=== PATIENT | female | born 1950 | race Caucasian/White ===

== ENCOUNTER 2019-08-26 09:42 | Outpatient (CLI) | payer MEDICARE, SELFPAY ==
[2019-08-26 09:57] LABS: Basophils Percent Auto 0.8 % (0.2-1.2); Eosinophils Absolute Auto 0.1 K/mm3 (0-0.3); Eosinophils Percent Auto 1.9 % (0-4.4); Hematocrit 35.6 % (37.0-47.0); Hemoglobin 11.7 g/dL (12.0-15.0); Immature Granulocyte Absolute 0.02 K/mm3 (0.00-0.031); Immature Granulocyte Percent A 0.4 % (0-0.5); Lymphocytes Absolute Auto 0.73 K/mm3 (0.9-3.2); Lymphocytes Percent Auto 13.8 % (18.3-44.2); Mean Corpuscular HGB Conc 32.9 g/dl (32-36); Mean Corpuscular Hemoglobin 30.8 pg (26-34); Mean Corpuscular Volume 93.7 fl (80-100); Mean Platelet Volume 10.7 fl (7.4-10.4); Monocytes Absolute Auto 0.4 K/mm3 (0.1-0.6); Monocytes Percent Auto 6.8 % (2.6-8.5); Neutrophils Percent Auto 76.3 % (45.5-73.1); Platelet Count Result 186 k/mm3 (150-375); Red Cell Distribution Width 12.9 % (11.5-14.5); White Blood Count 5.3 K/mm3 (4.5-10.0)
[2019-08-26 10:11] LABS: CRP < 0.5 mg/dL (<1.0)
[2019-08-26 10:33] LABS: Erythrocyte Sedimentation Rate 118 mm/hr (0-20)
== END 2019-08-26 09:43 | disposition home or self-care (01) ==
PROVIDERS: PCP Internal Medicine; Visit Provider Internal Medicine
DX: R69 Illness, unspecified (principal); Z79.899 Other long term (current) drug therapy
CPT/HCPCS: 36415; 85025; 85652; 86140

== ENCOUNTER 2019-08-28 14:24 | Outpatient (CLI) | payer MEDICARE, SELFPAY ==
[2019-08-28 15:01] LABS: Erythrocyte Sedimentation Rate 63 mm/hr (0-20)
== END 2019-08-28 14:25 | disposition home or self-care (01) ==
PROVIDERS: PCP Internal Medicine; Visit Provider Internal Medicine
DX: M31.6 Other giant cell arteritis (principal)
CPT/HCPCS: 36415; 85652

== ENCOUNTER 2019-09-13 06:51 | Outpatient (CLI) | payer MEDICARE, SELFPAY ==
[2019-09-13 07:23] LABS: Hematocrit 35.4 % (37.0-47.0); Hemoglobin 11.8 g/dL (12.0-15.0); Immature Granulocyte Absolute 0.04 K/mm3 (0.00-0.031); Immature Granulocyte Percent A 0.5 % (0-0.5); Lymphocytes Absolute Auto 0.85 K/mm3 (0.9-3.2); Lymphocytes Percent Auto 10.3 % (18.3-44.2); Mean Corpuscular HGB Conc 33.3 g/dl (32-36); Mean Corpuscular Hemoglobin 31.1 pg (26-34); Mean Corpuscular Volume 93.2 fl (80-100); Mean Platelet Volume 10.7 fl (7.4-10.4); Monocytes Absolute Auto 0.5 K/mm3 (0.1-0.6); Monocytes Percent Auto 6.4 % (2.6-8.5); Neutrophils Absolute Auto 6.9 K/mm3 (1.3-6.7); Neutrophils Percent Auto 82.8 % (45.5-73.1); Platelet Count Result 212 k/mm3 (150-375); Red Cell Distribution Width 13.1 % (11.5-14.5); White Blood Count 8.3 K/mm3 (4.5-10.0)
[2019-09-13 07:36] LABS: Blood Urea Nitrogen 26 mg/dL (7-17); Calcium 8.8 mg/dL (8.4-10.2); Carbon Dioxide 26 mmol/L (22-30); Chloride 101 mmol/L (98-107); Estimated Glomerular Filt Rate > 60; Glucose 103 mg/dL (65-105); Potassium 4.8 mmol/L (3.4-5.0); Sodium 133 mmol/L (137-145)
[2019-09-13 08:30] LABS: Erythrocyte Sedimentation Rate 24 mm/hr (0-20)
== END 2019-09-13 06:52 | disposition home or self-care (01) ==
LOC: ANHLAB 06:52
PROVIDERS: PCP Internal Medicine; Visit Provider Internal Medicine
DX: M31.6 Other giant cell arteritis (principal)
CPT/HCPCS: 36415; 80048; 85025; 85652

== ENCOUNTER 2019-10-05 06:39 | Outpatient (CLI) | payer MEDICARE, SELFPAY ==
[2019-10-05 07:29] LABS: Basophils Percent Auto 0.3 % (0.2-1.2); Eosinophils Percent Auto 0.5 % (0-4.4); Hematocrit 36.2 % (37.0-47.0); Hemoglobin 11.9 g/dL (12.0-15.0); Immature Granulocyte Absolute 0.07 K/mm3 (0.00-0.031); Immature Granulocyte Percent A 0.9 % (0-0.5); Lymphocytes Absolute Auto 2.51 K/mm3 (0.9-3.2); Lymphocytes Percent Auto 33.6 % (18.3-44.2); Mean Corpuscular HGB Conc 32.9 g/dl (32-36); Mean Corpuscular Hemoglobin 31.5 pg (26-34); Mean Corpuscular Volume 95.8 fl (80-100); Mean Platelet Volume 10.3 fl (7.4-10.4); Monocytes Absolute Auto 0.6 K/mm3 (0.1-0.6); Monocytes Percent Auto 8.3 % (2.6-8.5); Neutrophils Absolute Auto 4.2 K/mm3 (1.3-6.7); Neutrophils Percent Auto 56.4 % (45.5-73.1); Platelet Count Result 168 k/mm3 (150-375); Red Blood Count 3.78 M/mm3 (4.2-5.4); Red Cell Distribution Width 14.1 % (11.5-14.5); White Blood Count 7.5 K/mm3 (4.5-10.0)
[2019-10-05 07:39] LABS: Blood Urea Nitrogen 20 mg/dL (7-17); Calcium 8.9 mg/dL (8.4-10.2); Carbon Dioxide 31 mmol/L (22-30); Chloride 98 mmol/L (98-107); Cholesterol 181 mg/dL (0-200); Estimated Glomerular Filt Rate > 60; Glucose 84 mg/dL (65-105); HDL Direct 90 mg/dL; Potassium 4.2 mmol/L (3.4-5.0); Sodium 133 mmol/L (137-145); Triglycerides 131 mg/dL (<150)
[2019-10-05 07:42] LABS: CRP < 0.5 mg/dL (<1.0)
[2019-10-05 07:50] LABS: LDL Cholesterol Direct 76 mg/dL
[2019-10-05 09:18] LABS: Erythrocyte Sedimentation Rate 22 mm/hr (0-20)
[2019-10-05 09:33] LABS: Free T4 Free Thyroxine 1.21 ng/mL (0.78-2.19)
[2019-10-05 13:12] LABS: Hemoglobin A1C 6.1 % (<5.7)
== END 2019-10-05 06:40 | disposition home or self-care (01) ==
PROVIDERS: PCP Internal Medicine; Visit Provider Internal Medicine
DX: M31.6 Other giant cell arteritis (principal); I10 Essential (primary) hypertension; E03.9 Hypothyroidism, unspecified; E78.2 Mixed hyperlipidemia; R73.09 Other abnormal glucose; Z79.899 Other long term (current) drug therapy
CPT/HCPCS: 36415; 80048; 80061; 83036; 84439; 84443; 85025; 85652; 86140

== ENCOUNTER 2019-10-24 13:39 | Outpatient (CLI) | payer MEDICARE, SELFPAY ==
[2019-10-24 14:01] LABS: Basophils Percent Auto 0.4 % (0.2-1.2); Eosinophils Percent Auto 0.1 % (0-4.4); Hematocrit 32.9 % (37.0-47.0); Hemoglobin 10.9 g/dL (12.0-15.0); Immature Granulocyte Absolute 0.08 K/mm3 (0.00-0.031); Lymphocytes Absolute Auto 0.75 K/mm3 (0.9-3.2); Lymphocytes Percent Auto 9.1 % (18.3-44.2); Mean Corpuscular HGB Conc 33.1 g/dl (32-36); Mean Corpuscular Hemoglobin 32.2 pg (26-34); Mean Corpuscular Volume 97.1 fl (80-100); Mean Platelet Volume 10.3 fl (7.4-10.4); Monocytes Absolute Auto 0.5 K/mm3 (0.1-0.6); Monocytes Percent Auto 5.4 % (2.6-8.5); Platelet Count Result 232 k/mm3 (150-375); Red Blood Count 3.39 M/mm3 (4.2-5.4); Red Cell Distribution Width 14.7 % (11.5-14.5); White Blood Count 8.3 K/mm3 (4.5-10.0)
== END 2019-10-24 13:40 | disposition home or self-care (01) ==
LOC: ANHLAB 13:42
PROVIDERS: PCP Internal Medicine; Visit Provider Internal Medicine
DX: M25.559 Pain in unspecified hip (principal); T14.8XXA Other injury of unspecified body region, initial encounter
CPT/HCPCS: 36415; 85025

== ENCOUNTER 2019-10-25 11:10 | Outpatient (CLI) | payer MEDICARE, SELFPAY ==
--- NOTE | ~2019-10-25 | XR_ITS ---
XR hip LT min 2V DATE: 10/25/2019 13:06 INDICATION: Left hip pain TECHNIQUE: AP and lateral views of left hip COMPARISON: None FINDINGS: Moderate osteopenia. No fracture or dislocation, avascular necrosis or bone destruction of the left hip is evident. Alignment appears intact at the pubic symphysis and sacroiliac joints. Left hip joint space appears well preserved. IMPRESSION: No fracture or dislocation of the left hip is detected Reviewed, dictated and finalized at location A.
--- NOTE | ~2019-10-25 | MR_ITS ---
EXAMINATION: MR hip LT wo/w con DATE: 10/25/2019 13:02 INDICATION: Left hip pain. TECHNIQUE: Magnetic resonance imaging (MRI) of the left hip was performed without and with 20 mL Mult iHance intravenous contrast. Sequences included axial and coronal PD-weighted FS FSE, coronal T2-weig hted FSE, and axial T1-weighted FSE of the pelvis. Sequences of the hip included 2D FIESTA, T2-weight ed FSE, T1-weighted fast GRE, and axial, coronal, and sagittal PD-weighted FS FSE. Postcontrast seque nces included axial and coronal T1-weighted FS FSE. COMPARISON: Left hip radiographs 10/25/2019 FINDINGS: Bones/cartilage: There is 4 degrees levocurvature of lumbar spine. There is moderate lumbar spondylosis. No fracture. Left hip demonstrates partial thickness cartilage loss. Labrum: There is a tear of left acetabular labrum anterolaterally. Fluid: There is no hip joint effusion. There is mild right and moderate left trochanteric bursitis. Soft tissues: The iliopsoas tendons and hamstring origins are normal. There is mild right gluteus medius and gluteu s minimus tendinopathy. There is mild left gluteus minimus and gluteus medius tendinopathy. Left glut eus medius muscle and left inferior gemellus muscle demonstrate edema and hematoma, consistent with g rade 2 strains. There is edema of left piriformis muscle, consistent with grade 1 strain. There are uterine fibroids measuring up to 1.9 cm. There is diverticulosis of the colon without evidence of div erticulitis. IMPRESSION: 1. Grade 2 strains of left gluteus medius muscle and left inferior gemellus muscle. Grade 1 strain of left piriformis muscle. Reviewed, dictated and finalized at location A. IMPRESSION: 1. Grade 2 strains of left gluteus medius muscle and left inferior gemellus mus alba. Grade 1 strain of left piriformis muscle.
== END 2019-10-25 11:11 | disposition home or self-care (01) ==
PROVIDERS: PCP Internal Medicine; Visit Provider Internal Medicine
DX: M25.552 Pain in left hip (principal); M85.80 Other specified disorders of bone density and structure, unspecified site; Z79.01 Long term (current) use of anticoagulants; S76.012A Strain of muscle, fascia and tendon of left hip, initial encounter; Y93.89 Activity, other specified
CPT/HCPCS: 73502; 73723; A9577

== ENCOUNTER 2019-12-24 01:16 | Outpatient (CLI) | payer MEDICARE, SELFPAY ==
[2019-12-24 19:35] LABS: SARS-CoV-2 RNA PCR Negative
== END 2019-12-24 01:17 | disposition home or self-care (01) ==
LOC: ANHCOVIDDT 01:16
PROVIDERS: PCP Internal Medicine; Visit Provider Internal Medicine Gastroenterology
DX: Z01.812 Encounter for preprocedural laboratory examination (principal); Z11.59 Encounter for screening for other viral diseases
CPT/HCPCS: 87635; C9803; U0003

== ENCOUNTER 2019-12-26 01:31 | Day surgery (SDC) | payer MEDICARE, SELFPAY ==
[2019-12-19 15:18] VITALS: BMI 44.4
[2019-12-26 06:53] VITALS: BP 167/83; PULSE 66; RESP 18; TEMP 36.1; O2SAT 99; BMI 43.5
[2019-12-26] MEDS: LACTATED RINGERS 1,000 ML 150 ML IV CONT (07:07)
--- NOTE | 2019-12-26 07:12 | PM.HPGS ---
History of Present Illness History of Present Illness Consent: Risks, benefits, and alternatives have been discussed and questions answered. Patient agrees to proceed with procedure. Chief complaint: neoplasm screening Narrative: Eileen Maza is a 69 year old W female referred for screening colonoscopy secondary history of colonic polyps. Patient's last colonoscopy was 5 years ago. Patient is asymptomatic except for occasional bleeding from her hemorrhoids. Patient has a history of atrial fibrillation is on Eliquis and stop this 3 days ago. [facility] Past Medical History Medical History A-fib Aphthous ulcer of mouth ASHD (arteriosclerotic heart disease) Benign essential hypertension Body mass index (BMI) 40.0-44.9, adult Brain lipoma Bruise Chronic anticoagulation Elevated glucose Encounter for routine adult health examination without abnormal findings Encounter for screening mammogram for malignant neoplasm of breast GERD (gastroesophageal reflux disease) Hyperlipidemia Hypothyroidism (acquired) Impaired functional mobility, balance, gait, and endurance Iron deficiency anemia MRSA carrier Non-healing skin lesion 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 ALEXIS on CPAP Parotiditis Temporal arteritis Venous insufficiency Vitamin D deficiency Surgical History Surgical History History of section x 2 History of cholecystectomy Family History Family History Mother Family history of blood dyscrasia Patient's mother is Family history of arthritis Family history of malignant neoplasm Father Family history of emphysema Patient's father is Family history of cardiovascular disease Sibling Family history of seizure disorder Social History Social History Smoking status: Never smoker Second hand tobacco smoke exposure: No Alcohol intake: current Meds Home Medications and Allergies Home Medications Medication Instructions Recorded Confirmed Type coenzyme Q10 100 mg capsule 100 mg PO DAILY 06/03/19 12/19/19 History ferrous sulfate 325 mg (65 mg 325 mg PO DAILY 06/03/19 12/26/19 History iron) tablet flecainide 50 mg tablet 100 mg PO Q12H 06/03/19 12/19/19 History lorazepam 1 mg tablet 1 mg PO PRN PRN 06/03/19 12/19/19 History magnesium oxide 400 mg PO BID 06/03/19 12/19/19 History mecobalamin (vitamin B12) 1,000 1,000 mcg SUBLINGUAL DAILY 06/03/19 12/19/19 History mcg disintegrating tablet,sublingual rosuvastatin 40 mg tablet 40 mg PO DAILY #90 tablet 07/02/19 12/19/19 Rx folic acid 800 mcg tablet 0.8 mg PO DAILY 07/09/19 12/19/19 History levothyroxine 175 mcg tablet 175 mcg .ROUTE .COMPLEX #45 tablet 07/23/19 12/19/19 Rx losartan 100 1 tablet PO DAILY #90 tablet 08/05/19 12/19/19 Rx mg-hydrochlorothiazide 12.5 mg tablet atenolol 50 mg tablet 50 mg PO .COMPLEX #90 tablet 09/23/19 12/19/19 Rx apixaban 5 mg tablet 5 mg PO BID #180 tablet 10/30/19 12/19/19 Rx hydrochlorothiazide 12.5 mg tablet 12.5 mg PO DAILY #90 tablet 11/01/19 12/19/19 Rx levothyroxine 200 mcg tablet 200 mcg .ROUTE .COMPLEX #45 tablet 11/28/19 12/19/19 Rx hydrocodone 5 mg-acetaminophen 325 1 tablet PO Q8H PRN #35 tablet 12/09/19 12/19/19 Rx mg tablet cholecalciferol (vitamin D3) 50 mcg PO BID 12/19/19 12/19/19 History [Vitamin D3] prednisone 5 mg PO DAILY 12/19/19 12/19/19 History Allergies Allergy/AdvReac Type Severity Reaction Status Date / Time meperidine AdvReac Unknown Nausea Verified 12/26/19 06:51 Vital Signs Vital Signs - 24 hr 12/26/19 06:53 Temperature 36.1 C L Pulse Rate 66 Respiratory Rate 18 Blood Pressure 167/83 H Pulse Oximetry 99 Exam Const: Orientation/consciousness: patient oriented x3 Resp: Auscultation: clear to auscultation bi
--- NOTE | 2019-12-26 07:26 | WPDANESEPPF ---
Anes - Initial Pre Proc Eval Procedure: Operation Date: 12/26/19 08:00 Proposed Procedures p Screening Colonoscopy - Carlos Lawrence MD Date/Time: 12/26/19 07:26 Surgeon: Carlos Lawrence MD Pre Op Diagnosis: neoplasm screening Patient Data Age: 69 Gender: F Height: 5 ft 6 in Weight: 122.5 kg Last Vital Signs Temp 97 F L 12/26/19 06:53 Pulse 66 12/26/19 06:53 Resp 18 12/26/19 06:53 BP 167/83 H 12/26/19 06:53 Pulse Ox 99 12/26/19 06:53 Allergies Allergy/AdvReac Type Severity Reaction Status Date / Time meperidine AdvReac Unknown Nausea Verified 12/26/19 06:51 Home Medications Medication Instructions Recorded Confirmed Type coenzyme Q10 100 mg capsule 100 mg PO DAILY 06/03/19 12/19/19 History ferrous sulfate 325 mg (65 mg 325 mg PO DAILY 06/03/19 12/26/19 History iron) tablet flecainide 50 mg tablet 100 mg PO Q12H 06/03/19 12/19/19 History lorazepam 1 mg tablet 1 mg PO PRN PRN 06/03/19 12/19/19 History magnesium oxide 400 mg PO BID 06/03/19 12/19/19 History mecobalamin (vitamin B12) 1,000 1,000 mcg SUBLINGUAL DAILY 06/03/19 12/19/19 History mcg disintegrating tablet,sublingual rosuvastatin 40 mg tablet 40 mg PO DAILY #90 tablet 07/02/19 12/19/19 Rx folic acid 800 mcg tablet 0.8 mg PO DAILY 07/09/19 12/19/19 History levothyroxine 175 mcg tablet 175 mcg .ROUTE .COMPLEX #45 tablet 07/23/19 12/19/19 Rx losartan 100 1 tablet PO DAILY #90 tablet 08/05/19 12/19/19 Rx mg-hydrochlorothiazide 12.5 mg tablet atenolol 50 mg tablet 50 mg PO .COMPLEX #90 tablet 09/23/19 12/19/19 Rx apixaban 5 mg tablet 5 mg PO BID #180 tablet 10/30/19 12/19/19 Rx hydrochlorothiazide 12.5 mg tablet 12.5 mg PO DAILY #90 tablet 11/01/19 12/19/19 Rx levothyroxine 200 mcg tablet 200 mcg .ROUTE .COMPLEX #45 tablet 11/28/19 12/19/19 Rx hydrocodone 5 mg-acetaminophen 325 1 tablet PO Q8H PRN #35 tablet 12/09/19 12/19/19 Rx mg tablet cholecalciferol (vitamin D3) 50 mcg PO BID 12/19/19 12/19/19 History [Vitamin D3] prednisone 5 mg PO DAILY 12/19/19 12/19/19 History Patient hx anesthesia problems: none Family hx anesthesia problems: none PMFSH Past Medical History Medical History A-fib Aphthous ulcer of mouth ASHD (arteriosclerotic heart disease) Benign essential hypertension Body mass index (BMI) 40.0-44.9, adult Brain lipoma Bruise Chronic anticoagulation Elevated glucose Encounter for routine adult health examination without abnormal findings Encounter for screening mammogram for malignant neoplasm of breast GERD (gastroesophageal reflux disease) Hyperlipidemia Hypothyroidism (acquired) Impaired functional mobility, balance, gait, and endurance Iron deficiency anemia MRSA carrier Non-healing skin lesion 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 ALEXIS on CPAP Parotiditis Temporal arteritis Venous insufficiency Vitamin D deficiency Surgical History Surgical History History of section x 2 History of cholecystectomy Family History Family History Mother Family history of blood dyscrasia Patient's mother is Family history of arthritis Family history of malignant neoplasm Father Family history of emphysema Patient's father is Family history of cardiovascular disease Sibling Family history of seizure disorder Social History Social History Smoking status: Never smoker Second hand tobacco smoke exposure: No Alcohol intake: current Anes - Eval Final PreProcedure Day of Procedure 12/26/19 07:26 Patient weight: morbidly obese Heart: regular rate and rhythm Lungs: clear to auscultation Airway: Mallampati scale class III Neurological: alert and oriented Last oral intake: >/= 8 hours ASA classification: IV Emergent: n
[2019-12-26 08:34] VITALS: BP 109/74; PULSE 62; RESP 21; O2SAT 97
[2019-12-26 08:44] VITALS: BP 143/66; PULSE 57; RESP 18; O2SAT 100
[2019-12-26 08:55] VITALS: BP 143/66; PULSE 55; RESP 21; O2SAT 100
== END 2019-12-26 08:43 | disposition home or self-care (01) ==
PROVIDERS: PCP Internal Medicine; Visit Provider Internal Medicine Gastroenterology
PROC: 0DJD8ZZ Inspection of Lower Intestinal Tract, Via Natural or Artificial Opening Endoscopic (ICD-10-PCS; CPT 45378; principal; 2019-12-26 08:00)
DX: Z12.11 Encounter for screening for malignant neoplasm of colon (principal); D12.0 Benign neoplasm of cecum; D12.2 Benign neoplasm of ascending colon; D12.3 Benign neoplasm of transverse colon; K57.30 Diverticulosis of large intestine without perforation or abscess without bleeding; K64.8 Other hemorrhoids; K64.4 Residual hemorrhoidal skin tags; Z79.01 Long term (current) use of anticoagulants; I48.91 Unspecified atrial fibrillation; I25.10 Atherosclerotic heart disease of native coronary artery without angina pectoris; K21.9 Gastro-esophageal reflux disease without esophagitis; E78.5 Hyperlipidemia, unspecified; E03.9 Hypothyroidism, unspecified; D50.9 Iron deficiency anemia, unspecified; G47.33 Obstructive sleep apnea (adult) (pediatric); E55.9 Vitamin D deficiency, unspecified; I87.2 Venous insufficiency (chronic) (peripheral); E66.01 Morbid (severe) obesity due to excess calories; Z68.41 Body mass index [BMI] 40.0-44.9, adult
CPT/HCPCS: 45385; 88305; J2704; J7120

== ENCOUNTER 2019-12-30 06:33 | Outpatient (CLI) | payer MEDICARE, SELFPAY ==
[2019-12-30 07:33] LABS: Anion Gap 10 mmol/L (8-16); Blood Urea Nitrogen 20 mg/dL (7-17); CRP < 0.5 mg/dL (<1.0); Carbon Dioxide 25 mmol/L (22-30); Chloride 96 mmol/L (98-107); Cholesterol 163 mg/dL (0-200); Estimated Glomerular Filt Rate > 60; Glucose 103 mg/dL (65-105); HDL Direct 62 mg/dL; Potassium 3.6 mmol/L (3.4-5.0); Sodium 131 mmol/L (137-145); Triglycerides 124 mg/dL (<150)
[2019-12-30 07:42] LABS: LDL Cholesterol Direct 72 mg/dL
[2019-12-30 07:44] LABS: Erythrocyte Sedimentation Rate 89 mm/hr (0-20)
[2019-12-30 08:19] LABS: Hemoglobin A1C 5.1 % (<5.7)
[2019-12-30 08:22] LABS: Free T4 Free Thyroxine 1.51 ng/mL (0.78-2.19)
== END 2019-12-30 06:34 | disposition home or self-care (01) ==
PROVIDERS: PCP Internal Medicine; Visit Provider Internal Medicine
DX: R73.09 Other abnormal glucose (principal); I10 Essential (primary) hypertension; E78.2 Mixed hyperlipidemia; E03.9 Hypothyroidism, unspecified; M31.6 Other giant cell arteritis
CPT/HCPCS: 36415; 80048; 80061; 83036; 84439; 84443; 85652; 86140

== ENCOUNTER 2020-01-06 06:41 | Outpatient (CLI) | payer MEDICARE, SELFPAY ==
[2020-01-06 07:31] LABS: Anion Gap 6 mmol/L (8-16); Blood Urea Nitrogen 26 mg/dL (7-17); Calcium 8.9 mg/dL (8.4-10.2); Carbon Dioxide 27 mmol/L (22-30); Chloride 99 mmol/L (98-107); Estimated Glomerular Filt Rate > 60; Glucose 95 mg/dL (65-105); Potassium 3.9 mmol/L (3.4-5.0); Sodium 132 mmol/L (137-145)
[2020-01-06 07:50] LABS: Erythrocyte Sedimentation Rate 60 mm/hr (0-20)
== END 2020-01-06 06:42 | disposition home or self-care (01) ==
PROVIDERS: PCP Internal Medicine; Visit Provider Internal Medicine
DX: M31.6 Other giant cell arteritis (principal)
CPT/HCPCS: 36415; 80048; 85652

== ENCOUNTER 2020-03-07 07:05 | Outpatient (CLI) | payer MEDICARE, SELFPAY ==
[2020-03-07 07:55] LABS: Anion Gap 6 mmol/L (8-16); Blood Urea Nitrogen 26 mg/dL (7-17); CRP < 0.5 mg/dL (<1.0); Calcium 9.4 mg/dL (8.4-10.2); Carbon Dioxide 29 mmol/L (22-30); Chloride 101 mmol/L (98-107); Estimated Glomerular Filt Rate > 60; Glucose 101 mg/dL (65-105); Potassium 4.1 mmol/L (3.4-5.0); Sodium 136 mmol/L (137-145)
[2020-03-07 08:39] LABS: Erythrocyte Sedimentation Rate 35 mm/hr (0-20)
== END 2020-03-07 07:06 | disposition home or self-care (01) ==
PROVIDERS: PCP Internal Medicine; Visit Provider Internal Medicine
DX: M31.6 Other giant cell arteritis (principal); I10 Essential (primary) hypertension
CPT/HCPCS: 36415; 80048; 85652; 86140

== ENCOUNTER 2020-03-20 07:34 | Outpatient (CLI) | payer MEDICARE, SELFPAY ==
--- NOTE | ~2020-03-20 | XR_ITS ---
XR wrist LT min 3V DATE: 03/20/2020 07:56 INDICATION: Lateral wrist pain, bone spur TECHNIQUE: 4 views COMPARISON: 06/09/2018 left wrist FINDINGS: There is severe osteoarthritic change and prominent spurring at the first carpal metacarpal joint. There is osteoarthritis of the triscaphe joint. There are degenerative cysts of the carpal bones and distal ulna. No fracture or dislocation, periosteal reaction or bone destruction. IMPRESSION: Osteoarthritis involving first carpometacarpal and triscaphe joints Reviewed, dictated and finalized at location A.
== END 2020-03-20 07:35 | disposition home or self-care (01) ==
LOC: ANHIMG 07:44
PROVIDERS: PCP Internal Medicine; Visit Provider Plastic Surgery
DX: M19.032 Primary osteoarthritis, left wrist (principal)
CPT/HCPCS: 73110

== ENCOUNTER 2020-05-25 06:44 | Outpatient (CLI) | payer MEDICARE, SELFPAY ==
[2020-05-25 08:40] LABS: Erythrocyte Sedimentation Rate 33 mm/hr (0-20)
== END 2020-05-25 06:45 | disposition home or self-care (01) ==
LOC: ANHLAB 06:48
PROVIDERS: PCP Internal Medicine; Visit Provider Internal Medicine
DX: M31.6 Other giant cell arteritis (principal)
CPT/HCPCS: 36415; 85652

== ENCOUNTER 2020-05-29 07:24 | Outpatient (RCR) | payer MEDICARE, SELFPAY ==
[2020-03-23 09:27] VITALS: BMI 45.1
== END 2020-06-21 23:59 | disposition home or self-care (01) ==
LOC: ANHWOC 07:24
PROVIDERS: PCP Internal Medicine; Visit Provider Internal Medicine
DX: T21.23XD Burn of second degree of upper back, subsequent encounter (principal)
CPT/HCPCS: 99211; 99212; G0463

== ENCOUNTER 2020-06-24 07:50 | Outpatient (CLI) | payer MEDICARE, SELFPAY ==
--- NOTE | ~2020-06-24 | XR_ITS ---
XR UGIAC w small bowel DATE: 06/24/2020 09:29 INDICATION: Early satiety. Excessive gas, bloating. TECHNIQUE: Air-contrast upper gastrointestinal series. Serial images of the small bowel and spot radi ograph of the terminal ileum. 1.7 minutes fluoroscopy time DAP: 99.71 88 images COMPARISON: 09/11/2017 air-contrast upper gastrointestinal series FINDINGS: There is normal deglutition. No stricture, mucosal fold thickening, erosion, ulceration or intraluminal mass lesion of the esophagus or stomach or duodenum is detected. Surgical clips, right upper quadrant, consistent with cholecystectomy. Normally shaped duodenal bulb. No duodenal ulcer or mucosal fold thickening. Approximately 4 cm diverticulum of part to the duodenum. 3.5 cm diverticulum of the third part of the duodenum. There is normal transit of contrast material through the small bowel. No mucosal fold thickening, str icture, abnormal dilatation, obstruction or intraluminal mass lesion of the small bowel is evident. IMPRESSION: Status post cholecystectomy Duodenal diverticula Reviewed, dictated and finalized at Location A. Reviewed, dictated and finalized at location A. 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
== END 2020-06-24 07:51 | disposition home or self-care (01) ==
PROVIDERS: PCP Internal Medicine; Visit Provider Internal Medicine
DX: R68.81 Early satiety (principal); R14.0 Abdominal distension (gaseous); Z90.49 Acquired absence of other specified parts of digestive tract; K57.10 Diverticulosis of small intestine without perforation or abscess without bleeding
CPT/HCPCS: 74246; 74248

== ENCOUNTER 2020-07-22 06:40 | Outpatient (CLI) | payer MEDICARE, SELFPAY ==
[2020-07-22 07:38] LABS: Basophils Percent Auto 0.6 % (0.2-1.2); Eosinophils Absolute Auto 0.1 K/mm3 (0-0.3); Eosinophils Percent Auto 1.6 % (0-4.4); Hematocrit 35.8 % (37.0-47.0); Hemoglobin 12.1 g/dL (12.0-15.0); Immature Granulocyte Absolute 0.03 K/mm3 (0.00-0.031); Immature Granulocyte Percent A 0.4 % (0-0.5); Lymphocytes Absolute Auto 1.62 K/mm3 (0.9-3.2); Lymphocytes Percent Auto 23.7 % (18.3-44.2); Mean Corpuscular HGB Conc 33.8 g/dl (32-36); Mean Corpuscular Hemoglobin 33.7 pg (26-34); Mean Corpuscular Volume 99.7 fl (80-100); Monocytes Absolute Auto 0.5 K/mm3 (0.1-0.6); Monocytes Percent Auto 7.5 % (2.6-8.5); Neutrophils Absolute Auto 4.5 K/mm3 (1.3-6.7); Neutrophils Percent Auto 66.2 % (45.5-73.1); Platelet Count Result 168 k/mm3 (150-375); Red Blood Count 3.59 M/mm3 (4.2-5.4); Red Cell Distribution Width 13.2 % (11.5-14.5); White Blood Count 6.8 K/mm3 (4.5-10.0)
[2020-07-22 07:52] LABS: Hemoglobin A1C 5.6 % (<5.7)
[2020-07-22 07:56] LABS: Alanine Aminotransferase 20 U/L (4-35); Albumin Level 3.8 g/dL (3.5-5.1); Alkaline Phosphatase 53 U/L (38-126); Anion Gap 5 mmol/L (8-16); Aspartate Amino Transferase 23 U/L (14-36); Bilirubin,Total 0.5 mg/dL (0.2-1.3); Blood Urea Nitrogen 30 mg/dL (7-17); CRP < 0.5 mg/dL (<1.0); Calcium 9.2 mg/dL (8.4-10.2); Carbon Dioxide 30 mmol/L (22-30); Chloride 104 mmol/L (98-107); Cholesterol 169 mg/dL (0-200); Estimated Glomerular Filt Rate 44; Glucose 105 mg/dL (65-105); HDL Direct 78 mg/dL; Potassium 4.4 mmol/L (3.4-5.0); Sodium 139 mmol/L (137-145); Triglycerides 107 mg/dL (<150)
[2020-07-22 08:06] LABS: LDL Cholesterol Direct 67 mg/dL
[2020-07-22 08:12] LABS: Erythrocyte Sedimentation Rate 27 mm/hr (0-20)
[2020-07-22 10:56] LABS: Free T4 Free Thyroxine 1.42 ng/mL (0.78-2.19)
== END 2020-07-22 06:41 | disposition home or self-care (01) ==
PROVIDERS: PCP Internal Medicine; Visit Provider Internal Medicine
DX: E03.9 Hypothyroidism, unspecified (principal); I10 Essential (primary) hypertension; I48.91 Unspecified atrial fibrillation; I25.10 Atherosclerotic heart disease of native coronary artery without angina pectoris; E78.2 Mixed hyperlipidemia; Z79.899 Other long term (current) drug therapy
CPT/HCPCS: 36415; 80053; 80061; 82306; 83036; 84439; 84443; 85025; 85652; 86140

== ENCOUNTER 2020-09-15 09:26 | Outpatient (CLI) | payer MEDICARE, SELFPAY ==
--- NOTE | ~2020-09-15 | US_ITS ---
EXAMINATION:US venous doppler LE LT INDICATION:Leg edema TECHNIQUE: Multiple grayscale, color flow and Doppler images of the left lower extremity deep venous systems were obtained and reviewed. COMPARISON:No prior studies for comparison. FINDINGS: The common femoral, superficial femoral and popliteal veins demonstrate normal respiratory variation, augmentation and compressibility. Color flow is also seen within the posterior tibial, pe roneal, greater saphenous and profunda veins. There is an ill-defined hypoechoic structure in the left popliteal fossa which may represent a compli cated Young's cyst or hematoma. IMPRESSION: 1: No lower extremity deep venous thrombosis. Reviewed, dictated and finalized at location B.
== END 2020-09-15 09:27 | disposition home or self-care (01) ==
LOC: ANHIMG 09:27
PROVIDERS: PCP Internal Medicine; Visit Provider Internal Medicine
DX: M79.662 Pain in left lower leg (principal); R60.9 Edema, unspecified
CPT/HCPCS: 93971

== ENCOUNTER 2020-10-21 08:38 | Outpatient (CLI) | payer MEDICARE, SELFPAY ==
--- NOTE | ~2020-10-21 | DEXA_ITS ---
Bone Density Report Name: Eileen Maza Age: 70 Sex: Female Ethnicity: White Date of : 1950 Indication: postmenopausal; height loss; rheumatoid arthritis; Referring Provider: Peggy Zepeda Study: Bone densitometry was performed. Exam Date: October 21, 2020 Accession number: [id number] Bone Density: Region BMD T-score Z-score Classification AP Spine (L2, L3) 0.870 -1.7 0.6 Osteopenia Femoral Neck (Left) 0.498 -3.2 -1.2 Osteoporosis Total Hip (Left) 0.846 -0.8 0.8 Normal Total Hip Bilateral Avg 0.812 -1.1 0.6 Osteopenia Femoral Neck (Right) 0.551 -2.7 -0.8 Osteoporosis Total Hip (Right) 0.776 -1.4 0.3 Osteopenia World Health Organization criteria for BMD impression classify patients as: Normal (T-score at or above -1.0), Osteopenia (T-score between -1.0 and -2.5), or Osteoporosis (T-score at or below -2.5). 10-year Fracture Risk: FRAX not reported because: Some T-score for Spine Total or Hip Total or Femoral Neck at or below -2.5 Clinical Information Provided by Patient: Has rheumatoid arthritis Has used the following medications: Vitamin D Patient maximum height was 68 Menopause Age: 55 No regular weight bearing exercise Onset of menses at age 10 Number of children 2 Impression: The patient has osteoporosis, based on the Left Femoral Neck T-score. Discussion: INCREASED RISK OF FRACTURE. BONE DENSITY IS UNDESIRABLY LOW AT ONE OR MORE SKELETAL SITES, CONSISTENT WITH POSTMENOPAUSAL OSTEOPOROSIS. This patient's lowest T-score meets the World Health Organization's (WHO) criteria for osteoporosis at one or more sites (T-score -2.5 or below). In untreated patients, the risk of osteoporotic fracture increases approximately two-fold for each 1.0 SD decrease in T-score. Low bone density is not the only risk factor for fracture; also consider factors such as patient's age, frailty or poor health, risk of falling, risk of injury, previous osteoporotic fracture, family history of osteoporosis, cigarette smoking, low body weight, etc. Not everyone with low bone mineral density has osteoporosis; osteomalacia and other metabolic bone disorders should also be considered. Patients who have osteoporosis should be evaluated for specific diseases and conditions (secondary causes) that may cause or contribute to bone loss. The [place] [employer] Endocrinologists (AACE) and National Osteoporosis Foundation (NOF) recommend pharmacologic intervention for all postmenopausal women whose T-score is in this range. The patient should follow a healthful lifestyle (good nutrition with adequate calcium and vitamin D, and appropriate weight-bearing exercise). Follow-Up: Consider a repeat BMD and Vertebral Fracture Assessment (VFA) exam in 2 years or sooner if medically necessary, to reassess this patient's status. Reported
== END 2020-10-21 08:39 | disposition home or self-care (01) ==
LOC: ANHIMG 08:39
PROVIDERS: PCP Internal Medicine; Visit Provider Student in an Organized Health Care Education/Training Program
DX: Z78.0 Asymptomatic menopausal state (principal); M85.89 Other specified disorders of bone density and structure, multiple sites; M81.0 Age-related osteoporosis without current pathological fracture
CPT/HCPCS: 77080

== ENCOUNTER 2020-10-28 07:29 | Outpatient (CLI) | payer MEDICARE, SELFPAY ==
[2020-10-28 08:21] LABS: Basophils Percent Auto 0.6 % (0.2-1.2); Eosinophils Absolute Auto 0.1 K/mm3 (0-0.3); Eosinophils Percent Auto 2.4 % (0-4.4); Hematocrit 34.7 % (37.0-47.0); Hemoglobin 11.7 g/dL (12.0-15.0); Immature Granulocyte Absolute 0.02 K/mm3 (0.00-0.031); Immature Granulocyte Percent A 0.4 % (0-0.5); Lymphocytes Absolute Auto 0.75 K/mm3 (0.9-3.2); Lymphocytes Percent Auto 13.8 % (18.3-44.2); Mean Corpuscular HGB Conc 33.7 g/dl (32-36); Mean Corpuscular Hemoglobin 32.4 pg (26-34); Mean Corpuscular Volume 96.1 fl (80-100); Monocytes Absolute Auto 0.5 K/mm3 (0.1-0.6); Monocytes Percent Auto 8.3 % (2.6-8.5); Neutrophils Absolute Auto 4.1 K/mm3 (1.3-6.7); Neutrophils Percent Auto 74.5 % (45.5-73.1); Platelet Count Result 153 k/mm3 (150-375); Red Blood Count 3.61 M/mm3 (4.2-5.4); Red Cell Distribution Width 12.4 % (11.5-14.5); White Blood Count 5.5 K/mm3 (4.5-10.0)
[2020-10-28 08:38] LABS: Anion Gap 9 mmol/L (8-16); Blood Urea Nitrogen 16 mg/dL (7-17); CRP < 0.5 mg/dL (<1.0); Calcium 9.6 mg/dL (8.4-10.2); Carbon Dioxide 27 mmol/L (22-30); Chloride 104 mmol/L (98-107); Estimated Glomerular Filt Rate > 60; Glucose 112 mg/dL (65-105); Potassium 3.8 mmol/L (3.4-5.0); Sodium 140 mmol/L (137-145)
[2020-10-28 13:02] LABS: Erythrocyte Sedimentation Rate 59 mm/hr (0-20)
== END 2020-10-28 07:30 | disposition home or self-care (01) ==
PROVIDERS: PCP Internal Medicine; Visit Provider Internal Medicine
DX: I10 Essential (primary) hypertension (principal); M35.3 Polymyalgia rheumatica
CPT/HCPCS: 36415; 80048; 85025; 85652; 86140

== ENCOUNTER 2020-12-08 06:42 | Outpatient (CLI) | payer MEDICARE, SELFPAY ==
[2020-12-08 07:15] LABS: Basophils Percent Auto 0.2 % (0.2-1.2); Eosinophils Absolute Auto 0.1 K/mm3 (0-0.3); Eosinophils Percent Auto 0.8 % (0-4.4); Hematocrit 35.9 % (37.0-47.0); Immature Granulocyte Absolute 0.03 K/mm3 (0.00-0.031); Immature Granulocyte Percent A 0.5 % (0-0.5); Lymphocytes Absolute Auto 1.05 K/mm3 (0.9-3.2); Lymphocytes Percent Auto 16.7 % (18.3-44.2); Mean Corpuscular HGB Conc 33.4 g/dl (32-36); Mean Corpuscular Hemoglobin 31.7 pg (26-34); Mean Platelet Volume 10.8 fl (7.4-10.4); Monocytes Absolute Auto 0.6 K/mm3 (0.1-0.6); Monocytes Percent Auto 9.5 % (2.6-8.5); Neutrophils Absolute Auto 4.6 K/mm3 (1.3-6.7); Neutrophils Percent Auto 72.3 % (45.5-73.1); Platelet Count Result 176 k/mm3 (150-375); Red Blood Count 3.78 M/mm3 (4.2-5.4); Red Cell Distribution Width 12.5 % (11.5-14.5); White Blood Count 6.3 K/mm3 (4.5-10.0)
[2020-12-08 07:24] LABS: Hemoglobin A1C 5.9 % (<5.7)
[2020-12-08 07:25] LABS: Alanine Aminotransferase 17 U/L (4-35); Alkaline Phosphatase 78 U/L (38-126); Anion Gap 8 mmol/L (8-16); Aspartate Amino Transferase 20 U/L (14-36); Bilirubin,Total 0.7 mg/dL (0.2-1.3); Blood Urea Nitrogen 20 mg/dL (7-17); CRP < 0.5 mg/dL (<1.0); Calcium 9.4 mg/dL (8.4-10.2); Carbon Dioxide 26 mmol/L (22-30); Chloride 101 mmol/L (98-107); Cholesterol 187 mg/dL (0-200); Estimated Glomerular Filt Rate 55; Glucose 96 mg/dL (65-110); HDL Direct 68 mg/dL; Potassium 4.1 mmol/L (3.4-5.0); Sodium 135 mmol/L (137-145); Triglycerides 154 mg/dL (<150)
[2020-12-08 07:35] LABS: LDL Cholesterol Direct 73 mg/dL
[2020-12-08 08:29] LABS: Erythrocyte Sedimentation Rate 40 mm/hr (0-20)
== END 2020-12-08 06:43 | disposition home or self-care (01) ==
PROVIDERS: PCP Internal Medicine; Visit Provider Internal Medicine
DX: M35.3 Polymyalgia rheumatica (principal); I10 Essential (primary) hypertension; R73.09 Other abnormal glucose; E78.2 Mixed hyperlipidemia
CPT/HCPCS: 36415; 80053; 80061; 83036; 85025; 85652; 86140

== ENCOUNTER 2021-01-19 06:40 | Outpatient (CLI) | payer MEDICARE, SELFPAY ==
[2021-01-19 07:57] LABS: Basophils Percent Auto 0.4 % (0.2-1.2); Eosinophils Absolute Auto 0.1 K/mm3 (0-0.3); Eosinophils Percent Auto 1.2 % (0-4.4); Hematocrit 36.1 % (37.0-47.0); Immature Granulocyte Absolute 0.02 K/mm3 (0.00-0.031); Immature Granulocyte Percent A 0.3 % (0-0.5); Lymphocytes Absolute Auto 1.52 K/mm3 (0.9-3.2); Lymphocytes Percent Auto 20.5 % (18.3-44.2); Mean Corpuscular HGB Conc 33.2 g/dl (32-36); Mean Corpuscular Hemoglobin 31.7 pg (26-34); Mean Corpuscular Volume 95.3 fl (80-100); Mean Platelet Volume 10.7 fl (7.4-10.4); Monocytes Absolute Auto 0.7 K/mm3 (0.1-0.6); Monocytes Percent Auto 9.9 % (2.6-8.5); Neutrophils Percent Auto 67.7 % (45.5-73.1); Platelet Count Result 181 k/mm3 (150-375); Red Blood Count 3.79 M/mm3 (4.2-5.4); Red Cell Distribution Width 12.8 % (11.5-14.5); White Blood Count 7.4 K/mm3 (4.5-10.0)
[2021-01-19 08:18] LABS: Anion Gap 6 mmol/L (8-16); Blood Urea Nitrogen 27 mg/dL (7-17); CRP < 0.5 mg/dL (<1.0); Calcium 8.9 mg/dL (8.4-10.2); Carbon Dioxide 27 mmol/L (22-30); Chloride 101 mmol/L (98-107); Estimated Glomerular Filt Rate > 60; Glucose 91 mg/dL (65-110); Potassium 4.5 mmol/L (3.4-5.0); Sodium 134 mmol/L (137-145)
[2021-01-19 08:34] LABS: Erythrocyte Sedimentation Rate 24 mm/hr (0-20)
== END 2021-01-19 06:41 | disposition home or self-care (01) ==
LOC: ANHLAB 06:43
PROVIDERS: PCP Internal Medicine; Visit Provider Internal Medicine
DX: M31.6 Other giant cell arteritis (principal); Z79.01 Long term (current) use of anticoagulants
CPT/HCPCS: 36415; 80048; 85025; 85652; 86140

== ENCOUNTER 2021-01-28 11:25 | Outpatient (CLI) | payer MEDICARE, SELFPAY ==
--- NOTE | ~2021-01-28 | XR_ITS ---
EXAMINATION: XR sacroiliac joints min 3V INDICATION: Left leg pain TECHNIQUE: Three views of the sacroiliac joints are obtained. COMPARISON: None available FINDINGS: Bone alignment is normal. There is no fracture. No abnormal sclerosis or erosion of the sac roiliac joints is identified. There are phleboliths in the pelvis. IMPRESSION: 1. No acute osseous abnormality. Reviewed, dictated and finalized at location B.
--- NOTE | ~2021-01-28 | XR_ITS ---
EXAMINATION: XR lumbar spine 2-3V DATE: 01/28/2021 12:05 INDICATION: Low back pain TECHNIQUE: Anteroposterior and lateral views of the lumbar spine, and cone-down lateral view of the l umbosacral junction were obtained. COMPARISON: 06/12/2019 FINDINGS: There are 15 degrees of thoracolumbar levoscoliosis. There are 9 mm of unchanged anterolist hesis of L4 on L5 and 3 mm of unchanged retrolisthesis of L3 on L4. The lumbar vertebral body heights are maintained. There is moderate to severe loss of intervertebral disc space height at L1-2 and L4- 5 and moderate loss of disc space height throughout the remainder of the lumbar spine. There is moder ate facet osteoarthritis of the lower lumbar spine. Degenerative osteophytes project from the anterio r endplates of multiple vertebral bodies. Surgical clips in the right upper quadrant are likely from prior cholecystectomy. IMPRESSION: 1. Moderate to severe lumbar spondylosis without acute findings or significant interval change. Reviewed, dictated and finalized at location B.
== END 2021-01-28 11:26 | disposition home or self-care (01) ==
LOC: ANHIMG 11:29
PROVIDERS: PCP Internal Medicine; Visit Provider Internal Medicine
DX: M47.816 Spondylosis without myelopathy or radiculopathy, lumbar region (principal); M79.605 Pain in left leg; M25.552 Pain in left hip
CPT/HCPCS: 72100; 72202

== ENCOUNTER 2021-02-22 06:53 | Outpatient (CLI) | payer MEDICARE, SELFPAY ==
--- NOTE | ~2021-02-22 | MR_ITS ---
EXAMINATION: MR lumbar spine wo [facility] EXAM DATE: 02/22/2021 07:36 INDICATION: Low back pain. TECHNIQUE: Multi-sequential, multiplanar MR images of the lumbar spine were obtained without contrast . Sagittal T1, T2, T2 fat saturation images. Axial T2 weighted images. There is no prior study for comparison. FINDINGS: There is mild to moderate thoracolumbar levoscoliosis. There is moderate loss of the disc h eight at T12-L1 and L1-2, mild to moderate at the other lumbar levels. The conus medullaris terminate s at the T12 level and has normal signal intensity and morphology. There is 7 mm anterolisthesis L4 on L5 without spondylolysis. There are no suspicious marrow signal abnormalities. Paraspinal soft tissue is unremarkable. Level by level evaluation: T12-L1: There is a mild diffuse disc bulge. Facet arthropathy: Mild. Neural foraminal stenosis: No stenosis. Central canal stenosis: No stenosis. L1-L2: There is a mild diffuse disc bulge. Facet arthropathy: Mild. Neural foraminal stenosis: Mild right. Central canal stenosis: No stenosis. L2-L3: There is a mild to moderate diffuse disc bulge. Facet arthropathy: Mild to moderate. Neural foraminal stenosis: No stenosis. Central canal stenosis: No stenosis. L3-L4: There is a moderate diffuse disc bulge. Facet arthropathy: Moderate to severe . Ligamentum flavum enlargement. Neural foraminal stenosis: Moderate left, mild to moderate right. Central canal stenosis: Moderate to severe. L4-L5: There is a moderate diffuse disc bulge. Facet arthropathy: Severe . Ligamentum flavum enlargement. Neural foraminal stenosis: Moderate to severe bilateral. Central canal stenosis: Moderate to severe. L5-S1: Disc does not extend beyond the endplate margin. Facet arthropathy: Moderate left, mild right. Neural foraminal stenosis: Moderate left. Central canal stenosis: No stenosis. IMPRESSION: 1. L4-5 grade 1 anterolisthesis. 2. Moderate to severe central canal stenosis L3-4 and L4-5. 3. Spondylosis as above. Reviewed, dictated and finalized at location A.
== END 2021-02-22 06:54 | disposition home or self-care (01) ==
PROVIDERS: PCP Internal Medicine; Visit Provider Nurse Practitioner Family
DX: M54.50 Low back pain, unspecified (principal); M43.16 Spondylolisthesis, lumbar region; M48.061 Spinal stenosis, lumbar region without neurogenic claudication; M47.816 Spondylosis without myelopathy or radiculopathy, lumbar region
CPT/HCPCS: 72148

== ENCOUNTER → 2021-03-24 07:37 | Outpatient (CLI) | payer MEDICARE, SELFPAY ==
--- NOTE | ~2021-03-24 | US_ITS ---
EXAMINATION: US soft tissue UE LT DATE: 03/24/2021 08:15 INDICATION: Painful lump at the lateral/dorsal aspect of the wrist. TECHNIQUE: Multiple grayscale and Doppler ultrasound images of the region of concern at the dorsum of the wrist and carpus were obtained. COMPARISON: Left wrist radiographs dated 03/20/2020 FINDINGS: There is small amount of tenosynovial fluid in the second and third dorsal compartments. Focal mild t hickening of the extensor carpi radialis longus longus and brevis tendons at the level of the distal radius at and immediately proximal to the crossover of the extensor pollicis longus tendon which woul d be consistent with distal intersection interval of the wrist. No evident tendon tear. No other abno rmal masses or fluid collection is identified. IMPRESSION: 1. Tendinopathy of the tendons in the second dorsal compartment and tenosynovitis in the second and t hird dorsal compartments consistent with distal intersection syndrome of the wrist. This can be due t o overuse, discrete trauma or secondary to inflammatory or autoimmune diseases include including rheu matoid arthritis, lupus or gout. Of note the erosion is seen at the distal ulna on the plain radiogra phs which elevates suspicion for either gout or rheumatoid. If clinically indicated ultrasound guided aspiration of the tenosynovial fluid could be obtained for crystal analysis. Reviewed, dictated and finalized at location A. IMPRESSION: 1. Tendinopathy of the tendons in the second dorsal compartment and tenosynovit is in the second and third dorsal compartments consistent with distal intersect ion syndrome of the wrist. This can be due to overuse, discrete trauma or secon cass to inflammatory or autoimmune diseases include including rheumatoid arthri tis, lupus or gout. Of note the erosion is seen at the distal ulna on the plain radiographs which elevates suspicion for either gout or rheumatoid. If clinica lly indicated ultrasound guided aspiration of the tenosynovial fluid could be o btained for crystal analysis.
== END ==
PROVIDERS: PCP Internal Medicine; Visit Provider Internal Medicine
DX: R22.2 Localized swelling, mass and lump, trunk (principal)
CPT/HCPCS: 76882

== ENCOUNTER → 2021-04-02 03:45 | Outpatient (CLI) | payer MEDICARE, SELFPAY ==
[2021-04-02 18:10] LABS: SARS-CoV-2 RNA PCR Positive
== END ==
PROVIDERS: PCP Internal Medicine; Visit Provider Internal Medicine
DX: U07.1 COVID-19 (principal)
CPT/HCPCS: C9803; U0003; U0005

== ENCOUNTER 2021-05-16 08:46 | Outpatient (CLI) | payer MEDICARE, SELFPAY ==
--- NOTE | ~2021-05-16 | XR_ITS ---
XR foot LT standing 2V DATE: 05/16/2021 09:19 INDICATION: Left foot pain TECHNIQUE: Weightbearing AP and lateral views COMPARISON: None FINDINGS: Prominent plantar and moderate posterior calcaneal spurring. There is mild to moderate osteoarthritis at the first metatarsophalangeal joint. There is mild soft tissue swelling of the forefoot. No fracture, dislocation, periosteal reaction or bone destruction. Anterior and posterior tibial, dorsalis pedis and metatarsal artery calcifications are noted; manuelide r diabetes. IMPRESSION: Plantar and posterior calcaneal enthesopathy Osteoarthritis at first metatarsophalangeal joint X-ray microcalcifications; consider diabetes Reviewed, dictated and finalized at location A. AS MARKER
--- NOTE | ~2021-05-16 | XR_ITS ---
XR ankle LT min 3V DATE: 05/16/2021 09:19 INDICATION: Left ankle and foot pain TECHNIQUE: 4 views COMPARISON: None FINDINGS: There is generalized soft tissue swelling of the left ankle. No fracture or dislocation of the ankle or disruption of the ankle mortise. No periosteal reaction or bone destruction. There is mild particular spurring of the tibiotalar joint. Prominent plantar and posterior calcaneal enthesopathy. Anterior and posterior tibial artery calcifications. IMPRESSION: Generalized soft tissue swelling Osteoarthritic the tibiotalar joint Prominent Plantar and posterior calcaneal enthesopathy Arterial calcification Reviewed, dictated and finalized at location A. KE COORDINATOR
== END 2021-05-16 08:47 | disposition home or self-care (01) ==
PROVIDERS: PCP Internal Medicine; Visit Provider Internal Medicine
DX: M79.672 Pain in left foot (principal); M77.32 Calcaneal spur, left foot; M77.31 Calcaneal spur, right foot; M19.072 Primary osteoarthritis, left ankle and foot; M19.071 Primary osteoarthritis, right ankle and foot; M79.89 Other specified soft tissue disorders
CPT/HCPCS: 73610; 73620

== ENCOUNTER 2021-06-04 08:11 | Outpatient (CLI) | payer MEDICARE, SELFPAY ==
[2021-06-04 09:00] LABS: Add Urine Microscopic? YES; Appearance Urine Clear (Clear); Bilirubin Urine Negative (Negative); Blood Urine Negative (Negative); Color Urine Yellow (Yellow); Glucose Urine UA Negative (Negative); Ketones Urine Negative (Negative); Leukocyte Esterase Ur 1+ LEU/UL (Negative); Mucus Urine Rare /lpf; Nitrate Urine Negative (Negative); Protein Urine Negative (Negative); Specific Grav Ur 1.018 (1.001-1.035); Squamous Epithelial Cell Urine Rare /hpf (Few); Urobilinogen Urine Negative mg/dL (<2.0)
[2021-06-04 09:13] LABS: Alanine Aminotransferase 20 U/L (4-35); Albumin Level 4.1 g/dL (3.5-5.1); Alkaline Phosphatase 66 U/L (38-126); Anion Gap 8 mmol/L (8-16); Aspartate Amino Transferase 23 U/L (14-36); Bilirubin,Total 0.8 mg/dL (0.2-1.3); Blood Urea Nitrogen 25 mg/dL (7-17); CRP < 0.5 mg/dL (<1.0); Carbon Dioxide 28 mmol/L (22-30); Chloride 102 mmol/L (98-107); Cholesterol 186 mg/dL (0-200); Estimated Glomerular Filt Rate 55; Glucose 124 mg/dL (65-110); HDL Direct 77 mg/dL; Potassium 4.2 mmol/L (3.4-5.0); Sodium 138 mmol/L (137-145); Triglycerides 151 mg/dL (<150)
[2021-06-04 09:22] LABS: LDL Cholesterol Direct 72 mg/dL
[2021-06-04 09:39] LABS: Thyroid Stimulating Hormone 0.513 uIU/mL (0.465-4.680)
[2021-06-04 09:52] LABS: Free T4 Free Thyroxine 1.75 ng/mL (0.78-2.19)
[2021-06-04 11:39] LABS: Erythrocyte Sedimentation Rate 64 mm/hr (0-20)
[2021-06-04 13:32] LABS: Hemoglobin A1C 5.8 % (<5.7)
== END 2021-06-04 08:12 | disposition home or self-care (01) ==
LOC: ANHLAB 08:17
PROVIDERS: PCP Internal Medicine; Visit Provider Internal Medicine
DX: M31.6 Other giant cell arteritis (principal); E78.2 Mixed hyperlipidemia; Z51.81 Encounter for therapeutic drug level monitoring; Z79.899 Other long term (current) drug therapy; E55.9 Vitamin D deficiency, unspecified; R73.09 Other abnormal glucose; I10 Essential (primary) hypertension; E03.9 Hypothyroidism, unspecified
CPT/HCPCS: 36415; 80048; 80061; 80076; 81001; 82306; 83036; 84439; 84443; 85652; 86140

== ENCOUNTER 2021-06-17 13:32 | Outpatient (CLI) | payer MEDICARE, SELFPAY ==
--- NOTE | ~2021-06-17 | CT_ITS ---
EXAMINATION: CT abdomen pelvis wo con DATE: 06/17/2021 13:52 INDICATION: Microscopic hematuria TECHNIQUE: Computed tomography (CT) of the abdomen and pelvis was performed without intravenous contr ast. Automated exposure control and iterative reconstruction technique were employed. Exam dose: 143 4.20 mGy-cm total exam DLP. COMPARISON: 09/11/2017 complete abdominal ultrasound examination FINDINGS: Mild discoid atelectasis or scarring at the posterior lingula. The lung bases are clear of infiltrate or consolidation. Borderline heart size. Coronary artery calcifications. No pericardial effusion. No pleural effusion. Status post cholecystectomy. No hepatic or splenic or pancreatic space-occupying mass lesion. There i s pancreatic atrophy/fatty infiltration. Normal morphology of the adrenal glands. No urinary tract calculus or hydroureteronephrosis. No apparent renal mass lesion is noted on this li mited noncontrast examination. Normal caliber of the abdominal aorta. No intraperitoneal or retroperitoneal or pelvic mass lesion or adenopathy or ascites. The urinary bladder is relatively evacuated, unremarkable. Uterus and ovaries are unremarkable. Diverticulosis of left colon; no CT evidence of diverticulitis. Normal appendix. No bowel obstruction , bowel wall thickening, pneumatosis or intraperitoneal free air. Small fat-containing of the local hernia. There is cotton wool appearance and cortical thickening of T10 suggesting Paget's disease. There is mild likely chronic compression fracture deformity of T12 and to a lesser extent L1. There is levoscoliosis of the thoracolumbar spine. There is prominent degenerative spurring in the th oracolumbar spine. There is degenerative disc disease throughout the lumbar and lumbosacral spine and prominent degenerative change at the apophyseal joints in the lumbar area with associated grade 1 an terolisthesis at L4-5. There is sacralization pseudoarthrosis on the left at L5-S1. Bilateral hip osteoarthritis. 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
== END 2021-06-17 13:33 | disposition home or self-care (01) ==
LOC: ANHIMG 13:34
PROVIDERS: PCP Internal Medicine; Visit Provider Internal Medicine
DX: R31.29 Other microscopic hematuria (principal); K57.90 Diverticulosis of intestine, part unspecified, without perforation or abscess without bleeding; Z90.49 Acquired absence of other specified parts of digestive tract; M48.54XA Collapsed vertebra, not elsewhere classified, thoracic region, initial encounter for fracture
CPT/HCPCS: 74176

== ENCOUNTER 2021-06-29 08:17 | Outpatient (CLI) | payer MEDICARE, SELFPAY ==
[2021-06-29 09:08] LABS: CRP < 0.5 mg/dL (<1.0)
[2021-06-29 09:14] LABS: Erythrocyte Sedimentation Rate 40 mm/hr (0-20)
== END 2021-06-29 08:18 | disposition home or self-care (01) ==
PROVIDERS: PCP Internal Medicine; Visit Provider Internal Medicine
DX: M31.6 Other giant cell arteritis (principal); Z79.899 Other long term (current) drug therapy
CPT/HCPCS: 36415; 85652; 86140

== ENCOUNTER 2021-09-09 07:11 | Outpatient (CLI) | payer MEDICARE, SELFPAY ==
[2021-09-09 08:25] LABS: CRP < 0.5 mg/dL (<1.0)
[2021-09-09 08:37] LABS: Erythrocyte Sedimentation Rate 33 mm/hr (0-20)
== END 2021-09-09 07:12 | disposition home or self-care (01) ==
PROVIDERS: PCP Internal Medicine; Visit Provider Internal Medicine
DX: Z51.81 Encounter for therapeutic drug level monitoring (principal); Z79.899 Other long term (current) drug therapy; M31.6 Other giant cell arteritis
CPT/HCPCS: 36415; 85652; 86140

== ENCOUNTER 2021-10-19 08:15 | Outpatient (CLI) | payer MEDICARE, SELFPAY ==
[2021-10-19 08:57] LABS: Alanine Aminotransferase 22 U/L (6-35); Albumin Level 3.8 g/dL (3.5-5.1); Alkaline Phosphatase 64 U/L (38-126); Anion Gap 4 mmol/L (8-16); Aspartate Amino Transferase 24 U/L (14-36); Bilirubin,Total 0.8 mg/dL (0.2-1.3); Blood Urea Nitrogen 24 mg/dL (7-17); CRP 2.8 mg/dL (<1.0); Calcium 9.1 mg/dL (8.4-10.2); Carbon Dioxide 28 mmol/L (22-30); Chloride 104 mmol/L (98-107); Cholesterol 187 mg/dL (0-200); Estimated Glomerular Filt Rate 54; Glucose 126 mg/dL (65-110); HDL Direct 82 mg/dL; Potassium 4.1 mmol/L (3.4-5.0); Sodium 136 mmol/L (137-145); Triglycerides 118 mg/dL (<150)
[2021-10-19 09:06] LABS: LDL Cholesterol Direct 72 mg/dL
[2021-10-19 09:19] LABS: Appearance Urine Clear (Clear); Bilirubin Urine Negative (Negative); Blood Urine Negative (Negative); Color Urine Yellow (Yellow); Glucose Urine UA Negative (Negative); Ketones Urine Negative (Negative); Leukocyte Esterase Ur Trace LEU/UL (Negative); Nitrate Urine Negative (Negative); Protein Urine Negative (Negative)
[2021-10-19 09:24] LABS: Thyroid Stimulating Hormone 0.985 uIU/mL (0.465-4.680)
[2021-10-19 09:30] LABS: Hemoglobin A1C 6.2 % (<5.7)
[2021-10-19 10:19] LABS: Erythrocyte Sedimentation Rate 92 mm/hr (0-20)
[2021-10-19 10:54] LABS: Free T4 Free Thyroxine 1.88 ng/mL (0.78-2.19)
[2021-10-19 12:56] LABS: Add Urine Microscopic? NO
[2021-10-21 16:39] LABS: C-Peptide 3.37 ng/mL (0.80-3.85); Insulin Level Total 10.5 uIU/mL (<=19.6)
== END 2021-10-19 08:16 | disposition home or self-care (01) ==
LOC: ANHLAB 08:20
PROVIDERS: PCP Internal Medicine; Visit Provider Internal Medicine
DX: R73.09 Other abnormal glucose (principal); E88.81 Metabolic syndrome and other insulin resistance; Z68.43 Body mass index [BMI] 50.0-59.9, adult; E03.9 Hypothyroidism, unspecified; I10 Essential (primary) hypertension; M31.6 Other giant cell arteritis; Z79.899 Other long term (current) drug therapy; E78.2 Mixed hyperlipidemia
CPT/HCPCS: 36415; 80053; 80061; 81003; 83036; 83525; 84439; 84443; 84681; 85652; 86140

== ENCOUNTER 2021-12-25 07:22 | Outpatient (CLI) | payer MEDICARE, SELFPAY ==
--- NOTE | ~2021-12-25 | XR_ITS ---
EXAM: XR knee RT 2V, XR knee LT 2V DATE: 12/25/2021 07:49 HISTORY: Bilateral knee pain . COMPARISON: None available. FINDINGS: Decreased mineralization. No fracture or dislocation. No lytic or blastic lesion. Severe j oint space narrowing medially in the right knee laterally in the left knee. Severe tricompartmental o steophytosis. No erosion or periosteal change. Small left knee joint effusion. Vascular calcification s. IMPRESSION: No acute osseous finding in the right or left knee. Severe bilateral osteoarthritis of th e knees. Reviewed, dictated and finalized at location [facility]. IMPRESSION: No acute osseous finding in the right or left knee. Severe bilatera l osteoarthritis of the knees.
== END 2021-12-25 07:23 | disposition home or self-care (01) ==
LOC: ANHIMG 07:24
PROVIDERS: PCP Internal Medicine; Visit Provider Nurse Practitioner Family
DX: M25.562 Pain in left knee (principal); M17.0 Bilateral primary osteoarthritis of knee
CPT/HCPCS: 73560

== ENCOUNTER 2022-02-16 07:58 | Outpatient (CLI) | payer MEDICARE, SELFPAY ==
[2022-02-16 09:05] LABS: Alanine Aminotransferase 25 U/L (6-35); Albumin Level 4.1 g/dL (3.5-5.1); Alkaline Phosphatase 55 U/L (38-126); Anion Gap 12 mmol/L (8-16); Aspartate Amino Transferase 26 U/L (14-36); Bilirubin,Total 0.9 mg/dL (0.2-1.3); Blood Urea Nitrogen 17 mg/dL (7-17); Calcium 9.5 mg/dL (8.4-10.2); Carbon Dioxide 26 mmol/L (22-30); Chloride 96 mmol/L (98-107); Cholesterol 152 mg/dL (0-200); Estimated Glomerular Filt Rate 44; Glucose 111 mg/dL (65-110); HDL Direct 52 mg/dL; Potassium 4.3 mmol/L (3.4-5.0); Sodium 134 mmol/L (137-145); Triglycerides 154 mg/dL (<150)
[2022-02-16 09:30] LABS: Free T4 Free Thyroxine 2.64 ng/mL (0.78-2.19)
[2022-02-16 09:40] LABS: CRP < 0.5 mg/dL (<1.0)
[2022-02-16 09:42] LABS: LDL Cholesterol Direct 60 mg/dL
[2022-02-16 10:02] LABS: Thyroid Stimulating Hormone < 0.015 uIU/mL (0.465-4.680)
[2022-02-16 10:30] LABS: Hemoglobin A1C 5.3 % (<5.7)
== END 2022-02-16 07:59 | disposition home or self-care (01) ==
PROVIDERS: PCP Internal Medicine; Visit Provider Internal Medicine
DX: E03.9 Hypothyroidism, unspecified (principal); E78.5 Hyperlipidemia, unspecified; I10 Essential (primary) hypertension; M31.6 Other giant cell arteritis; Z51.81 Encounter for therapeutic drug level monitoring; Z79.899 Other long term (current) drug therapy
CPT/HCPCS: 36415; 80053; 80061; 83036; 84439; 84443; 86140

== ENCOUNTER 2022-02-21 11:36 | Outpatient (CLI) | payer MEDICARE, SELFPAY ==
[2022-02-21 12:41] LABS: Basophils Percent Auto 0.6 % (0.2-1.2); Eosinophils Percent Auto 0.6 % (0-4.4); Hematocrit 32.7 % (37.0-47.0); Immature Granulocyte Absolute 0.01 K/mm3 (0.00-0.031); Immature Granulocyte Percent A 0.2 % (0-0.5); Lymphocytes Absolute Auto 0.37 K/mm3 (0.9-3.2); Lymphocytes Percent Auto 7.3 % (18.3-44.2); Mean Corpuscular HGB Conc 33.6 g/dl (32-36); Mean Corpuscular Hemoglobin 32.6 pg (26-34); Mean Platelet Volume 11.2 fl (7.4-10.4); Monocytes Absolute Auto 0.2 K/mm3 (0.1-0.6); Neutrophils Absolute Auto 4.4 K/mm3 (1.3-6.7); Neutrophils Percent Auto 87.3 % (45.5-73.1); Platelet Count Result 192 k/mm3 (150-375); Red Blood Count 3.37 M/mm3 (4.2-5.4); Red Cell Distribution Width 13.2 % (11.5-14.5)
[2022-02-21 12:54] LABS: Alanine Aminotransferase 26 U/L (6-35); Albumin Level 4.2 g/dL (3.5-5.1); Alkaline Phosphatase 59 U/L (38-126); Anion Gap 10 mmol/L (8-16); Aspartate Amino Transferase 29 U/L (14-36); Bilirubin,Total 0.7 mg/dL (0.2-1.3); Blood Urea Nitrogen 27 mg/dL (7-17); CRP < 0.5 mg/dL (<1.0); Carbon Dioxide 24 mmol/L (22-30); Chloride 100 mmol/L (98-107); Cholesterol 157 mg/dL (0-200); Estimated Glomerular Filt Rate 34; Glucose 132 mg/dL (65-110); HDL Direct 56 mg/dL; Potassium 4.8 mmol/L (3.4-5.0); Sodium 134 mmol/L (137-145); Triglycerides 153 mg/dL (<150)
[2022-02-21 13:03] LABS: LDL Cholesterol Direct 65 mg/dL
[2022-02-21 13:07] LABS: Hemoglobin A1C 5.2 % (<5.7)
[2022-02-21 13:10] LABS: Iron 94 ug/dL (37-170)
[2022-02-21 13:22] LABS: Percent Iron Saturation 29 % (20-50); Thyroid Stimulating Hormone < 0.015 uIU/mL (0.465-4.680)
[2022-02-21 13:28] LABS: Erythrocyte Sedimentation Rate > 140 mm/hr (0-20)
[2022-02-21 13:33] LABS: Free T4 Free Thyroxine 1.99 ng/mL (0.78-2.19)
== END 2022-02-21 11:37 | disposition home or self-care (01) ==
PROVIDERS: PCP Internal Medicine; Referring Provider Internal Medicine; Visit Provider Internal Medicine
DX: E78.2 Mixed hyperlipidemia (principal); R21 Rash and other nonspecific skin eruption; R73.09 Other abnormal glucose; I10 Essential (primary) hypertension; M31.6 Other giant cell arteritis; D64.9 Anemia, unspecified; Z51.81 Encounter for therapeutic drug level monitoring; Z79.899 Other long term (current) drug therapy; E03.9 Hypothyroidism, unspecified
CPT/HCPCS: 36415; 80053; 80061; 82728; 83036; 83540; 83550; 84439; 84443; 85025; 85652; 86140

== ENCOUNTER 2022-03-21 12:03 | Outpatient (CLI) | payer MEDICARE, SELFPAY ==
[2022-03-24 22:06] LABS: Lyme Disease Ab (IgM), Blot Negative (Negative); Lyme Disease Ab(IgG), Blot Negative (Negative)
== END 2022-03-21 12:04 | disposition home or self-care (01) ==
LOC: ANHGOSHLAB 12:06
PROVIDERS: PCP Internal Medicine; Visit Provider Internal Medicine
DX: T14.90XA Injury, unspecified, initial encounter (principal); W57.XXXA Bitten or stung by nonvenomous insect and other nonvenomous arthropods, initial encounter
CPT/HCPCS: 36415; 86617

== ENCOUNTER 2022-03-23 12:46 | Inpatient (IN) | payer MEDICARE, SELFPAY ==
[2022-03-23] VITALS (14 sets, daily range): BP systolic 87–121; BP diastolic 30–74; PULSE 38–59; RESP 13–22; TEMP 36.3–36.7; O2SAT 94–100; BMI 43.5
--- NOTE | ~2022-03-23 | XR_ITS ---
EXAMINATION: XR chest 1V portable DATE: 03/23/2022 13:26 INDICATION: Lightheadedness. Tachycardia. TECHNIQUE: A single frontal view of the chest was obtained. COMPARISON: Chest 2 views 06/23/2017 FINDINGS: There is mild atelectasis in right lower lung zone. No pleural effusion or pneumothorax. Th e heart size is normal. IMPRESSION: 1. Mild atelectasis in right lower lung zone. Reviewed, dictated and finalized at location A.
--- NOTE | 2022-03-23 12:47 | ECG_ITS ---
Measurements Intervals [place] Rate: 32 P: [place]: 0 QRS: -1 QRSD: 141 T: -14 QT: 569 QTc: 421 Interpretive Statements ATRIAL FIBRILLATION WITH MARKEDLY SLOW VENTRICULAR RESPONSE LEFT BUNDLE BRANCH BLOCK LOW VOLTAGE- PRECORDIAL LEADS BASELINE ARTIFACT- I, II, AVR, AVL, AVF ABNORMAL ECG NO PREVIOUS ECG AVAILABLE FOR COMPARISON Electronically Signed On 03-23-2022 12:57:21 CDT by Daniel Cotton D.O.
--- NOTE | 2022-03-23 13:11 | ED.ARRPALP ---
HPI - Arrhythmia/Palpitations General Chief Complaint: Arrhythmia/Palpitations Stated Complaint: PALPITATIONS Time Seen by Provider: 03/23/22 13:08 Source: patient and family Mode of arrival: ambulatory Limitations: no limitations History of Present Illness HPI narrative: Patient is a 71-year-old female with a history of atrial fibrillation, chronic anticoagulation, hypertension, hyperlipidemia, hypothyroidism presenting to the emergency department for evaluation of lightheadedness, intermittent palpitations. Patient's recently suffered a cardiac arrest, is currently hospitalized in our intensive care unit at this hospital. Patient began to have intermittent lightheadedness and palpitations beginning yesterday evening that have persisted overnight and this morning. 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 Patient denies shortness of breath, chest pain. She denies diaphoresis, nausea. No recent medication changes and patient states that she has been compliant with her current medications. Medication list reviewed, patient takes 50 mg half tablet atenolol in the morning, flecainide 50 mg tablet 2 tablets twice daily, losartan/hydrochlorothiazide 100/12.5 mg tablets once daily. Related Data Home Medications Medication Instructions Recorded Confirmed coenzyme Q10 100 mg capsule (Co 100 mg PO DAILY 06/03/19 02/21/22 Q-10) mecobalamin (vitamin B12) 1,000 1,000 mcg sublingual DAILY 06/03/19 02/21/22 mcg disintegrating tablet,sublingual folic acid 800 mcg tablet 0.8 mg PO DAILY 07/09/19 02/21/22 cholecalciferol (vitamin D3) 50 50 mcg PO BID 12/19/19 02/21/22 mcg (2,000 unit) tablet (Vitamin D3) gabapentin 300 mg capsule 300 mg PO TID 06/07/21 02/21/22 Allergies Allergy/AdvReac Type Severity Reaction Status Date / Time meperidine AdvReac Unknown Nausea Verified 03/07/22 11:03 Review of Systems Review of Systems: CONSTITUTIONAL: Denies fever, chills, or sweats. EYES: Denies visual changes, redness, or discharge. ENT: Denies rhinorrhea, congestion, sore throat, or otalgia. CARDIOVASCULAR: Denies chest pain, reports intermittent palpitations RESPIRATORY: Denies cough or dyspnea. GASTROINTESTINAL: Denies abdominal pain, nausea, vomiting, or diarrhea. GENITOURINARY: Denies dysuria or hematuria. SKIN: Denies rash or itching. MUSCULOSKELETAL: Denies back pain, joint pain, or myalgia. NEUROLOGIC: Denies headache, numbness, or weakness. Reports intermittent lightheadedness. [facility] Past Medical History Medical History (Updated 03/23/22 @ 16:58 by Jessica Solares NP) A-fib Acute pain of left knee Anxiety Aphthous ulcer of mouth Aphthous ulcer of tongue ASHD (arteriosclerotic heart disease) Back pain Benign essential hypertension Bloating BMI 50.0-59.9, adult Body mass index (BMI) 40.0-44.9, adult Body mass index (BMI) 45.0-49.9, adult Brain lipoma Bruise CAD (coronary artery disease) LAD stent 12/2016 Chronic anticoagulation Chronic low back pain Chronic pain of right knee Colon cancer screening COVID-19 Depressed mood 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 (degenerative joint disease), multiple sites Early satiety Elevated glucose Encounter for Medicare annual wellness exam Encounter for routine adult health examination with abnormal findings Encounter for routine adult health examination without abnormal findings Encounter for screening mammogram for malignant neoplasm of breast Fall Follow up Generalized abdominal pain GERD (gastroesophageal reflux disease) Hearing loss Hemorrhoids Hx of colonic polyps Hyperlipidemia Hypersomnolence Hypothyroidism (acquired) Impaired functional mobility, balance, gait, and endurance Iron deficiency anemia Left leg pain Left wrist pain Microscopic hematuria MRSA carrier Nausea and vomi
[2022-03-23 13:29] LABS: Basophils Absolute Auto 0.1 K/mm3 (0.0-0.1); Basophils Percent Auto 0.6 % (0.2-1.2); Eosinophils Absolute Auto 0.1 K/mm3 (0-0.3); Eosinophils Percent Auto 1.5 % (0-4.4); Hemoglobin 11.9 g/dL (12.0-15.0); Immature Granulocyte Absolute 0.04 K/mm3 (0.00-0.031); Immature Granulocyte Percent A 0.5 % (0-0.5); Lymphocytes Absolute Auto 1.27 K/mm3 (0.9-3.2); Lymphocytes Percent Auto 15.1 % (18.3-44.2); Mean Corpuscular Hemoglobin 32.8 pg (26-34); Mean Corpuscular Volume 96.4 fl (80-100); Mean Platelet Volume 11.5 fl (7.4-10.4); Monocytes Percent Auto 12.2 % (2.6-8.5); Neutrophils Absolute Auto 5.9 K/mm3 (1.3-6.7); Neutrophils Percent Auto 70.1 % (45.5-73.1); Platelet Count Result 200 k/mm3 (150-375); Red Blood Count 3.63 M/mm3 (4.2-5.4); Red Cell Distribution Width 13.1 % (11.5-14.5); White Blood Count 8.4 K/mm3 (4.5-10.0)
[2022-03-23 13:41] LABS: Alanine Aminotransferase 30 U/L (6-35); Albumin Level 4.1 g/dL (3.5-5.1); Alkaline Phosphatase 65 U/L (38-126); Anion Gap 13 mmol/L (8-16); Aspartate Amino Transferase 31 U/L (14-36); Bilirubin,Total 0.9 mg/dL (0.2-1.3); Blood Urea Nitrogen 30 mg/dL (7-17); Calcium 8.8 mg/dL (8.4-10.2); Carbon Dioxide 21 mmol/L (22-30); Chloride 96 mmol/L (98-107); Estimated CRCL calculation 34 ml/min; Estimated Glomerular Filt Rate 28; Glucose 114 mg/dL (65-110); Lipase 53 U/L (23-300); Potassium 3.8 mmol/L (3.4-5.0); Sodium 130 mmol/L (137-145)
[2022-03-23 13:42] LABS: Magnesium 2.7 mg/dL (1.6-2.3); Phosphorus 3.4 mg/dL (2.5-4.5)
[2022-03-23 13:53] LABS: Troponin I < 0.012 ng/mL (0.000-0.034)
[2022-03-23] MEDS: SODIUM CHLORIDE 0.9% IV 1,000 ML 999 ML IV CONT (14:16)
[2022-03-23 14:22] LABS: SARS-CoV-2 RNA PCR Negative
--- NOTE | 2022-03-23 14:22 | PM.CNCAR ---
Assessment and Plan Assessment and plan (1) Hypotension: Code(s): I95.9 - Hypotension, unspecified Status: Acute Assessment and Plan: Admitted to the ER with hypotension and lightheadedness. Probably related to bradycardia but also, since she has had such weight loss and anorexia, perhaps she is intravascularly mildly depleted. Blood pressure little better since her heart rate is better Starting IV fluids Does not appear septic or having ACS. No need for pressors at this time but if this worsens we can consider dopamine or other pressors. (2) Sinus bradycardia: Code(s): R00.1 - Bradycardia, unspecified Status: Acute Assessment and Plan: Bradycardia, mostly sinus bradycardia with perhaps some AFib on admission. No heart block. Somewhat improved since admission Likely transient and medication related, since she takes atenolol and flecainide. There is a possibility she inversion lead took extra atenolol yesterday. The patient appears stable with improved blood pressure and heart rate at the moment; do not see a need for urgent temporary pacing. Hold flecainide and atenolol; may need doses reduced on discharge since she has lost so much weight and may have developed some progressive bradycardia related to aging If she develops significant bradycardia through the night we can try atropine and dopamine, or reconsider a temporary pacing wire. Hold Eliquis for now, will cover with Lovenox, in case the patient needs a temporary or permanent pacemaker. (3) PAF (paroxysmal atrial fibrillation): Code(s): I48.0 - Paroxysmal atrial fibrillation Status: Acute Assessment and Plan: History of paroxysmal atrial fibrillation, followed by Dr. Jo Linton. Anticoagulated with Eliquis (4) CAD (coronary artery disease): Code(s): I25.10 - Atherosclerotic heart disease of [place] coronary artery without angina pectoris Status: Acute Assessment and Plan: History of CAD and Left anterior descending stent. CAD is stable. Takes Eliquis and rosuvastatin. History of Present Illness History of Present Illness Consult date/time: 03/23/22 14:22 Reason For Visit: PALPITATIONS Narrative: Eileen Maza is a 71 y.o. WF whom I ws asked to see at the request of Dr. Tong for my advice and opinion regarding her bradycardia and hypotension, in consultation. 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 Unfortunately, the patient's suffered a cardiac arrest last night and is in our ICU. Ms. Maza is followed by Dr. Jo Linton of [facility] for her CAD and PAF. She has mainatained NSR wince her 4th cardioversion a few years ago on flecainide 100 mg BID and atenolol 50 mg (or perhaps 1/2 of a 50 mg) tablet daily. HR usually runs in 50's-60's and SBP 110-120 mmHg. She has a history of an Left anterior descending stent placed in December 2016. Her echo showed ejection fraction of 60% in April 2021. Patient felt a little bit lightheaded yesterday, and today she was having episodes of lightheadedness even while sitting. She never felt presyncopal. She came to the emergency room is found have a heart rate of 30-40 BPM, and a systolic blood pressure of 80/50. She is in sinus bradycardia. No CP or SOB. There is a possibility that she may have taken extra atenolol X 1yesterday, inadvertently. The pt also notes that she was started on Rybelsus 2 months ago and lost her appetite,and lost 40#. She is not eating or drinking well. Review of Systems Constitutional: Constitutional: Denies fever(s) and Reports weight loss (40#/2 months) Eyes: Eyes: Reports no additional eye complaints ENT: Denies epistaxis Cardiovascular: Cardiovascular: Denies chest pain, Reports pedal edema, Reports lightheadedness and Denies dyspnea Respiratory: Respiratory: Denies chest congestion and Denies dyspnea Gastrointestinal: Gastrointestinal: Karthik
[2022-03-23 14:32] LABS: INR 1.7; Prothrombin Time 19.7 Seconds (11.1-14.7)
[2022-03-23 14:34] LABS: Partial Thromboplastin Time 32.6 SECONDS (22.3-36.8)
[2022-03-23 14:46] LABS: NT Pro B Type Natriuretic Pept 1200 pg/mL (5-100)
[2022-03-23 15:07] LABS: Thyroid Stimulating Hormone Reflex 0.208 uIU/mL (0.465-4.68)
--- NOTE | 2022-03-23 15:19 | PM.IMHP ---
H&P: HPI History of Present Illness Date/Time: 03/23/22 15:19 Chief Complaint: Palpitations arrhythmia Narrative: This is a 71-year-old female patient who does have chronic atrial fibrillation on anticoagulation, hypertension, hyperlipidemia and hypothyroidism. The patient has been complaining of lightheadedness and intermittent palpitations. The patient's is in ICU as he has suffered a cardiac arrest and the patient stated she has had more intermittent lightheadedness and palpitation beginning yesterday evening and continued overnight. The patient was found to have a slow heart rate consistent with atrial fibrillation with slow ventricular response. The patient denies any fever chills or diarrhea or nausea vomiting. She is compliant with her current medications. The patient was started on IV fluids and Zofran. Cardiology has been consulted. The patient does not appear to be septic or having acute coronary syndrome. Patient has been on flecainide and atenolol. Patient is being admitted to observation status on the date of service of 03/23/2022. Review of Systems Review of Systems: All systems reviewed & are unremarkable except as noted in HPI and below Constitutional: Constitutional: Reports as per HPI and Reports no additional constitutional complaints Eyes: Eyes: Reports as per HPI and Reports no additional eye complaints ENT: Reports system reviewed and no additional complaints, except as documented and Reports Normal hearing present Cardiovascular: Cardiovascular: Reports no additional cardiovascular complaints Respiratory: Respiratory: Reports no additional respiratory complaints and Reports no additional respiratory complaints Gastrointestinal: Gastrointestinal: Reports as per HPI and Reports no additional gastrointestinal complaints Musculoskeletal: Musculoskeletal: Reports no additional musculoskeletal complaints Integumentary/Breasts: Skin/Breast: Reports system reviewed and no additional complaints, except as docu and Reports as per HPI Neurologic: Reports system reviewed and no additional complaints, except as documented, Reports as per HPI and Reports Normal hearing present Psychiatric: Psychiatric: Reports no additional psychiatric complaints and Reports as per HPI Endocrine: Endocrine: Reports no additional endocrine complaints Hematologic/Lymphatic: Hematologic/Lymphatic: Reports no additional hematologic/lymphatic complaints Allergic/Immunologic: Allergic/Immunologic: Reports no additional allergic/immunologic complaints [facility] Past Medical History Medical History (Updated 03/23/22 @ 16:58 by Jessica Solares NP) A-fib Acute pain of left knee Anxiety Aphthous ulcer of mouth Aphthous ulcer of tongue ASHD (arteriosclerotic heart disease) Back pain Benign essential hypertension Bloating BMI 50.0-59.9, adult Body mass index (BMI) 40.0-44.9, adult Body mass index (BMI) 45.0-49.9, adult Brain lipoma Bruise CAD (coronary artery disease) LAD stent 12/2016 Chronic anticoagulation Chronic low back pain Chronic pain of right knee Colon cancer screening COVID-19 Depressed mood 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 (degenerative joint disease), multiple sites Early satiety Elevated glucose Encounter for Medicare annual wellness exam Encounter for routine adult health examination with abnormal findings Encounter for routine adult health examination without abnormal findings Encounter for screening mammogram for malignant neoplasm of breast Fall Follow up Generalized abdominal pain GERD (gastroesophageal reflux disease) Hearing loss Hemorrhoids Hx of colonic polyps Hyperlipidemia Hypersomnolence Hypothyroidism (acquired) Impaired functional mobility, balance, gait, and endurance Iron deficiency anemia Left leg pain Left wrist pain Microscopic hematuria MRSA carrier Nausea and vomiting Non-healing skin lesion On skilled nursing drug therapy ALEXIS (obstructive sleep apnea) ALEXIS on CPAP
[2022-03-23 15:45] LABS: Free T4 Free Thyroxine Reflex 2.29 ng/dL (0.78-2.19)
[2022-03-23 16:49] LABS: Troponin I < 0.012 ng/mL (0.000-0.034)
--- NOTE | 2022-03-23 17:12 | ADMGEN ---
This patient, Eileen Maza, was admitted to IMU Room 205-01 at 1654. Patient/family oriented to hospital policies and general routines including ID bracelet, bed and alarms, visiting hours, pain management, procedures, bathroom and other care routines, personal items, smoking policy, room service/diet, and visiting hours. Information on how to activate the Rapid Response Team has been discussed. Patient/Family are encouraged to report perceived risks to care and to ask questions if they do not understand what they are told or what they should do.
[2022-03-23] MEDS: ENOXAPARIN 120 MG/0.8 ML SYRINGE SUB-Q (18:51)
[2022-03-23] MEDS: LACTATED RINGERS 1,000 ML 125 ML IV CONT (18:52)
[2022-03-23] MEDS: DOPamine 400 MG/D5W 250 ML 400 MG/250 ML BAG 13.78 MG IV CONT (18:52)
[2022-03-23 20:37] LABS: Troponin I < 0.012 ng/mL (0.000-0.034)
[2022-03-24] VITALS (16 sets, daily range): BP systolic 94–122; BP diastolic 48–79; PULSE 51–64; RESP 16–20; TEMP 35.8–36.6; O2SAT 99–100
[2022-03-24] MEDS: LACTATED RINGERS 1,000 ML 125 ML IV CONT ×2 (03:26→12:52)
[2022-03-24] MEDS: ENOXAPARIN 120 MG/0.8 ML SYRINGE SUB-Q ×2 (05:09→17:39)
[2022-03-24 05:13] LABS: Basophils Percent Auto 0.4 % (0.2-1.2); Eosinophils Absolute Auto 0.1 K/mm3 (0-0.3); Eosinophils Percent Auto 1.8 % (0-4.4); Hematocrit 32.4 % (37.0-47.0); Immature Granulocyte Absolute 0.01 K/mm3 (0.00-0.031); Immature Granulocyte Percent A 0.1 % (0-0.5); Lymphocytes Absolute Auto 0.87 K/mm3 (0.9-3.2); Lymphocytes Percent Auto 12.1 % (18.3-44.2); Mean Corpuscular Hemoglobin 31.7 pg (26-34); Mean Corpuscular Volume 93.4 fl (80-100); Mean Platelet Volume 11.5 fl (7.4-10.4); Monocytes Absolute Auto 0.7 K/mm3 (0.1-0.6); Neutrophils Absolute Auto 5.5 K/mm3 (1.3-6.7); Neutrophils Percent Auto 76.6 % (45.5-73.1); Platelet Count Result 171 k/mm3 (150-375); Red Blood Count 3.47 M/mm3 (4.2-5.4); Red Cell Distribution Width 12.9 % (11.5-14.5); White Blood Count 7.2 K/mm3 (4.5-10.0)
[2022-03-24 05:31] LABS: Alanine Aminotransferase 29 U/L (6-35); Albumin Level 3.8 g/dL (3.5-5.1); Alkaline Phosphatase 64 U/L (38-126); Anion Gap 11 mmol/L (8-16); Aspartate Amino Transferase 26 U/L (14-36); Blood Urea Nitrogen 31 mg/dL (7-17); Calcium 8.4 mg/dL (8.4-10.2); Carbon Dioxide 23 mmol/L (22-30); Chloride 98 mmol/L (98-107); Estimated CRCL calculation 38 ml/min; Estimated Glomerular Filt Rate 32; Glucose 126 mg/dL (65-110); Magnesium 2.5 mg/dL (1.6-2.3); Potassium 4.1 mmol/L (3.4-5.0); Sodium 132 mmol/L (137-145)
[2022-03-24 05:33] LABS: Lactic Acid Reflex 1.6 mmol/L (0.7-2.0)
[2022-03-24] MEDS: LEVOTHYROXINE SODIUM 150 MCG TABLET PO (05:33)
[2022-03-24 06:26] LABS: Thyroid Stimulating Hormone Reflex 0.076 uIU/mL (0.465-4.68)
[2022-03-24] MEDS: ROSUVASTATIN 10 MG TABLET 40 MG BY MOUTH (08:02)
[2022-03-24] MEDS: MAGNESIUM OXIDE 400 MG TABLET PO ×2 (08:03→17:38)
[2022-03-24] MEDS: CYANOCOBALAMIN 1,000 MCG TABLET 1000 MCG PO (08:03)
[2022-03-24] MEDS: FERROUS SULFATE 324 MG TABLET PO ×2 (08:03→17:38)
[2022-03-24] MEDS: DOPamine 400 MG/D5W 250 ML 400 MG/250 ML BAG 18.38 MG IV CONT (08:19)
[2022-03-24 09:02] LABS: Free T4 Free Thyroxine Reflex 2.21 ng/dL (0.78-2.19)
[2022-03-24] MEDS: ONDANSETRON INJ 4 MG/2 ML VIAL IV PUSH (09:36)
--- NOTE | 2022-03-24 11:49 | PM.PNCARD ---
Progress Note: A&P Assessment and Plan (1) Hypotension: Code(s): I95.9 - Hypotension, unspecified Status: Acute Assessment and Plan: Admitted to the ER with hypotension and lightheadedness. Probably related to bradycardia but also, since she has had such weight loss and anorexia, perhaps she is intravascularly mildly depleted. Had some more hypotension last night, dopamine increased to 4mcg/kg/min. BP better this morning. If SBP remains stable at noon vitals, decrease dopamine to 3mcg/kg/min. Hopefully can wean off by tomorrow. On IV fluids (2) Sinus bradycardia: Code(s): R00.1 - Bradycardia, unspecified Status: Acute Assessment and Plan: Bradycardia, mostly sinus bradycardia with perhaps some AFib on admission. No heart block. Somewhat improved since admission Likely transient and medication related, since she takes atenolol and flecainide. HR and BP stable currently, no need to consider temporary pacing Continue to hold flecainide and atenolol; may need doses reduced on discharge since she has lost so much weight and may have developed some progressive bradycardia related to aging If she develops significant bradycardia through the night we can try atropine and dopamine, or reconsider a temporary pacing wire. Hold Eliquis for now, will cover with Lovenox, in case the patient needs a temporary or permanent pacemaker. (3) PAF (paroxysmal atrial fibrillation): Code(s): I48.0 - Paroxysmal atrial fibrillation Status: Acute Assessment and Plan: History of paroxysmal atrial fibrillation, followed by Dr. Jo Linton. Anticoagulated with Eliquis, as above now on lovenox (4) CAD (coronary artery disease): Code(s): I25.10 - Atherosclerotic heart disease of [place] coronary artery without angina pectoris Status: Acute Assessment and Plan: History of CAD and Left anterior descending stent. CAD is stable. Takes Eliquis and rosuvastatin. Subjective Date/time seen: 03/24/22 11:49 Cardiology follow up for bradycardia Interval history: Feels okay this morning aside from some nausea. She did vomit once last night. Nausea improved this morning. Denies any syncope, pre-syncope, chest pain, shortness of breath. Review of Systems Constitutional: Constitutional: Denies fever(s) and Reports weight loss (40#/2 months) Eyes: Eyes: Reports no additional eye complaints ENT: Denies epistaxis Cardiovascular: Cardiovascular: Denies chest pain, Reports pedal edema, Reports lightheadedness and Denies dyspnea Respiratory: Respiratory: Denies chest congestion and Denies dyspnea Gastrointestinal: Gastrointestinal: Denies abdominal pain and Denies hematochezia Genitourinary: Genitourinary: Denies hematuria Musculoskeletal: Musculoskeletal: Reports no additional musculoskeletal complaints and Reports arthralgias (Knees injected recently) Integumentary/Breasts: Skin/Breast: Reports system reviewed and no additional complaints, except as docu Neurologic: Reports system reviewed and no additional complaints, except as documented, Denies behavioral changes and Denies confusion Psychiatric: Psychiatric: Denies behavioral changes and Denies confusion Hematologic/Lymphatic: Hematologic/Lymphatic: Reports easy bruising Exam Const: General: cooperative, healthy appearing and comfortable; No confusion Orientation/consciousness: oriented to person, patient oriented x3 and No confusion Other: Overweight female sitting up in the chair. HENMT: Mouth: Yes moist mucous membranes Eyes: EOM: EOMs intact bilaterally Neck: Neck: supple and no JVD Thyroid: thyroid normal Resp: Effort & Inspection: normal respiratory effort Auscultation: clear to auscultation bilaterally Cardio: Rate: bradycardic Rhythm: abnormal rhythm irregularly irregular GI: Inspection: normal to inspection Skin: General skin exam: normal color and no rashes or lesions noted Other:
[2022-03-24] MEDS: ACETAMINOPHEN 325 MG TABLET 650 MG PO (12:52)
--- NOTE | 2022-03-24 13:27 | PM.IMPN ---
Progress Note: A&P Assessment and Plan (1) Hypotension: Code(s): I95.9 - Hypotension, unspecified Status: Acute Assessment and Plan: hypotensive on admission. Blood pressure medication on hold Given IV fluid Started on dopamine by Cardiology. No signs of sepsis or infection underlying. (2) Sinus bradycardia: Code(s): R00.1 - Bradycardia, unspecified Status: Acute Assessment and Plan: Severely bradycardic underlying rhythm atrial fibrillation. Could be associated with medication that she takes such as atenolol and flecainide Held flecainide and internal on admission. Eliquis on hold and covered with Lovenox in case patient needs temporary or permanent pacemaker. (3) PAF (paroxysmal atrial fibrillation): Code(s): I48.0 - Paroxysmal atrial fibrillation Status: Acute Assessment and Plan: -patient is on Eliquis. Is on hold at this time. -she was started on subcu Lovenox therapeutic status. -hold atenolol and flecainide (4) CAD (coronary artery disease): Code(s): I25.10 - Atherosclerotic heart disease of [place] coronary artery without angina pectoris Status: Acute Assessment and Plan: -continue rosuvastatin (5) Mixed hyperlipidemia: Code(s): E78.2 - Mixed hyperlipidemia Status: Acute Assessment and Plan: -rosuvastatin (6) Back pain: Qualifiers: Back pain location: low back pain Chronicity: acute Back pain laterality: unspecified Sciatica presence: unspecified whether sciatica present Qualified Code(s): M54.5 - Low back pain Code(s): M54.9 - Dorsalgia, unspecified Status: Acute Assessment and Plan: On Vicodin p.r.n. at home (7) Chronic anticoagulation: Code(s): Z79.01 - correction (current) use of anticoagulants Status: Acute Assessment and Plan: . Subcu Lovenox (8) Hypothyroidism (acquired): Code(s): E03.9 - Hypothyroidism, unspecified Status: Acute Assessment and Plan: -continue with levothyroxine - TSH mildly low but T4 normal (9) Benign essential hypertension: Code(s): I10 - Essential (primary) hypertension Status: Acute Assessment and Plan: -patient is hypotensive. Hold antihypertensive medications at this time. Plan RICHI: Mild creatinine 1. Eight baseline around 1. On IV fluid continues to improve today Mild hyponatremia Subjective Date/time seen: 03/24/22 13:27 Interval history: HPI: This is a 71-year-old female patient who does have chronic atrial fibrillation on anticoagulation, hypertension, hyperlipidemia and hypothyroidism.? The patient has been complaining of lightheadedness and intermittent palpitations.? The patient's is in ICU as he has suffered a cardiac arrest and the patient stated she has had more intermittent lightheadedness and palpitation beginning yesterday evening and continued overnight.? The patient was found to have a slow heart rate consistent with atrial fibrillation with slow ventricular response.? The patient denies any fever chills or diarrhea or nausea vomiting.? She is compliant with her current medications.? The patient was started on IV fluids and Zofran.? Cardiology has been consulted.? The patient does not appear to be septic or having acute coronary syndrome.? Patient has been on flecainide and atenolol.? Patient is being admitted to observation status on the date of service of 03/23/2022. 03/24/2022: Feels well. Denies any chest pain or shortness of breath. Telemetry reviewed. Review of Systems Review of Systems: All systems reviewed & are unremarkable except as noted in HPI and below Exam Narrative: GENERAL: Awake, alert, conversant HEAD: Normocephalic, atraumatic. EYES: PERRLA and EOMI. ENT: Nares clear, no rhinorrhea or epistaxis. Mucous membranes moist. NECK: Supple. Nontender CHEST: No respiratory distress, breathing even and non labored HEART: Atrial fib
[2022-03-24] MEDS: DOPamine 400 MG/D5W 250 ML 400 MG/250 ML BAG 13.78 MG IV CONT (22:11)
[2022-03-25] VITALS (14 sets, daily range): BP systolic 100–117; BP diastolic 37–85; PULSE 51–86; RESP 14–20; TEMP 36.2–36.5; O2SAT 97–100
[2022-03-25] MEDS: LACTATED RINGERS 1,000 ML 75 ML IV CONT (01:36)
[2022-03-25 05:27] LABS: Basophils Percent Auto 0.5 % (0.2-1.2); Eosinophils Absolute Auto 0.2 K/mm3 (0-0.3); Eosinophils Percent Auto 4.8 % (0-4.4); Hematocrit 29.8 % (37.0-47.0); Hemoglobin 10.3 g/dL (12.0-15.0); Immature Granulocyte Absolute 0.01 K/mm3 (0.00-0.031); Immature Granulocyte Percent A 0.3 % (0-0.5); Lymphocytes Absolute Auto 0.83 K/mm3 (0.9-3.2); Lymphocytes Percent Auto 21.1 % (18.3-44.2); Mean Corpuscular HGB Conc 34.6 g/dl (32-36); Mean Corpuscular Hemoglobin 32.5 pg (26-34); Monocytes Absolute Auto 0.5 K/mm3 (0.1-0.6); Monocytes Percent Auto 11.9 % (2.6-8.5); Neutrophils Absolute Auto 2.4 K/mm3 (1.3-6.7); Neutrophils Percent Auto 61.4 % (45.5-73.1); Platelet Count Result 149 k/mm3 (150-375); Red Blood Count 3.17 M/mm3 (4.2-5.4); Red Cell Distribution Width 12.7 % (11.5-14.5); White Blood Count 3.9 K/mm3 (4.5-10.0)
[2022-03-25 05:36] LABS: Alanine Aminotransferase 25 U/L (6-35); Albumin Level 3.5 g/dL (3.5-5.1); Alkaline Phosphatase 61 U/L (38-126); Anion Gap 9 mmol/L (8-16); Aspartate Amino Transferase 24 U/L (14-36); Bilirubin,Total 0.7 mg/dL (0.2-1.3); Blood Urea Nitrogen 19 mg/dL (7-17); Calcium 8.4 mg/dL (8.4-10.2); Carbon Dioxide 25 mmol/L (22-30); Chloride 102 mmol/L (98-107); Estimated CRCL calculation 50 ml/min; Estimated Glomerular Filt Rate 44; Glucose 105 mg/dL (65-110); Magnesium 2.4 mg/dL (1.6-2.3); Potassium 3.8 mmol/L (3.4-5.0); Sodium 136 mmol/L (137-145)
[2022-03-25] MEDS: LEVOTHYROXINE SODIUM 150 MCG TABLET PO (06:19)
[2022-03-25] MEDS: ENOXAPARIN 120 MG/0.8 ML SYRINGE SUB-Q ×2 (06:19→17:58)
--- NOTE | 2022-03-25 10:10 | PM.PNCARD ---
Progress Note: A&P Assessment and Plan (1) Hypotension: Code(s): I95.9 - Hypotension, unspecified Status: Acute Assessment and Plan: Admitted to the ER with hypotension and lightheadedness. Probably related to bradycardia but also, since she has had such weight loss and anorexia, perhaps she is intravascularly mildly depleted. Dopamine at 3mcg/kg/min now, HR and BP stable Decrease to 2mcg/kg/min at noon if BP acceptable Hopefully will be able to wean off by tomorrow. (2) Sinus bradycardia: Code(s): R00.1 - Bradycardia, unspecified Status: Acute Assessment and Plan: Bradycardia, mostly sinus bradycardia with perhaps some AFib on admission. No heart block. Improved Likely transient and medication related, since she takes atenolol and flecainide. HR and BP stable currently, no need to consider temporary pacing Continue to hold flecainide and atenolol; may need doses reduced on discharge On Eliquis at home, covering with lovenox now until dopamine is weaned off and we are confident she will not require temporary or permanent pacing (3) PAF (paroxysmal atrial fibrillation): Code(s): I48.0 - Paroxysmal atrial fibrillation Status: Acute Assessment and Plan: History of paroxysmal atrial fibrillation, followed by Dr. Jo Linton. Anticoagulated with Eliquis (4) CAD (coronary artery disease): Code(s): I25.10 - Atherosclerotic heart disease of [place] coronary artery without angina pectoris Status: Acute Assessment and Plan: History of CAD and Left anterior descending stent. CAD is stable. Takes Eliquis and rosuvastatin. Subjective Date/time seen: 03/25/22 10:10 Interval history: Feels okay this morning aside from some nausea. She did vomit once last night. Nausea improved this morning. Denies any syncope, pre-syncope, chest pain, shortness of breath. Date of service 03/25/22: No more nausea overnight or this morning. Feeling well overall. HR remains mostly in the 60's, BP stable. Review of Systems Constitutional: Constitutional: Denies fever(s) and Reports weight loss (40#/2 months) Eyes: Eyes: Reports no additional eye complaints ENT: Denies epistaxis Cardiovascular: Cardiovascular: Denies chest pain, Reports pedal edema, Reports lightheadedness and Denies dyspnea Respiratory: Respiratory: Denies chest congestion and Denies dyspnea Gastrointestinal: Gastrointestinal: Denies abdominal pain and Denies hematochezia Genitourinary: Genitourinary: Denies hematuria Musculoskeletal: Musculoskeletal: Reports no additional musculoskeletal complaints and Reports arthralgias (Knees injected recently) Integumentary/Breasts: Skin/Breast: Reports system reviewed and no additional complaints, except as docu Neurologic: Reports system reviewed and no additional complaints, except as documented, Denies behavioral changes and Denies confusion Psychiatric: Psychiatric: Denies behavioral changes and Denies confusion Hematologic/Lymphatic: Hematologic/Lymphatic: Reports easy bruising Exam Const: General: cooperative, healthy appearing and comfortable; No confusion Orientation/consciousness: oriented to person, patient oriented x3 and No confusion Other: Overweight female sitting up in the chair. HENMT: Mouth: Yes moist mucous membranes Eyes: EOM: EOMs intact bilaterally Neck: Neck: supple and no JVD Thyroid: thyroid normal Resp: Effort & Inspection: normal respiratory effort Auscultation: clear to auscultation bilaterally Cardio: Rate: regular rate Rhythm: abnormal rhythm irregularly irregular GI: Inspection: normal to inspection Skin: General skin exam: normal color and no rashes or lesions noted Neuro: General: oriented to person, patient oriented x3 and No confusion Extrem: Right lower extremity: edema Left lower extremity: edema Other: Mild LE edema bilaterally. pedal pulses diminished. Psych: Appearance:
[2022-03-25] MEDS: FERROUS SULFATE 324 MG TABLET PO ×2 (10:22→17:59)
[2022-03-25] MEDS: ROSUVASTATIN 10 MG TABLET 40 MG BY MOUTH (10:23)
[2022-03-25] MEDS: MAGNESIUM OXIDE 400 MG TABLET PO ×2 (10:23→17:58)
[2022-03-25] MEDS: CYANOCOBALAMIN 1,000 MCG TABLET 1000 MCG PO (10:23)
--- NOTE | 2022-03-25 11:23 | PM.IMPN ---
Progress Note: A&P Assessment and Plan (1) Hypotension: Code(s): I95.9 - Hypotension, unspecified Status: Acute Assessment and Plan: hypotensive on admission. Blood pressure medication on hold Given IV fluid Started on dopamine by Cardiology. No signs of sepsis or infection underlying. (2) Sinus bradycardia: Code(s): R00.1 - Bradycardia, unspecified Status: Acute Assessment and Plan: Severely bradycardic underlying rhythm atrial fibrillation. Could be associated with medication that she takes such as atenolol and flecainide Held flecainide and internal on admission. Eliquis on hold and covered with Lovenox in case patient needs temporary or permanent pacemaker. (3) PAF (paroxysmal atrial fibrillation): Code(s): I48.0 - Paroxysmal atrial fibrillation Status: Acute Assessment and Plan: -patient is on Eliquis. Is on hold at this time. -she was started on subcu Lovenox therapeutic status. -hold atenolol and flecainide (4) CAD (coronary artery disease): Code(s): I25.10 - Atherosclerotic heart disease of [place] coronary artery without angina pectoris Status: Acute Assessment and Plan: -continue rosuvastatin (5) Mixed hyperlipidemia: Code(s): E78.2 - Mixed hyperlipidemia Status: Acute Assessment and Plan: -rosuvastatin (6) Back pain: Qualifiers: Back pain location: low back pain Chronicity: acute Back pain laterality: unspecified Sciatica presence: unspecified whether sciatica present Qualified Code(s): M54.5 - Low back pain Code(s): M54.9 - Dorsalgia, unspecified Status: Acute Assessment and Plan: On Vicodin p.r.n. at home (7) Chronic anticoagulation: Code(s): Z79.01 - [facility] (current) use of anticoagulants Status: Acute Assessment and Plan: . Subcu Lovenox (8) Hypothyroidism (acquired): Code(s): E03.9 - Hypothyroidism, unspecified Status: Acute Assessment and Plan: -continue with levothyroxine - TSH mildly low but T4 normal (9) Benign essential hypertension: Code(s): I10 - Essential (primary) hypertension Status: Acute Assessment and Plan: -patient is hypotensive. Hold antihypertensive medications at this time. Plan RICHI: Mild creatinine 1.8 baseline around 1. On IV fluid started. Creatinine continues to improve. Rectal baseline. Will stop fluid today Mild hyponatremia Subjective Date/time seen: 03/25/22 11:23 Interval history: HPI: This is a 71-year-old female patient who does have chronic atrial fibrillation on anticoagulation, hypertension, hyperlipidemia and hypothyroidism.? The patient has been complaining of lightheadedness and intermittent palpitations.? The patient's is in ICU as he has suffered a cardiac arrest and the patient stated she has had more intermittent lightheadedness and palpitation beginning yesterday evening and continued overnight.? The patient was found to have a slow heart rate consistent with atrial fibrillation with slow ventricular response.? The patient denies any fever chills or diarrhea or nausea vomiting.? She is compliant with her current medications.? The patient was started on IV fluids and Zofran.? Cardiology has been consulted.? The patient does not appear to be septic or having acute coronary syndrome.? Patient has been on flecainide and atenolol.? Patient is being admitted to observation status on the date of service of 03/23/2022. 03/24/2022: Feels well. Denies any chest pain or shortness of breath. Telemetry reviewed. 03/25/2022. HAD 15 Beats OF NONSUSTAINED VENTRICULAR TACHYCARDIA LAST EVENING; NO FURTHER RECURRENCE. had some nausea yesterday but improved after we lowered the dopamine. Telemetry was reviewed hand remains in atrial fibrillation rate controlled Review of Systems Review of Systems: All systems reviewed & are unremarkable except as noted
[2022-03-25] MEDS: DOPamine 400 MG/D5W 250 ML 400 MG/250 ML BAG 13.78 MG IV CONT (15:15)
[2022-03-25] MEDS: ACETAMINOPHEN 325 MG TABLET 650 MG PO (22:13)
[2022-03-26] VITALS (13 sets, daily range): BP systolic 107–138; BP diastolic 44–63; PULSE 63–84; RESP 13–20; TEMP 36.2–36.6; O2SAT 97–100
[2022-03-26 05:04] LABS: Basophils Percent Auto 0.9 % (0.2-1.2); Eosinophils Absolute Auto 0.1 K/mm3 (0-0.3); Eosinophils Percent Auto 4.1 % (0-4.4); Hematocrit 27.9 % (37.0-47.0); Hemoglobin 9.4 g/dL (12.0-15.0); Immature Granulocyte Absolute 0.01 K/mm3 (0.00-0.031); Immature Granulocyte Percent A 0.3 % (0-0.5); Immature Platelet Fraction Pct 4.9 % (0.9-11.2); Lymphocytes Absolute Auto 0.75 K/mm3 (0.9-3.2); Lymphocytes Percent Auto 22.1 % (18.3-44.2); Mean Corpuscular HGB Conc 33.7 g/dl (32-36); Mean Corpuscular Hemoglobin 31.8 pg (26-34); Mean Corpuscular Volume 94.3 fl (80-100); Mean Platelet Volume 11.3 fl (7.4-10.4); Monocytes Absolute Auto 0.4 K/mm3 (0.1-0.6); Monocytes Percent Auto 12.4 % (2.6-8.5); Neutrophils Percent Auto 60.2 % (45.5-73.1); Platelet Count Result 124 k/mm3 (150-375); Red Blood Count 2.96 M/mm3 (4.2-5.4); Red Cell Distribution Width 12.8 % (11.5-14.5); White Blood Count 3.4 K/mm3 (4.5-10.0)
[2022-03-26 05:41] LABS: Alanine Aminotransferase 25 U/L (6-35); Albumin Level 3.2 g/dL (3.5-5.1); Alkaline Phosphatase 55 U/L (38-126); Anion Gap 9 mmol/L (8-16); Aspartate Amino Transferase 23 U/L (14-36); Bilirubin,Total 0.6 mg/dL (0.2-1.3); Blood Urea Nitrogen 13 mg/dL (7-17); Calcium 8.2 mg/dL (8.4-10.2); Carbon Dioxide 25 mmol/L (22-30); Chloride 102 mmol/L (98-107); Estimated CRCL calculation 60 ml/min; Estimated Glomerular Filt Rate 54; Glucose 93 mg/dL (65-110); Magnesium 2.4 mg/dL (1.6-2.3); Potassium 3.6 mmol/L (3.4-5.0); Sodium 136 mmol/L (137-145)
[2022-03-26] MEDS: LEVOTHYROXINE SODIUM 150 MCG TABLET PO (06:05)
[2022-03-26] MEDS: ENOXAPARIN 120 MG/0.8 ML SYRINGE SUB-Q ×2 (06:05→17:05)
[2022-03-26] MEDS: CYANOCOBALAMIN 1,000 MCG TABLET 1000 MCG PO (08:33)
[2022-03-26] MEDS: MAGNESIUM OXIDE 400 MG TABLET PO ×2 (08:33→17:04)
[2022-03-26] MEDS: ROSUVASTATIN 10 MG TABLET 40 MG BY MOUTH (08:33)
[2022-03-26] MEDS: FERROUS SULFATE 324 MG TABLET PO (08:33)
[2022-03-26] MEDS: ONDANSETRON INJ 4 MG/2 ML VIAL IV PUSH (10:26)
--- NOTE | 2022-03-26 11:18 | PC.NURSE ---
Spoke with Dr. Chin regarding patient. New order to pause Dopamine drip
--- NOTE | 2022-03-26 11:24 | PM.PNCARD ---
Progress Note: A&P Assessment and Plan (1) Hypotension: Code(s): I95.9 - Hypotension, unspecified Status: Acute Assessment and Plan: Admitted to the ER with hypotension and lightheadedness. Probably related to bradycardia but also, since she has had such weight loss and anorexia, perhaps she is intravascularly mildly depleted. Stable on 2mcg/kg/min tolerating down titration. Discontinue dopamine and observe on telemetry heart rate and BP. Discussed at length if symptomatic bradycardia and or associated hypotension recurs patient will very likely require permanent pacemaker implantation. Furthermore, if she develops tachyarrhythmia in the future again permanent pacemaker implantation should be considered for tachycardia bradycardia syndrome. Do not resume AV colin blocking agents and or antiarrhythmic therapy. Discussed this at length, patient is aware and agrees with plan of care. Ambulate with caution. If stable hemodynamically overnight off dopamine from a cardiac perspective patient may be discharged home tomorrow resuming Eliquis and to follow-up with her toppiece cutter Dr. Gayla Linton as an outpatient very soon or 1-2 weeks (2) Sinus bradycardia: Code(s): R00.1 - Bradycardia, unspecified Status: Acute Assessment and Plan: Bradycardia, mostly sinus bradycardia with perhaps some AFib on admission. No heart block. Improved on Dopamine but need to observe stability off Dopamine prior to discharge. Suggestive underlying sinus node dysfunction. On Eliquis at home, if stable overnight will resume with discontinuation of Lovenox. (3) PAF (paroxysmal atrial fibrillation): Code(s): I48.0 - Paroxysmal atrial fibrillation Status: Acute Assessment and Plan: History of paroxysmal atrial fibrillation, persistent and tolerating reasonably well at this time followed by Dr. Jo Linton. Anticoagulated with Eliquis as an outpatient (4) CAD (coronary artery disease): Code(s): I25.10 - Atherosclerotic heart disease of [place] coronary artery without angina pectoris Status: Acute Assessment and Plan: History of CAD and Left anterior descending stent. CAD is stable. Takes Eliquis off aspirin as result, continue rosuvastatin. Subjective Date/time seen: Date of service:03/26/22 11:24 Interval history: Feels okay this morning aside from some nausea. She did vomit once last night. Nausea improved this morning. Denies any syncope, pre-syncope, chest pain, shortness of breath. 03/25/22: No more nausea overnight or this morning. Feeling well overall. HR remains mostly in the 60's, BP stable. Date of service 03/26/2022: Overall feels fairly well. Has some GI upset looser stool this morning improving. Thinks may be related to iron supplementation. AFib heart rate stable 60s to 70s overnight on dopamine 2 microgram/kg/minute, BP stable. Denies shortness of breath, chest pain palpitations. No dizziness. Otherwise feels well. She understandably expresses ongoing concern regarding her 's health and clinical status in the ICU at this time. Review of Systems Review of Systems: Remainder of the review of systems otherwise negative. Constitutional: Constitutional: Denies fever(s) and Reports weight loss (40#/2 months) Eyes: Eyes: Reports no additional eye complaints ENT: Denies epistaxis Cardiovascular: Cardiovascular: Denies chest pain, Reports pedal edema, Reports lightheadedness and Denies dyspnea Respiratory: Respiratory: Denies chest congestion and Denies dyspnea Gastrointestinal: Gastrointestinal: Denies abdominal pain and Denies hematochezia Genitourinary: Genitourinary: Denies hematuria Musculoskeletal: Musculoskeletal: Reports no additional musculoskeletal complaints and Reports arthralgias (Knees injected recently) Integumentary/Breasts: Skin/Breast: Reports system reviewed and no additional complaints, except as docu Neurologi
--- NOTE | 2022-03-26 11:39 | PM.IMPN ---
Progress Note: A&P Assessment and Plan (1) Hypotension: Code(s): I95.9 - Hypotension, unspecified Status: Acute Assessment and Plan: hypotensive on admission. Blood pressure medication on hold Given IV fluid Started on dopamine by Cardiology. No signs of sepsis or infection underlying. Will hold dopamine today and continue to monitor off dopamine (2) Sinus bradycardia: Code(s): R00.1 - Bradycardia, unspecified Status: Acute Assessment and Plan: Severely bradycardic underlying rhythm atrial fibrillation. Could be associated with medication that she takes such as atenolol and flecainide Held flecainide and internal on admission. Eliquis on hold and covered with Lovenox in case patient needs temporary or permanent pacemaker. (3) PAF (paroxysmal atrial fibrillation): Code(s): I48.0 - Paroxysmal atrial fibrillation Status: Acute Assessment and Plan: -patient is on Eliquis. Is on hold at this time. -she was started on subcu Lovenox therapeutic status. -hold atenolol and flecainide (4) CAD (coronary artery disease): Code(s): I25.10 - Atherosclerotic heart disease of [place] coronary artery without angina pectoris Status: Acute Assessment and Plan: -continue rosuvastatin (5) Mixed hyperlipidemia: Code(s): E78.2 - Mixed hyperlipidemia Status: Acute Assessment and Plan: -rosuvastatin (6) Back pain: Qualifiers: Back pain location: low back pain Chronicity: acute Back pain laterality: unspecified Sciatica presence: unspecified whether sciatica present Qualified Code(s): M54.5 - Low back pain Code(s): M54.9 - Dorsalgia, unspecified Status: Acute Assessment and Plan: On Vicodin p.r.n. at home (7) Chronic anticoagulation: Code(s): Z79.01 - [facility] (current) use of anticoagulants Status: Acute Assessment and Plan: . Subcu Lovenox (8) Hypothyroidism (acquired): Code(s): E03.9 - Hypothyroidism, unspecified Status: Acute Assessment and Plan: -continue with levothyroxine - TSH mildly low but T4 normal (9) Benign essential hypertension: Code(s): I10 - Essential (primary) hypertension Status: Acute Assessment and Plan: -patient is hypotensive. Hold antihypertensive medications at this time. Plan RICHI: Mild creatinine 1.8 baseline around 1. On IV fluid started. Creatinine continues to improve. Rectal baseline. Will stop fluid today Mild hyponatremia Time Spent With Patient Time: Discussed with industrial safety and health manager Subjective Date/time seen: 03/26/22 11:39 Interval history: HPI: This is a 71-year-old female patient who does have chronic atrial fibrillation on anticoagulation, hypertension, hyperlipidemia and hypothyroidism.? The patient has been complaining of lightheadedness and intermittent palpitations.? The patient's is in ICU as he has suffered a cardiac arrest and the patient stated she has had more intermittent lightheadedness and palpitation beginning yesterday evening and continued overnight.? The patient was found to have a slow heart rate consistent with atrial fibrillation with slow ventricular response.? The patient denies any fever chills or diarrhea or nausea vomiting.? She is compliant with her current medications.? The patient was started on IV fluids and Zofran.? Cardiology has been consulted.? The patient does not appear to be septic or having acute coronary syndrome.? Patient has been on flecainide and atenolol.? Patient is being admitted to observation status on the date of service of 03/23/2022. 03/24/2022: Feels well. Denies any chest pain or shortness of breath. Telemetry reviewed. 03/25/2022. HAD 15 Beats OF NONSUSTAINED VENTRICULAR TACHYCARDIA LAST EVENING; NO FURTHER RECURRENCE. had some nausea yesterday but improved after we lowered the dopamine. Telemetry was reviewed hand remains in atrial fibri
[2022-03-27] VITALS (7 sets, daily range): BP systolic 124–131; BP diastolic 53–74; PULSE 76–93; RESP 20; TEMP 36.4–36.9; O2SAT 99–100
--- NOTE | 2022-03-27 01:03 | PC.NURSE ---
Daylight Savings Time For Daylight Savings Time Ending in the Fall - Clocks are moved back. For Daylight Savings Time Beginning in the Spring - Clocks are moved ahead. For [facility], the time of change occurs at 0200 hrs. Time is taken from the fountain server. This entry on the patient's chart recognizes the change in time reflected during documentation. Example: 2 entries for vital signs may be charted for 0200 hrs.
[2022-03-27 05:42] LABS: Basophils Percent Auto 0.6 % (0.2-1.2); Eosinophils Absolute Auto 0.1 K/mm3 (0-0.3); Eosinophils Percent Auto 2.9 % (0-4.4); Hematocrit 27.9 % (37.0-47.0); Hemoglobin 9.4 g/dL (12.0-15.0); Immature Granulocyte Absolute 0.01 K/mm3 (0.00-0.031); Immature Granulocyte Percent A 0.3 % (0-0.5); Lymphocytes Absolute Auto 0.63 K/mm3 (0.9-3.2); Lymphocytes Percent Auto 18.4 % (18.3-44.2); Mean Corpuscular HGB Conc 33.7 g/dl (32-36); Mean Corpuscular Hemoglobin 32.6 pg (26-34); Mean Corpuscular Volume 96.9 fl (80-100); Mean Platelet Volume 11.3 fl (7.4-10.4); Monocytes Absolute Auto 0.4 K/mm3 (0.1-0.6); Monocytes Percent Auto 12.6 % (2.6-8.5); Neutrophils Absolute Auto 2.2 K/mm3 (1.3-6.7); Neutrophils Percent Auto 65.2 % (45.5-73.1); Platelet Count Result 111 k/mm3 (150-375); Red Blood Count 2.88 M/mm3 (4.2-5.4); White Blood Count 3.4 K/mm3 (4.5-10.0)
[2022-03-27 05:54] LABS: Alanine Aminotransferase 25 U/L (6-35); Albumin Level 3.2 g/dL (3.5-5.1); Alkaline Phosphatase 57 U/L (38-126); Anion Gap 9 mmol/L (8-16); Aspartate Amino Transferase 25 U/L (14-36); Bilirubin,Total 0.7 mg/dL (0.2-1.3); Blood Urea Nitrogen 9 mg/dL (7-17); Carbon Dioxide 23 mmol/L (22-30); Chloride 102 mmol/L (98-107); Estimated CRCL calculation 60 ml/min; Estimated Glomerular Filt Rate 54; Glucose 85 mg/dL (65-110); Magnesium 2.1 mg/dL (1.6-2.3); Potassium 3.5 mmol/L (3.4-5.0); Sodium 134 mmol/L (137-145)
[2022-03-27] MEDS: LEVOTHYROXINE SODIUM 150 MCG TABLET PO (06:37)
[2022-03-27] MEDS: ENOXAPARIN 120 MG/0.8 ML SYRINGE SUB-Q (06:37)
[2022-03-27] MEDS: CYANOCOBALAMIN 1,000 MCG TABLET 1000 MCG PO (08:37)
[2022-03-27] MEDS: ACETAMINOPHEN 325 MG TABLET 650 MG PO (08:37)
[2022-03-27] MEDS: ROSUVASTATIN 10 MG TABLET 40 MG BY MOUTH (08:37)
[2022-03-27] MEDS: FERROUS SULFATE 324 MG TABLET PO (08:37)
[2022-03-27] MEDS: MAGNESIUM OXIDE 400 MG TABLET PO (08:37)
[2022-03-27] MEDS: LORazepam (*CRX) 1 MG TABLET PO (08:39)
[2022-03-27] MEDS: ONDANSETRON HCL ODT 4 MG TABLET PO (09:15)
--- NOTE | 2022-03-27 10:48 | PM.PNCARD ---
Progress Note: A&P Assessment and Plan (1) Hypotension: Code(s): I95.9 - Hypotension, unspecified Status: Acute Assessment and Plan: Admitted to the ER with hypotension and lightheadedness. Probably related to bradycardia but also, since she has had such weight loss and anorexia, perhaps she is intravascularly mildly depleted. doing very well after discontinuation of dopamine without issue overnight with stable heart rate and blood pressure. Discussed at length if symptomatic bradycardia and or associated hypotension recurs patient will very likely require permanent pacemaker implantation. Furthermore, if she develops tachyarrhythmia in the future again permanent pacemaker implantation should be considered for tachycardia bradycardia syndrome. Do not resume AV colin blocking agents and or antiarrhythmic therapy. Discussed this at length, patient is aware and agrees with plan of care. Ambulate with caution. Stable for disposition home per hospitalist service to follow up as soon as possible with Dr. Linton. discussed if symptomatic AFib despite heart rate control pacemaker implantation may very well be indicated for antiarrhythmic and or rhythm control strategy and protection with pacemaker to avoid symptomatic bradycardia future. She understands this and will discuss with her warp dyeing tender as an outpatient basis as soon as possible. Resume oral systemic anticoagulation with Eliquis 5 mg b.i.d. began this evening. (2) Sinus bradycardia: Code(s): R00.1 - Bradycardia, unspecified Status: Acute Assessment and Plan: Bradycardia, mostly sinus bradycardia with perhaps some AFib on admission. No heart block. Stable off dopamine. Suggestive underlying sinus node dysfunction. On Eliquis at home, if stable overnight will resume with discontinuation of Lovenox. (3) PAF (paroxysmal atrial fibrillation): Code(s): I48.0 - Paroxysmal atrial fibrillation Status: Acute Assessment and Plan: History of paroxysmal atrial fibrillation, persistent and tolerating reasonably well at this time followed by Dr. Jo Linton. Anticoagulated with Eliquis as an outpatient She appears to be symptomatic with her AFib may not tolerate despite heart rate control moving forward. It is not reasonable to consider cardioversion at this time as she will either not convert or maintain sinus rhythm without medical therapy. (4) CAD (coronary artery disease): Code(s): I25.10 - Atherosclerotic heart disease of [place] coronary artery without angina pectoris Status: Acute Assessment and Plan: History of CAD and Left anterior descending stent. CAD is stable. Takes Eliquis off aspirin as result, continue rosuvastatin. Subjective Date/time seen: 03/27/22 10:48 Interval history: Feels okay this morning aside from some nausea. She did vomit once last night. Nausea improved this morning. Denies any syncope, pre-syncope, chest pain, shortness of breath. 03/25/22: No more nausea overnight or this morning. Feeling well overall. HR remains mostly in the 60's, BP stable. Date of service 03/26/2022: Overall feels fairly well. Has some GI upset looser stool this morning improving. Thinks may be related to iron supplementation. AFib heart rate stable 60s to 70s overnight on dopamine 2 microgram/kg/minute, BP stable. Denies shortness of breath, chest pain palpitations. No dizziness. Otherwise feels well. She understandably expresses ongoing concern regarding her 's health and clinical status in the ICU at this time. Review of Systems Constitutional: Constitutional: Denies fever(s) and Reports weight loss (40#/2 months) Eyes: Eyes: Reports no additional eye complaints ENT: Denies epistaxis Cardiovascular: Cardiovascular: Denies chest pain, Reports pedal edema, Reports lightheadedness and Denies dyspnea Respiratory: Respiratory: Denies chest congestion and Denies dyspnea
--- NOTE | 2022-03-27 11:30 | PM.DS ---
DS: Admitting Diagnosis Discharge Date 03/27/2022 Admitting Diagnosis dizziness DS: Discharge Diagnosis Discharge Diagnosis (1) Hypotension: Code(s): I95.9 - Hypotension, unspecified Status: Acute Assessment and Plan: (2) Sinus bradycardia: Code(s): R00.1 - Bradycardia, unspecified Status: Acute (3) PAF (paroxysmal atrial fibrillation): Code(s): I48.0 - Paroxysmal atrial fibrillation Status: Acute (4) CAD (coronary artery disease): Code(s): I25.10 - Atherosclerotic heart disease of [place] coronary artery without angina pectoris Status: Acute (5) Mixed hyperlipidemia: Code(s): E78.2 - Mixed hyperlipidemia Status: Acute (6) Back pain: Qualifiers: Back pain location: low back pain Chronicity: acute Back pain laterality: unspecified Sciatica presence: unspecified whether sciatica present Qualified Code(s): M54.5 - Low back pain Code(s): M54.9 - Dorsalgia, unspecified Status: Acute Assessment and Plan: (7) Chronic anticoagulation: Code(s): Z79.01 - intermediate card tender (current) use of anticoagulants Status: Acute (8) Hypothyroidism (acquired): Code(s): E03.9 - Hypothyroidism, unspecified Status: Acute (9) Benign essential hypertension: Code(s): I10 - Essential (primary) hypertension Status: Acute DS: Summary Hospital Course Hospital Course: # dizziness: Patient noted to be bradycardic and hypotensive in the ER likely reason for this. # hypotension: hypotensive on admission. Blood pressure medication on hold . She was also noted to be bradycardic which might have contributed to the hypotension as well. Given IV fluid With still hypertension persisting along with bradycardia and hence was started on dopamine by Cardiology. No signs of sepsis or infection underlying. During the hospital stay with improvement in her blood pressure dopamine was slowly tapered off. Her flecainide and atenolol along with other blood pressure medication were all held due to hypotension and bradycardia. These were continued to be held at the time of discharge. Off dopamine rhythm remained stable with no further bradycardia and hypotension and hence plan to be discharged. If recurrence of tachycardia bradycardia persists she will be a candidate for pacemaker implantation. She will follow-up with cardiology for this as an outpatient basis. #RICHI: Mild creatinine 1.8 baseline around 1. On IV fluid started. Creatinine continues to improve. back to her baseline at the time of discharge. # mild hyponatremia: # bradycardia: ? Severely bradycardic underlying rhythm atrial fibrillation. Could be associated with medication that she takes such as atenolol and flecainide Held flecainide and internal on admission. Eliquis on hold and covered with Lovenox in case? patient needs temporary or permanent pacemaker. Eliquis will be resumed at the time of discharge # Paroxysmal atrial fibrillation: -patient is on Eliquis.? Is on hold at this time. -she was started on subcu Lovenox therapeutic status. -hold atenolol and flecainide # coronary artery disease: -continue rosuvastatin # hyperlipidemia: -rosuvastatin # back pain: ? On Vicodin p.r.n. at home # Chronic anticoagulation: .? Subcu Lovenox During the hospital stay switched to Eliquis at discharge # hypothyroidism : -continue with levothyroxine - TSH mildly? low but T4 normal # hypertension: -patient is hypotensive.? Hold antihypertensive medications at this time. Time Spent with Patient Time attestation: Total time spent providing and/or coordinating discharge services: 45 minutes Exam Narrative: GENERAL: Awake, alert, conversant HEAD: Normocephalic, atraumatic. EYES: PERRLA and EOMI. ENT: Nares clear, no rhinorrhea or epistaxis. Mucous membranes moist. NECK: Supple. Nontender CHEST: No respiratory distress, breathing even and non labor
== END 2022-03-27 12:28 | disposition home or self-care (01) | DRG 312 ==
LOC: ANHED 13:31 → ANHIMU 16:08
PROVIDERS: Emergency Medicine; Nurse Practitioner; Admitting Provider Family Medicine; Emergency Provider Emergency Medicine; PCP Internal Medicine; Visit Provider Internal Medicine
DX: I95.2 Hypotension due to drugs (principal); E87.1 Hypo-osmolality and hyponatremia; N17.9 Acute kidney failure, unspecified; Z68.41 Body mass index [BMI] 40.0-44.9, adult; I48.0 Paroxysmal atrial fibrillation; R00.1 Bradycardia, unspecified; I25.10 Atherosclerotic heart disease of native coronary artery without angina pectoris; E78.2 Mixed hyperlipidemia; M54.50 Low back pain, unspecified; T44.7X5A Adverse effect of beta-adrenoreceptor antagonists, initial encounter; Z79.01 Long term (current) use of anticoagulants; E03.9 Hypothyroidism, unspecified; I10 Essential (primary) hypertension; Z95.5 Presence of coronary angioplasty implant and graft; Z86.16 Personal history of COVID-19; G47.33 Obstructive sleep apnea (adult) (pediatric); Z90.49 Acquired absence of other specified parts of digestive tract; Z82.49 Family history of ischemic heart disease and other diseases of the circulatory system; Z80.9 Family history of malignant neoplasm, unspecified; Z87.891 Personal history of nicotine dependence; Z79.899 Other long term (current) drug therapy; Z20.822 Contact with and (suspected) exposure to COVID-19; E66.3 Overweight
CPT/HCPCS: 36415; 71045; 80053; 83605; 83690; 83735; 83880; 84100; 84439; 84443; 84484; 85025; 85055; 85610; 85730; 93005; 96365; 96366; 96372; 99285; A9270; G0378; J0461; J1265; J1650; J2405; J7030; J7120; U0003; U0005

== ENCOUNTER 2022-04-28 10:01 | Outpatient (CLI) | payer MEDICARE, SELFPAY ==
[2022-04-28 10:31] LABS: Anion Gap 6 mmol/L (8-16); Blood Urea Nitrogen 15 mg/dL (7-17); CRP < 0.5 mg/dL (<1.0); Calcium 9.3 mg/dL (8.4-10.2); Carbon Dioxide 28 mmol/L (22-30); Chloride 100 mmol/L (98-107); Estimated Glomerular Filt Rate 54; Glucose 99 mg/dL (65-110); Sodium 134 mmol/L (137-145)
[2022-04-28 10:42] LABS: Basophils Percent Auto 0.5 % (0.2-1.2); Eosinophils Percent Auto 0.5 % (0-4.4); Hematocrit 35.8 % (37.0-47.0); Hemoglobin 11.5 g/dL (12.0-15.0); Immature Granulocyte Absolute 0.04 K/mm3 (0.00-0.031); Immature Granulocyte Percent A 0.5 % (0-0.5); Lymphocytes Absolute Auto 1.17 K/mm3 (0.9-3.2); Mean Corpuscular HGB Conc 32.1 g/dl (32-36); Mean Corpuscular Hemoglobin 31.2 pg (26-34); Mean Platelet Volume 10.9 fl (7.4-10.4); Monocytes Absolute Auto 0.7 K/mm3 (0.1-0.6); Monocytes Percent Auto 9.5 % (2.6-8.5); Neutrophils Absolute Auto 5.3 K/mm3 (1.3-6.7); Platelet Count Result 228 k/mm3 (150-375); Red Blood Count 3.69 M/mm3 (4.2-5.4); Red Cell Distribution Width 13.4 % (11.5-14.5); White Blood Count 7.3 K/mm3 (4.5-10.0)
[2022-04-28 11:00] LABS: Thyroid Stimulating Hormone 0.116 uIU/mL (0.465-4.680)
[2022-04-28 11:18] LABS: Free T4 Free Thyroxine 2.14 ng/mL (0.78-2.19)
[2022-04-28 11:39] LABS: Erythrocyte Sedimentation Rate 22 mm/hr (0-20)
== END 2022-04-28 10:02 | disposition home or self-care (01) ==
LOC: ANHLAB 10:03
PROVIDERS: PCP Internal Medicine; Visit Provider Internal Medicine
DX: R79.89 Other specified abnormal findings of blood chemistry (principal); I10 Essential (primary) hypertension; I95.9 Hypotension, unspecified; M31.6 Other giant cell arteritis; E03.9 Hypothyroidism, unspecified
CPT/HCPCS: 36415; 80048; 84439; 84443; 85025; 85652; 86140

== ENCOUNTER 2022-06-04 07:54 | Outpatient (CLI) | payer MEDICARE, SELFPAY ==
[2022-06-04 09:33] LABS: Alanine Aminotransferase 44 U/L (6-35); Albumin Level 4.1 g/dL (3.5-5.1); Alkaline Phosphatase 76 U/L (38-126); Anion Gap 5 mmol/L (8-16); Aspartate Amino Transferase 45 U/L (14-36); Bilirubin,Total 1.1 mg/dL (0.2-1.3); Blood Urea Nitrogen 21 mg/dL (7-17); CRP < 0.5 mg/dL (<1.0); Calcium 8.9 mg/dL (8.4-10.2); Carbon Dioxide 33 mmol/L (22-30); Chloride 97 mmol/L (98-107); Estimated Glomerular Filt Rate 49; Glucose 123 mg/dL (65-110); Potassium 3.2 mmol/L (3.4-5.0); Sodium 135 mmol/L (137-145)
[2022-06-04 11:02] LABS: Erythrocyte Sedimentation Rate 24 mm/hr (0-20)
== END 2022-06-04 07:55 | disposition home or self-care (01) ==
LOC: ANHLAB 07:55
PROVIDERS: PCP Internal Medicine; Visit Provider Internal Medicine
DX: M31.6 Other giant cell arteritis (principal)
CPT/HCPCS: 36415; 80053; 85652; 86140

== ENCOUNTER 2022-07-05 08:43 | Outpatient (CLI) | payer MEDICARE, SELFPAY ==
--- NOTE | ~2022-07-05 | CT_ITS ---
EXAMINATION: CT abdomen pelvis w con DATE: 07/05/2022 09:25 INDICATION: Abdominal pain, bloating. Early satiety. TECHNIQUE: Computed tomography (CT) of the abdomen and pelvis was performed with 100 CC Omnipaque 350 intravenous contrast. Automated exposure control and iterative reconstruction technique were employe d. Exam dose: 1462.73 mGy-cm total exam DLP. COMPARISON: 06/17/2021 CT abdomen pelvis FINDINGS: Chronic mild discoid scarring at the base of the lingula. The lung bases are clear of infil trate or consolidation. Cardiomegaly. Coronary artery calcifications. No pericardial or pleural effusion. Status post cholecystectomy. Mild prominence of the intrahepatic bile ducts is likely due to cholecys tectomy. No extrahepatic bile duct obstruction is evident. No pancreatic duct dilatation. No hepatic space-occupying mass lesion. There is fatty infiltration of the pancreas. No pancreatic mass lesion o r calcification. Normal splenic size. No renal mass lesion or urinary tract calculus or hydroureteronephrosis. The uterus, adnexal areas and urinary bladder are unremarkable. Normal caliber of the abdominal aorta. No intraperitoneal or retroperitoneal or pelvic mass lesion or adenopathy or ascites is detected. Approximately 2.4 cm duodenal diverticulum. Normal appendix. Diverticulosis of the left and right colon; no CT evidence of diverticulitis. No bowel obstruction, b owel wall thickening, pneumatosis or intraperitoneal free air. Small fat containing umbilical hernia. There is thoracolumbar levoscoliosis. There is chronic osteopenia and cortical thickening of T10, stable since 06/17/2021, likely Paget's di sease. Prominent degenerative changes of thoracic and lumbar spine. Grade 1 anterolisthesis at L4-5 due to degenerative change at apophyseal joints. IMPRESSION: Cardiomegaly Status post cholecystectomy Duodenal diverticulum Normal appendix Reviewed, dictated and finalized at [facility]. Reviewed, dictated and finalized at location A. NTRYMAN
--- NOTE | ~2022-07-05 | XR_ITS ---
XR UGI w small bowel DATE: 07/05/2022 12:27 INDICATION: Early satiety. Abdominal bloating and pain. TECHNIQUE: Air-contrast upper gastrointestinal series DAP: 109.325 Gycm2 83 images COMPARISON: July 05, 2022 CT abdomen pelvis FINDINGS: Some tertiary contractions of the esophagus are noted. There is mild spontaneous gastroesop hageal reflux. No sliding hiatal hernia. No stricture, mucosal fold thickening, erosion or ulceration or intraluminal mass lesion of the esoph sean, stomach or duodenum is detected. Normally shaped duodenal bulb. There are diverticula of second and third portions of the duodenum. Status post cholecystectomy. The small bowel mucosal pattern appears normal. No stricture, mucosal fold thickening, ulceration, di verticulum or intraluminal mass lesion of the small bowel is noted. The terminal ileum appears normal . IMPRESSION: Presbyesophagus Mild gastroesophageal reflux Status post cholecystectomy Reviewed, dictated and finalized at [facility]. Reviewed, dictated and finalized at location A. 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
[2022-07-05 09:20] LABS: Estimated Glomerular Filt Rate 54
== END 2022-07-05 08:44 | disposition home or self-care (01) ==
PROVIDERS: PCP Internal Medicine; Visit Provider Internal Medicine
DX: R10.9 Unspecified abdominal pain (principal); R14.0 Abdominal distension (gaseous); R68.81 Early satiety; K22.89 Other specified disease of esophagus; K21.9 Gastro-esophageal reflux disease without esophagitis; Z90.49 Acquired absence of other specified parts of digestive tract; K57.10 Diverticulosis of small intestine without perforation or abscess without bleeding; I51.7 Cardiomegaly
CPT/HCPCS: 74177; 74240; 74248; Q9967

== ENCOUNTER 2022-08-06 08:14 | Outpatient (CLI) | payer MEDICARE, SELFPAY ==
--- NOTE | ~2022-08-06 | XR_ITS ---
XR lumbar spine 2-3V 08/06/2022 09:19 Indication: Back pain. Possible fracture. Procedure: 3 views lumbar spine Comparison: 01/28/2021 Findings: There is significant loss of disc height at all lumbar levels. There are mild superior endp late compression deformities at T11, T12 and L1 which appear chronic. There is advanced mid and lower lumbar facet hypertrophy with grade 1 spondylolisthesis at L4-5. There is vacuum phenomena at multip le levels. There is levoscoliosis unchanged. There are cholecystectomy clips. Impression: 1: Severe lumbar spondylosis with levoscoliosis. No significant change. Reviewed, dictated and finalized at location A. Impression: 1: Severe lumbar spondylosis with levoscoliosis. No significant change.
--- NOTE | ~2022-08-06 | XR_ITS ---
XR thoracic spine 2V 08/06/2022 09:19 Indication: Back pain. Procedure: 2 views thoracic spine Comparison: Chest x-ray dated 06/23/2017 Findings: Stable chronic superior endplate compression deformities of T11, T12 and L1. There is moder ate multilevel thoracic spondylosis primarily involving the mid and lower thoracic spine. Prominent v entral osteophytes at multiple levels. T1 is not adequately visualized on the lateral view. There is mild dextroscoliosis. Osteopenia. Surrounding osseous structures are unremarkable. No acute fracture is identified. Impression: 1: No acute abnormality of the thoracic spine identified. 2: Moderate-severe thoracic spondylosis. 3: Mild chronic superior endplate compression deformities of T11-L1. Reviewed, dictated and finalized at location A. Impression: 1: No acute abnormality of the thoracic spine identified. 2: Moderate-severe thoracic spondylosis. 3: Mild chronic superior endplate compression deformities of T11-L1.
[2022-08-06 09:44] LABS: Alanine Aminotransferase 24 U/L (6-35); Albumin Level 4.2 g/dL (3.5-5.1); Alkaline Phosphatase 56 U/L (38-126); Anion Gap 6 mmol/L (8-16); Aspartate Amino Transferase 27 U/L (14-36); Bilirubin,Total 0.9 mg/dL (0.2-1.3); Blood Urea Nitrogen 17 mg/dL (7-17); Calcium 8.9 mg/dL (8.4-10.2); Carbon Dioxide 26 mmol/L (22-30); Chloride 105 mmol/L (98-107); Estimated Glomerular Filt Rate > 60; Glucose 103 mg/dL (65-110); Phosphorus 2.7 mg/dL (2.5-4.5); Potassium 3.8 mmol/L (3.4-5.0); Sodium 137 mmol/L (137-145)
[2022-08-06 09:52] LABS: Parathyroid Intact 97.9 pg/mL (7.5-53.5)
[2022-08-06 10:14] LABS: Vitamin D 25 Hydroxy 32.6 ng/mL
[2022-08-09 15:06] LABS: Albumin 3.7 g/dL (3.8-4.8); Alpha 1 Globulin 0.3 g/dL (0.2-0.3); Alpha 2 Globulin 0.9 g/dL (0.5-0.9); Beta 1 Globulin 0.5 g/dL (0.4-0.6); Gamma Globulin 0.5 g/dL (0.8-1.7); Interpretation Consistent with; Protein, Total 6.3 g/dL (6.1-8.1)
== END 2022-08-06 08:15 | disposition home or self-care (01) ==
PROVIDERS: PCP Internal Medicine; Referring Provider Internal Medicine
DX: M81.0 Age-related osteoporosis without current pathological fracture (principal); M46.04 Spinal enthesopathy, thoracic region; M48.54XA Collapsed vertebra, not elsewhere classified, thoracic region, initial encounter for fracture; M43.06 Spondylolysis, lumbar region
CPT/HCPCS: 36415; 72070; 72100; 80053; 82306; 83970; 84100; 84155; 84165

== ENCOUNTER 2022-09-12 08:02 | Outpatient (CLI) | payer MEDICARE, SELFPAY ==
[2022-09-12 08:25] LABS: Basophils Percent Auto 0.5 % (0.2-1.2); Eosinophils Percent Auto 0.5 % (0-4.4); Hematocrit 36.3 % (37.0-47.0); Hemoglobin 12.2 g/dL (12.0-15.0); Immature Granulocyte Absolute 0.03 K/mm3 (0.00-0.031); Immature Granulocyte Percent A 0.5 % (0-0.5); Lymphocytes Absolute Auto 0.65 K/mm3 (0.9-3.2); Mean Corpuscular HGB Conc 33.6 g/dl (32-36); Mean Corpuscular Hemoglobin 32.4 pg (26-34); Mean Corpuscular Volume 96.5 fl (80-100); Mean Platelet Volume 10.5 fl (7.4-10.4); Monocytes Absolute Auto 0.5 K/mm3 (0.1-0.6); Monocytes Percent Auto 7.4 % (2.6-8.5); Neutrophils Absolute Auto 5.3 K/mm3 (1.3-6.7); Neutrophils Percent Auto 81.1 % (45.5-73.1); Platelet Count Result 190 k/mm3 (150-375); Red Blood Count 3.76 M/mm3 (4.2-5.4); Red Cell Distribution Width 13.5 % (11.5-14.5); White Blood Count 6.5 K/mm3 (4.5-10.0)
[2022-09-12 08:43] LABS: Alanine Aminotransferase 31 U/L (6-35); Albumin Level 4.1 g/dL (3.5-5.1); Alkaline Phosphatase 54 U/L (38-126); Anion Gap 6 mmol/L (8-16); Aspartate Amino Transferase 30 U/L (14-36); Bilirubin,Total 1.2 mg/dL (0.2-1.3); Blood Urea Nitrogen 20 mg/dL (7-17); CRP < 0.5 mg/dL (<1.0); Calcium 9.5 mg/dL (8.4-10.2); Carbon Dioxide 29 mmol/L (22-30); Chloride 100 mmol/L (98-107); Cholesterol 168 mg/dL (0-200); Estimated Glomerular Filt Rate > 60; Glucose 106 mg/dL (65-110); HDL Direct 62 mg/dL; Potassium 3.2 mmol/L (3.4-5.0); Sodium 135 mmol/L (137-145); Triglycerides 172 mg/dL (<150)
[2022-09-12 08:52] LABS: LDL Cholesterol Direct 71 mg/dL
[2022-09-12 09:03] LABS: Hemoglobin A1C 5.5 % (<5.7)
[2022-09-12 09:11] LABS: Thyroid Stimulating Hormone < 0.015 uIU/mL (0.465-4.680)
[2022-09-12 09:37] LABS: Free T4 Free Thyroxine 2.26 ng/mL (0.78-2.19)
[2022-09-15 15:30] LABS: Lyme Disease Ab (IgM), Blot Negative (Negative); Lyme Disease Ab(IgG), Blot Negative (Negative)
== END 2022-09-12 08:03 | disposition home or self-care (01) ==
LOC: ANHLAB 08:04
PROVIDERS: PCP Internal Medicine; Visit Provider Internal Medicine
DX: E78.5 Hyperlipidemia, unspecified (principal); E03.9 Hypothyroidism, unspecified; I10 Essential (primary) hypertension; W57.XXXA Bitten or stung by nonvenomous insect and other nonvenomous arthropods, initial encounter; R73.09 Other abnormal glucose; M31.6 Other giant cell arteritis
CPT/HCPCS: 36415; 80053; 80061; 83036; 84439; 84443; 85025; 86140; 86617

== ENCOUNTER 2022-09-20 07:49 | Outpatient (CLI) | payer MEDICARE, SELFPAY ==
[2022-09-20 08:28] LABS: Erythrocyte Sedimentation Rate 40 mm/hr (0-20)
== END 2022-09-20 07:50 | disposition home or self-care (01) ==
PROVIDERS: PCP Internal Medicine; Visit Provider Internal Medicine
DX: M31.6 Other giant cell arteritis (principal)
CPT/HCPCS: 36415; 85652

== ENCOUNTER → 2022-10-26 08:19 | Outpatient (CLI) | payer MEDICARE, SELFPAY ==
--- NOTE | ~2022-10-26 | MR_ITS ---
MRI of the right elbow CLINICAL HISTORY: Pain TECHNIQUE: Proton-density and proton-density fat-sat images were acquired in the axial, coronal, and sagittal planes. FINDINGS: Ulnar collateral ligament is intact. Radial collateral ligament and the lateral ulnar colla teral ligament appear intact. There is moderate grade partial tearing at the common extensor tendon origin, and at the common flexo r tendon origin. Bone marrow signals are essentially unremarkable. There is mild degenerative change at the radiocapit ellar articulation. There is minimal elbow joint effusion. Biceps and brachialis tendons are intact. There is somewhat ovoid low signal focus at the distal tric eps tendon, with surrounding thickening and hyperintensity of the distal triceps tendon. There is ext ensive subcutaneous soft tissue edema over the posterior aspect of the elbow. IMPRESSION: Findings most consistent with severe calcific tendinitis of the distal triceps tendon, as detailed ab tony. There may be low-grade partial tearing of the distal tendon as well. Subcutaneous soft tissue edema over the posterior aspect of the elbow, nonspecific. Probable chronic moderate grade partial tearing of the common extensor and common flexor tendon origi ns. Mild degenerative change at the radiocapitellar articulation. Reviewed, dictated and finalized at location . IMPRESSION: Findings most consistent with severe calcific tendinitis of the distal triceps tendon, as detailed above. There may be low-grade partial tearing of the distal tendon as well. Subcutaneous soft tissue edema over the posterior aspect of the elbow, nonspeci fic. Probable chronic moderate grade partial tearing of the common extensor and comm on flexor tendon origins. Mild degenerative change at the radiocapitellar articulation.
== END ==
PROVIDERS: PCP Internal Medicine; Visit Provider Physician Assistant Surgical
DX: M25.521 Pain in right elbow (principal); R60.9 Edema, unspecified
CPT/HCPCS: 73221

== ENCOUNTER 2023-01-05 09:27 | Outpatient (CLI) | payer MEDICARE, SELFPAY ==
[2023-01-05 11:43] LABS: Alanine Aminotransferase 24 U/L (6-35); Alkaline Phosphatase 53 U/L (38-126); Anion Gap 4 mmol/L (8-16); Aspartate Amino Transferase 30 U/L (14-36); Bilirubin,Total 0.9 mg/dL (0.2-1.3); Blood Urea Nitrogen 16 mg/dL (7-17); CRP < 0.5 mg/dL (<1.0); Calcium 9.3 mg/dL (8.4-10.2); Carbon Dioxide 29 mmol/L (22-30); Chloride 94 mmol/L (98-107); Estimated Glomerular Filt Rate > 60; Glucose 99 mg/dL (65-110); Potassium 3.9 mmol/L (3.4-5.0); Sodium 127 mmol/L (137-145)
[2023-01-05 11:55] LABS: Erythrocyte Sedimentation Rate 23 mm/hr (0-20)
[2023-01-05 12:06] LABS: Free T4 Free Thyroxine 1.55 ng/mL (0.78-2.19)
[2023-01-05 12:26] LABS: Hemoglobin A1C 5.5 % (<5.7)
== END 2023-01-05 09:28 | disposition home or self-care (01) ==
PROVIDERS: PCP Internal Medicine; Visit Provider Internal Medicine
DX: M31.6 Other giant cell arteritis (principal); Z79.899 Other long term (current) drug therapy; I95.9 Hypotension, unspecified; I10 Essential (primary) hypertension; E03.9 Hypothyroidism, unspecified; R73.09 Other abnormal glucose; R51.9 Headache, unspecified; E78.5 Hyperlipidemia, unspecified
CPT/HCPCS: 36415; 80053; 83036; 84439; 84443; 85652; 86140

== ENCOUNTER 2023-02-11 07:16 | Outpatient (CLI) | payer MEDICARE, SELFPAY ==
[2023-02-11 07:47] LABS: Basophils Percent Auto 0.3 % (0.2-1.2); Eosinophils Percent Auto 0.4 % (0-4.4); Hematocrit 36.9 % (37.0-47.0); Hemoglobin 12.3 g/dL (12.0-15.0); Immature Granulocyte Absolute 0.02 K/mm3 (0.00-0.031); Immature Granulocyte Percent A 0.3 % (0-0.5); Lymphocytes Absolute Auto 0.81 K/mm3 (0.9-3.2); Lymphocytes Percent Auto 10.3 % (18.3-44.2); Mean Corpuscular HGB Conc 33.3 g/dl (32-36); Mean Corpuscular Hemoglobin 31.9 pg (26-34); Mean Corpuscular Volume 95.6 fl (80-100); Mean Platelet Volume 10.3 fl (7.4-10.4); Monocytes Absolute Auto 0.6 K/mm3 (0.1-0.6); Monocytes Percent Auto 7.8 % (2.6-8.5); Neutrophils Absolute Auto 6.4 K/mm3 (1.3-6.7); Neutrophils Percent Auto 80.9 % (45.5-73.1); Platelet Count Result 206 k/mm3 (150-375); Red Blood Count 3.86 M/mm3 (4.2-5.4); Red Cell Distribution Width 13.6 % (11.5-14.5); White Blood Count 7.9 K/mm3 (4.5-10.0)
[2023-02-11 08:01] LABS: CRP < 0.5 mg/dL (<1.0); Cholesterol 186 mg/dL (0-200); HDL Direct 71 mg/dL; Triglycerides 134 mg/dL (<150)
[2023-02-11 08:09] LABS: LDL Cholesterol Direct 84 mg/dL
[2023-02-11 08:24] LABS: Free T4 Free Thyroxine 1.46 ng/mL (0.78-2.19)
[2023-02-11 08:29] LABS: Thyroid Stimulating Hormone 0.023 uIU/mL (0.465-4.680)
[2023-02-11 09:52] LABS: Erythrocyte Sedimentation Rate 29 mm/hr (0-20)
== END 2023-02-11 07:17 | disposition home or self-care (01) ==
LOC: ANHLAB 07:18
PROVIDERS: PCP Internal Medicine; Visit Provider Internal Medicine
DX: M31.6 Other giant cell arteritis (principal); E78.5 Hyperlipidemia, unspecified; E03.9 Hypothyroidism, unspecified; I10 Essential (primary) hypertension
CPT/HCPCS: 36415; 80061; 84439; 84443; 85025; 85652; 86140

== ENCOUNTER 2023-03-17 07:31 | Outpatient (CLI) | payer MEDICARE, SELFPAY ==
[2023-03-17 09:01] LABS: CRP < 0.5 mg/dL (<1.0); Calcium 9.7 mg/dL (8.4-10.2)
[2023-03-17 09:03] LABS: Erythrocyte Sedimentation Rate 33 mm/hr (0-20)
== END 2023-03-17 07:32 | disposition home or self-care (01) ==
PROVIDERS: PCP Internal Medicine; Visit Provider Internal Medicine
DX: M81.0 Age-related osteoporosis without current pathological fracture (principal); M31.6 Other giant cell arteritis
CPT/HCPCS: 36415; 82310; 85652; 86140

== ENCOUNTER 2023-06-27 08:31 | Outpatient (CLI) | payer MEDICARE, SELFPAY ==
[2023-06-27 09:33] LABS: Basophils Percent Auto 0.7 % (0.2-1.2); Eosinophils Absolute Auto 0.1 K/mm3 (0-0.3); Eosinophils Percent Auto 1.2 % (0-4.4); Hematocrit 38.5 % (37.0-47.0); Hemoglobin 12.3 g/dL (12.0-15.0); Immature Granulocyte Absolute 0.02 K/mm3 (0.00-0.031); Immature Granulocyte Percent A 0.3 % (0-0.5); Lymphocytes Percent Auto 10.5 % (18.3-44.2); Mean Corpuscular HGB Conc 31.9 g/dl (32-36); Mean Corpuscular Hemoglobin 31.4 pg (26-34); Mean Corpuscular Volume 98.2 fl (80-100); Mean Platelet Volume 11.3 fl (7.4-10.4); Monocytes Absolute Auto 0.5 K/mm3 (0.1-0.6); Monocytes Percent Auto 7.8 % (2.6-8.5); Neutrophils Absolute Auto 4.6 K/mm3 (1.3-6.7); Neutrophils Percent Auto 79.5 % (45.5-73.1); Platelet Count Result 165 k/mm3 (150-375); Red Blood Count 3.92 M/mm3 (4.2-5.4); Red Cell Distribution Width 13.4 % (11.5-14.5); White Blood Count 5.7 K/mm3 (4.5-10.0)
[2023-06-27 09:42] LABS: Hemoglobin A1C 5.4 % (<5.7)
[2023-06-27 09:49] LABS: Alanine Aminotransferase 21 U/L (6-35); Albumin Level 3.7 g/dL (3.5-5.1); Alkaline Phosphatase 59 U/L (38-126); Anion Gap 5 mmol/L (8-16); Aspartate Amino Transferase 30 U/L (14-36); Blood Urea Nitrogen 13 mg/dL (7-17); CRP 0.8 mg/dL (<1.0); Calcium 9.3 mg/dL (8.4-10.2); Carbon Dioxide 27 mmol/L (22-30); Chloride 107 mmol/L (98-107); Cholesterol 159 mg/dL (0-200); Estimated Glomerular Filt Rate > 60; Glucose 106 mg/dL (65-110); HDL Direct 73 mg/dL; Potassium 4.8 mmol/L (3.4-5.0); Sodium 139 mmol/L (137-145); Triglycerides 103 mg/dL (<150)
[2023-06-27 09:58] LABS: LDL Cholesterol Direct 69 mg/dL
[2023-06-27 10:40] LABS: Iron 78 ug/dL (37-170)
[2023-06-27 10:50] LABS: Percent Iron Saturation 25 % (20-50)
[2023-06-27 10:57] LABS: Erythrocyte Sedimentation Rate 37 mm/hr (0-20)
== END 2023-06-27 08:32 | disposition home or self-care (01) ==
LOC: ANHLAB 08:35
PROVIDERS: PCP Internal Medicine; Visit Provider Internal Medicine
DX: E78.5 Hyperlipidemia, unspecified (principal); M31.6 Other giant cell arteritis; I10 Essential (primary) hypertension; R73.09 Other abnormal glucose; D50.9 Iron deficiency anemia, unspecified
CPT/HCPCS: 36415; 80053; 80061; 82728; 83036; 83540; 83550; 85025; 85652; 86140

== ENCOUNTER 2023-11-06 06:38 | Outpatient (CLI) | payer MEDICARE, SELFPAY ==
[2023-11-06 07:49] LABS: Alanine Aminotransferase 23 U/L (6-35); Albumin Level 3.9 g/dL (3.5-5.1); Alkaline Phosphatase 47 U/L (38-126); Anion Gap 5 mmol/L (4-12); Aspartate Amino Transferase 25 U/L (14-36); Bilirubin,Total 1.1 mg/dL (0.2-1.3); Blood Urea Nitrogen 14 mg/dL (7-17); CRP < 0.5 mg/dL (<1.0); Calcium 8.9 mg/dL (8.4-10.2); Carbon Dioxide 28 mmol/L (22-30); Chloride 103 mmol/L (98-107); Cholesterol 160 mg/dL (0-200); Estimated Glomerular Filt Rate > 60; Glucose 111 mg/dL (65-110); HDL Direct 73 mg/dL; Potassium 3.8 mmol/L (3.4-5.0); Sodium 136 mmol/L (137-145); Triglycerides 107 mg/dL (<150)
[2023-11-06 07:55] LABS: Erythrocyte Sedimentation Rate 20 mm/hr (0-20)
[2023-11-06 07:58] LABS: LDL Cholesterol Direct 74 mg/dL
[2023-11-06 08:04] LABS: Hemoglobin A1C 5.2 % (<5.7)
[2023-11-06 08:16] LABS: Thyroid Stimulating Hormone < 0.015 uIU/mL (0.465-4.680)
[2023-11-06 09:24] LABS: Free T4 Free Thyroxine 1.73 ng/mL (0.78-2.19)
== END 2023-11-06 06:39 | disposition home or self-care (01) ==
LOC: ANHLAB 06:41
PROVIDERS: PCP Internal Medicine; Visit Provider Internal Medicine
DX: M31.6 Other giant cell arteritis (principal); E03.9 Hypothyroidism, unspecified; I10 Essential (primary) hypertension; R73.09 Other abnormal glucose; E78.2 Mixed hyperlipidemia
CPT/HCPCS: 36415; 80053; 80061; 83036; 84439; 84443; 85652; 86140

== ENCOUNTER 2023-12-28 06:57 | Outpatient (CLI) | payer MEDICARE, SELFPAY ==
--- NOTE | ~2023-12-28 | XR_ITS ---
EXAMINATION: XR abdomen obstructive series DATE: 12/28/2023 08:11 INDICATION: Constipation, unspecified. TECHNIQUE: Upright and supine views of the abdomen on 3 radiographs were obtained. COMPARISON: Small bowel series 07/05/2022, CT abdomen and pelvis 07/05/2022 FINDINGS: There are no dilated loops of bowel. There is a small volume of stool in the colon. The kelsy phragm is not included on the upright view, which decreases sensitivity for free intraperitoneal gas. Surgical clips in the right upper quadrant are likely from cholecystectomy. IMPRESSION: 1. Nonobstructive bowel gas pattern. Reviewed, dictated and finalized at location A.
== END 2023-12-28 06:58 | disposition home or self-care (01) ==
PROVIDERS: PCP Internal Medicine; Visit Provider Internal Medicine
DX: K59.00 Constipation, unspecified (principal); R14.0 Abdominal distension (gaseous)
CPT/HCPCS: 74019

== ENCOUNTER 2024-03-05 08:53 | Outpatient (CLI) | payer MEDICARE, SELFPAY ==
--- NOTE | ~2024-03-05 | MM_ITS ---
EXAMINATION: MM screening linda BI w princess HISTORY: Screening TECHNIQUE: Craniocaudal and mediolateral oblique 3-D tomosynthesis images were obtained and synthetic 2-D images were generated. CAD analysis was submitted and interpreted. COMPARISON: No prior mammogram is available for comparison at this institution. BREAST PARENCHYMAL COMPOSITION: Not dense: There are scattered areas of fibroglandular density. FINDINGS: There are asymmetries in the subareolar location of the left breast. There are no suspiciou s masses, calcifications or architectural distortion in the right breast to suggest malignancy. IMPRESSION: 1. Left breast asymmetries. 2. Additional mammographic views and possible breast ultrasound are recommended. BI-RADS Category 0: Incomplete: Needs additional imaging evaluation. Reviewed, dictated and finalized at location B. IMPRESSION: 1. Left breast asymmetries. 2. Additional mammographic views and possible breast ultrasound are recommended . BI-RADS Category 0: Incomplete: Needs additional imaging evaluation.
== END 2024-03-05 08:54 | disposition home or self-care (01) ==
LOC: ANHIMG 08:53
PROVIDERS: PCP Internal Medicine; Visit Provider Nurse Practitioner Family
DX: Z12.31 Encounter for screening mammogram for malignant neoplasm of breast (principal)
CPT/HCPCS: 77063; 77067

== ENCOUNTER 2024-03-23 07:10 | Outpatient (CLI) | payer MEDICARE, SELFPAY ==
[2024-03-23 07:33] LABS: Basophils Percent Auto 0.8 % (0.2-1.2); Eosinophils Percent Auto 0.8 % (0-4.4); Hematocrit 39.2 % (37.0-47.0); Hemoglobin 13.3 g/dL (12.0-15.0); Immature Granulocyte Absolute 0.02 K/mm3 (0.00-0.031); Immature Granulocyte Percent A 0.4 % (0-0.5); Lymphocytes Absolute Auto 1.05 K/mm3 (0.9-3.2); Lymphocytes Percent Auto 19.8 % (18.3-44.2); Mean Corpuscular HGB Conc 33.9 g/dl (32-36); Mean Corpuscular Hemoglobin 32.1 pg (26-34); Mean Corpuscular Volume 94.7 fl (80-100); Mean Platelet Volume 10.2 fl (7.4-10.4); Monocytes Absolute Auto 0.6 K/mm3 (0.1-0.6); Neutrophils Absolute Auto 3.6 K/mm3 (1.3-6.7); Neutrophils Percent Auto 67.2 % (45.5-73.1); Platelet Count Result 204 k/mm3 (150-375); Red Blood Count 4.14 M/mm3 (4.2-5.4); Red Cell Distribution Width 13.3 % (11.5-14.5); White Blood Count 5.3 K/mm3 (4.5-10.0)
[2024-03-23 07:51] LABS: Cholesterol 196 mg/dL (0-200); HDL Direct 91 mg/dL; Triglycerides 123 mg/dL (<150)
[2024-03-23 08:02] LABS: LDL Cholesterol Direct 77 mg/dL
[2024-03-23 08:19] LABS: Free T4 Free Thyroxine 1.43 ng/mL (0.78-2.19)
[2024-03-23 08:20] LABS: Thyroid Stimulating Hormone 0.492 uIU/mL (0.465-4.680)
[2024-03-23 08:26] LABS: Erythrocyte Sedimentation Rate 18 mm/hr (0-20)
== END 2024-03-23 07:11 | disposition home or self-care (01) ==
PROVIDERS: PCP Internal Medicine; Visit Provider Internal Medicine
DX: E03.9 Hypothyroidism, unspecified (principal); E78.2 Mixed hyperlipidemia; R73.09 Other abnormal glucose; M31.6 Other giant cell arteritis; I10 Essential (primary) hypertension
CPT/HCPCS: 36415; 80061; 83036; 84439; 84443; 85025; 85652

== ENCOUNTER 2024-03-28 13:01 | Outpatient (CLI) | payer MEDICARE, SELFPAY ==
--- NOTE | ~2024-03-28 | MMUS_ITS ---
EXAMINATION: MM diagnostic linda LT w princess, US breast LT limited HISTORY: Follow-up left breast asymmetry TECHNIQUE: Additional 3-D tomosynthesis images of the left breast were performed and synthetic 2-D im ages were generated. CAD analysis was submitted and interpreted. High resolution Limited left breast ultrasound was performed. COMPARISON: Comparison to multiple prior studies sequentially, with oldest reviewed study dated 02/20. BREAST PARENCHYMAL COMPOSITION: Not dense: There are scattered areas of fibroglandular density. FINDINGS: MAMMOGRAPHIC FINDINGS: There is a persistent subareolar asymmetry which is less apparent with spot compression views. No acu te suspicious discrete mass or architectural distortion. No abnormal calcifications. ULTRASOUND: Limited left breast ultrasound: Mildly prominent periareolar ducts. No suspicious masses are identifi ed. IMPRESSION: 1. No evidence for malignancy in the left breast. 2. Routine yearly screening mammogram and regular clinical breast examination are recommended. BI-RADS Category 1: Negative Reviewed, dictated and finalized at location B. 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 No evidence for malignancy in the left breast. 2. Routine yearly screening mammogram and regular clinical breast examination a re recommended. BI-RADS Category 1: Negative
== END 2024-03-28 13:02 | disposition home or self-care (01) ==
LOC: ANHIMG 13:01
PROVIDERS: PCP Internal Medicine; Visit Provider Nurse Practitioner Family
DX: R92.8 Other abnormal and inconclusive findings on diagnostic imaging of breast (principal)
CPT/HCPCS: 76642; 77061; 77065; G0279

== ENCOUNTER 2024-06-14 08:22 | Outpatient (CLI) | payer MEDICARE, SELFPAY | END 2024-06-14 08:23 | disposition home or self-care (01) | PROVIDERS: PCP Internal Medicine; Visit Provider Internal Medicine | DX: H90.3 Sensorineural hearing loss, bilateral (principal); H73.93 Unspecified disorder of tympanic membrane, bilateral | CPT/HCPCS: 92557; 92567 ==

== ENCOUNTER 2024-07-04 07:47 | Outpatient (CLI) | payer MEDICARE, SELFPAY ==
--- OUTSIDE RECORDS SUMMARY | 2024-07-04 07:51 | XMS_ITS | Encounter Summary ---
Author Organization [facility] [employer] [facility] Address [address] [place] [address] Phone Care Team Providers Care Agricultural Extension Officer Name Role Phone Lopez George MD Primary Care Provider [phone] Sandip Carvalho MD Unavailable [phone] Emmanuel Maher MD Unavailable [phone] Encounter Details Date Type Department Care Team (Late st Contact Info) Description 10/21/2020 Orders Only [facility] Scanning, Provider Social History Tobacco Use Types Packs/Day Years Used Date Smoking Tobacco: Former Cigarettes 0.1 1 1 967 - 1967 Smokeless Tobacco: Never Alcohol Use Standard Drinks/Week Comments Not Currently 0 (1 standard drink = 0.6 oz pur e alcohol) Comments Unknown Sex and Gender Information Value Date Recorded Sex Assigned at Not on file Legal Sex Female 12:48 AM BUSINESS SUPERVISOR Gender Identity Not on file Sexual Orientation Not on file 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 documented as of this encounter Plan of Treatment Not on file documented as of this encounter Procedures Procedure Name Priority Date/Time Associated Diagnosis Comments SCAN - RADIOLOGY/IMAGING 10/21/2020 documented in this encounter Results * SCAN - RADIOLOGY/IMAGING (10/21/2020) Anatomical Region Laterality Modality Other us Provider Scanning Final Result documented in this encounter Visit Diagnoses Not on filedocumented in this encounter Care Teams Agricultural Extension Officer Relationship Specialty Start Date End Date Lopez George MD [address] [place] [address] PCP - General Internal Medicine 11/13/17 Sandip Carvalho MD [address] [place] [address] Medical Oncologist/Capability Lead Medical Oncology 08/10/20 12/13/21 Emmanuel Maher MD [address] [place] [address] Consulting Physician Medical Oncology 12/14/21 documented as of this encounter
--- OUTSIDE RECORDS SUMMARY | 2024-07-04 07:51 | XMS_ITS | Clinical Summary ---
Author Organization [facility] Address [address] [address] Care Team Providers Care Treasury Manager Name Role Phone Unavailable Primary Care Provider Unavailabl e Source Comments [facility],non-owned Affiliates and Associated Physician Practices is amultiple site organization consisting of ambulatory clinics and hospital sitesin [place], [place], [place] and [place]. This disclosure is being madepursuant to the Care Everywhere program and may not contain all information available regarding this patient. Last updated 18.[facility] [employer] Social History Tobacco Use Types Packs/Day Years Used Date Smoking Tobacco: Never Assessed Sex and Gender Information Value Date Recorded Sex Assigned at Not on file Gender Identity Not on file Sexual Orientation Not on file Plan of Treatment Health Maintenance Due Date Last Done Comments BONE DENSITY TESTING 1948 COLOGUARD (AGES 45-75) - COL ON CA SCREENING 1948 COLON MONITORING 1948 COLONOSCOPY - COLON CA SCREENING 1948 CT COLONOGRAPHY - COLON CA SCREENING 1950 Colorectal Cancer Screening 1948 FIT - COLON CA SCREENING 1948 FLEX SIG - COLON CA SCREENING 1948 LIPID TESTING 1948 MAMMOGRAM 1948 HEPATITIS C SCREENING 08/02/1966 DTAP/TDAP/TD VACCINES (1 - Tdap) 08/07/1967 PNEUMOCOCCAL VACCINE 50+ (1 of 1 - PCV) 1998 ZOSTER VACCINE (1 of 2) 1998 Respiratory Syncytial Virus (RSV) Vaccine Pt: or over 60 yrs (1 - 1-dose 75+ series) 08/07/2023 COVID-19 VACCINE (1 - 2023-2 5 season) 2024 INFLUENZA VACCINE (#1) 2024 DEPRESSION SCREENING 05/22/2024 HEPATITIS B VACCINE Aged Out No longe r eligible based on patient's age to complete this topic HIB VACCINE Aged Out No longer eligi ble based on patient's age to complete this topic HPV VACCINE Aged Out No longer eligi ble based on patient's age to complete this topic MENINGOCOCCAL (Group B) VACCINE Aged Out No longer eligible based on patient's age to complete this topic MENINGOCOCCAL VACCINE Aged Out No dov cuco eligible based on patient's age to complete this topic
--- OUTSIDE RECORDS SUMMARY | 2024-07-04 07:51 | XMS_ITS | Patient Health Summary ---
Author Organization [facility] Address [address] [place] [address] Care Team Providers Care Novelty Chain Maker Name Role Phone Unavailable Primary Care Provider Unavailabl e Note from [facility],non-owned Affiliates and Associated Physician Practices is amultiple site organization consisting of ambulatory clinics and hospital sitesin [place], [place], [place] and [place]. This disclosure is being madepursuant to the Care Everywhere program and may not contain all information available regarding this patient. Last updated 18.[facility] Social History Tobacco Use Types Packs/Day Years Used Date Smoking Tobacco: Never Assessed Sex and Gender Information Value Date Recorded Sex Assigned at Not on file Gender Identity Not on file Sexual Orientation Not on file Procedures * DERMATOPATHOLOGY(Performed 02/26/2020) Results * DERMATOPATHOLOGY (02/26/2020 12:00 AM CDT) Case Report Dermatopathology Report Case: [id number] Authorizing Provider: Richie Chaidez MD Collected: 02/26/2020 12:00 AM Ordering Location: [facility] DermPath Lab Received: 02/27/2020 11:21 AM Pathologist: Calvin Nance MD Specimen: Skin, left of midline parietal scalp 0 3:37 PM CDT DERMATOPATHOLOGY LABORATORY Final Diagnosis Specimen A. 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 0 3:37 PM CDT DERMATOPATHOLOGY LABORATORY Gross Description Specimen A: Received is one formalin filled container labeled with the patient's name and designated left of midline parietal scalp. The specimen consists of a shave biopsy (2 pieces) measuring [id number] and 1e0h5uf. Jar 0. 0 3:37 PM T DERMATOPATHOLOGY LABORATORY Microscopic Description Specimen A. SKIN, left of midline parietal scalp: The epidermis is acanthotic and shows full thickness disorderly maturation of keratinocytes, mitoses at different levels, and dyskeratotic cells. There is overlying parakeratosis and hyperkeratosis. 0 3:37 PM CDT DERMATOPATHOLOGY LABORATORY Disclaimer An external and internal positive and negative controls are appropriate for the histochemical, immunohistochemical and immunofluorescence stain(s) in this case (if any), except where stated explicitly. The performance characteristics of the stain(s) cited in this report were developed and its performance characteristic determined by the Dermatopathology Laboratory at [facility], directed by Dr. Bebeto Nance. These tests need not be, and therefore are not, approved by the [place] Food and Drug Administration. The tests are used for clinical purposes. Billing Codes Specimen Charges Stain Charges 95307 1 0 3:37 PM CDT DERMATOPATHOLOGY LABORATORY Embedded Images 0 3:37 PM CDT DERMATOPATHOLOGY LABORATORY Pathology/Cytolog y TISSUE SPECIMEN FROM SKIN / Unknown 02/26/2020 02/27/2020 11:21 AM CDT Richie Chaidez MD LAB - PATHOLOGY/CYTO LOGY ORDERABLES DERMATOPATHOLOGY LABORATORY [facility] - Department of Dermatology [address], [address] [phone]
--- OUTSIDE RECORDS SUMMARY | 2024-07-04 07:51 | XMS_ITS | Referral Summary ---
Author Organization [facility] Address [address] [place] [address] Care Team Providers Care Rn X Ray Name Role Phone Unavailable Primary Care Provider Unavailabl e Source Comments [facility],non-owned Affiliates and Associated Physician Practices is amultiple site organization consisting of ambulatory clinics and hospital sitesin [place], [place], [place] and [place]. This disclosure is being madepursuant to the Care Everywhere program and may not contain all information available regarding this patient. Last updated 18.[facility] Social History Tobacco Use Types Packs/Day Years Used Date Smoking Tobacco: Never Assessed Sex and Gender Information Value Date Recorded Sex Assigned at Not on file Gender Identity Not on file Sexual Orientation Not on file Plan of Treatment Not on file
--- OUTSIDE RECORDS SUMMARY | 2024-07-04 07:51 | XMS_ITS | Encounter Summary ---
Author Organization [facility] Address [address] [place] [address] Care Team Providers Care Doctor Of Radiology Name Role Phone Unavailable Primary Care Provider Unavailabl e Encounter Details Date Type Department Care Team (Late st Contact Info) Description 02/27/2020 Lab Requisition [facility] [address] [place] [id number] Richie Chaidez MD [address] [address] Social History Tobacco Use Types Packs/Day Years Used Date Smoking Tobacco: Never Assessed Sex and Gender Information Value Date Recorded Sex Assigned at Not on file Gender Identity Not on file Sexual Orientation Not on file documented as of this encounter Plan of Treatment Not on file documented as of this encounter Procedures Procedure Name Priority Date/Time Associated Diagnosis Comments DERMATOPATHOLOGY Routine 02/26/2020 12:0 0 AM CDT documented in this encounter Results * DERMATOPATHOLOGY (02/26/2020 12:00 AM CDT) Case Report Dermatopathology Report Case: [id number] Authorizing Provider: Richie Chaidez MD Collected: 02/26/2020 12:00 AM Ordering Location: [facility] Received: 02/27/2020 11:21 AM Pathologist: [...] of a shave biopsy (2 pieces) measuring [id number] and [id number]. Jar 0. 0 3:37 PM CDT DERMATOPATHOLOGY LABORATORY Microscopic Description Specimen A. SKIN, [...] characteristic determined by the Dermatopathology Laboratory at [facility], directed by Dr. Bebeto Nance. These tests need not be, and therefore are not, approved by the [place] Food and Drug Administration. The tests are used for clinical purposes. Billing Codes Specimen Charges Stain Charges 18727 1 0 3:37 PM CDT DERMATOPATHOLOGY LABORATORY Embedded Images 0 3:37 PM CDT DERMATOPATHOLOGY LABORATORY Pathology/Cytolog y TISSUE SPECIMEN FROM SKIN / Unknown 02/26/2020 02/27/2020 11:21 AM CDT Richie Chaidez MD LAB - PATHOLOGY/CYTO LOGY ORDERABLES DERMATOPATHOLOGY LABORATORY [facility] - Department of Dermatology [address], [address] [phone] documented in this encounter Visit Diagnoses Not on filedocumented in this encounter
--- OUTSIDE RECORDS SUMMARY | 2024-07-04 07:52 | XMS_ITS | Referral Summary ---
Author Organization [facility] Address [address] [place] [address] Care Team Providers Care Box Estimator Name Role Phone Lopez George MD Primary Care Provider [phone] Emmanuel Maher MD Unavailable [phone] Allergies Active Allergy Reactions Criticality Noted Date Comments Meperidine Nausea only Low Medications LORazepam (ATIVAN) 1 mg tablet take 1 tablet by oral route 2 times every day as needed 0 0 7 Active Eliquis 5 mg tablet TK 1 T PO BID 0 Active folic acid (FOLVITE) 1 mg tablet TK 1 T PO QD 0 Active magnesium oxide (MAG-OX) 400 mg (241.3 mg elemental magnesium) tablet TK 1 T PO BID 0 Active rosuvastatin (CRESTOR) 40 mg tablet Take 1 tablet (40 mg total) by mouth daily Active coenzyme Q10 100 mg capsule Take 1 capsule (100 mg total) by mouth daily Active semaglutide (RYBELSUS) 14 mg tablet Take 1 tablet (14 mg total) by mouth [employer] 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 before 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 2 Active predniSONE (DELTASONE) 5 mg tablet Take 2 tablets (10 mg) by mouth daily Alternating between 5 and 7.5 to taper off 2 Active levothyroxine (SYNTHROID) 150 mcg tablet Take 1 tablet (150 mcg total) by mouth daily 3 Active potassium chloride ER 10 mEq CR tablet Take 1 tablet/capsule (10 mEq total) by mouth daily 3 Active ketamine HCl (ketamine, bulk,) 100 % powder 2 2 Active gabapentin (NEURONTIN) 300 mg capsule Take 1 capsule (300 mg total) by mouth 3 (three) times a day 3 Active famotidine (PEPCID) 20 mg tablet Take 1 tablet (20 mg total) by mouth 2 (two) times a day Active HYDROcodone-acet aminophen (NORCO) 5-325 mg per tabletIndication s:Pain Take 1 tablet by mouth every 6 (six) hours as needed Active cholecalciferol (VITAMIN D-3) 2000 unit capsule 1 capsule (2,000 Units total) Active metoclopramide (REGLAN) 10 mg tablet TAKE 1 TABLET BY MOUTH THREE TIMES DAILY NEEDED FOR NAUSEA OR VOMITING 3 Active metoprolol tartrate (LOPRESSOR) 50 mg immediate release tabletIndication s:Persistent atrial fibrillation (HCC) Take 1 tablet (50 mg total) by mouth 2 (two) times a day 60 tablet 11 4 07/11/19 25 Active hydroCHLOROthiaz gala 12.5 mg tablet TAKE 1 TABLET(12.5 MG) BY MOUTH DAILY 90 tablet 5 Active Active Problems Problem Noted Date Diagnosed Date Chronic anticoagulation 08/31/2022 Coronary artery disease invo lving [place] coronary artery of [place] heart without angina pectoris 08/31/2022 Bradycardia 08/31/2022 Assessment & Plan (01/30/2024 10:16 AM CDT): Chronic, stable. SND only relevant during sinus rhythm. Pt would require pacing for AAD therapy. Discussed today. Pt prefers rate control AF strategy. No current indication for pacing Assessment & Plan (01/18/2023 11:06 AM CDT): Sinus node dysfunction limiting pharmacologic rhythm control with pacing. Given persistent AF with rate control strategy, no current indication for pacing. Class 3 obesity 08/31/2022 Chronic obstructive pulmonary disease, unspecifi ed 10/19/2021 Chronic renal failure syndrome 02/22/2021 Dyspnea on exertion 02/22/2021 Gastroesophageal reflux disease 06/30/2020 Headache(784.0) 11/26/2019 Osteoarthritis 11/13/2018 Osteopenia 11/13/2018 Sleep apnea 09/18/2018 Normocytic hypochromic anemia 11/09/2017 Anemia, iron deficiency 05/25/2015 Hypothyroidism 04/14/2014 Postoperative hypothyroidism 10/05/2013 Overview (08/25/2016): POSTSURGICAL HYPOTHYROID Pure hypercholesterolemia 10/05/2013 Overview (08/25/2016): PURE HYPERCHOLESTEROLEM Blood glucose abnormal 10/05/2013 Overview (08/25/2016): ABNORMAL GLUCOSE NEC Persistent atrial fibrillation 05/22/1959 Assessment & Plan (01/30/2024 10:15 AM CDT): Chronic, stable Mildly symptomatic. Rates slow on ECG today. Pt not currently interested in rhythm control options. --48 hour Holter to evaluate Hrs in AF --Continue metoprolol 50 mg BID --Continue apixaban 5 mg BID Assessment & Plan (01/18/2023 11:05 AM CDT): Minimally symptomatic. Rates well controlled. Pt prefers to continue with rate control/anticoagulation strategy for now. She will let us know if symptoms worsen. --Continue metoprolol 37.5 mg BID --Continue apixaban 5 mg BID Hyperlipidemia 05/22/1959 Essential (primary) hypertension 05/22/1959 Immunizations Name Administration Dates Next Due Influenza, Trivalent, Preser vative Free, Intramuscular 02/19/2018 Influenza, Unspecified 03/15/2017,03/15/2016, Moderna SARS-CoV-2 Monovalen t Vaccination (12+ YRS) 07/28/2020,06/25/2020 Social History Tobacco Use Types Packs/Day Years Used Date Smoking Tobacco: Former Cigarettes 0.1 1 1 967 - 1968 Smokeless Tobacco: Never Tobacco Cessation:Counseling Given: Not Answered Alcohol Use Standard Drinks/Week Comments Not Currently 0 (1 standard drink = 0.6 oz pur e alcohol) Comments Unknown Sex and Gender Information Value Date Recorded Sex Assigned at Not on file Legal Sex Female 12:48 AM IMPLANT COORDINATOR Gender Identity Not on file Sexual Orientation Not on file 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 Last Filed Vital Signs Vital Sign Reading Time Taken Comments Blood Pressure 122/78 01/30/2024 9:52 AM CDT Pulse 57 01/30/2024 9:52 AM CDT Temperature 36.6 C (97.9 F) 11/20/2020 8:41 AM CDT Respiratory Rate 24 05/11/2022 10:56 AM IMPLANT COORDINATOR Oxygen Saturation 98% 07/12/2023 9:11 AM IMPLANT COORDINATOR Inhaled Oxygen Concentration - - Weight 101.2 kg (223 lb) 01/30/2024 9:52 AM CDT Height 157.5 cm (5' 2.01 ) 01/30/2024 9:52 AM CD T Body Mass Index 40.78 01/30/2024 9:52 AM CDT Plan of Treatment Not on file Procedures Procedure Name Priority Date/Time Associated Diagnosis Comments DEXA TBS AXIAL SKELETON BONE DENSITY 1 OR MORE SITES Schedule Routine, Read Routine (OP Routine) 07/27/2022 8:45 AM IMPLANT COORDINATOR Osteoporosis without current pathological fracture, unspecified osteoporosis type from Last 3 Months or Most Recently Relevant to Health Maintenance Results * Dexa TBS Axial Skeleton Bone Density 1 or more sites (07/27/2022 8:45 AM IMPLANT COORDINATOR) Anatomical Region Laterality Modality Wrist, Body N/A Radiographic Kristel ging Narrative 07/29/2022 8:43 AM IMPLANT COORDINATOR Patient Name: Eileen Maza Date of : 1950 Date of scan: 07/27/2022 Bone mineral density was performed on a HoloIggli Discovery Densitometer. Based on machine cross-calibration and precision studies the least significant changes of this densitometer is 0.024 g/cm2 at the spine, 0.020 g/cm2 at the total proximal femur, and 0.014g/cm2 at the forearm. HISTORY: This is a 71 y.o. postmenopausal female with a history of osteoporosis, thyroid disease, and vitamin D deficiency. She reports that she quit smoking about 55 years ago. Her smoking use included cigarettes. She has a 0.10 pack-year smoking history. She has never used smokeless tobacco. Currently on treatment with calcium, vitamin D, denosumab (Prolia), glucocorticoids, anticoagulants, thyroid hormone, and diuretics and current complaint of back pain and leg pain. INDICATIONS: Menopause status, treatment monitoring, vitamin D deficiency, currently on 20 mg of glucocorticoids with dosage variations for the past 2 year(s), and history of osteoporosis. FINDINGS: BONE MINERAL DENSITY OF THE LUMBAR SPINE Bone Mineral Density (BMD) of the lumbar spine was measured from L1-L4 and the average density was calculated to be 0.992 gm/cm2. This corresponds to a T-score (standard deviations from the mean of young adults) of -0.5. There is no previous study available for comparison. BONE MINERAL DENSITY OF THE PROXIMAL FEMUR Bone Mineral Density (BMD) of the left hip total was found to be 0.819 gm/cm2. This corresponds to a T-score standard deviations from the mean of young adults of -1.0. Femoral neck is 0.654 gm/cm2 with a T-score (standard deviations from the mean of young adults) of -1.8. There is no previous study available for comparison. SUMMARY: Bone mineral density shows evidence of low bone mass at the proximal femur and moderately increased fracture risk (Osteopenia). The lumbar spine Trabecular Bone Score TBS was not obtained due to BMI being out of range. ADDITIONAL COMMENTS: Postmenopausal Women and Men Over 50: Diagnostic criteria: Osteoporosis: BMD at or below -2.5 T-score; Osteopenia (low bone mass): BMD between -1.0 and -2.5 T-score. If the patient has a history of a fragility fracture, a fracture that occurred with trauma equivalent to a fall from a standing position or less, then the diagnosis is osteoporosis regardless of bone density. The history and data sections of the bone mineral density scan were prepared by Shana Díaz(R) MARY who is accredited by the International Society of Clinical Densitometry. The overall patient assessment and scan interpretation were performed by Rhiannon Gamble M.D. who is certified by the International Society of Clinical Densitometry. [id number] Rhiannon Gamble MD IM DXA PROCEDURES Final Resu lt from Last 3 Months or Most Recently Relevant to Health Maintenance Insurance [facility] MEDICARE [facility] MEDICARE [facility] MEDICARE Care Teams Box Estimator Relationship Specialty Start Date End Date Lopez George MD [address] [place] [id number] PCP - General Internal Medicine 11/13/17 Emmanuel Maher MD [address] [place] [address] Consulting Physician Medical Oncology 12/14/21
--- OUTSIDE RECORDS SUMMARY | 2024-07-04 07:52 | XMS_ITS | Clinical Summary ---
Author Organization [facility] Address [address] [place] [address] Care Team Providers Care [employer] Name Role Phone Lopez George MD Primary Care Provider [phone] Emmanuel Maher MD Unavailable [phone] Allergies Active Allergy Reactions Criticality Noted Date [...] 1 tablet (14 mg total) by mouth psychiatric nurse practitioner before breakfast 2 Active predniSONE (DELTASONE) 5 [...] anticoagulation 08/31/2022 Coronary artery disease invo lving [place] coronary artery of [place] heart without angina pectoris 08/31/2022 Bradycardia 08/31/2022 [...] SARS-CoV-2 Monovalen t Vaccination (12+ YRS) 07/28/2020,06/25/2020 Surgical History Surgery Date Site/Laterality Comments CHOLECYSTECTOMY 05/22/1981 - 05/21/1982 Cholecystectomy CARPAL TUNNEL RELEASE Carpal tunnel release SECTION THYROID SURGERY COLONOSCOPY Medical History Medical History Date Comments Hx Other Medical 1984 s/p total thyro idectomy Atrial fibrillation (CMS/HCC) (HCC) Atrial fibrillation Disorder of thyroid Thyroid dise ase Hyperlipidemia Hyperlipidemia Hypertension Hypertension Tension headache Headache, tensi on Anemia Arthritis Bleeding disorder (CMS/HCC) (HCC) Temporal arteritis (CMS/HCC) (HCC) 01/08/2019 left Family History Medical History Relation Name Comments Seizures Brother Seizure disorde r; Heart disease Father Family history of cardiac disorder - (Added by TW Conv) Broken bones Mother Hip fracture Mother Melanoma Mother Melanoma - (Add ed by TW Conv) Mitral valve prolapse Mother Multip le myeloma; Diabetes type II Other 1 Family hist ory of Diabetes -Type II; Hypertension Other 2 Family history of Hypertension; Kyphosis Neg Hx Osteoporosis Neg Hx Scoliosis Neg Hx Relation Name Status Comments Brother Father Mother Other 1 Other 2 Social History Tobacco Use Types Packs/Day Years Used Date Smoking Tobacco: Former Cigarettes 0.1 1 1 1967 Smokeless Tobacco: Never Tobacco Cessation:Counseling Given: Not Answered Alcohol Use Standard Drinks/Week Comments Not Currently 0 (1 standard drink = 0.6 oz pur e alcohol) Comments Unknown Sex and Gender Information Value Date Recorded Sex Assigned at Not on file Legal Sex Female 12:48 AM ENTERPRISE RESOURCE ANALYST Gender Identity Not on file Sexual Orientation Not on file 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 Obstetrics History Last Filed Vital Signs Vital Sign Reading Time Taken Comments Blood Pressure 122/78 01/30/2024 9:52 AM CDT Pulse 57 01/30/2024 9:52 AM CDT Temperature 36.6 C (97.9 F) 11/20/2020 8:41 AM CDT Respiratory Rate 24 05/11/2022 10:56 AM ENTERPRISE RESOURCE ANALYST Oxygen Saturation 98% 07/12/2023 9:11 AM ENTERPRISE RESOURCE ANALYST Inhaled Oxygen Concentration - - Weight 101.2 kg (223 lb) 01/30/2024 9:52 AM CDT Height 157.5 cm (5' 2.01 ) 01/30/2024 9:52 AM CD T Body Mass Index 40.78 01/30/2024 9:52 AM CDT Plan of Treatment Health Maintenance Due Date Last Done Comments Colon Cancer Screening-Colonoscopy 1950 Depression Screening 1950 Fall Risk Assessment 1950 Hepatitis C Screening 1950 Pneumococcal vaccine 65+ (1 of 2 - PCV) 1954 DTaP/Tdap/Td Vaccine (1 - Tdap) 08/07/1959 Hepatitis B Screening 1966 Zoster Vaccine (1 of 2) 1998 Well Visit 65+ 2013 Covid-19 Vaccine (3 - 2023-2 5 season) 2024 07/28/2020, 06/25/2020 Influenza Vaccine (#1) 2024 8, 03/15/2017, 03/15/2016, Additional history exists Osteoporosis Screening-Bone Density Scan 07/27/2024 07/27/2022 Procedures Procedure Name Priority Date/Time Associated Diagnosis Comments DEXA TBS AXIAL SKELETON BONE DENSITY 1 OR MORE SITES Schedule Routine, Read Routine (OP Routine) 07/27/2022 8:45 AM ENTERPRISE RESOURCE ANALYST Osteoporosis without current pathological fracture, unspecified osteoporosis type from Last 3 Months or Most Recently Relevant to Health Maintenance Results * Dexa TBS Axial Skeleton Bone Density 1 or more sites (07/27/2022 8:45 AM ENTERPRISE RESOURCE ANALYST) Anatomical Region Laterality Modality Wrist, Body N/A Radiographic Kristel ging Narrative 07/29/2022 8:43 AM ENTERPRISE RESOURCE ANALYST Patient Name: Eileen Maza Date of : 1950 Date of scan: 07/27/2022 Bone mineral density was performed on a HoloMimvi Discovery Densitometer. Based on machine cross-calibration and [...] mineral density scan were prepared by Shana Johnson) MARY who is accredited by the International Society of Clinical Densitometry. The overall patient assessment and scan interpretation were performed by Rhiannon Gamble M.D. who is certified by the International Society of Clinical Densitometry. [id number] Rhiannon Gamble MD IM DXA PROCEDURES Final Resu lt from Last 3 Months or Most Recently Relevant to Health Maintenance Insurance T MEDICARE T MEDICARE [facility] MEDIC[facility] Care Teams [employer] Relationship Specialty Start Date End Date Lopez George MD [address] [place] [address] PCP - General Internal Medicine 11/13/17 Emmanuel Maher MD [address] [place] [address] Consulting Physician Medical Oncology 12/14/21
--- OUTSIDE RECORDS SUMMARY | 2024-07-04 07:52 | XMS_ITS | Continuity of Care Document ---
Author Organization [facility] - Main Address [address] [address] Insurance Providers Payer Plan Claims Address Claims Phone Policy Number Group Number Relation Employer Guarantor Name Guarantor Guarantor Address Guarantor Phone [employer] [address], [place] [address] [id number] Self Eileen Maza [address] [place] [id number] Organ izati on/IC -1716 [address], [place] [address] [id number] Self Eielen Maza 1950 [address] [place] [address] [employer] [address], [place] [address] tel:[phone] Self Eileen Maza 1950 [address] [place] [address] Problems Unknown Problems Results No Results Allergies, adverse reactions, alerts No known allergies and adverse reactions Medications No administered medications reported Vital Signs No vital signs reported Social History No smoking Hx information available
--- OUTSIDE RECORDS SUMMARY | 2024-07-04 07:52 | XMS_ITS | Data Portability ---
Author Organization [place] [facility], Main Office Address [address] [place] [address] Care Team Providers Care Land Surveyor Name Role Phone EBONY BOSTON Primary Care Provider EBONY BOSTON Referring Provider [phone] Assessment Encounter Date Assessment Date Assessment LastModified by Organization Details LastModified Time 07/13/2023 07/13/2023 This note is dictated and transcribed by [employer]. Affiliate Marketing Coordinator variances may occur. Despite proofreading, typographical errors may occur. Occasional wrong-word or s ound-a-like substitutions may have occurred due to the inherent limitations of voice recording. Read the chart carefully and recognize, using context, where substitutions have occurred. [email or web address] Not available 07/13/2023 17:35:18 10/02/2023 10/02/2023 This note is dictated and transcribed by [employer]. Affiliate Marketing Coordinator variances may occur. Despite proofreading, typographical errors may occur. Occasional wrong-word or 'duqun-x-hjny' substitutions may have occurred due to the inherent limitations of voice recording. Read the chart carefully and recognize, using context, where substitutions have occurred. Not available 10/02/2023 11:15:36 12/11/2023 12/11/2023 This note is dictated and transcribed by [employer]. Affiliate Marketing Coordinator variances may occur. Despite proofreading, typographical errors may occur. Occasional wrong-word or 'ekuhb-r-ascr' substitutions may have occurred due to the inherent limitations of voice recording. Read the chart carefully and recognize, using context, where substitutions have occurred. Not available 12/11/2023 16:35:31 03/11/2024 03/11/2024 This note is dictated and transcribed by [employer]. Affiliate Marketing Coordinator variances may occur. Despite proofreading, typographical errors may occur. Occasional wrong-word or 'yapuu-a-ewoj' substitutions may have occurred due to the inherent limitations of voice recording. Read the chart carefully and recognize, using context, where substitutions have occurred. Not available 03/11/2024 10:40:21 06/10/2024 06/10/2024 This note is dictated and transcribed by [employer]. Affiliate Marketing Coordinator variances may occur. Despite proofreading, typographical errors may occur. Occasional wrong-word or 'yrwjg-s-fdtq' substitutions may have occurred due to the inherent limitations of voice recording. Read the chart carefully and recognize, using context, where substitutions have occurred. Not available 06/10/2024 10:26:10 Plan of Treatment Reminders Order Date Submit Date Provider Last Modified By Organization Details Last Modified Time Details Appointments Establish ed Patient 15 2024 09:00A Calvin Faye DPM Not available Not available Not available Lab None recorded. Referral None recorded. Procedures None recorded. Surgeries None recorded. Imaging None recorded. Medication Orders None recorded. Patient TargetsNo targets recorded. Patient InstructionsNo instructions recorded. Reason for Referral None Reported. Results Created Date Observation Date Name Description Value Unit Range Abnormal Flag Note LastModifiedBy Organization Detail LastModifiedTime 07/03/19 24 06/30/2023 US, duple x, arter ial, lower extre mity No observ ation record ed. [email or web address] [place] [address] ([employer]) [address] [place], [address], 07/05/2023 15:47:27 Result Notes None recorded. Problems Name Problem SNOMED Code Status Onset Date Resolution Date Notes Provider Name and Address Organization Details Recorded Time Strain of left Achilles tendon 1932946612212 9107 Active 2020 Not Available [facility] 3 02:51:10 Disorder of shoulder 217373765 Active Not Available [facility] 3 02:51:10 Wrist joint pain 146939891 Active Not Available [facility] 3 02:51:10 Intractabl e plantar keratoma 717715771 Active Not Available [facility] 3 02:51:10 Transient cerebral ischemia 891838823 Active Not Available [facility] 3 02:51:10 Raynaud's phenomenon 526569345 Active Not Available [facility] 3 02:51:10 Anemia 936847509 Active Not Available [facility] 3 02:51:10 Wilson's neuroma of right foot 6815180833151 08 Active 2019 Not Available [facility] 3 02:51:11 Osteopenia 782588908 Active Not Available [facility] 3 02:51:11 Pain in right foot 2590232759585 07 Active Not Available [facility] 3 02:51:11 Tendinitis of left posterior tibial tendon 2241454518091 00 Active 2021 Not Available [facility] 3 02:51:11 Disorder of back 39145997 Active Not Available [facility] 3 02:51:11 Osteoarthr itis 630001140 Active Not Available [facility] 3 02:51:11 Disorder characteri zed by back pain 435134787 Active Not Available [facility] 3 02:51:11 Porokerato sis 923840295 Active 2020 Not Available [facility] 3 02:51:11 Dizziness 604318216 Active Not Available [facility] 3 02:51:12 Hypothyroi dism 76320846 Active Not Available [facility] 3 02:51:12 Conduction disorder of the heart 03639458 Active Not Available [facility] 3 02:51:12 Sprain of foot 09691101 Active Not Available [facility] 3 02:51:12 Upper respirator y infection 79436288 Active Not Available [facility] 3 02:51:12 Hyperlipid emia 45435978 Active Not Available [facility] 3 02:51:12 Degenerati on of lumbosacra l interverte bral disc 59268505 Active Not Available [facility] 3 02:51:12 Closed fracture of phalanx of foot 07152819 Active Not Available [facility] 3 02:51:13 Dystrophia unguium 60175131 Active 2020 Not Available [facility] 3 02:51:13 Lipoma 06871907 Active Not Available [facility] 3 02:51:13 Pain of right elbow joint 2407015005086 9109 Active 2022 KASANDRA Miranda, [place] [employer] [facility] 3 14:35:01 Pain of toe of left foot 8500997197800 08 Active 2022 Jus Faye DPM [address], [place], [address] , [employer] 3 10:10:07 Peripheral vascular disease 197598743 Active 2023 Jus Faye DPM [address], [address], [place], [address] , [employer] 4 16:08:20 Pain of toes of bilateral feet 1738601526779 9102 Active 2023 Jus Faye DPM [address], [address], [place], [address] , [facility] 4 11:15:44 Unable to cut own toenails 008244013 Active 2023 Jus aFye DPM [address], [address], [place], [address] , [facility] 4 11:15:54 Pain in both feet 0240902137493 9102 Active 2023 Jus Faye DPM [address], [address], [place], [address] , [facility] 4 16:35:48 Problem Notes None recorded. Procedures Surgical History Date Name Laterality Status Provider Name and Address Organization Details Recorded Time 5 Nail Debridement completed Jus Faye DPM [address], [address], [place], [address], [facility] 06/10/2024 10:26:03 4 Nail Debridement completed Jus Faye DPM [address], [place], [address], [facility] 03/11/2024 10:40:17 4 Nail Debridement completed Jus Faye DPM [address], [place], [address], [employer] 12/11/2023 16:34:23 4 Callus Debridement 2-4 completed Jus Faye DPM [address], [place], [address], [employer] [facility] 12/11/2023 16:34:28 4 Nail Debridement completed Jus Faye DPM [address], [place], [address], [employer] [facility] 10/02/2023 11:15:18 4 Nail Debridement completed Jus Faye DPM [address], [place], [address], [employer] [facility] 06/19/2023 16:09:24 3 Nail Debridement completed Jus Faye DPM [address], [place], [address], [facility] 03/02/2023 10:00:08 Imaging Results Imaging Date Name Status LastModified by Organiz ation Details LastModified Time 06/30/2023 US, duplex, arterial, lower extremity completed [email or web address] ([employer]) [address], [place], [address], 07/05/2023 15:47:27 Procedure Notes None recorded. Medical Equipment None Reported. Allergies Allergen ID Allergen Name Allergen Category Reaction Reaction Severity Criticality Documentation Date Start Date Code Code System Note Provider Name and Address Organization Details Recorded Time 5177 Demerol medicatio n Not available Not available Not available 07/20/2022 35685 1 RxNorm Not Available [facility] 3 03:07:12 Medications Name Sig Start Date Stop Date Status Note LastModified by Organization Details LastModified Time cyclobenzap rine 10 mg tablet TAKE 1 TABLET BY MOUTH TWICE DAILY active Not Available Not Available No t Available amoxicillin 500 mg capsule TK 1 C PO Q 8 H 10/21 completed Not Available Not Available Not Available atorvastati n 40 mg tablet TK 1 T PO D 04/24 completed Not Available Not Available Not Available silver sulfadiazin e 1 % topical cream APPLY 1.5 MM THICKNESS AA BID 10/21 completed Not Available Not Available Not Available hydrocodone 7.5 mg-ibuprofe n 200 mg tablet TK 1 T PO Q 4 TO 6 H PRN P 02/27 completed Not Available Not Available Not Available levothyroxi ne 175 mcg tablet TAKE 1 TABLET PO EVERY OTHER DAY 3 DAYS A WEEK ALTERNATI NG WITH 200 MCG TABLET 10/21 completed Not Available Not Available Not Available atorvastati n 80 mg tablet 10/21 completed Not Available Not Available Not Available prednisone 10 mg tablet TAKE 1 TABLET BY MOUTH TWICE DAILY active Not Available Not Available No t Available doxycycline hyclate 100 mg capsule TAKE 1 CAPSULE BY MOUTH TWICE DAILY active Not Available Not Available No t Available Carafate 100 mg/mL oral suspension active Not Available Not Available N ot Available clindamycin HCl 300 mg capsule TAKE 1 CAPSULE BY MOUTH EVERY 8 HOURS FOR 10 DAYS 10/21 completed Not Available Not Available Not Available ammonium lactate 12 % lotion ODILIA EXT TO FEET UP TO BID PRN 10/21 completed Not Available Not Available Not Available azithromyci n 250 mg tablet Take by oral route.2ta bs first day then 1 daily 10/01 completed Not Available Not Available Not Available nystatin 100,000 unit/gram topical ointment 10/21 completed Not Available Not Available Not Available tizanidine 4 mg tablet Take 1 tablet every day by oral route at bedtime for 30 days. 10/21 completed Not Available Not Available Not Available metoprolol succinate ER 50 mg tablet,exte nded release 24 hr 02/27 completed Not Available Not Available Not Available hydrocodone 5 mg-acetamin ophen 325 mg tablet TAKE 1 TABLET BY MOUTH EVERY 8 HOURS NEEDED FOR PAIN active Not Available Not Available No t Available prednisone 20 mg tablet TK 1 T PO D 10/21 completed Not Available Not Available Not Available isosorbide mononitrate ER 30 mg tablet,exte nded release 24 hr 02/27 completed Not Available Not Available Not Available alendronate 70 mg tablet TK 1 T PO ONCE A WEEK IN THE MORNING AT LEAST 30 MINUTES BEFORE FIRST FOOD BEVERAGE OR MEDICATIO N OF DAY active Not Available Not Available No t Available fluorouraci l 5 % topical cream APPLY TOPICALLY TO THE SCALP TWICE DAILY FOR 3 TO 4 WEEKS TOLERATED THEN STOP active Not Available Not Available No t Available valsartan 160 mg-hydrochl orothiazide 12.5 mg tablet TK 1 T PO BID active Not Available Not Available No t Available prednisone 5 mg tablet TAKE 1 AND 1/2 TABLETS BY MOUTH EVERY DAY active Not Available Not Available No t Available alclometaso ne 0.05 % topical cream active Not Available Not Available Not Available atenolol 25 mg tablet Take 1 tablet every day by oral route for 90 days. 2013 active Not Available Not Available Not Avai lable penicillin V potassium 500 mg tablet TAKE 1 TABLET BY MOUTH FOUR TIMES DAILY FOR 7 DAYS 10/21 completed Not Available Not Available Not Available potassium chloride ER 10 mEq tablet,exte nded release TAKE 1 TABLET BY MOUTH TWICE DAILY active Not Available Not Available No t Available metronidazo le 500 mg tablet 02/27 completed Not Available Not Available Not Available clopidogrel 75 mg tablet TK 1 T PO D 02/27 completed Not Available Not Available Not Available amlodipine 5 mg tablet TK 1 T PO D 02/27 completed Not Available Not Available Not Available tramadol 50 mg tablet Take 1 tablet 3 times a day by oral route as directed. active Not Available Not Available No t Available TobraDex 0.3 %-0.1 % eye ointment apply three times a day to affected area active Not Available Not Available No t Available simvastatin 40 mg tablet TK 1 T PO QD 02/27 completed Not Available Not Available Not Available amoxicillin 875 mg tablet TAKE 1 TABLET BY MOUTH EVERY 12 HOURS FOR 7 DAYS 10/21 completed Not Available Not Available Not Available magnesium oxide 400 mg (241.3 mg magnesium) tablet TAKE 1 TABLET BY MOUTH TWICE DAILY active Not Available Not Available No t Available triamcinolo ne acetonide 0.1 % dental paste 04/24 completed Not Available Not Available Not Available flurandreno lide 0.05 % lotion 10/21 completed Not Available Not Available Not Available cephalexin 500 mg capsule TK 1 C PO BID FOR 7 DAYS 10/21 completed Not Available Not Available Not Available simvastatin 20 mg tablet TAKE 1 TABLET BY MOUTH EVERY DAY 02/27 completed Not Available Not Available Not Available ferrous sulfate 325 mg (65 mg iron) tablet TK 1 T PO DAILY 10/21 completed Not Available Not Available Not Available levothyroxi ne 125 mcg tablet TAKE 1 TABLET BY MOUTH DAILY 12/10 completed Not Available Not Available Not Available Proctofoam HC 1 %-1 % 10/21 completed Not Available Not Available Not Available promethazin e 25 mg tablet TK 1 T PO TID PRF NAUSEA OR VOM 10/21 completed Not Available Not Available Not Available levothyroxi ne 150 mcg tablet TAKE 1 TABLET BY MOUTH EVERY DAY 10/28 completed Not Available Not Available Not Available flecainide 50 mg tablet TAKE 2 TABLETS BY MOUTH TWICE DAILY 10/21 completed Not Available Not Available Not Available metoprolol tartrate 50 mg tablet TAKE 1 TABLET BY MOUTH TWICE DAILY active Not Available Not Available No t Available nitroglycer in 0.4 mg sublingual tablet DISSOLVE ONE TABLET UNDER TONGUE NEEDED FOR CHEST PAIN active Not Available Not Available No t Available gabapentin 300 mg capsule TAKE 1 CAPSULE BY MOUTH THREE TIMES DAILY active Not Available Not Available No t Available diflorasone 0.05 % topical cream APPLY 2-3 GRAMS (1GRAM=1P UMP) TOPICALLY TO THE AFFECTED AREA(S) IN A THIN PARKING ANALYST TO TWO TIMES DAILY. active Not Available Not Available No t Available folic acid 1 mg tablet TAKE 1 TABLET BY MOUTH EVERY DAY 10/21 completed Not Available Not Available Not Available levothyroxi ne 200 mcg tablet TAKE 1 TABLET BY MOUTH EVERY OTHER DAY 4 DAYS PER WEEK ALTERNATI NG WITH 175MCG 3 DAYS PER WEEK 10/21 completed Not Available Not Available Not Available mupirocin 2 % topical ointment APPLY TO AFFECTED AREAS OF THE SCALP 1-2 TIMES DAILY UNTIL CLEAR active Not Available Not Available No t Available gabapentin 100 mg capsule 10/21 completed Not Available Not Available Not Available ergocalcife rol (vitamin D2) 1,250 mcg (50,000 unit) capsule TK ONE C PO Q WEEK 02/27 completed Not Available Not Available Not Available lorazepam 1 mg tablet TAKE 1/2 TABLET BY MOUTH THREE TIMES DAILY NEEDED FOR ANXIETY active Not Available Not Available No t Available polyethylen e glycol 3350 17 gram/dose oral powder 02/27 completed Not Available Not Available Not Available zolpidem 10 mg tablet TK 1 T PO ONCE PRF AUTO PORTER EVAL 02/27 completed Not Available Not Available Not Available methylpredn isolone 4 mg tablets in a dose pack TK UTD 04/24 completed Not Available Not Available Not Available ondansetron 4 mg disintegrat ing tablet DISSOLVE 1 TABLET ON THE TONGUE EVERY 6 HOURS NEEDED FOR NAUSEA OR VOMITING 10/21 completed Not Available Not Available Not Available cefdinir 300 mg capsule 10/21 completed Not Available Not Available Not Available doxycycline hyclate 100 mg tablet TAKE 1 TABLET BY MOUTH EVERY DAY active Not Available Not Available No t Available atenolol 50 mg tablet TAKE 1/2 TABLET BY MOUTH EVERY MORNING AND 1 TABLET EVERY EVENING active Not Available Not Available No t Available mometasone 0.1 % topical cream 10/21 completed Not Available Not Available Not Available metoclopram gala 10 mg tablet TAKE 1 TABLET BY MOUTH THREE TIMES DAILY NEEDED FOR NAUSEA OR VOMITING active Not Available Not Available No t Available levothyroxi ne 112 mcg tablet TAKE 1 TABLET BY MOUTH DAILY. DISCONTIN UE THE LEVOTHYRO XINE 125MCG active Not Available Not Available No t Available amoxicillin 875 mg-potassiu m clavulanate 125 mg tablet TAKE 1 TABLET BY MOUTH TWICE DAILY UNTIL GONE active Not Available Not Available No t Available tobramycin 0.3 %-dexametha sone 0.1 % eye drops,suspe nsion INSTILL 1 DROP INTO AFFECTED EYE(S) BY OPHTHALMI C ROUTE EVERY THREE TIMES A DAY active Not Available Not Available No t Available valsartan 160 mg tablet TK 1 T PO BID 03/07 completed Not Available Not Available Not Available neomycin 3.5 mg/g-polymy nancy B 10,000 unit/g-dexa meth 0.1 % eye oint APPLY A SMALL AMOUNT TO LEFT UPPER EYE LID FOUR TIMES DAILY 10/21 completed Not Available Not Available Not Available cyclobenzap rine 5 mg tablet Take 2 tablets as needed by oral route in the evening for 30 days. active Not Available Not Available No t Available moxifloxaci n 0.5 % eye drops INT 1 GTT IN EACH EYE TID FOR 7 DAYS 10/21 completed Not Available Not Available Not Available olmesartan 40 mg-hydrochl orothiazide 12.5 mg tablet 04/24 completed Not Available Not Available Not Available rosuvastati n 40 mg tablet TAKE 1 TABLET BY MOUTH DAILY active Not Available Not Available No t Available metoprolol tartrate 25 mg tablet 12/10 completed Not Available Not Available Not Available Vytorin 10 mg-40 mg tablet TK 1 T PO QD active Not Available Not Available No t Available losartan 100 mg-hydrochl orothiazide 12.5 mg tablet TAKE 1 TABLET BY MOUTH DAILY 10/21 completed Not Available Not Available Not Available hydrochloro thiazide 12.5 mg tablet TAKE 1 TABLET BY MOUTH EVERY DAY active Not Available Not Available No t Available Suprep Bowel Prep Kit 17.5 gram-3.13 gram-1.6 gram oral solution MIX AND DRINK UTD 10/21 completed Not Available Not Available Not Available Xarelto 20 mg tablet TK 1 T PO D 10/21 completed Not Available Not Available Not Available Vitamin D2 daily 2013 active Not Available Not Available Not Avai lable Eliquis 5 mg tablet TAKE 1 TABLET BY MOUTH TWICE DAILY active Not Available Not Available No t Available Rybelsus 14 mg tablet TAKE 1 TABLET BY MOUTH DAILY. DISCONTIN UE THE RYBELSUS 7 MG. THANK YOU active Not Available Not Available No t Available Rybelsus 7 mg tablet TAKE 1 TABLET BY MOUTH EVERY DAY FOR METABOLIC SYNDROME 10/01 completed Not Available Not Available Not Available Paxlovid 150 mg-100 mg tablets in a dose pack (Renal Dose) TAKE BY MOUTH PER PACKAGE DIRECTION S 12/10 completed Not Available Not Available Not Available Vitals Date Recorded Body height Body mass index (BMI) Body weight Heart rate Respiratory rate Oxygen saturation Oxygen saturation in Arterial blood by Pulse oximetry Systolic blood pressure Diastolic blood pressure Provider Name and Address Organization Details Last Updated DateTime 4 154.94 cm 42.5 kg/m2 829685. 28 g 82 /min 14 /min 98 % 98 % 152 mm[Hg] 79 mm[Hg] Aissatou Alexis Maestro [facility] 4 16:33:32 Date Recorded Body height Body mass index (BMI) Body weight Heart rate Respiratory rate Oxygen saturation Oxygen saturation in Arterial blood by Pulse oximetry Systolic blood pressure Diastolic blood pressure Provider Name and Address Organization Details Last Updated DateTime 4 154.94 cm 42.5 kg/m2 077702. 28 g 70 /min 14 /min 98 % 98 % 142 mm[Hg] 82.99 mm[Hg] Aissatou Alexis [facility] 4 10:38:49 Date Recorded Body height Body mass index (BMI) Body weight Oxygen saturation Oxygen saturation in Arterial blood by Pulse oximetry Body temperature Respiratory rate Heart rate Systolic blood pressure Diastolic blood pressure Provider Name and Address Organization Details Last Updated DateTime 4 154.94 cm 42.5 kg/m2 386225. 28 g 97 % 97 % 97.2 [degF] 16 /min 72 /min 110 mm[Hg] 70 mm[Hg] Danyelle Ronny [facility] 4 15:48:36 Date Recorded Body height Body mass index (BMI) Body weight Heart rate Respiratory rate Oxygen saturation Oxygen saturation in Arterial blood by Pulse oximetry Systolic blood pressure Diastolic blood pressure Provider Name and Address Organization Details Last Updated DateTime 4 154.94 cm 42.5 kg/m2 469718. 28 g 67 /min 14 /min 98 % 98 % 140 mm[Hg] 86 mm[Hg] Aissatou Espinoza [facility] [employer] [facility] 4 09:35:41 Date Recorded Body height Body mass index (BMI) Body weight Heart rate Respiratory rate Oxygen saturation Oxygen saturation in Arterial blood by Pulse oximetry Systolic blood pressure Diastolic blood pressure Provider Name and Address Organization Details Last Updated DateTime 5 154.94 cm 42.5 kg/m2 509103. 28 g 61 /min 14 /min 98 % 98 % 136 mm[Hg] 86 mm[Hg] Aissatou Alexis [facility] 5 09:31:13 Social History Question Answer Notes LastModified by Organizat ion Details LastModified Time Tobacco Smoking Status Never Smoker Tiarra Centeno, KASANDRA null, [place] - [facility] 10/21/2022 14:34:16 What Is Your Level Of Alcohol Consumption? None [email or web address] Information not available 10/21/2022 Sex: Unknown Functional Status None recorded. Mental Status None recorded. Family History Relationship Description Onset Age of this Age Resolved Age Notes LastModified by Organization Details LastModified Time Mother Heart disease [email or web address] Not available 2022 14:33:53 Mother Hypertensive disorder [email or web address] Not available 2022 14:34:09 Medical History Condition Response HEART DISEASE/HEART PROBLEMS Y ARTHRITIS Y HYPERTENSION Y Gynecological HistoryNo gynecological history recorded. Obstetrics History GPAL:G 0 P 0 0 0 0 Past Encounters Encounter ID Performer Location Encounter Start Date Encounter Closed Date Diagnosis/Indication Diagnosis SNOMED-CT Code Diagnosis ICD10 Code Diagnosis Note [id number] [facility] [address] [place] [address] 11/26/2020 00:00:00 12/03/2020 08:37:57 [id number] [facility] [address] [place] [address] 05/31/2021 00:00:00 05/31/2021 14:17:21 [id number] [facility] [address] [place] [address] 08/23/2021 00:00:00 08/24/2021 12:12:15 [id number] COLETTE Burton [facility] [address] [place] [address] 10/21/2022 14:05:12 10/21/2022 15:41:45 Pain of right elbow joint 2768833397 5259372 M25.521 [id number] Bladimir Valderrama MD [facility] [address] [place] [address] 10/28/2022 11:44:15 11/21/2022 09:27:11 Pain of right elbow joint 8220021477 5707565 M25.359 [id number] Jus Faye DPM [facility] [place] [address] [place] [address] 03/02/2023 09:39:02 03/02/2023 10:12:16 Dystrophia unguium 23917856 L60.3 left footnails debrided without incidentfo llow-up as needed Pain of to e of left foot 8301702348 12251 M79.675 foot great toe [id number] Jus Faye DPM [facility] [place] [address] [place] [address] 06/19/2023 15:32:40 06/19/2023 16:29:31 Peripheral vascular disease 708849542 I73.9 Noninvasiv e vascular testing Dystrophia unguium 18531 009 L60.3 nails debrided without incidentfo llow-up as needed [id number] Jus Faye DPM [facility] [place] [address] [place] [address] 07/13/2023 16:28:45 07/17/2023 17:25:45 Peripheral vascular disease 911811491 I73.9 Noninvasiv e vascular testing reviewed - mild dz bilatrecom mend daily exercisemo nitor for wounds and claudicati on, if present return to repeat testing [id number] Jus Faye DPM [facility] [place] [address] [place] [address] 10/02/2023 10:29:32 10/02/2023 11:23:46 Dystrophia unguium [id number] L60.3 nails debrided without incidentfo llow-up as needed Pain of to es of bilateral feet [id number] M79.674 M79.675 secondary to above Unable to cut own toenails [id number] Z74.1 [id number] Jus Faye DPM [facility] [place] [address] [place] [address] 12/11/2023 15:36:58 12/12/2023 16:33:23 Porokeratosis [id number] Q82.8 M79.672 Debrided without incidentco ntinue over-the-c ounter AmlactinUs e pumice stone dailyfollo w-up in 2-3 months Pain in both feet 852437 0647 [id number] M79.671 M79.672 Dystrophia unguium 05896 009 L60.3 nails debrided without incidentfo llow-up as needed [id number] Jus Faye DPM [facility] [place] [address] [place] [address] 03/11/2024 09:30:38 03/12/2024 14:14:13 Dystrophia unguium 81382826 L60.3 nails debrided without incidentfo llow-up as needed Pain of to es of bilateral feet [id number] 7213069 M79.674 M79.675 secondary to above [id number] Jus Faye DPM [facility] [place] [address] [place] [address] 06/10/2024 09:26:39 06/14/2024 13:19:24 Dystrophia unguium 92914817 L60.3 nails debrided without incidentfo llow-up as needed Pain of to es of bilateral feet 1902610927 9426279 M79.674 M79.675 secondary to above Health Concerns Section Related Observation LastModified by Organization Detai ls LastModified Time None Recorded Concern Status LastModified by Organization Details LastModified Time None Recorded Advance Directives Directive None Recorded Payers Encounter Date Sequence Insurance Name Policy Number Policy Cruz Covered Member ID Cruz Member ID Guarantor Name 07/13/2023 1 [employer] (MEDICARE REPLACEMENT PPO) [id number] Eileen Maza [id number] Eileen Maza 10/02/2023 1 [employer] (MEDICARE REPLACEMENT PPO) [id number] Eileen Maza [id number] Eileen Maza 12/11/2023 1 [employer] (MEDICARE REPLACEMENT PPO) [id number] Eileen Maza [id number] Eileen Maza 03/11/2024 1 [employer] (MEDICARE REPLACEMENT PPO) [id number] Eileen Maza [id number] Eileen Maza 06/10/2024 1 [employer] (MEDICARE REPLACEMENT PPO) [id number] Eileen Maza [id number] [place] Maza Notes Date Note Type Note Provider Name and Address Organization Details Recorded Time 07/13/2023 text/html . Patient is a 72-year-old female who returns to the office to review vascular testing. Patient denies any new complaints. Jus Faye DPM [address] [employer], [place], [address], [employer] 07/17/2023 12:08:36 10/02/2023 text/html . Patient is a 73-year-old female who returns the office for painful toenails that are thick and long. Patient denies any open wounds or infection. Patient denies any other complaints. Jus Faye DPM [address] [employer], [place], [address], [employer] 10/02/2023 11:16:10 12/11/2023 text/html . Patient is a 73-year-old female who returns the office for follow-up on painful calluses. Patient states that she is several calluses which cause her pain with walking. Patient denies any injury or open wounds. Patient denies any pain when at rest. Jus Faye DPM [address] [employer], [place], [address], [employer] 12/11/2023 16:36:22 03/11/2024 text/html . Patient is a 73-year-old female who returns the office for routine foot care. Patient states her toenails are long and painful she is unable bend over to cut them due to arthritis. Patient denies any other complaints. Jus Faye DPM [address], [place], [address], [employer] 03/11/2024 10:40:39 06/10/2024 text/html . Patient is a 73-year-old female she returns for follow-up on routine foot care she states her toenails are long and painful she is unable to cut them. Patient denies any other complaints.I did noticed today that the patient had a soft tissue mass on the top of her head I did notify the patient about this and she said that she was currently being treated. Jus Faye DPM [address], [place], [address], [place] [facility] 06/10/2024 10:26:28 OBGyn Episode No OBEpisode recorded.
[2024-07-04 08:55] LABS: Influenza A QL RT-PCR Negative (Negative); Influenza B QL RT-PCR Negative (Negative); RSV RNA, RT-PCR Negative (Negative); SARS-CoV-2 RNA PCR Negative (Negative)
== END 2024-07-04 07:48 | disposition home or self-care (01) ==
LOC: ANHLAB 07:48
PROVIDERS: PCP Internal Medicine; Visit Provider Internal Medicine
DX: R05.9 Cough, unspecified (principal); R50.9 Fever, unspecified; M79.10 Myalgia, unspecified site
CPT/HCPCS: 87637

== ENCOUNTER 2024-08-24 09:40 | Outpatient (CLI) | payer MEDICARE, SELFPAY ==
--- NOTE | ~2024-08-24 | XR_ITS ---
Clinical Indication: Localized swelling, mass PA and lateral views of the chest: Comparison: 03/23/2022 Findings: The lungs are clear, without evidence of focal consolidation or pleural effusion. Cardiome diastinal silhouette is within normal limits. There is kyphosis of the thoracic spine. Impression: Clear lungs. Reviewed, dictated and finalized at [facility]. Impression: Clear lungs.
--- NOTE | ~2024-08-24 | US_ITS ---
EXAM: Focused ultrasound examination of the soft tissues of the right supraclavicular region HISTORY: R22.2 - Localized swelling, mass and lump, trunk TECHNIQUE: Sonographic evaluation of the soft tissues of the right supraclavicular region were perfor med assessing grayscale appearance and color Doppler flow. COMPARISON: None. FINDINGS: Sonographic evaluation of the soft tissues of the right supraclavicular region demonstrate an indeter minate focus of mixed echogenicity measuring 4.9 x 1.8 x 6.4 cm. This is the area that is delineated as a separate discrete focus on live interrogation by our ultraso und technologist. However, the echogenicity of the tissue does not correspond to a lymph node (common ly found in that area) muscle (commonly found in that area) or fatty tissue suggesting a lipoma. Cont rast-enhanced cross-sectional imaging (CT or MRI) is recommended for further evaluation. Sonographic evaluation of the right supraclavicular region demonstrates benign fibrofatty and fibromu scular elements without a cystic or solid lesion of concern. IMPRESSION: No sonographic abnormality is appreciated within the area of clinical concern for which contrast enha nced cross-sectional imaging (CT or MRI) is recommended for further evaluation. Reviewed, dictated and finalized at location A. IMPRESSION: No sonographic abnormality is appreciated within the area of clinical concern f or which contrast enhanced cross-sectional imaging (CT or MRI) is recommended f or further evaluation.
== END 2024-08-24 09:41 | disposition home or self-care (01) ==
PROVIDERS: PCP Internal Medicine; Visit Provider Internal Medicine
DX: R22.2 Localized swelling, mass and lump, trunk (principal)
CPT/HCPCS: 71046; 76536

== ENCOUNTER 2024-08-30 07:28 | Outpatient (CLI) | payer MEDICARE, SELFPAY ==
--- NOTE | ~2024-08-30 | CT_ITS ---
Clinical Indication: Swelling, mass CT Scan of the Neck and Chest with Contrast: Technique: Contiguous sections were acquired throughout the neck and chest after intravenous administ ration of 75 cc of Omnipaque 350. Dose reduction technique was used on this scan by utilizing automat ed exposure control and iterative reconstruction technique. The dose-length product (DLP) was 1138.97 mGy-cm. Findings: No soft tissue mass or lymphadenopathy seen in the neck. Parapharyngeal fat preserved bilat erally. Parotid and submandibular glands are unremarkable. Visualized aerodigestive tract unremarkabl e. Paranasal sinuses are clear. Orbits are unremarkable. There is no evidence of any significant mediastinal, hilar or axillary lymphadenopathy. There is no f illing defect in the pulmonary arterial tree to suggest pulmonary embolus. There is no evidence of ao rtic dissection or aneurysm. Extensive coronary artery calcification is present. There is no evidence of pleural or pericardial effusion. The lungs are clear, aside from probable mild hypoventilatory change or possibly minimal groundglass pulmonary edema. Images through the upper abdomen reveal no abnormalities. 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 There is e xtensive degenerative spondylosis of the lower thoracic and visualized upper lumbar spine. Impression: No abnormal mass lesion or lymphadenopathy identified. Possible minimal ground glass pulmonary edema versus mild hypoventilatory change in the lungs. Paget's disease of T11. Reviewed, dictated and finalized at [facility]. Impression: No abnormal mass lesion or lymphadenopathy identified. Possible minimal ground glass pulmonary edema versus mild hypoventilatory rascon e in the lungs. Paget's disease of T11.
--- OUTSIDE RECORDS SUMMARY | 2024-08-30 07:36 | XMS_ITS | Clinical Summary ---
Author Organization [facility] Address [address] [place] [address] Care Team Providers Care Railcar Switchman Name Role Phone Unavailable Primary Care Provider Unavailabl e Source Comments [facility],non-owned Affiliates and Associated Physician Practices is amultiple site organization consisting of ambulatory clinics and hospital sitesin [place], [place] and [place]. This disclosure is being madepursuant to the Care Everywhere program and may not contain all information available regarding this patient. Last updated 18.[facility] [employer] Social History Tobacco Use Types Packs/Day Years [...] VACCINE (1 - 2023-2 5 season) 2024 DEPRESSION SCREENING 05/22/2024 INFLUENZA VACCINE (Season Ended) 2025 HEPATITIS B VACCINE Aged Out No longe r eligible based on patient's age to complete this topic HIB VACCINE Aged Out No longer eligi ble based on patient's age to complete this topic HPV VACCINE Aged Out No longer eligi ble based on patient's age to complete this topic MENINGOCOCCAL (Group B) VACC INE SHARED DECISION-MAKING Aged Out No longer eligibl e based on patient's age to complete this topic MENINGOCOCCAL GROUPS A/C/Y/W VACCINE Aged Out No longer eligible b ased on patient's age to complete this topic
--- OUTSIDE RECORDS SUMMARY | 2024-08-30 07:36 | XMS_ITS | Data Portability ---
Author Organization [place] [facility], Main Office Address [address] [place] [address] Care Team Providers Care Footwear Production Machine Operator Name Role Phone EBONY BOSTON Primary Care Provider EBONY BOSTON Referring Provider [phone] Assessment Encounter Date Assessment Date Assessment LastModified by Organization Details LastModified Time 07/13/2023 07/13/2023 This note is dictated and transcribed by [employer]. Laundry Routeman variances may occur. Despite proofreading, typographical errors may occur. Occasional wrong-word or s ound-a-like substitutions may have occurred due to the inherent limitations of voice recording. Read the chart carefully and recognize, using context, where substitutions have occurred. [email or web address] Not available 07/13/2023 17:35:18 10/02/2023 10/02/2023 This note is dictated and transcribed by [employer]. Laundry Routeman variances may occur. Despite proofreading, typographical errors may occur. Occasional wrong-word or 'wwlqu-t-tagx' substitutions may have occurred due to the inherent limitations of voice recording. Read the chart carefully and recognize, using context, where substitutions have occurred. Not available 10/02/2023 11:15:36 12/11/2023 12/11/2023 This note is dictated and transcribed by [employer]. Laundry Routeman variances may occur. Despite proofreading, typographical errors may occur. Occasional wrong-word or 'ygjrg-t-xrsw' substitutions may have occurred due to the inherent limitations of voice recording. Read the chart carefully and recognize, using context, where substitutions have occurred. Not available 12/11/2023 16:35:31 03/11/2024 03/11/2024 This note is dictated and transcribed by [employer]. Laundry Routeman variances may occur. Despite proofreading, typographical errors may occur. Occasional wrong-word or 'xgkzq-j-icwl' substitutions may have occurred due to the inherent limitations of voice recording. Read the chart carefully and recognize, using context, where substitutions have occurred. Not available 03/11/2024 10:40:21 06/10/2024 06/10/2024 This note is dictated and transcribed by [employer]. Laundry Routeman variances may occur. Despite proofreading, typographical errors may occur. Occasional wrong-word or 'giqel-w-zsxv' substitutions may have occurred due to the [...] extre mity No observ ation record ed. [email or web address] [place] [address] ([employer]) [address] [place], [address], 07/05/2023 15:47:27 Result Notes None recorded. Problems Name Problem SNOMED Code Status Onset Date Resolution Date Notes Provider Name and Address Organization Details Recorded Time Strain of left Achilles tendon 4947862907706 9107 Active 2020 Not Available [facility] 3 02:51:10 Disorder of shoulder 166503640 Active Not Available [facility] 3 02:51:10 Wrist joint pain 666961359 Active Not Available [facility] 3 02:51:10 Intractabl e plantar keratoma 589522906 Active Not Available [facility] 3 02:51:10 Transient cerebral ischemia 307975475 Active Not Available [facility] 3 02:51:10 Raynaud's phenomenon 651206219 Active Not Available [facility] 3 02:51:10 Anemia 477502704 Active Not Available [facility] 3 02:51:10 Wilson's neuroma of right foot 8006036009987 08 Active 2019 Not Available [facility] 3 02:51:11 Osteopenia 696407824 Active Not Available [facility] 3 02:51:11 Pain in right foot 0978127553749 07 Active Not Available [facility] 3 02:51:11 Tendinitis of left posterior tibial tendon 8919450365169 00 Active 2021 Not Available [facility] 3 02:51:11 Disorder of back 72278991 Active Not Available [facility] 3 02:51:11 Osteoarthr itis 945577606 Active Not Available [facility] 3 02:51:11 Disorder characteri zed by back pain 766257588 Active Not Available [facility] 3 02:51:11 Porokerato sis 476576826 Active 2020 Not Available [facility] 3 02:51:11 Dizziness 423827626 Active Not Available [facility] 3 02:51:12 Hypothyroi dism 11094362 Active Not Available [facility] 3 02:51:12 Conduction disorder of the heart 44829478 Active Not Available [facility] 3 02:51:12 Sprain of foot 52302834 Active Not Available [facility] 3 02:51:12 Upper respirator y infection 82678173 Active Not Available [facility] 3 02:51:12 Hyperlipid emia 51104640 Active Not Available [facility] 3 02:51:12 Degenerati on of lumbosacra l interverte bral disc 95898432 Active Not Available [facility] 3 02:51:12 Closed fracture of phalanx of foot 43328479 Active Not Available [facility] 3 02:51:13 Dystrophia unguium 18604617 Active 2020 Not Available [facility] 3 02:51:13 Lipoma 16142623 Active Not Available [facility] 3 02:51:13 Pain of right elbow joint 7213716016053 9109 Active 2022 KASANDRA Miranda, [place] [employer] [facility] 3 14:35:01 Pain of toe of left foot 4789837800053 08 Active 2022 Jus Faye DPM [address], [place], [address] , [employer] [facility] 3 10:10:07 Peripheral vascular disease 871555373 Active 2023 Jus Faye DPM [address], [place], [address] , [employer] 4 16:08:20 Pain of toes of bilateral feet 0896143999284 9102 Active 2023 Jus Faye DPM [address], [address], [place], [address] , [employer] [facility] 4 11:15:44 Unable to cut own toenails 105729336 Active 2023 Jus Faye DPM [address], [place], [address] , [employer] 4 11:15:54 Pain in both feet 8135126616465 9102 Active 2023 Jus Faye DPM [address], [place], [address] , [employer] [facility] 4 16:35:48 Problem Notes None recorded. Procedures Surgical History Date Name Laterality Status Provider Name and Address Organization Details Recorded Time 5 Nail Debridement completed Jus Faye DPM [address], [place], [address], [employer] [facility] 06/10/2024 10:26:03 4 Nail Debridement completed Jus Faye DPM [address], [place], [address], [employer] [facility] 03/11/2024 10:40:17 4 Nail Debridement completed Jus Faye DPM [address], [place], [address], [employer] 12/11/2023 16:34:23 4 Callus Debridement 2-4 completed Jus Faye DPM [address], [place], [address], [employer] [facility] 12/11/2023 16:34:28 4 Nail Debridement completed Jus Faye DPM [address], [place], [address], [employer] [facility] 10/02/2023 11:15:18 4 Nail Debridement completed Jus Faye DPM [address], [place], [address], [employer] [facility] 06/19/2023 16:09:24 3 Nail Debridement completed Jus Faye DPM [address], [place], [address], [employer] [facility] 03/02/2023 10:00:08 Imaging Results Imaging Date Name Status LastModified by Organiz ation Details LastModified Time 06/30/2023 US, duplex, arterial, lower extremity completed [address] ([employer]) [address], [place], [address], 07/05/2023 15:47:27 Procedure Notes None recorded. Medical Equipment None Reported. Allergies Allergen ID Allergen Name Allergen Category Reaction Reaction Severity Criticality Documentation Date Start Date Code Code System Note Provider Name and Address Organization Details Recorded Time 5188 Demerol medicatio n Not available Not available Not available 07/20/2022 95921 1 RxNorm Not Available [facility] 3 03:07:12 Medications Name Sig Start Date [...] TO THE AFFECTED AREA(S) IN A THIN LAYOUT TECHNICIAN TO TWO TIMES DAILY. 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 28 g 82 /min 14 /min 98 % 98 % 152 mm[Hg] 79 mm[Hg] Aissatou Alexis [employer] [facility] 4 16:33:32 Date Recorded Body height Body mass index (BMI) Body weight Heart rate Respiratory rate Oxygen saturation Oxygen saturation in Arterial blood by Pulse oximetry Systolic blood pressure Diastolic blood pressure Provider Name and Address Organization Details Last Updated DateTime 4 154.94 cm 42.5 kg/m2 366378. 28 g 70 /min 14 /min 98 % 98 % 142 mm[Hg] 82.99 mm[Hg] Aissatou Alexis [facility] [facility] 4 10:38:49 Date Recorded Body height Body mass index (BMI) Body weight Oxygen saturation Oxygen saturation in Arterial blood by Pulse oximetry Body temperature Respiratory rate Heart rate Systolic blood pressure Diastolic blood pressure Provider Name and Address Organization Details Last Updated DateTime 4 154.94 cm 42.5 kg/m2 419826. 28 g 97 % 97 % 97.2 [degF] 16 /min 72 /min 110 mm[Hg] 70 mm[Hg] Danyelle Ronny [facility] 4 15:48:36 Date Recorded Body height Body mass index (BMI) Body weight Heart rate Respiratory rate Oxygen saturation Oxygen saturation in Arterial blood by Pulse oximetry Systolic blood pressure Diastolic blood pressure Provider Name and Address Organization Details Last Updated DateTime 4 154.94 cm 42.5 kg/m2 282979. 28 g 67 /min 14 /min 98 % 98 % 140 mm[Hg] 86 mm[Hg] Aissatou Espinoza [employer] [facility] 4 09:35:41 Date Recorded Body height Body mass index (BMI) Body weight Heart rate Respiratory rate Oxygen saturation Oxygen saturation in Arterial blood by Pulse oximetry Systolic blood pressure Diastolic blood pressure Provider Name and Address Organization Details Last Updated DateTime 5 154.94 cm 42.5 kg/m2 954585. 28 g 61 /min 14 /min 98 % 98 % 136 mm[Hg] 86 mm[Hg] Aissatou Alexis [facility] 5 09:31:13 Social History Question Answer Notes LastModified by Organizat ion Details LastModified Time Tobacco Smoking Status Never Smoker Tiarra Centeno, KASANDRA null, [place] [facility] 10/21/2022 14:34:16 What Is Your Level Of Alcohol Consumption? None [email or web address] Information not available 10/21/2022 Sex: Unknown Functional Status None recorded. Mental Status None recorded. Family History Relationship Description Onset Age of this Age Resolved Age Notes LastModified by Organization Details LastModified Time Mother Heart disease Not available 2022 14:33:53 Mother Hypertensive disorder [email or web address] Not available 2022 14:34:09 Medical History Condition Response HEART DISEASE/HEART PROBLEMS Y ARTHRITIS Y HYPERTENSION Y Gynecological HistoryNo gynecological history recorded. Obstetrics History GPAL:G 0 P 0 0 0 0 Past Encounters Encounter ID Performer Location Encounter Start Date Encounter Closed Date Diagnosis/Indication Diagnosis SNOMED-CT Code Diagnosis ICD10 Code Diagnosis Note [id number] [facility] [address] [place] [address] 11/26/2020 00:00:00 12/03/2020 08:37:57 [id number] [facility] [address] [place] [address] 05/31/2021 00:00:00 05/31/2021 14:17:21 [id number] [facility] [address] [place] [address] 08/23/2021 00:00:00 08/24/2021 12:12:15 [id number] COLETTE Burton [facility] [address] [place] [address] 10/21/2022 14:05:12 10/21/2022 15:41:45 Pain of right elbow joint 4185841097 9272291 M25.521 [id number] Bladimir Valderrama MD [facility] [address] [place] [address] 10/28/2022 11:44:15 11/21/2022 09:27:11 Pain of right elbow joint 3178358329 2763565 M25.478 [id number] Jus Faye DPM [facility] [address] [place] [address] 03/02/2023 09:39:02 03/02/2023 10:12:16 Dystrophia unguium 69351749 L60.3 left footnails debrided without incidentfo llow-up as needed Pain of to e of left foot 1308353672 01616 M79.675 foot great toe [id number] Jus Faye DPM [facility] [address] [place] [address] 06/19/2023 15:32:40 06/19/2023 16:29:31 Peripheral vascular disease 489679047 I73.9 Noninvasiv e vascular testing Dystrophia unguium 96125 009 L60.3 nails debrided without incidentfo llow-up as needed [id number] Jus Faye DPM [facility] [address] [place] [address] 07/13/2023 16:28:45 07/17/2023 17:25:45 Peripheral vascular disease 516211713 I73.9 Noninvasiv e vascular testing reviewed - mild dz bilatrecom mend daily exercisemo nitor for wounds and claudicati on, if present return to repeat testing [id number] Jus Faye DPM [facility] [address] [place] [address] 10/02/2023 10:29:32 10/02/2023 11:23:46 Dystrophia unguium 24546055 L60.3 nails debrided without incidentfo llow-up as needed Pain of to es of bilateral feet 2478660926 7210114 M79.674 M79.675 secondary to above Unable to cut own toenails 458551479 Z74.1 [id number] Jus Faye DPM [facility] [address] [place] [address] 12/11/2023 15:36:58 12/12/2023 16:33:23 Porokeratosis 269663962 Q82.8 M79.672 Debrided without incidentco ntinue over-the-c ounter AmlactinUs e pumice stone dailyfollo w-up in 2-3 months Pain in both feet 508707 3029 6141706 M79.671 M79.672 Dystrophia unguium 56814 009 L60.3 nails debrided without incidentfo llow-up as needed [id number] Jus Faye DPM [facility] [place] [address] [facility] [address] [place] [address] 03/11/2024 09:30:38 03/12/2024 14:14:13 Dystrophia unguium 95619012 L60.3 nails debrided without incidentfo llow-up as needed Pain of to es of bilateral feet 5773726477 2296741 M79.674 M79.675 secondary to above [id number] Jus Faye DPM [facility] [place] [address] [facility] [address] [place] [address] 06/10/2024 09:26:39 06/14/2024 13:19:24 Dystrophia unguium 59626343 L60.3 nails debrided without incidentfo llow-up as needed Pain of to es of bilateral feet 3286483721 1009027 M79.674 M79.675 secondary to above Health Concerns Section Related Observation LastModified by Organization Detai ls LastModified Time None Recorded Concern Status LastModified by Organization Details LastModified Time None Recorded Advance Directives Directive None Recorded Payers Encounter Date Sequence Insurance Name Policy Number Policy Cruz Covered Member ID Cruz Member ID Guarantor Name 07/13/2023 1 [employer] (MEDICARE REPLACEMENT PPO) [id number] Eileen Maza [id number] Eileen Maza 10/02/2023 1 [employer] (MEDICARE REPLACEMENT PPO) [id number] Eileen Maza [id number] Eileen Maza 12/11/2023 1 [employer] (MEDICARE REPLACEMENT PPO) [id number] Eileen Maza [id number] Eileen Maza 03/11/2024 1 [employer] (MEDICARE REPLACEMENT PPO) [id number] Eileen Maza [id number] Eileen Maza 06/10/2024 1 [employer] (MEDICARE REPLACEMENT PPO) [id number] Eileen Maza [id number] Eileen [place] Maza Notes Date Note Type Note Provider Name and Address Organization Details Recorded Time 07/13/2023 text/html . Patient is a 72-year-old female who returns to the office to review vascular testing. Patient denies any new complaints. Jus Faye DPM [address], [place], [address], [employer] 07/17/2023 12:08:36 10/02/2023 text/html . Patient is a 73-year-old female who returns the office for painful toenails that are thick and long. Patient denies any open wounds or infection. Patient denies any other complaints. Jus Faye DPM [address], [place], [address], [employer] 10/02/2023 11:16:10 12/11/2023 text/html . Patient is a 73-year-old female who returns the office for follow-up on painful calluses. Patient states that she is several calluses which cause her pain with walking. Patient denies any injury or open wounds. Patient denies any pain when at rest. Jus Faye DPM [address], [address], [place], [address], [employer] 12/11/2023 16:36:22 03/11/2024 text/html . Patient is a 73-year-old female who returns the office for routine foot care. Patient states her toenails are long and painful she is unable bend over to cut them due to arthritis. Patient denies any other complaints. Jus Faye DPM [address], [address], [place], [address], [employer] 03/11/2024 10:40:39 06/10/2024 text/html . Patient is [...] currently being treated. Jus Faye DPM [address] [facility], [facility] [address], [place], [address], [place] [facility] 06/10/2024 10:26:28 OBGyn Episode No OBEpisode recorded.
--- OUTSIDE RECORDS SUMMARY | 2024-08-30 07:36 | XMS_ITS | Encounter Summary ---
Author Organization [facility] [employer] [facility] Address [address] [place] [address] Phone Care Team Providers Care Lining Maker Name Role Phone Lopez George MD Primary Care Provider [phone] Sandip Carvalho MD Unavailable [phone] Emmanuel Maher MD Unavailable [phone] Encounter Details Date Type Department Care Team [...] on file Legal Sex Female 12:48 AM CARPENTER Gender Identity Not on file Sexual Orientation [...] on filedocumented in this encounter Care Teams Lining Maker Relationship Specialty Start Date End Date Lopez George MD [address] [place] [address] PCP - General Internal Medicine 11/13/17 Sandip Carvalho MD [address] [place] [address] Medical Oncologist/Apprentice Funeral Director Medical Oncology 08/10/20 12/13/21 Emmanuel Maher MD [address] [place] [address] Consulting Physician Medical Oncology 12/14/21 documented as of this encounter
--- OUTSIDE RECORDS SUMMARY | 2024-08-30 07:36 | XMS_ITS | CONTINUITY OF CARE DOCUMENT ---
Author Name david, david Address Unknown Organization [facility] Address [address] [place] [address] Phone [phone] Care Team Providers Care Executive Administrative Assistant Name Role Phone Royer TILLMAN, Gayla Unavailable DARVIN TILLMAN, EBONY Unavailable DARVIN TILLMAN, EBONY Unavailable PROBLEMS Condition Status Date Provider Notes AFIB-03/03 REPEAT CV SUCCESS- completed - Jarad Linton MD HTN--echo ef 60%, 04/2021 active Zurdo henry Hyperlipidemia active Charisma Young RN COPD-03/03 YEIMI NL completed - Gayla Gayle HYPOTHYROIDISM completed - Gayla Linton MD CHEST PAIN- cath 12/05 s/p LA D stent HELEN active Gayla Linton MD ATRIAL FIB PAroxysmal on flecainide, atenolol, eliquis active Gayla Linton MD Hypothyroidism active Gayla Linton MD Shortness of breath no sleep apnea completed - Gayla Linton MD CAD completed - Gayla Linton MD Snoring completed - Gayla Linton MD Sleep apnea mild, doesn't us e cpap active Jus Nacht Obesity active Gayla Linton MD Headache, temporal arteritis active Gayla Linton MD GERD active Jus Hubert CKD, stage 3 active Jus Hubert Dyspnea on exertion active Jus Hubert ENCOUNTERS Date Type Provider Location Encounter Diag nosis - In-person encounter Office Visit Gayla Linton MD [facility] - In-person encounter Office Visit Gayla Linton MD [facility] - In-person encounter Office Visit Gayla Linton MD [facility] - In-person encounter Office Visit Gayla Linton MD [facility] HTN--echo ef 60%, 04/2021 - In-person encounter Office Visit Gayla Linton MD [facility] Sleep apnea mild, doesn't use cpapCKD, stage 3Dyspnea on exertion - In-person encounter Office Visit Gayla Linton MD [facility] GERD - In-person encounter Office Visit Gayla Linton MD [facility] ATRIAL FIB PAroxysmal on flecainide, atenolol, eliquisHeadache, temporal arteritis - In-person encounter Office Visit Gayla Linton MD [facility] - In-person encounter Office Visit Gayla Linton MD [facility] Obesity - In-person encounter Office Visit Gayla Linton MD [facility] - In-person encounter Office Visit Gayla Linton MD [facility] COPD-03/03 YEIMI NLShortness of breath no sleep apneaSnoringSleep apnea mild, doesn't use cpap - In-person encounter Office Visit Brian Shafer MD [facility] - In-person encounter Office Visit Gayla Linton MD [facility] - In-person encounter Office Visit Brian Shafer MD [facility] - In-person encounter Office Visit Gayla Linton MD [facility] - In-person encounter Office Visit Gayla Linton MD [facility] - In-person encounter Office Visit Gayla Linton MD [facility] - In-person encounter Office Visit Gayla Linton MD [facility] - In-person encounter Office Visit Gayla Linton MD [facility] - In-person encounter Office Visit Gayla Linton MD [facility] CAD - In-person encounter Office Visit Gayla Linton MD [facility] - In-person encounter Office Visit Gayla Linton MD [facility] CHEST PAIN- cath 7/17 s/p LAD stent HELEN - In-person encounter Office Visit Gayla Linton MD [facility] - In-person encounter Office Visit Gayla Linton MD [facility] - In-person encounter Office Visit Gayla Linton MD [facility] CHEST PAIN- cath 7/17 s/p LAD stent HELEN - In-person encounter Office Visit Gayla Linton MD [facility] - In-person encounter Office Visit Gayla Linton MD [facility] - In-person encounter Office Visit Gayla Linton MD [facility] - In-person encounter Office Visit Gayla Linton MD [facility] - In-person encounter Office Visit Gayla Linton MD [facility] - In-person encounter Office Visit Gayla Linton MD [facility] - In-person encounter Office Visit Brian Shafer MD [facility] - In-person encounter Office Visit Gayla Linton MD [facility] - In-person encounter Office Visit Gayla Linton MD [facility] ATRIAL FIB PAroxysmal on flecainide, atenolol, eliquis - In-person encounter Office Visit Gayla Linton MD [facility] AFIB-03/03 REPEAT CV SUCCESS-HyperlipidemiaHYPOT HYROIDISMATRIAL FIB PAroxysmal on flecainide, atenolol, eliquisHypothyroidism - In-person encounter Office Visit Gayla Linton MD [facility] - In-person encounter Office Visit Brian Shafer MD [facility] - In-person encounter Office Visit Brian Shafer MD [facility] - In-person encounter Office Visit Gayla Linton MD [facility] - In-person encounter Office Visit Gayla Linton MD [facility] - In-person encounter Office Visit Gayla Linton MD [facility] - In-person encounter Office Visit Gayla Linton MD [facility] - In-person encounter Office Visit Lalit Forrest MD [facility] - In-person encounter Office Visit Gayla Linton MD [facility] - In-person encounter Office Visit Gayla Linton MD [facility] CHEST PAIN- cath 12/05 s/p LAD stent DESATRIAL FIB PAroxysmal on flecainide, atenolol, eliquis - In-person encounter Office Visit Brian Shafer MD [facility] - In-person encounter Office Visit Gayla Linton MD [facility] - In-person encounter Office Visit Gayla Linton MD [facility] - In-person encounter Office Visit Gayla Linton MD [facility] - In-person encounter Office Visit Gayla Linton MD [facility] - In-person encounter Office Visit Gayla Linton MD [facility] - In-person encounter Office Visit Matty Sears MD [facility] - In-person encounter Office Visit Gayla Linton MD [facility] AFIB-03/03 REPEAT CV SUCCESS- - In-person encounter Office Visit Gayla Linton MD [facility] Hyperlipidemia - In-person encounter Office Visit Gayla Linton MD [facility] VITAL SIGNS Date Observation Value Provider Body Mass Index (Ratio) 43.74 kg/m2 Jarad Linton MD blood pressure, diastolic 61 mm[Hg] Cande caryn Barlow blood pressure, systolic 100 mm[Hg] Dilan mayela Barlow pulse rate 66 /min Viridiana gayle oxygen saturation, oximetry 100 % Viridianasarita Barlow blood pressure, cuff size large Cande caryn Barlwo respiratory rate E&M 16 /min Kesha Barlow weight E&M 271 [lb_av] Viridiana gayle height E&M 66 [in_i] Viridiana gayle blood pressure, cuff size regular Ca therine Tate height E&M 66 [in_i] Raysa Tate Body Mass Index (Ratio) 45.83 kg/m2 Jarad Linton MD blood pressure, diastolic 64 mm[Hg] Li nkLogic blood pressure, systolic 133 mm[Hg] Dejah kLogic blood pressure, diastolic 64 mm[Hg] Li nkLogic blood pressure, systolic 133 mm[Hg] Dejah kLogic blood pressure, diastolic 64 mm[Hg] Rh oncatherine Michaels blood pressure, systolic 133 mm[Hg] Rho regis Xenia oxygen saturation, oximetry 99 % Chelsea Xenia pulse rate 66 /min Chelsea Xenia respiratory rate E&M 16 /min Chelsea Xenia blood pressure, cuff size regular Rh oncatherine Xenia blood pressure, resting Yes Rhon catherine Xenia weight E&M 284 [lb_av] Chelsea Xenia height E&M 66 [in_i] Chelsea Michaels Body Mass Index (Ratio) 46.16 kg/m2 Jarad Linton MD blood pressure, cuff size large Ke rri Lesley blood pressure, diastolic 74 mm[Hg] Ke rri Lesley blood pressure, systolic 124 mm[Hg] Trinidad Sutton oxygen saturation, oximetry 97 % Jenny Sutton respiratory rate E&M 18 /min Jenny mohr pulse rate 74 /min Jenny fuentes weight E&M 286 [lb_av] Jenny Quintanilla [facility] height E&M 66 [in_i] Jenny Quintanilla [facility] Body Mass Index (Ratio) 46.32 kg/m2 Jarad Linton MD blood pressure, diastolic 66 mm[Hg] To nsha Dalton blood pressure, systolic 135 mm[Hg] Tristen Hoffman temperature E&M 98.0 [degF] Tonsha Hoffman pulse rate 66 /min Tonsha Hoffman respiratory rate E&M 16 /min Tonsha Hoffman oxygen saturation, oximetry 98 % [facility] [lb_av] [facility] Hoffman height E&M 66 [in_i] [facility] Hoffman Body Mass Index (Ratio) 43.09 kg/m2 Jarad Linton MD blood pressure, cuff size regular Cy alvarez Anderson blood pressure, diastolic 64 mm[Hg] Cy alvarez Anderson blood pressure, systolic 140 mm[Hg] Brenda cuauhtemoc Anderson oxygen saturation, oximetry 98 % Laura Anderson respiratory rate E&M 16 /min Lauracuauhtemoc Anderson pulse rate 50 /min Laura Peckbel l weight E&M 267 [lb_av] Laura Campbel l height E&M 66 [in_i] Laura Campbel l Body Mass Index (Ratio) 44.06 kg/m2 Jarad Linton MD blood pressure, diastolic 56 mm[Hg] Ch astity Maximo blood pressure, systolic 112 mm[Hg] Ladi stity Maximo oxygen saturation, oximetry 99 % [facility] 16 /min Chastit y Maximo pulse rate 63 /min Chastity Maximo weight E&M 273 [lb_av] Chastity Maximo height E&M 66 [in_i] Chastity Maximo Body Mass Index (Ratio) 43.57 kg/m2 Jarad Linton MD blood pressure, diastolic 70 mm[Hg] Cain Craft blood pressure, systolic 138 mm[Hg] Kil crystal Craft oxygen saturation, oximetry 98 % Fran Craft respiratory rate E&M 16 /min Fran Craft pulse rate 58 /min Fran Craft weight E&M 270 [lb_av] Fran Craft height E&M 66 [in_i] Fran Craft Body Mass Index (Ratio) 43.57 kg/m2 Jarad Linton MD blood pressure, diastolic 70 mm[Hg] [facility] Craft blood pressure, systolic 130 mm[Hg] Hilda rojas Craft oxygen saturation, oximetry 97 % Fran Craft respiratory rate E&M 16 /min Fran Craft pulse rate 58 /min Camden Craft weight E&M 270 [lb_av] Fran Craft height E&M 66 [in_i] Camden Craft Body Mass Index (Ratio) 42.28 kg/m2 Julio Cesar Beltrán blood pressure, cuff size large Ke rri Gruenenfelder blood pressure, diastolic 68 mm[Hg] Ke rri Gruenenfelder blood pressure, systolic 110 mm[Hg] Ker ri Gruenenfelder oxygen saturation, oximetry 99 % Jenny Grmalinenfjuan aer respiratory rate E&M 20 /min Jenny G ayseenenfelder pulse rate 69 /min Jenny Grcruz lder weight E&M 262 [lb_av] Jenny Grcruz lder height E&M 66 [in_i] Jenny Grcruz lder Body Mass Index (Ratio) 41.96 kg/m2 Jarad Linton MD blood pressure, cuff size large Ke rri Gruenenfelder blood pressure, diastolic 66 mm[Hg] Ke rri Gruenenfelder blood pressure, systolic 110 mm[Hg] Ker ri Gruenenfelder oxygen saturation, oximetry 98 % Jenny Gruenenfelder respiratory rate E&M 18 /min Jenny G ruenenfelder pulse rate 70 /min Jenny Gruenenfe lder weight E&M 260 [lb_av] Jenny Gruenenfe lder height E&M 66 [in_i] Jenny Gruenenfe er Body Mass Index (Ratio) 42.77 kg/m2 Julio Cesar Beltrán blood pressure, cuff size large Ke rri Gruenenfelder blood pressure, diastolic 72 mm[Hg] Ke rri Gruenenfelder blood pressure, systolic 102 mm[Hg] Trinidad ri Gruenenfelder oxygen saturation, oximetry 98 % Jenny Awildaneaylinelder respiratory rate E&M 20 /min Jenny G ayseenenfelder pulse rate 78 /min Jenny Awildanenfe er weight E&M 265 [lb_av] Jenny Ariase er height E&M 66 [in_i] Jenny Ariase er Body Mass Index (Ratio) 43.09 kg/m2 Jarad Linton MD blood pressure, cuff size large Ke rri Gruenenfelder blood pressure, diastolic 62 mm[Hg] Ke rri Gruenenfelder blood pressure, systolic 102 mm[Hg] Ker ri Moisésuenenfani oxygen saturation, oximetry 98 % Jenny Awildanenfelder respiratory rate E&M 20 /min Jenny G ayseenenfelder pulse rate 74 /min Jenny Gruenenfe er weight E&M 267 [lb_av] Jenny Grmalinenfe er height E&M 66 [in_i] Jenny Grmalinenfe er Body Mass Index (Ratio) 42.93 kg/m2 Jarad Linton MD blood pressure, cuff size regular Juan Anderson blood pressure, diastolic 64 mm[Hg] Juan Anderson blood pressure, systolic 120 mm[Hg] Brenda Anderson oxygen saturation, oximetry 98 % Laura Anderson respiratory rate E&M 18 /min Laura Anderson pulse rate 70 /min Laura martin weight E&M 266 [lb_av] Laura Milian l height E&M 66 [in_i] Laura Milian l Body Mass Index (Ratio) 43.41 kg/m2 Jarad Linton MD blood pressure, cuff size large Antoni Elba Munson blood pressure, diastolic 70 mm[Hg] Antoni Elba Munson blood pressure, systolic 130 mm[Hg] Britni Munson oxygen saturation, oximetry 99 % Alice Munson respiratory rate E&M 18 /min Belkys Munson pulse rate 55 /min Alice Mervin mike weight E&M 269 [lb_av] Alice Jeffries jorjeon height E&M 66 [in_i] Alice Jeffries mike Body Mass Index (Ratio) 44.74 kg/m2 Jarad Linton MD blood pressure, diastolic 71 mm[Hg] Antoni Munson blood pressure, systolic 122 mm[Hg] Britni Munson oxygen saturation, oximetry 98 % Alice Munson respiratory rate E&M 18 /min Belkys Munson pulse rate 63 /min Alice Jeffries jorjelacey weight E&M 277.2 [lb_av] Alice medeiroson height E&M 66 [in_i] Alice Jeffries jorjeon Body Mass Index (Ratio) 45.51 kg/m2 Jarad Linton MD blood pressure, diastolic 70 mm[Hg] Cain Craft blood pressure, systolic 120 mm[Hg] Kil crystal Craft oxygen saturation, oximetry 98 % Fran Craft respiratory rate E&M 16 /min Fran Craft pulse rate 56 /min Camden Craft weight E&M 282 [lb_av] Fran Craft height E&M 66 [in_i] Camden Craft Body Mass Index (Ratio) 45.83 kg/m2 Jarad Linton MD blood pressure, resting Yes Jarad Linton MD blood pressure, cuff size regular Ke rri Lesley blood pressure, diastolic 68 mm[Hg] Ke rri Gruekarina blood pressure, systolic 148 mm[Hg] Trinidad Sutton oxygen saturation, oximetry 98 % Jenny Sutton respiratory rate E&M 20 /min Jenny mohr pulse rate 70 /min Jenny Socorro er weight E&M 284 [lb_av] Jenny Socorro er height E&M 66 [in_i] Jenny Socorro er Body Mass Index (Ratio) 46.00 kg/m2 Jarad Linton MD blood pressure, cuff size regular Ke rri Grcindi blood pressure, diastolic 70 mm[Hg] Ke rri Gruenenfelder blood pressure, systolic 122 mm[Hg] Trinidad ri Lesley oxygen saturation, oximetry 98 % Jenny Lesley respiratory rate E&M 18 /min Jenny G ayseenenfnai pulse rate 69 /min Jenny Gruenenfe lder weight E&M 285 [lb_av] Jenny Ariase lder height E&M 66 [in_i] Jenny Grmalinenfe lder blood pressure, diastolic 92 mm[Hg] Da juanis Meenu blood pressure, systolic 160 mm[Hg] Dac ia Meenu height E&M 66 [in_i] Ayse Meenu height in centimeters E&M 167.64 cm Da juanis Meenu Body Mass Index (Ratio) 45.67 kg/m2 Jarad Linton MD blood pressure, cuff size large Ke rri Gruenemaria luisa blood pressure, diastolic 70 mm[Hg] Ke rri Gruenenfelder blood pressure, systolic 110 mm[Hg] Trinidad Sutton oxygen saturation, oximetry 98 % Jenny Lesley respiratory rate E&M 18 /min Jenny G tanianfani pulse rate 61 /min Jenny Socorro er weight E&M 283 [lb_av] Jenny Grcamryne lder height E&M 66 [in_i] Jenny Ariase er Body Mass Index (Ratio) 46.32 kg/m2 Jarad Linton MD blood pressure, cuff size large Ke rri Awildanemaria luisa blood pressure, diastolic 80 mm[Hg] Ke rri Gruenemaria luisa blood pressure, systolic 130 mm[Hg] Trinidad Sutton oxygen saturation, oximetry 97 % Jenny Lesley respiratory rate E&M 16 /min Jenny G ayseenenfeldyuliya pulse rate 64 /min Jenny Blakenfe lder weight E&M 287 [lb_av] Jenny Gruenenfe lder height E&M 66 [in_i] Jenny Awildaneayline er Body Mass Index (Ratio) 46.96 kg/m2 Jarad Linton MD blood pressure, cuff size large Ke rri Gruenenfelder blood pressure, diastolic 84 mm[Hg] Eddie rrgold Sutton blood pressure, systolic 126 mm[Hg] Trinidad Sutton oxygen saturation, oximetry 97 % Jenny Sutton respiratory rate E&M 16 /min Jenny woodani pulse rate 68 /min Jenny Quintanilla er weight E&M 291 [lb_av] Jenny Quintanilla er height E&M 66 [in_i] Jenny Quintanilla [facility] Body Mass Index (Ratio) 46.32 kg/m2 Jarad iLnton MD blood pressure, cuff size large Faviola hill Reggie blood pressure, diastolic 62 mm[Hg] Faviola Paredes blood pressure, systolic 110 mm[Hg] Tila Paredes oxygen saturation, oximetry 98 % Ene Paredes respiratory rate E&M 16 /min Ene Paredes pulse rate 68 /min Ene Paredes weight E&M 287 [lb_av] Ene Pareeds height E&M 66 [in_i] Ene Paredes Body Mass Index (Ratio) 46.16 kg/m2 Jarad Linton MD blood pressure, cuff size large Faviola hill Reggie blood pressure, diastolic 80 mm[Hg] Adrianna Reggie blood pressure, systolic 132 mm[Hg] Tila Paredes oxygen saturation, oximetry 98 % Ene Paredes respiratory rate E&M 16 /min Ene Paredes pulse rate 57 /min Ene Paredes weight E&M 286 [lb_av] Ene Paredes height E&M 66 [in_i] Ene Paredes Body Mass Index (Ratio) 46.16 kg/m2 Jarad Linton MD blood pressure, cuff size regular Ke rri Grueneaylinjuan aer blood pressure, diastolic 88 mm[Hg] Ke rri Gruenenfelder blood pressure, systolic 149 mm[Hg] Ker ri Gruenenfelder oxygen saturation, oximetry 98 % Jenny Grueneaylinjuan aer respiratory rate E&M 18 /min Jenny G ayseenenfelder pulse rate 82 /min Jenny Grcruz lder weight E&M 286 [lb_av] Jenny Grueneayline lder height E&M 66 [in_i] Jenny Grmalineyaline lder Body Mass Index (Ratio) 46.80 kg/m2 Jarad Linton MD blood pressure, cuff size large Ke rri Moisésueneaylinjua naer blood pressure, diastolic 61 mm[Hg] Ke rri Grueneaylinjuan aer blood pressure, systolic 108 mm[Hg] Trinidad ri Moisésueneaylinjuan aer oxygen saturation, oximetry 97 % Jenny Moisésmagdaaylinjuan aer respiratory rate E&M 16 /min Jenny G ayseayojuan ayuliay pulse rate 58 /min Jenny Moisésmalielie lder weight E&M 290 [lb_av] Jenny Ariase lder height E&M 66 [in_i] Jenny Socorro er Body Mass Index (Ratio) 46.03 kg/m2 Jarad Linton MD blood pressure, diastolic 77 mm[Hg] Antoni Munson blood pressure, systolic 144 mm[Hg] Britni Munson oxygen saturation, oximetry 97 % Alice Munosn respiratory rate E&M 18 /min Belkys Munson pulse rate 57 /min Alice mckeon weight E&M 285.2 [lb_av] Alice delcid height E&M 66 [in_i] Alice mckeon blood pressure, diastolic 74 mm[Hg] Antoni Munson blood pressure, systolic 130 mm[Hg] Britni Munson pulse rate 56 /min Alice mckeon oxygen saturation, oximetry 99 % Alice Munson respiratory rate E&M 16 /min Belkys Munson Body Mass Index (Ratio) 45.90 kg/m2 Eileen Munson weight E&M 284.4 [lb_av] Alice delcid blood pressure, diastolic 67 mm[Hg] Antoni Munson blood pressure, systolic 122 mm[Hg] Britni Munson pulse rate 54 /min Alice mckeon oxygen saturation, oximetry 98 % Alice Munson respiratory rate E&M 16 /min Belkys Munson Body Mass Index (Ratio) 46.09 kg/m2 Eileen Munson weight E&M 285.6 [lb_av] Alice delcid blood pressure, diastolic 75 mm[Hg] Antoni Munson blood pressure, systolic 142 mm[Hg] Britni Munson pulse rate 58 /min Alice mckeon oxygen saturation, oximetry 96 % Alice Munson respiratory rate E&M 16 /min Belkys Munson Body Mass Index (Ratio) 45.87 kg/m2 Eileen Munson weight E&M 284.2 [lb_av] Alice delcid blood pressure, diastolic 76 mm[Hg] Me john Forbes blood pressure, systolic 135 mm[Hg] Tamy tristen Forbes Body Mass Index (Ratio) 45.51 kg/m2 Pilar ssa Forbes pulse rate 68 /min Sarai Forbes oxygen saturation, oximetry 97 % Sarai Forbes respiratory rate E&M 14 /min Sarai Forbes weight E&M 282 [lb_av] Sarai Forbes Body Mass Index (Ratio) 46.32 kg/m2 Pilar sandra Forbes blood pressure, diastolic 62 mm[Hg] Me lopez Forbes blood pressure, systolic 126 mm[Hg] Tamy ramon Forbes pulse rate 60 /min Sarai Forbes oxygen saturation, oximetry 98 % Sarai Forbes respiratory rate E&M 14 /min Sarai Forbes weight E&M 287 [lb_av] Sarai Forbes Body Mass Index (Ratio) 46.32 kg/m2 [facility] boaz Forbes blood pressure, diastolic 70 mm[Hg] Nm john Forbes blood pressure, systolic 127 mm[Hg] Tamy ramon Forbes pulse rate 60 /min Sarai Forbes oxygen saturation, oximetry 97 % Sarai Forbes respiratory rate E&M 15 /min Sarai Forbes weight E&M 287 [lb_av] Sarai Forbes Body Mass Index (Ratio) 48.11 kg/m2 [facility] blood pressure, diastolic 73 mm[Hg] Nm john Forbes blood pressure, systolic 138 mm[Hg] Tamy ramon Forbes pulse rate 72 /min Sarai Forbes oxygen saturation, oximetry 98 % Sarai Forbes respiratory rate E&M 14 /min Sarai Forbes weight E&M 297 [lb_av] Sarai Forbes blood pressure, diastolic 63 mm[Hg] Pedro Gil RN blood pressure, systolic 12 mm[Hg] Dmitri Gil RN pulse rate 54 /min Dmitri Gil RN oxygen saturation, oximetry 98 % Dmitri Gil RN respiratory rate E&M 18 /min Dmitri Rosy blunt RN Body Mass Index (Ratio) 48.43 kg/m2 Dmitri Louise RN weight E&M 299 [lb_av] Dmitri Cardenass RN Body Mass Index (Ratio) 48.27 kg/m2 Lou Amaral blood pressure, diastolic 80 mm[Hg] Ch erese Amaral blood pressure, systolic 114 mm[Hg] Sonal reslarry Amaral pulse rate 103 /min Elsa Amaral oxygen saturation, oximetry 96 % Elsa Amaral respiratory rate E&M 17 /min Elsa Amaral weight E&M 298 [lb_av] Elsa Amaral Body Mass Index (Ratio) 48.11 kg/m2 Silver i Lesley blood pressure, diastolic 59 mm[Hg] Ke rri Lesley blood pressure, systolic 115 mm[Hg] Trinidad Sutton pulse rate 61 /min Jenny fuenteser oxygen saturation, oximetry 98 % Jenny Sutton respiratory rate E&M 17 /min Jenny mohr weight E&M 297 [lb_av] Jenny Quintanilla lder blood pressure, diastolic 76 mm[Hg] Sadia miguel [place] blood pressure, systolic 138 mm[Hg] Troy garcia [place] pulse rate 58 /min Jamie [place] oxygen saturation, oximetry 99 % Jamie [place] respiratory rate E&M 16 /min Jamie [place] weight E&M 295 [lb_av] Jamie [place] height E&M 66 [in_i] Jamie [place] blood pressure, diastolic, left arm 81 mm [Hg] Dmitri Gil RN blood pressure, systolic, left arm 150 mm [Hg] Dmitri Gil RN blood pressure, diastolic, right arm 79 m m[Hg] Dmitri Gil RN blood pressure, systolic, right arm 144 m m[Hg] Dmitri Gil RN blood pressure, diastolic 81 mm[Hg] Pedro Gil RN blood pressure, systolic 150 mm[Hg] Dmitri Cardenass RN pulse rate 44 /min Dmitri Gil RN oxygen saturation, oximetry 99 % Dmitri Gil RN respiratory rate E&M 16 /min Dmitri blunt RN weight E&M 292 [lb_av] Dmitri Gil RN blood pressure, diastolic 67 mm[Hg] Kendrick blood pressure, systolic 125 mm[Hg] Ferny Ferro pulse rate 78 /min Thor Ferro oxygen saturation, oximetry 97 % Thor Ferro respiratory rate E&M 16 /min Thor Ferro weight E&M 290 [lb_av] Thor Ferro blood pressure, diastolic 112 mm[Hg] Eddie Sutton blood pressure, systolic 149 mm[Hg] Trinidad Sutton pulse rate 90 /min Jenny funeteser oxygen saturation, oximetry 98 % Jenny Sutton respiratory rate E&M 16 /min Jenny mohr weight E&M 292.4 [lb_av] Jenny law blood pressure, diastolic, left arm 72 mm [Hg] Dmitri Gil RN blood pressure, systolic, left arm 136 mm [Hg] Dmitri Gil RN blood pressure, diastolic, right arm 80 m m[Hg] Dmitri Gil RN blood pressure, systolic, right arm 134 m m[Hg] Dmitri Gil RN blood pressure, diastolic 72 mm[Hg] Pedro Gil RN blood pressure, systolic 136 mm[Hg] Dmirti Gil RN pulse rate 56 /min Dmitri Gil RN oxygen saturation, oximetry 99 % Dmitri Gil RN respiratory rate E&M 16 /min Dmitri collazolindsay RN weight E&M 293 [lb_av] Dmitri Gil RN blood pressure, diastolic 78 mm[Hg] Pdero najera Gil RN blood pressure, systolic 123 mm[Hg] Dmitri Gil RN pulse rate 64 /min Dmitri Gil RN oxygen saturation, oximetry 99 % Dmitri Gil RN respiratory rate E&M 18 /min Dmitri Rosy blunt RN weight E&M 302 [lb_av] Dmitri Gil RN blood pressure, diastolic, left arm 60 mm [Hg] Jamie [place] blood pressure, systolic, left arm 140 mm [Hg] [facility] 58 m m[Hg] [facility], [facility], right arm 110 m m[Hg] [facility], [facility] 58 mm[Hg] Sadia rivera [place] blood pressure, systolic 110 mm[Hg] [facility], oximetry 99 % [facility] E&M 19 /min Jamie [place] weight E&M 302 [lb_av] Jamie Vidalacop blood pressure, diastolic 66 mm[Hg] Kendrick blood pressure, systolic 118 mm[Hg] Ferny Ferro pulse rate 76 /min Thor Ferro oxygen saturation, oximetry 97 % Thor Ferro respiratory rate E&M 16 /min Thor Ferro weight E&M 303 [lb_av] Thor Ferro blood pressure, diastolic 68 mm[Hg] Kendrick blood pressure, systolic 154 mm[Hg] Ferny upton Ferro pulse rate 63 /min Thor Pillo oxygen saturation, oximetry 98 % Thor Pillo respiratory rate E&M 18 /min Thor Ferro weight E&M 303 [lb_av] Thor Ferro blood pressure, diastolic 80 mm[Hg] Pedro Gil RN blood pressure, systolic 127 mm[Hg] Dmitri Gil RN pulse rate 68 /min Dmitri Gil RN oxygen saturation, oximetry 98 % Dmitri Gil RN respiratory rate E&M 18 /min Dmitri blunt RN weight E&M 295 [lb_av] Dmitri Gil RN blood pressure, diastolic 79 mm[Hg] Pedro Gil RN blood pressure, systolic 130 mm[Hg] Dmitri Gil RN pulse rate 72 /min Dmitri Gil RN oxygen saturation, oximetry 98 % Dmitri Gil RN respiratory rate E&M 16 /min Dmitri blunt RN weight E&M 295 [lb_av] Dmitri Gil RN blood pressure, diastolic 73 mm[Hg] Pedro Gil RN blood pressure, systolic 116 mm[Hg] Dmitri Gil RN pulse rate 69 /min Dmitri Gil RN oxygen saturation, oximetry 98 % Dmitri Gil RN respiratory rate E&M 16 /min Dmitri blunt RN weight E&M 295 [lb_av] Dmitri Gil RN pulse rate 70 /min Jamie Manacoflorencio oxygen saturation, oximetry 97 % Jamie [place] blood pressure, diastolic 65 mm[Hg] Sadia rivera [place] blood pressure, systolic 118 mm[Hg] Troy garcia [place] respiratory rate E&M 16 /min Jamie [place] weight E&M 284 [lb_av] Jamie [place] blood pressure, diastolic 77 mm[Hg] Sadia seph [place] blood pressure, systolic 141 mm[Hg] Troy eph [place] pulse rate 74 /min Jamie [place] oxygen saturation, oximetry 97 % Jamie [place] respiratory rate E&M 16 /min Jamie [place] weight E&M 289 [lb_av] Jamie Ballacop blood pressure, diastolic 67 mm[Hg] Pedro Gil RN blood pressure, systolic 151 mm[Hg] Dmitri Gil RN pulse rate 57 /min Dmitri Gil RN oxygen saturation, oximetry 97 % Dmitri Gil RN respiratory rate E&M 18 /min Dmitri blunt RN weight E&M 288 [lb_av] Dmitri Gil RN blood pressure, diastolic 75 mm[Hg] Ricardo Macdonald blood pressure, systolic 136 mm[Hg] Aponte pulse rate 57 /min Carli Macdonald oxygen saturation, oximetry 99 % Carli Macdonald respiratory rate E&M 20 /min Carli marrero weight E&M 294 [lb_av] Carli Macdonald ALLERGIES Allergy Name Onset Date Reaction Criticality Status DEMEROL nausea nausea Low Criticality active RESULTS Date Observation Value Provider Reference Range Interpretation Location thyroid stimulating hormone, serum 20.37 ?IU/ ML [facility] 0.27-4.20 High very low density lipoproteins 28.4 mg/dL [facility] 5.0-40.0 LDL/HDL (low-density lipoprotein/high-den sity lipoprotein) ratio 2 mg/dL [facility] 0-5 lipoprotein, beta, serum, point, quantitative, calculated 113 mg/dL [facility] 0-100 High HDL cholesterol, serum 53 mg/dL [facility] 45-65 cholesterol, serum 194 mg/dL [facility] 0-200 triglyceride, serum, fasting 142 mg/dL [facility] 0-150 Estimated Glomerular Filtration Rate (calc) 57 (?) [facility] >59 Low chloride, serum 96 mmol/L [facility] 98-107 Low potassium, serum 4.7 mmol/L [facility] 3.5-5.1 sodium, serum 136 mmol/L [facility] [id number] 8911/09/ 19 creatinine, serum 1.0 mg/dL [facility] 0.5-0.9 High carbon dioxide, venous blood 25 mmol/L [facility] 23-31 albumin, serum 4.5 g/dL [facility] 3.5-5.2 calcium, serum 9.6 mg/dL [facility] 8.6-10.2 aspartate aminotransferase (SGOT), serum 15 1/L [facility] 0-32 alkaline phosphatase, serum 95 1/L [facility] 40-130 alanine aminotransferase (SGPT), serum 13 1/L [facility] 0-33 protein, total, serum 7.3 g/dL [facility] 6.6-8.7 bilirubin, serum, total 0.5 mg/dL [facility] 0.0-1.2 urea nitrogen, blood 19 mg/dL [facility] 8-23 blood glucose, random 100 mg/dL [facility] 74-99 High hemoglobin A1C, blood, as % of total hemoglobin 5.7 % [facility] 4.0-5.6 High platelet count 223 THOUSAND/ UL [facility] [id number] 9974/09/ 19 Absolute Basophils 0.1 CELLS/UL [facility] 0.0-0.2 Absolute Monocytes 0.5 CELLS/UL [facility] 0.2-1.0 Absolute Lymphocytes 0.80 CELLS/UL [facility] 0.85-3.90 Low Absolute Neutrophils 3.7 CELLS/UL [facility] 1.5-7.8 mean corpuscular volume, RBC 99 fL [facility] 75-100 mean corpuscular hemoglobin concentration, RBC 32 G/DL [facility] 31-38 mean corpuscular hemoglobin, RBC 31 pg [facility] 25-35 hematocrit, blood 35 % [facility] 35-55 hemoglobin, blood 11.1 g/dL [facility] 11.5-16.5 Low erythrocyte count, whole blood 3.5 MILLION/U L [facility] 3.5-5.5 magnesium, serum 2.2 mg/dL [facility] 1.6 - 2.4 anion gap, serum 16.6 [facility] - albumin/globulin ratio, serum 1.9 g/dL [facility] 1.1 - 2.5 globulin, serum 2.5 [facility] 2.3 - 3.8 urea nitrogen/creatinine ratio, serum 17.8 [facility] - Estimated Glomerular Filtration Rate (calc) 66.2 (?) [facility] 59.0 - chloride, serum 94.4 mmol/L [facility] 98.0 - 107.0 Low potassium, serum 4.5 mmol/L [facility] 3.5 - 5.1 sodium, serum 137.0 mmol/L [facility] 136.0 - 145.0 creatinine, serum 0.9 mg/dL [facility] 0.5 - 1.0 carbon dioxide, venous blood 26.0 mmol/L [facility] 23.0 - 31.0 albumin, serum 4.7 g/dL [facility] 3.5 - 5.2 calcium, serum 9.8 mg/dL [facility] 8.6 - 10.2 aspartate aminotransferase (SGOT), serum 16.0 1/L [facility] 0.0 - 32.0 alkaline phosphatase, serum 88.0 1/L [facility] 40.0 - 130.0 alanine aminotransferase (SGPT), serum 12.0 1/L [facility] 0.0 - 33.0 protein, total, serum 7.2 g/dL [facility] 6.6 - 8.7 bilirubin, serum, total 0.5 mg/dL [facility] 0.0 - 1.2 urea nitrogen, blood 16.0 mg/dL [facility] 8.0 - 23.0 blood glucose, random 113.0 mg/dL [facility] 74.0 - 99.0 High red blood cell distribution width, size density 46.7 fL [facility] - immature granulocytes, percentage of total cells, blood 0.2 % [facility] - nucleated red blood cells as percent of blood leukocytes 0.0 % [facility] - red blood cell (erythrocyte) count, per high power field 0.0 10*3/UL [facility] - eosinophils as percent of blood leukocytes 1.3 % [facility] - neutrophils as percent of blood leukocytes 76.2 % [facility] - Absolute Neutrophils 4.3 CELLS/UL [facility] 1.5 - 7.8 basophils as percent of blood leukocytes 0.7 % [facility] - Absolute Basophils 0.0 [facility]S/[facility] monocytes as percent of blood leukocytes 6.5 % [facility] - Absolute Monocytes 0.4 CELLS/[facility] 0.[facility] - 1.0 lymphocytes as percent of blood leukocytes 15.1 % [facility] - Absolute Lymphocytes 0.8 CELLS/UL [facility] 0.9 - 3.9 Low mean platelet volume 12.4 (?) [facility] - platelet count 229.0 THOUSAND/ UL [facility] 100.0 - 400.0 mean corpuscular hemoglobin concentration, RBC 33.2 G/DL [facility] 31.0 - 38.0 mean corpuscular hemoglobin, RBC 32.4 pg [facility] 25.0 - 35.0 mean corpuscular volume, RBC 97.5 fL [facility] 75.0 - 100.0 hematocrit, blood 38.5 % [facility] 35.0 - 55.0 hemoglobin, blood 12.8 g/dL [facility] 11.5 - 16.5 erythrocyte count, whole blood 4.0 MILLION/U L [facility] 3.5 - 5.5 estimated glomerular filtration rate 43 mL/min [facility] triglyceride, serum, fasting 137 mg/dL [facility] HDL cholesterol, serum 58 mg/dL [facility] LDL cholesterol, serum 89 mg/dL [facility] cholesterol, serum 174 mg/dL [facility] Vitamin D, 25 Hydroxy D3 6 ng/mL [facility] Vitamin D, 25 Hydroxy D2 22 ng/mL [facility] vitamin D 1,25-dihydroxy, serum 28 [facility] thyroid stimulating hormone, serum 0.69 u[IU]/mL [facility] thyroxine, serum, total 17.4 ug/dL [facility] platelet count 221 10*3/uL [facility] red blood cell distribution width 12.9 % [facility] mean corpuscular hemoglobin concentration, RBC 33.4 g/dL [facility] mean corpuscular hemoglobin, RBC 31.5 pg [facility] mean corpuscular volume, RBC 94.2 fL [facility] hematocrit, blood 37.4 % [facility] hemoglobin, blood 12.5 g/dL [facility] erythrocyte (RBC) count 3.97 10*6/mm3 [facility] monocytes as percent of blood leukocytes 9.9 % [facility] lymphocytes as percent of blood leukocytes 15.8 % [facility] leukocyte count, blood 7.3 10*3/mm3 [facility] albumin/globulin ratio, serum 1.2 [facility] protein, total, serum 7.7 g/dL [facility] albumin, serum 4.2 g/dL [facility] bilirubin, serum, total 0.90 mg/dL [facility] alkaline phosphatase, serum 107 1/L [facility] alanine aminotransferase (SGPT), serum 33 1/L [facility] aspartate aminotransferase (SGOT), serum 18 1/L [facility] calcium, serum 9.3 mg/dL [facility] blood glucose, fasting 127 mg/dL [facility] creatinine, serum 1.34 mg/dL [facility] urea nitrogen, blood 19.8 mg/dL [facility] carbon dioxide, serum, total 27 mmol/L [facility] chloride, serum 101 mmol/L [facility] potassium, serum 3.3 mmol/L [facility] sodium, serum 136 mmol/L [facility] coagulation managed by Dmitri Gil RN international normalized ratio (INR) 1.1 Dmitri Gil RN prothrombin time (patient) 11.3 s Dmitri Gil RN international normalized ratio (INR) 4.4 Kamari Pagan prothrombin time (patient) 44.0 s Kamari Pagan coagulation managed by Dmitri Gil RN international normalized ratio (INR) 1.5 Dmitri Gil RN prothrombin time (patient) 15.1 s Dmitri Gil RN coagulation managed by Dmitri Gil RN international normalized ratio (INR) 2.7 Dmitri Gil RN prothrombin time (patient) 26.7 s Dmitri Gil RN coagulation managed by Dmitri Gil RN international normalized ratio (INR) 2.0 Dmitri Gil RN prothrombin time (patient) 19.5 s Dmitri Gil RN coagulation managed by Dmitri Cardenass RN Dmitri Cardenass RN international normalized ratio (INR) 3.3 Dmitri Gil RN prothrombin time (patient) 33.3 s Dmitri Gil RN coagulation managed by Dmitri Cardenass RN Dmitri Cardenass RN international normalized ratio (INR) 2.7 Dmitri Gil RN prothrombin time (patient) 27.1 s Dmitri Gil RN coagulation managed by Dmitri Cardenass RN Dmitri Cardenass RN international normalized ratio (INR) 1.7 Dmitri Gil RN prothrombin time (patient) 17.2 s Dmitri Gil RN coagulation managed by Dmitri Gil RN Dmitri Cardenass RN international normalized ratio (INR) 2.1 Dmitri Gil RN prothrombin time (patient) 20.6 s Dmitri Gil RN coagulation managed by Dmitri Gil RN Dmitri Gil RN international normalized ratio (INR) 3.0 Dmitri Gil RN prothrombin time (patient) 30.4 s Dmitri Gil RN coagulation managed by Dmitri Gil RN Dmitri Cardenass RN international normalized ratio (INR) 3.4 Dmitri Gil RN prothrombin time (patient) 34.1 s Dmitri Cardenass RN coagulation managed by Dmitri Cardenass MATTHEW Cardenass RN international normalized ratio (INR) 3.0 Dmitri Gil RN prothrombin time (patient) 300 s Dmitri Gil RN coagulation managed by Dmitri Gil RN Dmitri Gil RN international normalized ratio (INR) 1.4 Dmitri Gil RN prothrombin time (patient) 14.4 s Dmitri Gil RN coagulation managed by Dmitri Cardenass MATTHEW Cardenass RN international normalized ratio (INR) 2.1 Dmitri Cardenass RN prothrombin time (patient) 21.1 s Dmitri Cardenass RN coagulation managed by Dmitri Gil RN international normalized ratio (INR) 1.8 Dmitri Cardenass RN prothrombin time (patient) 17.8 s Dmitri Cardenass RN coagulation managed by Dmitri Cardenass RN Dmitri Cardenass RN international normalized ratio (INR) 3.0 Dmitri Cardenass RN prothrombin time (patient) 30.3 s Dmitri Cardenass RN coagulation managed by Dmitri Cardenass MATTHEW Cardenass RN international normalized ratio (INR) 3.7 Dmitri Gil RN prothrombin time (patient) 37.4 s Dmitri Gil RN coagulation managed by Dmitri Cardenass MATTHEW Cardenass RN international normalized ratio (INR) 1.7 Dmitri Gil RN prothrombin time (patient) 16.7 s Dmitri Cardenass RN coagulation managed by Dmitri Cardenass MATTHEW Cardenass RN international normalized ratio (INR) 3.2 Dmitri Cardenass RN prothrombin time (patient) 31.6 s Dmitri Gil RN coagulation managed by Dmitri Gil MATTHEW Rizvi Gil RN international normalized ratio (INR) 4.0 Dmitri Gil RN prothrombin time (patient) 40.1 s Dmitri Cardenass RN coagulation managed by Dmitri Gil MATTHEW Cardenass RN international normalized ratio (INR) 1.5 Dmitri Cardenass MATTHEW prothrombin time (patient) 15.0 s Dmitri Gil RN international normalized ratio (INR) 2.6 Charisma Rivero prothrombin time (patient) 26.3 s Charisma Rivero coagulation managed by Dmitri Cardenass MATTHEW Cardenass RN international normalized ratio (INR) 1.4 Dmitri Cardenass RN prothrombin time (patient) 13.8 s Dmitri Cardenass RN coagulation managed by Dmitri Cardenass MATTHEW Cardenass RN international normalized ratio (INR) 1.6 Dmitri Cardenass MATTHEW prothrombin time (patient) 16.2 s Dmitri Cardenass RN coagulation managed by Dmitri Gil RN international normalized ratio (INR) 3.9 Dmitri Gil RN prothrombin time (patient) 39.0 s Dmitri Gil RN coagulation managed by Dmitri Gil RN international normalized ratio (INR) 2.9 Charisma Rivero prothrombin time (patient) 28.9 s Charisma Rivero international normalized ratio (INR) 2.8 Sadia Vasquez prothrombin time (patient) 28.1 s Sadia Vasquez international normalized ratio (INR) 1.7 Charisma Rivero prothrombin time (patient) 17.4 s Charisma Rivero international normalized ratio (INR) 3.6 Sadia Vasquez prothrombin time (patient) 36.2 s Sadia Vasquez international normalized ratio (INR) 2.9 Sadia Vasquez prothrombin time (patient) 29.4 s Sadia Vasquez coagulation managed by Dmitri Gil RN international normalized ratio (INR) 1.6 Dmitri Gil RN prothrombin time (patient) 15.8 s Dmitri Gil RN coagulation managed by Dmitri Gil RN international normalized ratio (INR) 3.0 Sandhya Thomas prothrombin time (patient) 29.9 s Sandhya Thomas coagulation managed by Dmitri Gil RN international normalized ratio (INR) 2.0 Dmitri Gil RN prothrombin time (patient) 20.1 s Dmitri Gil RN coagulation managed by Dmitri Gil RN international normalized ratio (INR) 3.0 Aggie De Los Snatos prothrombin time (patient) 29.6 s Aggie De Los Santos coagulation managed by Dmitri Gil RN international normalized ratio (INR) 3.6 Dmitri Gil RN prothrombin time (patient) 35.8 s Dmitri Gil RN coagulation managed by Dmitri Gil RN international normalized ratio (INR) 4.4 Dmitri Gil RN prothrombin time (patient) 44.4 s Dmitri Gil RN coagulation managed by Dmitri Cardenass RN international normalized ratio (INR) 2.3 Dmitri Cardenass RN prothrombin time (patient) 23.3 s Dmitri Cardenass RN coagulation managed by Dmitri Gil RN international normalized ratio (INR) 1.6 Dmitri Cardenass RN prothrombin time (patient) 15.7 s Dmitri Cardenass RN coagulation managed by Dmitri Gil RN international normalized ratio (INR) 1.3 Dmitri Cardenass MATTHEW prothrombin time (patient) 12.7 s Dmitri Gil RN coagulation managed by Dmitri Gil RN international normalized ratio (INR) 3.5 Dmitri Gil RN prothrombin time (patient) 34.7 s Dmitri Gil RN coagulation managed by Dmitri Gil RN international normalized ratio (INR) 1.3 Dmitri Gil RN prothrombin time (patient) 12.9 s Dmitri Gil RN coagulation managed by Eileen Conway RN international normalized ratio (INR) 1.8 Sadia Vasquez prothrombin time (patient) 17.5 s Sadia Vasquez coagulation managed by Dmitri Gil RN international normalized ratio (INR) 1.7 Dmitri Gil RN prothrombin time (patient) 16.5 s Dmitri Gil RN coagulation managed by Dmitri Gil RN international normalized ratio (INR) 1.6 Dmitri Gil RN prothrombin time (patient) 15.9 s Dmitri Gil RN coagulation managed by Dmitri Gil RN international normalized ratio (INR) 1.7 Dmitri Gil RN prothrombin time (patient) 16.5 s Dmitri Gil RN coagulation managed by Dmitri Gil RN international normalized ratio (INR) 2.2 Jamie Soria prothrombin time (patient) 22.1 s Jamie Soria coagulation managed by Dmitri Gil RN international normalized ratio (INR) 1.9 Dmitri Gil RN prothrombin time (patient) 18.8 s Dmitri Gil RN coagulation managed by Dmitri Gil RN international normalized ratio (INR) 3.1 Dmitri Gil RN prothrombin time (patient) 30.7 s Dmitri Gil RN international normalized ratio (INR) 3.1 Sadia Vasquez prothrombin time (patient) 31.2 s Sadia Vasquez blood glucose, random 107 mg/dL Mey Manjarrez RN creatinine, serum 1.21 mg/dL Mey Manjarrez RN urea nitrogen, blood 12 mg/dL Mey Manjarrez RN carbon dioxide, serum, total 30 mmol/L Mey Manjarrez RN chloride, serum 103 mmol/L Mey Manjarrez RN potassium, serum 3.7 mmol/L Mey Manjarrez RN sodium, serum 139 mmol/L Mey Manjarrez RN hematocrit, blood 39.4 % Mey Manjarrez RN hemoglobin, blood 13.1 g/dL Mey Manjarrez RN coagulation managed by Dmitri Gil RN international normalized ratio (INR) 1.5 Dmirti Gil RN international normalized ratio (INR) 1.2 Dmitri Gil RN prothrombin time (patient) 12.2 s Dmitri Gil RN HISTORY OF MEDICATION USE Medication Status Instructions Dates Provider Indications Com ments atenolol 50 mg tablet active TAKE 1/2 TABLET BY MOUTH EVERY MORNING AND 1 TABLET EVERY EVENING 06/29 Inez Patrick hydrochlorothiazide 12.5 mg tablet active TAKE 1 TABLET BY MOUTH EVERY DAY 07/04 Noah Garcia Rybelsus 7 mg tablet active Alen Barlow atenolol 50 mg tablet completed Take 1 tab let by mouth every night 09/20 - 06/29 Inez Patrick gabapentin 300 mg capsule active TAKE 1 CAPSULE BY MOUTH THREE TIMES DAILY Zurdo Vance prednisone 5 mg tablet active TAKE 4 TABLETS BY MOUTH DAILY Cee Agustin hydrochlorothiazide 12.5 mg tablet completed TAKE 1 TABLET BY MOUTH DAILY 06/23 - 07/04 Sammi Pollock magnesium oxide 400 mg (241.3 mg magnesium) tablet active TAKE 1 TABLET BY MOUTH TWICE DAILY 06/23 Gayla Linton MD losartan-hydrochlorot hiazide 100-12.5 mg tablet active Jus Calixto rosuvastatin 40 mg tablet active TAKE 1 TABLET BY MOUTH DAILY Jus Calixto hydrochlorothiazide 12.5 mg tablet completed Take 1 tablet by mouth once a day 01/19 - 06/23 Brooke GAMBINO TABS 325 (65 Fe) MG TBEC active 1 tablet once a day 11/25 Jus Calixto atorvastatin 40 mg tablet completed 1 tablet once a day - Chastity Maximo folic acid 0.8 mg capsule active 1 tablet once a day Chastity Maximo B-12 CAPSULE active 1 tablet once a day Chastity Maximo hydrochlorothiazide 12.5 mg capsule completed 1 tablet every other day 06/19 - Gayla Linton MD levothyroxine 200 mcg tablet completed three times a week 06/19 - Gayla Linton MD olmesartan-hydrochlor othiazide 40-12.5 mg tablet completed Take 1 tablet once a day 02/05 - Laura Anderson Pepcid 20 mg tablet active as needed 11/07 Alice Munson Synthroid 150 mcg tablet active 4 days a week 06/19 Cee Agustin SIMVASTATIN 80 MG ORAL TABLET completed take 1 tab once daily 06/25 - 05/28 Laura Anderson AUGMENTIN 875-125 MG ORAL TABLET completed Take one tablet twice daily 05/27 - 06/25 Fran Craft CORICIDIN D COLD/FLU/SINUS TABLET completed take one pill a day 05/27 - 06/25 Camdengabby Craft Nitrostat 0.4 mg tablet, sublingual active Place 1 tablet under tongue as needed 02/06 Randall Silverio ISOSORBIDE MONONITRATE ER 30 MG ORAL TABLET EXTENDED RELEASE 24 HOUR completed one tab daily 01/27 - 02/06 Gayla Linton MD ATORVASTATIN CALCIUM 40 MG ORAL TABLET completed po daily 01/24 - 06/25 Camden Luana PLAVIX 75 MG ORAL TABLET completed ONE TAB. DAILY 01/24 - 02/05 Gayla Linton MD ASPIRIN ADULT LOW DOSE 81 MG ORAL TABLET DELAYED RELEASE completed One Tab By Mouth Daily 01/24 - 02/05 Gayla Linton MD atenolol 50 mg tablet completed TAKE 1/2 TABLET BY MOUTH EVERY MORNING AND 1 TABLET BY MOUTH EVERY EVENING 09/23 - 09/20 Candelario Heather NORVASC 5 MG ORAL TABLET completed po daily as needed 05/30 - 01/24 Gayla Linton MD HYDROCHLOROTHIAZIDE 12.5 MG ORAL TABLET completed Take 1 Tablet BID. 10/11 - 02/05 Gayla Linton MD FE TABS 325 (65 Fe) MG TBEC completed 1 twice a day 06/24 - Gayla Linton MD magnesium oxide 400 mg (241.3 mg magnesium) tablet completed Take 1 tablet by mouth twice a day 02/12 - 06/23 Gayla Linton MD SIMVASTATIN 40 MG ORAL TABLET completed ONE TAB. DAILY 06/14 - 01/24 Gayla Linton MD CALCIUM 600 TABLET completed twice daily - 01/18 Jenny Sutton flecainide 50 mg tablet active Take 2 tablet by mouth twice a day 11/11 Randall Silverio Eliquis 5 mg tablet active 1 tablet twice a day 06/22 Sylvia henry Xarelto FISH OIL CONCENTRATE 1000 MG ORAL CAPSULE completed One tab. daily - 01/24 Gayla Linton MD MULTIVITAMINS CAPS active 1 tablet once a day Dmitri Gil RN ergocalciferol (vitamin D2) 1,250 mcg (50,000 unit) capsule active once a week Alice Munson VYTORIN 10-40 MG ORAL TABLET completed ONE TAB. AT BEDTIME - 06/14 Sarai Forbes PRADAXA 150 MG ORAL CAPSULE completed One capsule twice a day 11/29 - 10/09 Gayal Linton MD COUMADIN 2 MG ORAL TABLET completed one tab daily with 5mg = 7mg.will alternate 5mg and 7mg daily 11/24 - 11/29 Dmitri Gil RN COUMADIN 1 MG ORAL TABLET completed add to 6mg = 7mg daily - 11/18 Dmitri Gil RN WARFARIN SODIUM 5 MG ORAL TABLET completed one tab daily with a 3mg tab. 10/05 - 10/05 Dmitri Gil RN COUMADIN 1 MG ORAL TABLET completed take with 6mg = 7mg on Sun - 10/05 Dmitri Gil RN COUMADIN 2 MG ORAL TABLET completed take 1 tab evrey other day with 5mg =7mg to alternate with 6mg - 08/18 Dmitri Gil RN COUMADIN TABS completed 7mg one tab Sat and Mon - 05/27 Dmitri Gil RN COUMADIN 5 MG ORAL TABLET completed one tab daily.will alternate 7mg and 5mg daily 11/24 - 11/29 Dmitri Gil RN COUMADIN 3 MG ORAL TABLET completed on Sun - 06/27 Dmitri Gil RN AMIODARONE HCL 200 MG ORAL TABLET completed one tab daily 11/04 - 02/14 Gayla Linton MD COUMADIN 1 MG ORAL TABLET completed take with 5mg daily = 6mg Mon through Sat - 06/27 Dmitri Gil RN COUMADIN 2 MG ORAL TABLET completed take 1 tab with 5mg = 7mg - Dmitri Gil RN COUMADIN 5 MG ORAL TABLET completed take one tab daily Mon through Sat - 06/27 Dmitri Gil RN COUMADIN TABS completed 8 mg. every other day 12/17 - 12/31 Dmitri Gil RN COUMADIN TABS completed 7mg on Sat and Sun - 08/18 Dmitri Gil RN COUMADIN TABLET completed 7 mg. every other day 12/17 - 12/31 Dmitri Gil RN COUMADIN TABLET completed 5mg take two =10mg every other day then take with 3mg=8mg every other day - 06/26 Dmitri Gil RN COUMADIN TABLET completed 3mg take with 5mg=8mg every other day - 06/26 Dmitri Gil RN COUMADIN TABLET completed 1mg to add with 5mg = 6m take everyother day - 01/05 Dmitri Gil RN COUMADIN TABLET completed 2mg daily add to 5mg = 7mg to take everyother day - 01/05 Dmitri Gil RN LEVOXYL 75 MCG ORAL TABLET completed once daily - 01/18 Jamie Soria ATENOLOL 50 MG ORAL TABLET completed po daily 06/30 - 12/27 Charisma Young RN intermediate frame tender back order ASPIRIN 81 MG ORAL TABLET completed ONE TAB. DAILY - 06/13 Dmitri Gil RN AMIODARONE HCL 200 MG ORAL TABLET completed 1 tablet by mouth daily - 06/05 Dmitri Gil RN LORAZEPAM TABLET active 1 mg as needed Gayla Linton MD CRESTOR 10 MG TABS (ROSUVASTATIN CALCIUM) completed 1 tablet by mouth daily - 11/29 Dmitri Gil RN SYNTHROID 175 MCG ORAL TABLET completed One tablet on alternating days with 200mcg 10/27 - 01/18 Jenny Sutton VALSARTAN 160 MG ORAL TABLET completed Take 1 Tablet BID. 10/11 - 02/05 Laura Anderson SOCIAL HISTORY Date Observation Value Provider social history reviewed E&M revi ewed - no changes required Gayla Linton MD social history E&M Marital Statu s: L jayshree with family/friends E thnicity: Smoking History: P atient has never smoked. Cee Agustin exercise type walking Viridiana Cotton nd physical exercise, f requency, days per week no Viridiana Barlow caffeine use, averag e drinks per day yes Viridiana Cain passive cigarette sm surekha exposure yes Viridiana Barlow smoking status Never smoker Viridiana Cardoza kwan social history reviewed E&M revi ewed - no changes required Gayla Linton MD social history reviewed E&M revi ewed - no changes required Zurdo Vance exercise type walking Raysa Tate physical exercise, f requency, days per week no Raysa Clermont caffeine use, averag e drinks per day yes Rasya Clermont passive cigarette sm surekha exposure yes Raysa Tate smoking status Never smoker Raysa Josefa s social history reviewed E&M revi ewed - no changes required Zurdo Vance social history E&M Marital Statu s: L jayshree with family/friends E thnicity: Smoking History: P carlyle has never smoked. Jus Calixto social history reviewed E&M revi ewed - no changes required Jus Calixto smoking status Never smoker Chelsea Xenia social history E&M Marital Statu s: L jayshree with family/friends E thnicity: Smoking History: P atjeanna has never smoked. Jus Calixto social history reviewed E&M revi ewed - no changes required Jus Calixto exercise type walking Jenny law physical exercise, f requency, days per week no Jenny Sutton caffeine use, averag e drinks per day yes Jenny Sutton passive cigarette sm surekha exposure yes Jenny Sutton smoking status Never smoker Jenny farris social history E&M Marital Statu s: L jayshree with family/friends E thnicity: Smoking History: P atient has never smoked. Jus Calixto social history reviewed E&M revi ewed - no changes required Jus Calixto exercise type walking [facility] physical exercise, f requency, days per week no [facility] caffeine use, averag e drinks per day yes [facility] passive cigarette sm surekha exposure yes [facility] smoking status Never smoker [facility] social history E&M Marital Statu s: L jayshree with family/friends E thnicity: Smoking History: P carlyle has never smoked. Gayla Linton MD social history reviewed E&M revi ewed - no changes required Gayla Linton MD exercise type walking Laura hahn physical exercise, f requency, days per week no Laura Anderson caffeine use, averag e drinks per day yes Laura Anderson passive cigarette sm surekha exposure yes Laura Anderson smoking status Never smoker Laura Peckevelin shaw social history E&M Marital Statu s: L jayshree with family/friends E thnicity: Smoking History: P carlyle has never smoked. Gayla Linton MD social history reviewed E&M revi ewed - no changes required Gayla Linton MD exercise type walking Chastity Maximo physical exercise, f requency, days per week no Chastity Maximo caffeine use, averag e drinks per day yes Chastity Maximo passive cigarette sm surekha exposure yes Chastity Maximo smoking status Never smoker Chastity Hogu e social history reviewed E&M revi ewed - no changes required Gayla Linton MD social history E&M Marital Statu s: L jayshree with family/friends E thnicity: Smoking History: P carlyle has never smoked. Gayla Linton MD exercise type walking Fran Craft physical exercise, f requency, days per week no Fran Craft caffeine use, averag e drinks per day yes Fran Craft passive cigarette sm surekha exposure yes Fran Craft smoking status Never smoker [facility] social history reviewed E&M revi ewed - no changes required Gayla Linton MD number of grandchildren Gayla Linton MD K alanis [place] exercise type walking [facility] physical exercise, f requency, days per week no [place] Craft alcohol counseling no [facility] In the past 3 months , have you been waking up wanting to use drugs? (CAGE substance use question #4) N [facility] In the past 3 months , have you felt guilty or bad about using drugs? (CAGE substance use question #3) N [facility] In the past 3 months , has anyone annoyed you by telling you to cut down or stop using drugs? (CAGE substance use question #2) N [facility] In the past 3 months , have you felt you should cut down or stop using drugs?(CAGE substance use question #1) N [facility] alcohol use, average drinks per day none [facility] alcohol use, type beer [place] In gram alcohol use yes [facility] caffeine use, averag e drinks per day yes [facility] drug use none [facility] passive cigarette sm surekha exposure yes [facility] smoking status Never smoker [facility] social history reviewed E&M revi ewed - no changes required Mazin Beltrán social history E&M Marital Statu s: L jayshree with family/friends E thnicity: Smoking History: P atient has never smoked. Mazin Beltrán exercise type walking Jenny law physical exercise, f requency, days per week no Jenny Sutton alcohol counseling no Jenny Curielbashir puri In the past 3 months , have you been waking up wanting to use drugs? (CAGE substance use question #4) N Jenny Lesley In the past 3 months , have you felt guilty or bad about using drugs? (CAGE substance use question #3) N Jenny Lesley In the past 3 months , has anyone annoyed you by telling you to cut down or stop using drugs? (CAGE substance use question #2) N Jenny Lesley In the past 3 months , have you felt you should cut down or stop using drugs?(CAGE substance use question #1) N Jenny Lesley alcohol use, average drinks per day none Jenny Lesley alcohol use, type beer Jenny Grmali collins alcohol use yes Jenny fuentes caffeine use, averag e drinks per day yes Jenny Lesley drug use none Jenny Socorro rogers passive cigarette sm surekha exposure yes Jenny Lesley smoking status Never smoker Jenny Kaisermichael farris social history E&M Marital Statu s: L jayshree with family/friends E thnicity: Smoking History: P carlyle has never smoked. Gayla Linton MD social history reviewed E&M revi ewed - no changes required Gayla Linton MD exercise type walking Jenny law physical exercise, f requency, days per week no Jenny Sutton alcohol counseling no Jenny Martin puri In the past 3 months , have you been waking up wanting to use drugs? (CAGE substance use question #4) N Jenny Sutton In the past 3 months , have you felt guilty or bad about using drugs? (CAGE substance use question #3) N Jenny Curielcindi In the past 3 months , has anyone annoyed you by telling you to cut down or stop using drugs? (CAGE substance use question #2) N Jenny Kaiserkarina In the past 3 months , have you felt you should cut down or stop using drugs?(CAGE substance use question #1) N Jenny Lesley alcohol use, average drinks per day none Jenny Lesley alcohol use, type beer Jenny Kaiser karina alcohol use yes Jenny Curielmalikateyfloresita rogers caffeine use, averag e drinks per day yes Jenny Lozanomaria luisa drug use none Jenny Curielmalikateyfloresita rogers passive cigarette sm surekha exposure yes Jenny Lesley smoking status Never smoker Jenny farris number of grandchildren Brian Beltrán social history reviewed E&M revi ewed - no changes required Mazin Beltrán social history E&M Marital Statu s: L jayshree with family/friends E thnicity: Smoking History: P atjeanna has never smoked. Mazin Beltrán exercise type walking Jenny law physical exercise, f requency, days per week no Jenny Sutton alcohol counseling no Jenny Curielbashir puri In the past 3 months , have you been waking up wanting to use drugs? (CAGE substance use question #4) N Jenny Sutton In the past 3 months , have you felt guilty or bad about using drugs? (CAGE substance use question #3) N Jenny Sutton In the past 3 months , has anyone annoyed you by telling you to cut down or stop using drugs? (CAGE substance use question #2) N Jenny Lesley In the past 3 months , have you felt you should cut down or stop using drugs?(CAGE substance use question #1) N Jenny Curielcindi alcohol use, average drinks per day none Jenny Bianchiani alcohol use, type beer Jenny Kaiser karina alcohol use yes Jenny Curielmalikateyfloresita rogers caffeine use, averag e drinks per day yes Jenny Bianchiani drug use none Jenny Quintanilla sue passive cigarette sm surekha exposure yes Jenny Curielcindi smoking status Never smoker Jenny Lozanoreinaldo farris social history E&M Marital Statu s: L jayshree with family/friends E thnicity: Smoking History: P atient has never smoked. Gayla Linton MD social history reviewed E&M revi ewed - no changes required Gayla Linton MD exercise type walking Jenny law physical exercise, f requency, days per week no Jenny Sutton alcohol counseling no Jenny Curielbashir puri In the past 3 months , have you been waking up wanting to use drugs? (CAGE substance use question #4) N Jennyalex Sutton In the past 3 months , have you felt guilty or bad about using drugs? (CAGE substance use question #3) N Jenny Lesley In the past 3 months , has anyone annoyed you by telling you to cut down or stop using drugs? (CAGE substance use question #2) N Jenny Lesley In the past 3 months , have you felt you should cut down or stop using drugs?(CAGE substance use question #1) N Jenny Lesley alcohol use, average drinks per day none Jenny Lesley alcohol use, type beer Jenny collins alcohol use yes Jenny Quintanilla ginaer caffeine use, averag e drinks per day yes Jenny Sutton drug use none Jenny Quintanilla ginaer passive cigarette sm surekha exposure yes Jenny Sutton smoking status Never smoker Jenny Joshi k[place] smoking status Never smoker Gayla Linton MD social history reviewed E&M revi ewed - no changes required Gayla Linton MD exercise type walking Laura hahn physical exercise, f requency, days per week no Laura Anderson alcohol counseling no Laura gonzalez In the past 3 months , have you been waking up wanting to use drugs? (CAGE substance use question #4) N Laura Anderson In the past 3 months , have you felt guilty or bad about using drugs? (CAGE substance use question #3) N Laura Anderson In the past 3 months , has anyone annoyed you by telling you to cut down or stop using drugs? (CAGE substance use question #2) N Laura Anderson In the past 3 months , have you felt you should cut down or stop using drugs?(CAGE substance use question #1) N Laura Anderson alcohol use, average drinks per day none Laura Anderson alcohol use, type beer Laura bolivar alcohol use yes Laura martin caffeine use, averag e drinks per day yes Laura Anderson drug use none Laura martin passive cigarette sm surekha exposure yes Laura Anderson social history E&M Marital Statu s: L jayshree with family/friends E thnicity: Smoking History: P carlyle has never smoked. Gayla Linton MD social history reviewed E&M revi ewed - no changes required Gayla Linton MD exercise type walking Alice Villa bhavin physical exercise, f requency, days per week no Alice Munson alcohol counseling no Alice Munson In the past 3 months , have you been waking up wanting to use drugs? (CAGE substance use question #4) N Alice Munson In the past 3 months , have you felt guilty or bad about using drugs? (CAGE substance use question #3) N Alice Munson In the past 3 months , has anyone annoyed you by telling you to cut down or stop using drugs? (CAGE substance use question #2) N Alice Munson In the past 3 months , have you felt you should cut down or stop using drugs?(CAGE substance use question #1) N Alice Munson alcohol use, average drinks per day none Alice Munson alcohol use, type beer Alice Munson alcohol use yes Alice mckeon caffeine use, averag e drinks per day yes Alice Munson drug use none Alice mckeon passive cigarette sm surekha exposure yes Alice Musnon smoking status Never smoker Alice Bowen social history reviewed E&M revi ewed - no changes required Gayla Linton MD social history E&M Marital Statu s: L jayshree with family/friends E thnicity: Smoking History: P carlyle has never smoked. Gayla Linton MD exercise type walking Alice Allen bhavin physical exercise, f requency, days per week no Alice Arpit alcohol counseling no Alice Munson In the past 3 months , have you been waking up wanting to use drugs? (CAGE substance use question #4) N Alice Munson In the past 3 months , have you felt guilty or bad about using drugs? (CAGE substance use question #3) N Alice Munson In the past 3 months , has anyone annoyed you by telling you to cut down or stop using drugs? (CAGE substance use question #2) N Alice Munson In the past 3 months , have you felt you should cut down or stop using drugs?(CAGE substance use question #1) N Alice Munson alcohol use, average drinks per day none Alice Munson alcohol use, type beer Alice Munson alcohol use yes Alice mckeon caffeine use, averag e drinks per day yes Alice Munson drug use none Alice mckeon passive cigarette sm surekha exposure yes Alice Munson smoking status Never smoker Alice Bowen social history reviewed E&M revi ewed - no changes required Gayla Linton MD number of grandchildren Gayla Linton MD K alanis [place] exercise type walking [facility] physical exercise, f requency, days per week no Fran Craft alcohol counseling no [place] Gold franks In the past 3 months , have you been waking up wanting to use drugs? (CAGE substance use question #4) N [facility] In the past 3 months , have you felt guilty or bad about using drugs? (CAGE substance use question #3) N [facility] In the past 3 months , has anyone annoyed you by telling you to cut down or stop using drugs? (CAGE substance use question #2) N [facility] In the past 3 months , have you felt you should cut down or stop using drugs?(CAGE substance use question #1) N [place] Craft alcohol use, average drinks per day none [place] Craft alcohol use, type beer Fran In gram alcohol use yes Fran Craft caffeine use, averag e drinks per day [facility] Fran Craft passive cigarette sm surekha exposure yes Fran Craft smoking status Never smoker Fran wright social history reviewed E&M revi ewed - no changes required Gayla Linton MD exercise type walking Jenny law physical exercise, f requency, days per week no Jenny Lesley alcohol counseling no Jenny Salazar khushi In the past 3 months , have you been waking up wanting to use drugs? (CAGE substance use question #4) N Jenny Lesley In the past 3 months , have you felt guilty or bad about using drugs? (CAGE substance use question #3) N Jenny Curielcindi In the past 3 months , has anyone annoyed you by telling you to cut down or stop using drugs? (CAGE substance use question #2) N Jenny Lesley In the past 3 months , have you felt you should cut down or stop using drugs?(CAGE substance use question #1) N Jenny Lesley alcohol use, average drinks per day none Jenny Lesley alcohol use, type beer Jenny Curielmali collins alcohol use yes Jenny Socorro fuentes caffeine use, averag e drinks per day yes Jenny Lesley drug use none Jenny Lozanoaylinlarry [facility] [place] passive cigarette sm surekha exposure yes Jenny Lesley smoking status Never smoker Jenny Curielstanley farris social history reviewed E&M revi ewed - no changes required Gayla Linton MD exercise type walking Jenny law physical exercise, f requency, days per week no Jenny Sutton alcohol counseling no Jenny Salazar khushi In the past 3 months , have you been waking up wanting to use drugs? (CAGE substance use question #4) N Jenny Curielcindi In the past 3 months , have you felt guilty or bad about using drugs? (CAGE substance use question #3) N Jenny Curielcindi In the past 3 months , has anyone annoyed you by telling you to cut down or stop using drugs? (CAGE substance use question #2) N Jenny Curielcindi In the past 3 months , have you felt you should cut down or stop using drugs?(CAGE substance use question #1) N Jenny Lesley alcohol use, average drinks per day none Jenny Lesley alcohol use, type beer Jenny Curielmali collins alcohol use yes Jenny Socorro rogers caffeine use, averag e drinks per day yes Jenny Lesley drug use none Jenny Curielmalikateyfloersita rogers passive cigarette sm surekha exposure yes Jenny Lesley smoking status Never smoker Jenny farris social history reviewed E&M revi ewed - no changes required Gayla Linton MD exercise type walking Jenny law physical exercise, f requency, days per week no Jenny Sutton alcohol counseling no Jenny Martin puri In the past 3 months , have you been waking up wanting to use drugs? (CAGE substance use question #4) N Jenny Sutton In the past 3 months , have you felt guilty or bad about using drugs? (CAGE substance use question #3) N Jenny Sutton In the past 3 months , has anyone annoyed you by telling you to cut down or stop using drugs? (CAGE substance use question #2) N Jenny Sutton In the past 3 months , have you felt you should cut down or stop using drugs?(CAGE substance use question #1) N Jenny Bianchijuan ayuliya alcohol use, average drinks per day none Jenny Bianchiani alcohol use, type beer Jenny Kaiser kateyaylinani alcohol use yes Jenny Quintanilla sue caffeine use, averag e drinks per day yes Jenny Bianchijuan ayuliya drug use none Jenny Quintanilla sue passive cigarette sm surekha exposure yes Jenny Bianchiani smoking status Never smoker Jenny Joshi kaleigh social history reviewed E&M revi ewed - no changes required Gayla Lniton MD exercise type walking Jenny Arias law physical exercise, f requency, days per week no Jenny Bianchiani alcohol counseling no Jenny Curielbashir puri In the past 3 months , have you been waking up wanting to use drugs? (CAGE substance use question #4) N Jenny Bianchiani In the past 3 months , have you felt guilty or bad about using drugs? (CAGE substance use question #3) N Jenny Bianchiani In the past 3 months , has anyone annoyed you by telling you to cut down or stop using drugs? (CAGE substance use question #2) N Jenny Bianchiani In the past 3 months , have you felt you should cut down or stop using drugs?(CAGE substance use question #1) N Jenny Bianchiani alcohol use, average drinks per day none Jenny Bianchiani alcohol use, type beer Jenny Kaiser kateyaylinani alcohol use yes Jenny Quintanilla sue caffeine use, averag e drinks per day yes Jenny Bianchiani drug use none Jenny Quintanilla sue passive cigarette sm surekha exposure yes Jenny Sutton smoking status Never smoker Jenny crafter social history reviewed E&M revi ewed - no changes required Gayla Linton MD exercise type walking Jenny law physical exercise, f requency, days per week no Jenny Sutton alcohol counseling no Jenny Salazar khushi In the past 3 months , have you been waking up wanting to use drugs? (CAGE substance use question #4) N Jenny Sutton In the past 3 months , have you felt guilty or bad about using drugs? (CAGE substance use question #3) N Jenny Sutton In the past 3 months , has anyone annoyed you by telling you to cut down or stop using drugs? (CAGE substance use question #2) N Jenny Sutton In the past 3 months , have you felt you should cut down or stop using drugs?(CAGE substance use question #1) N Jenny Sutton alcohol use, average drinks per day none Jenny Sutton alcohol use, type beer Jenny sternyuliya alcohol use yes Jenny Quintanilla sue caffeine use, averag e drinks per day yes Jenny Sutton drug use none Jenny Quintanilla sue passive cigarette sm surekha exposure yes Jenny Sutton smoking status Never smoker Jenny Joshi [place] social history reviewed E&M revi ewed - no changes required Gayla Linton MD exercise type walking Ene Paredes physical exercise, f requency, days per week no Ene Paredes alcohol counseling no Ene ding In the past 3 months , have you been waking up wanting to use drugs? (CAGE substance use question #4) N Ene Paredes In the past 3 months , have you felt guilty or bad about using drugs? (CAGE substance use question #3) N Ene Paredes In the past 3 months , has anyone annoyed you by telling you to cut down or stop using drugs? (CAGE substance use question #2) N Ene Paredes In the past 3 months , have you felt you should cut down or stop using drugs?(CAGE substance use question #1) N Enechi Paredes alcohol use, average drinks per day none Ene Paredes alcohol use, type beer [facility] alcohol use yes Ene Paredes caffeine use, averag e drinks per day yes Ene Paredes drug use none [facility] passive cigarette sm surekha exposure [facility] social history reviewed E&M revi ewed - no changes required Gayla Linton MD exercise type walking [facility] physical exercise, f requency, days per week no Ene Paredes alcohol counseling no Ene Sm [facility] In the past 3 months , have you been waking up wanting to use drugs? (CAGE substance use question #4) N Enechi Paredes In the past 3 months , have you felt guilty or bad about using drugs? (CAGE substance use question #3) N Ene Paredes In the past 3 months , has anyone annoyed you by telling you to cut down or stop using drugs? (CAGE substance use question #2) Reinaldo Paredes In the past 3 months , have you felt you should cut down or stop using drugs?(CAGE substance use question #1) N Ene Paredes alcohol use, average drinks per day none Ene Paredes alcohol use, type beer [facility] alcohol use yes Ene Paredes caffeine use, averag e drinks per day yes Ene Paredes drug use none Ene Paredes passive cigarette sm surekha exposure yes Ene Paredes smoking status Never smoker Ene Paredes social history reviewed E&M revi ewed - no changes required Gayla Linton MD exercise type walking Jenny law physical exercise, f requency, days per week no Jenny Sutton alcohol counseling no Jenny Martin puri In the past 3 months , have you been waking up wanting to use drugs? (CAGE substance use question #4) N Jenny Sutton In the past 3 months , have you felt guilty or bad about using drugs? (CAGE substance use question #3) N Jenny Sutton In the past 3 months , has anyone annoyed you by telling you to cut down or stop using drugs? (CAGE substance use question #2) N Jennyalex Sutton In the past 3 months , have you felt you should cut down or stop using drugs?(CAGE substance use question #1) N Jenny Sutton alcohol use, average drinks per day none Jenny Sutton alcohol use, type beer Jenny collins alcohol use yes Jenny fuentes caffeine use, averag e drinks per day yes Jenny Sutton drug use none Jenny rogers passive cigarette sm surekha exposure yes Jenny Sutton smoking status Never smoker Jennyalex Kaisermichael farris social history reviewed E&M revi ewed - no changes required Gayla Linton MD exercise type walking eJnny law physical exercise, f requency, days per week no Jenny Bianchiani alcohol counseling no Jenny Salazar khushi In the past 3 months , have you been waking up wanting to use drugs? (CAGE substance use question #4) N Jenny Bianchiani In the past 3 months , have you felt guilty or bad about using drugs? (CAGE substance use question #3) N Jenny Bianchiani In the past 3 months , has anyone annoyed you by telling you to cut down or stop using drugs? (CAGE substance use question #2) N Jenny Bianchiani In the past 3 months , have you felt you should cut down or stop using drugs?(CAGE substance use question #1) N Jenny Bianchiani alcohol use, average drinks per day none Jenny Bianchiani alcohol use, type beer Jenny Kaiser karina alcohol use yes Jenny Lozanoaylnilarry gina caffeine use, averag e drinks per day yes Jenny Bianchiani drug use none Jenny Quintanilla sue passive cigarette sm surekha exposure yes Jenny Bianchiani smoking status Never smoker Jenny Joshi kaleigh social history reviewed E&M revi ewed - no changes required Gayla Linton MD exercise type walking Alice delcid physical exercise, f requency, days per week no Alice Munson alcohol counseling no Alice Munson In the past 3 months , have you been waking up wanting to use drugs? (CAGE substance use question #4) N Alice Munson In the past 3 months , have you felt guilty or bad about using drugs? (CAGE substance use question #3) N Alice Munson In the past 3 months , has anyone annoyed you by telling you to cut down or stop using drugs? (CAGE substance use question #2) N Alice Munson In the past 3 months , have you felt you should cut down or stop using drugs?(CAGE substance use question #1) N Alice Munson alcohol use, average drinks per day none Alice Munson alcohol use, type beer Alice Munson alcohol use yes Alice mckeon caffeine use, averag e drinks per day yes Alice Munson drug use none Alice mckeon passive cigarette sm surekha exposure yes Alice Munson smoking status Never smoker Alice Bowen social history reviewed E&M revi ewed - no changes required Gayla Linton MD social history reviewed E&M revi ewed - no changes required Gayla Linton MD exercise type walking Alice medeiroslacey physical exercise, f requency, days per week no Alice Munson alcohol counseling no Alice Munson In the past 3 months , have you been waking up wanting to use drugs? (CAGE substance use question #4) N Alice Munson In the past 3 months , have you felt guilty or bad about using drugs? (CAGE substance use question #3) N Alice Munson In the past 3 months , has anyone annoyed you by telling you to cut down or stop using drugs? (CAGE substance use question #2) N Alice Munson In the past 3 months , have you felt you should cut down or stop using drugs?(CAGE substance use question #1) N Alice Munson alcohol use, average drinks per day none Alice Munson alcohol use, type beer Alice Munson alcohol use yes Alice mckeon caffeine use, averag e drinks per day yes Alice Munson drug use none Alice mckeon passive cigarette sm surekha exposure yes Alice Munson smoking status Never smoker Alice Arzola gagan social history E&M Marital Statu s: Zahira martell with family/friends E thnicity: Smoking History: Florencio tadeo has never smoked. Brian Shafer MD social history reviewed E&M revi ewed - no changes required Brian Shafer MD exercise type walking Alice medeiroslacey physical exercise, f requency, days per week no Alice Munson alcohol counseling no Alice Munson In the past 3 months , have you been waking up wanting to use drugs? (CAGE substance use question #4) N Alice Munson In the past 3 months , have you felt guilty or bad about using drugs? (CAGE substance use question #3) N Alice Munson In the past 3 months , has anyone annoyed you by telling you to cut down or stop using drugs? (CAGE substance use question #2) N Alice Munson In the past 3 months , have you felt you should cut down or stop using drugs?(CAGE substance use question #1) N Alice Munson alcohol use, average drinks per day none Alice Munson alcohol use, type beer Alice Munson alcohol use yes Alice Jeffries mike caffeine use, averag e drinks per day yes Alice Arpit drug use none Alice Jeffries jorjelacey passive cigarette sm surekha exposure yes Alice Munson smoking status Never smoker Alice Arzola gagan social history reviewed E&M revi ewed - no changes required Gayla Linton MD exercise type walking Sarai Forbes physical exercise, f requency, days per week no Sarai Forbes alcohol counseling no Sarai Quiroz In the past 3 months , have you been waking up wanting to use drugs? (CAGE substance use question #4) N Sarai Forbes In the past 3 months , have you felt guilty or bad about using drugs? (CAGE substance use question #3) N Sarai Forbes In the past 3 months , has anyone annoyed you by telling you to cut down or stop using drugs? (CAGE substance use question #2) N Sarai oFrbes In the past 3 months , have you felt you should cut down or stop using drugs?(CAGE substance use question #1) N Sarai Forbes alcohol use, average drinks per day none Sarai Forbes alcohol use, type beer Sarai Chamorro Norah caffeine use, averag e drinks per day yes Sarai Forbes drug use none Sarai Forbes passive cigarette sm surekha exposure yes Sarai Forbes smoking status Never smoker Sarai Goldman reinaldo social history reviewed E&M revi ewed - no changes required Gayla Linton MD exercise type walking Sarai Forbes physical exercise, f requency, days per week no Sarai Forbes alcohol counseling no Sarai Wright Gabriella In the past 3 months , have you been waking up wanting to use drugs? (CAGE substance use question #4) N Sarai Forbes In the past 3 months , have you felt guilty or bad about using drugs? (CAGE substance use question #3) N Sarai Forbes In the past 3 months , has anyone annoyed you by telling you to cut down or stop using drugs? (CAGE substance use question #2) N Sarai Forbes In the past 3 months , have you felt you should cut down or stop using drugs?(CAGE substance use question #1) N Sarai Forbes alcohol use, average drinks per day none Sarai Forbes alcohol use, type beer Sarai Norah caffeine use, averag e drinks per day yes Sarai Forbes drug use none Sarai Forbes passive cigarette sm surekha exposure yes Sarai Forbes smoking status Never smoker Sarai Goldman reinaldo social history reviewed E&M revi ewed - no changes required Gayla Linton MD exercise type walking Sarai Forbes physical exercise, f requency, days per week no Sarai Forbes alcohol counseling no [facility] past 3 months , have you been waking up wanting to use drugs? (CAGE substance use question #4) N Sarai Forbes In the past 3 months , have you felt guilty or bad about using drugs? (CAGE substance use question #3) N Sarai Forbes In the past 3 months , has anyone annoyed you by telling you to cut down or stop using drugs? (CAGE substance use question #2) N Sarai [facility] In the past 3 months , have you felt you should cut down or stop using drugs?(CAGE substance use question #1) N Sarai Forbes alcohol use, average drinks per day none Sarai [facility] alcohol use, type beer Sarai Norah caffeine use, averag e drinks per day yes Sarai [facility] drug use none Sarai [facility] passive cigarette sm surekha exposure yes Sarai [facility] smoking status Never smoker Sarai Goldman reinaldo social history reviewed E&M reviewed Gayla Linton MD social history reviewed E&M reviewed Dmitri Gil RN social history reviewed E&M reviewed Brian Shafer MD social history reviewed E&M reviewed Gayla Linton MD alcohol counseling no Jenny puri In the past 3 months , have you been waking up wanting to use drugs? (CAGE substance use question #4) N Jenny Sutton In the past 3 months , has anyone annoyed you by telling you to cut down or stop using drugs? (CAGE substance use question #2) Reinaldo Alvarado Lesley In the past 3 months , have you felt guilty or bad about using drugs? (CAGE substance use question #3) Reinaldo Alvarado Lesley In the past 3 months , have you felt you should cut down or stop using drugs?(CAGE substance use question #1) Reinaldo Jenny Sutton social history reviewed E&M reviewed Gayla Linton MD alcohol use, type beer Jamie Man acop exercise type walking Jamie Manacop drug use none Gayla Linton MD passive cigarette sm surekha exposure yes Jamie Manacop smoking status never smoker Jamie Manaco p social history reviewed E&M reviewed Dmitri Gil RN social history reviewed E&M reviewed Gayla Linton MD social history reviewed E&M reviewed Dmitri Gil RN social history reviewed E&M reviewed Dmitri Gil RN social history reviewed E&M reviewed Dmitri Gil RN smoking/tobacco cess ation, patient education and counseling yes Brian Shafer MD social history reviewed E&M reviewed Brian Shafer MD handedness R Handed Brian holley MD social history reviewed E&M reviewed Gayla Linton MD social history reviewed E&M reviewed Dmitri Gil RN social history reviewed E&M reviewed Dmitri Gil RN social history reviewed E&M reviewed Dmitri Gil RN social history reviewed E&M reviewed Dmitri Gil RN social history reviewed E&M reviewed Matty Sears MD social history reviewed E&M reviewed Mey Manjarrez RN drug use none Gayla Linton MD social history reviewed E&M reviewed Dmitri Gil RN social history E&M Marital Statu s: L jayshree with family/friends E thnicity: Dmitri Gli RN social history reviewed E&M reviewed Dmitri Gil RN physical exercise, f requency, days per week no LinkLog caffeine use, averag e drinks per day yes LinkLog alcohol use, average drinks per day none LinkLog smoking status Non-smoker LinkLog FUNCTIONAL STATUS Date Observation Value Provider HRA, CV Assess/Plan, Angina (inactive) Management Plan continue current therapy Gayla Linton MD MENTAL STATUS Date Observation Value Provider assessment of judgme nt and insight E&M Alert and oriented to time, place and person. Mood and affect are normal. Gayla Linton MD assessment of judgme nt and insight E&M Alert and oriented to time, place and person. Mood and affect are normal. Dmitri Gil RN assessment of judgme nt and insight E&M Alert and oriented to time, place and person. Mood and affect are normal. Brian Shafer MD assessment of judgme nt and insight E&M Alert and oriented to time, place and person. Mood and affect are normal. Gayla Linton MD assessment of judgme nt and insight E&M Alert and oriented to time, place and person. Mood and affect are normal. Gayla Linton MD assessment of judgme nt and insight E&M Alert and oriented to time, place and person. Mood and affect are normal. Dmitri Gil RN assessment of judgme nt and insight E&M Alert and oriented to time, place and person. Mood and affect are normal. Gayla Linton MD assessment of judgme nt and insight E&M Alert and oriented to time, place and person. Mood and affect are normal. Dmitri Gil RN assessment of judgme nt and insight E&M Alert and oriented to time, place and person. Mood and affect are normal. Dmitri Gil RN assessment of judgme nt and insight E&M Alert and oriented to time, place and person. Mood and affect are normal. Dmitri Gil RN assessment of judgme nt and insight E&M Alert and oriented to time, place and person. Mood and affect are normal. Brian Shafer MD assessment of judgme nt and insight E&M Alert and oriented to time, place and person. Mood and affect are normal. Gayla Linton MD assessment of judgme nt and insight E&M Alert and oriented to time, place and person. Mood and affect are normal. Dmitri Gil RN assessment of judgme nt and insight E&M Alert and oriented to time, place and person. Mood and affect are normal. Dmitri Gil RN assessment of judgme nt and insight E&M Alert and oriented to time, place and person. Mood and affect are normal. Dmitri Gil RN assessment of judgme nt and insight E&M Alert and oriented to time, place and person. Mood and affect are normal. Dmitri Gil RN assessment of judgme nt and insight E&M Alert and oriented to time, place and person. Mood and affect are normal. Matty Sears MD assessment of judgme nt and insight E&M Alert and oriented to time, place and person. Mood and affect are normal. Mey Manjarrez RN assessment of judgme nt and insight E&M Alert and oriented to time, place and person. Mood and affect are normal. Dmitri Gil RN assessment of judgme nt and insight E&M Alert and oriented to time, place and person. Mood and affect are normal. Dmitri Gil RN FAMILY HISTORY Family Member Condition Mother Family History Unkno wn Father Family History of Co ronary Artery Disease: INSURANCE PROVIDERS Payer name Policy type / Coverage type [place] red green party ID [employer] MEDICARE VALUE ADVANTRA PPO Commercial Toutpost [id number] ADVANCE DIRECTIVES Name Date DISCUSSED - NO DECISION MADE TREATMENT PLAN Date Name Performer [id number] Toniya Singh MD [id number],Gayla Montoya MD [id number],Zurdo Montoya i [id number],Zurdo Montoya i [id number],S, Zurdo Ahmedza i [id number],S, Zrudo Ahmedza i [id number],S, Zurdo Ahmedza i [id number],S, Jus Nacht [id number],W, Jus Nacht [id number],S, Jus Nacht [id number],S, Jus Nacht [id number],S, Jus Nacht [id number],S, Jus Nacht [id number],S, Jus Nacht [id number],B, Jus Nacht Cardiology Gayla Linton MD Cardiology Gayla Linton MD Cardiology Zurdo Ahmedzai Cardiology Zurdo Ahmedzai Cardiology Zurdo Ahmedzai Cardiology Zurdo Ahmedzai Cardiology Zurdo Ahmedzai Cardiology [facility] [place] Cardiology [facility] [place] Card[facility] [place] [facility] [place] [place] [facility] [place] [place] [facility] [place] [place] Card[facility] [place] [place] [facility] [place] [place] [facility] Follow up [facility] [place] Follow up [facility] [place] [facility] Follow up [facility] [place] [facility] Follow up [facility] [place] [facility] Follow up [facility] [place] [facility] Follow up [facility] [place] [facility] Follow up [facility] [place] [place] [place] [facility] [place] [facility] [place] [place] [facility] [place] [place] [facility] [place] [facility] follow up Gayla osei MD Cardiology follow up Tonisrini osei MD Cardiology follow up Tonisrini osei MD Cardiology follow up Gayla osei MD Cardiology Gayla Linton MD Cardiology Gayla Linton MD Cardiology Gayla Linton MD Cardiology Gayla Linton MD Cardiology Gayla Linton MD Cardiology Gayla Linton MD Cardiology Gayla Linton MD Cardiology Gayla Linton MD Cardiology Gayla Linton MD Cardiology Gayla Linton MD Cardiology Gayla Linton MD Cardiology Gayla Linton MD Cardiology Gayal Linton MD Cardiology Gayla Linton MD Electrophysiology Fo llow up : H ome sleep study 08/23/16 showed mild ALEXIS with AHI 7.4. W ill recheck home sleep study. Orders: [id number] Minor ([id number]) S chedule Followup (*) S leep Study Home (CPT-78032) Mazin Beltrán Electrophysiology Fo llow up : P FTs 04/30/18 was normal, DLCO 90%. Her updated medication list for this problem includes: Hydrochlorothiazide 12.5 Mg Oral Capsule (Hydrochlorothiazide) ..... One tab daily Atenolol 50 Mg Oral Tablet (Atenolol) ..... 1/2 tab tab. twice daily Olmesartan Medoxomil-hctz 20-12.5 Mg Oral Tablet (Olmesartan medoxomil-hctz) ..... Take 1 tablet daily Mazin Beltrán Electrophysiology Fo llow up : B P today: 110/68 P rior BP: 110/66 (06/19/2018) Labs Reviewed: C reat: 1.0 (02/07/2017) C hol: 194 (02/07/2017) HDL: 53 (02/07/2017) T (02/07/2017) Her updated medication list for this problem includes: Hydrochlorothiazide 12.5 Mg Oral Capsule (Hydrochlorothiazide) ..... One tab daily Atenolol 50 Mg Oral Tablet (Atenolol) ..... 1/2 tab tab. twice daily Olmesartan Medoxomil-hctz 20-12.5 Mg Oral Tablet (Olmesartan medoxomil-hctz) ..... Take 1 tablet daily Mazin Beltrán Electrophysiology Fo llow up : C [facility] ER visit on 04/22/18 for AFib. P carlyle was scheduled for cardioversion on 05/03/18, but she had self-converted back to sinus rhythm. S he subsequently wore a 1-week Telesentry 05/2018 which showed sinus rhythm with intermittent AFib. R emains in sinus rhythm on EKG today 06/22/18. O n Flecainide and Xarelto. I f frequency of Sx increases, will consider EP ablation for AFib. Will recheck 1-week Telesentry in 1 year. Orders: E KG ([id number]) M obile Cardiac Tele ([id number]) [id number] Minor ([id number]) S chedule Followup (*) Her updated medication list for this problem includes: Atenolol 50 Mg Oral Tablet (Atenolol) ..... 1/2 tab tab. twice daily Flecainide Acetate 50 Mg Oral Tablet (Flecainide acetate) ..... Two tablet twice daily Mazin Beltrán Cardiology Follow up Gayla osei MD Cardiology Follow up Gayla osei MD Cardiology Follow up : B P today: 110/66 P rior BP: 102/72 (04/27/2018) Gayla Linton MD Cardiology Follow up Gayla oesi MD Cardiology Follow up Gayla osei MD Electrophysiology Fo llow up : C [facility] ER visit on 04/22/18 for AFib. S chedule cardioversion on 05/03/18 at [facility] [place]. No JADYN. T claire 300mg dose of Flecainide on morning of 04/30/18, followed by EKG that day. Take standard 100mg dose of Flecainide at night of 04/30/18. Orders: Kiera GARCIA (CPT-[id number]) Her updated medication list for this problem includes: Atenolol 50 Mg Oral Tablet (Atenolol) ..... 1/2 tab tab. twice daily Flecainide Acetate 50 Mg Oral Tablet (Flecainide acetate) ..... Two tablet twice daily Mazin Beltrán Electrophysiology F ollow up : B P today: 102/72 P rior BP: 102/62 (04/23/2018) Labs Reviewed: C reat: 1.0 (02/07/2017) C hol: 194 (02/07/2017) HDL: 53 (02/07/2017) T (02/07/2017) Her updated medication list for this problem includes: Olmesartan Medoxomil-hctz 20-12.5 Mg Oral Tablet (Olmesartan medoxomil-hctz) ..... Take 1 tablet daily Atenolol 50 Mg Oral Tablet (Atenolol) ..... 1/2 tab tab. twice daily Mazin Beltrán Electrophysiology Fo llow up : N uclear stress test 04/26/18 which showed a large fixed defect involving the inferior and inferior apical and apical wall most consistent with breast and diaphgragmatic attenuation artifact. EF 57%. Mazin Beltrán Electrophysiology Fo llow up : O rders: F VC - 93294 (65624) F RC - 31142 (12702) D LCO - 59180 (30347) Her updated medication list for this problem includes: Olmesartan Medoxomil-hctz 20-12.5 Mg Oral Tablet (Olmesartan medoxomil-hctz) ..... Take 1 tablet daily Atenolol 50 Mg Oral Tablet (Atenolol) ..... 1/2 tab tab. twice daily Mazin Beltrán Electrophysiology Fo llow up : C [facility] ER visit on 04/22/18 for AFib. S chedule cardioversion on 05/03/18 at 1PM at [facility]. No JADYN. T claire 300mg dose of Flecainide on morning of 04/30/18, then come into [facility] for EKG. Take standard 100mg dose of Flecainide at night of 04/30/18. Orders: Kiera cespedes - RADHA (CPT-[id number]) Her updated medication list for this problem includes: Atenolol 50 Mg Oral Tablet (Atenolol) ..... 1/2 tab tab. twice daily Flecainide Acetate 50 Mg Oral Tablet (Flecainide acetate) ..... Two tablet twice daily Mazin Beltrán Cardiology Follow up Gayla osei MD Cardiology Follow up Gayla osei MD Cardiology Follow up Gayla osei MD Cardiology Follow up Gayla osei MD Cardiology Follow up :She is reluctant to do an ablation , will need meds changed Gayla Linton MD Cardiology follow up Gayla osei MD Cardiology follow up Gayla osei MD Cardiology follow up Gayla osei MD Cardiology Follow up Gayla osei MD Cardiology Follow up Gayla osei MD Cardiology Follow up Gayla osei MD Cardiology Follow up Gayla osei MD Cardiology Follow up Gayla osei MD Cardiology Gayla Linton MD Cardiology: H er updated medication list for this problem includes: Simvastatin 40 Mg Oral Tablet (Simvastatin) ..... 1 tab daily Gayla Linton MD Cardiology: B P today: 122/71 P rior BP: 120/70 (04/24/2017) Labs Reviewed: C reat: 1.0 (02/07/2017) C hol: 194 (02/07/2017) HDL: 53 (02/07/2017) T (02/07/2017) Gayla Linton MD Cardiology Gayla Linton MD Cardiology Gayla Linton MD Cardiology:No recurrence. Gayla Linton MD Cardiology:Per endocrine. Gayla Linton MD Cardiology:Occasiona l, isolated incidents of palpitations which are very short and not limiting. TSH is being monitored by house nurse. Gayla Linton MD Cardiology Follow up Gayla osei MD Cardiology Follow up Toniya Elias osei MD Cardiology Follow up Toniya Elias osei MD Cardiology Follow up Toniya Elias osei MD Cardiology Follow up Toniya Elias osei MD Cardiology Hospital Follow up To valentin Linton MD Cardiology Hospital Follow up To valentin Linton MD [facility] Follow up To valentin Linton MD [facility] Follow up To valentin Linton MD [facility] Follow up To valentin Linton MD [facility] Follow up To valentin Linton MD [facility] Follow up To valentin Linton MD [facility] Follow up To valentin Linton MD [facility] Follow up To valentin Linton MD [facility] Follow up To valentin Linton MD Cardiology Follow up Tristenisrini osei MD Cardiology Follow up Toniya Elias osei MD Cardiology Follow up Toniya Elias osei MD Cardiology Follow up Toniya Elias osei MD Cardiology Follow up Toniya Elias osei MD Cardiology Follow up Toniya Elias osei MD Cardiology Follow up Toniya Elias osei MD Cardiology Follow up Toniya Elias osei MD Cardiology Follow up Toniya Elias osei MD Cardiology Follow up Toniya Elias osei MD Cardiology Follow up Toniya Elias osei MD Cardiology Follow up Toniya Elias osei MD Cardiology Follow up Toniya Elias osei MD Cardiology Follow up Toniya Elias osei MD Cardiology Follow up Toniya Elias osei MD Cardiology Follow up Toniya Elias osei MD Cardiology Follow up Toniya Sing h Cardiology Follow up Toniya Sing h Cardiology Follow up Toniya Sing h Cardiology Follow up Toniya Sing h Cardiology Follow up Toniya Sing h Cardiology Follow up Toniya Sing h Cardiology Follow up Toniya Sing h Cardiology Follow up Toniya Sing h Cardiology Follow up Toniya Sing h Cardiology Follow up Toniya Sing h Cardiology Follow up Toniya Sing h Cardiology Toniya Royer [facility] Toniya Royer [facility] [facility] Tonisrini Linton MD Cardiology Tonisrini Linton MD Cardiology Tonisrini Linton MD Cardiology Tristenisrini Linton MD Cardiology Tristenisrini Linton MD Cardiology Tonisriin Linton MD Cardiology Tonisrini Linton MD Cardiology Tonisrini Linton MD Cardiology Tristenisrini Linton MD Cardiology Tonisrini Linton MD Cardiology Tonisrini Linton MD EP Faxed 04/02/15 07 39s:CHOL: 174 (04/28/2011) LDL: 89 (04/28/2011) HDL: 58 (04/28/2011) T (04/28/2011) Brian Shafer MD EP Faxed 04/02/15 07 39s:Pt reports five episodes (on November 29, Feb 15, Feb 25, Mar 05, and Mar 23 2015), at night lasting four-6 hours). Would not recommend EP study or ablation at this time. However, if pt has symptoms lasting longer than 24 hours, change of medicaiton, EP study with ablation may be considered. Pt can take additional dose of 100mg of Flecainide if pt has palpitations. Her updated medication list for this problem includes: Atenolol 50 Mg Tabs (Atenolol) ..... Po daily Flecainide Acetate 50 Mg Tabs (Flecainide acetate) ..... Two tablet twice daily Brian Shafer MD EP Faxed 04/02/15 07 39s:BP today: 142/75 P rior BP: 135/76 (10/27/2014) Brian Shafer MD follow up: H er updated medication list for this problem includes: Atenolol 50 Mg Tabs (Atenolol) ..... Po daily Flecainide Acetate 50 Mg Tabs (Flecainide acetate) ..... Two tablet twice daily Diovan Hct 160-12.5 Mg Tabs (Valsartan-hydrochlorothiazide) ..... Twice daily Gayla Linton MD follow up: H er updated medication list for this problem includes: Synthroid 175 Mcg Tabs (Levothyroxine sodium) ..... One tab. daily Labs Reviewed: T SH: 0.69 (04/28/2011) Total T4: 17.4 (04/28/2011) C hol: 174 (04/28/2011) HDL: 58 (04/28/2011) LDL: 89 (04/28/2011) T (04/28/2011) Gayla Linton MD follow up: H er updated medication list for this problem includes: Simvastatin 40 Mg Tabs (Simvastatin) ..... One tab. daily Gayla Linton MD follow up: H er updated medication list for this problem includes: Synthroid 200 Mcg Tabs (Levothyroxine sodium) ..... One tab. daily Labs Reviewed: T SH: 0.69 (04/28/2011) Total T4: 17.4 (04/28/2011) C hol: 174 (04/28/2011) HDL: 58 (04/28/2011) LDL: 89 (04/28/2011) T (04/28/2011) Gayla Linton MD Follow Up: H er updated medication list for this problem includes: Diovan Hct 160-12.5 Mg Tabs (Valsartan-hydrochlorothiazide) ..... Twice daily Atenolol 50 Mg Tabs (Atenolol) ..... 1/2 (25mg) tablet by mouth daily Flecainide Acetate 50 Mg Tabs (Flecainide acetate) ..... Two tablet twice daily BP today: 138/73 Prior BP: 12/63 (03/01/2013) P T: 11.3 (11/29/2010) INR: 1.1 (11/29/2010) H gb: 12.5 (04/28/2011) HCT: 37.4 (04/28/2011) RBC: 3.97 (04/28/2011) WBC: 7.3 (04/28/2011) B UN: 19.8 (04/28/2011) Creat: 1.34 (04/28/2011) Glucose: 127 (04/28/2011) N a+: 136 (04/28/2011) K+: 3.3 (04/28/2011) Cl: 101 (04/28/2011) Calcium: 9.3 (04/28/2011) TSH: 0.69 (04/28/2011) T4 (total): 17.4 (04/28/2011) H olter Monitor: The Holter monitor shows the patient has sinus rhythm with the sporadic premature ventricular contractions, unifocal, with intermittent premature atrial contractions. At times it appears to be a premature atrial contractions 2 or 3, and at times it appears to be probably a slow paroxysmal atrial tachycardia. No atrial fibrillation seen. - [facility] (07/31/2012) H olter Monitor Comments: Atrial fibrillation. The average heart rate was 64 BPM with a maximum heart rate of 100 BPM at 05:35:44 and a minimum heart rate of 42 BPM at 18:42:00. Rare PVC's and no APC's were noted. No symptoms were reported by the patient. (12/04/2008) N uclear Stress Findings: No scintigra hic evidence of reversible component. The cardiac ejection fraction is 81%. [facility] (02/16/2011) Gayla Linton MD Follow Up: H er updated medication list for this problem includes: Vytorin 10-40 Mg Tabs (Ezetimibe-simvastatin) ..... One tab. at bedtime BP today: 138/73 Prior BP: 12/63 (03/01/2013) C HOL: 174 (04/28/2011) LDL: 89 (04/28/2011) HDL: 58 (04/28/2011) T (04/28/2011) Gayla Linton MD Follow Up: B P today: 138/73 Prior BP: 12/63 (03/01/2013) Pulmonary Functions Reviewed: O 2 sat: 98 (10/01/2013) Gayla Linton MD Follow Up: H er updated medication list for this problem includes: Synthroid 200 Mcg Tabs (Levothyroxine sodium) ..... One tab. daily Labs Reviewed: T SH: 0.69 (04/28/2011) Total T4: 17.4 (04/28/2011) C hol: 174 (04/28/2011) HDL: 58 (04/28/2011) LDL: 89 (04/28/2011) T (04/28/2011) Gayla Linton MD Follow Up: H er updated medication list for this problem includes: Diovan Hct 160-12.5 Mg Tabs (Valsartan-hydrochlorothiazide) ..... Twice daily Atenolol 50 Mg Tabs (Atenolol) ..... 1/2 (25mg) tablet by mouth daily Flecainide Acetate 50 Mg Tabs (Flecainide acetate) ..... Two tablet twice daily Orders: E KG (CPT-[id number]) BP today: 138/73 Prior BP: /63 (03/01/2013) P T: 11.3 (11/29/2010) INR: 1.1 (11/29/2010) H gb: 12.5 (04/28/2011) HCT: 37.4 (04/28/2011) RBC: 3.97 (04/28/2011) WBC: 7.3 (04/28/2011) B UN: 19.8 (04/28/2011) Creat: 1.34 (04/28/2011) Glucose: 127 (04/28/2011) N a+: 136 (04/28/2011) K+: 3.3 (04/28/2011) Cl: 101 (04/28/2011) Calcium: 9.3 (04/28/2011) TSH: 0.69 (04/28/2011) T4 (total): 17.4 (04/28/2011) H olter Monitor: The Holter monitor shows the patient has sinus rhythm with the sporadic premature ventricular contractions, unifocal, with intermittent premature atrial contractions. At times it appears to be a premature atrial contractions 2 or 3, and at times it appears to be probably a slow paroxysmal atrial tachycardia. No atrial fibrillation seen. - [facility] (07/31/2012) H olter Monitor Comments: Atrial fibrillation. The average heart rate was 64 BPM with a maximum heart rate of 100 BPM at 05:35:44 and a minimum heart rate of 42 BPM at 18:42:00. Rare PVC's and no APC's were noted. No symptoms were reported by the patient. (12/04/2008) N uclear Stress Findings: No scintigra hic evidence of reversible component. The cardiac ejection fraction is 81%. [facility] (02/16/2011) Gayla Linton MD follow up: H er updated medication list for this problem includes: Vytorin 10-40 Mg Tabs (Ezetimibe-simvastatin) ..... One tab. at bedtime BP today: 115/59 Prior BP: 138/76 (03/26/2012) C HOL: 174 (04/28/2011) LDL: 89 (04/28/2011) HDL: 58 (04/28/2011) T (04/28/2011) Gayla Linton MD follow up: H er updated medication list for this problem includes: Atenolol 50 Mg Tabs (Atenolol) ..... 1 tablet by mouth daily BP today: 115/59 Prior BP: 138/76 (03/26/2012) N uclear Stress Findings: No scintigra hic evidence of reversible component. The cardiac ejection fraction is 81%. [facility] (02/16/2011) C HOL: 174 (04/28/2011) LDL: 89 (04/28/2011) HDL: 58 (04/28/2011) T (04/28/2011) H gb: 12.5 (04/28/2011) HCT: 37.4 (04/28/2011) RBC: 3.97 (04/28/2011) WBC: 7.3 (04/28/2011) B UN: 19.8 (04/28/2011) Creat: 1.34 (04/28/2011) Glucose: 127 (04/28/2011) N a+: 136 (04/28/2011) K+: 3.3 (04/28/2011) Cl: 101 (04/28/2011) PT: 11.3 (11/29/2010) INR: 1.1 (11/29/2010) T SH: 0.69 (04/28/2011) T4 (total): 17.4 (04/28/2011) Gayla Linton MD follow up: H er updated medication list for this problem includes: Diovan Hct 160-12.5 Mg Tabs (Valsartan-hydrochlorothiazide) ..... Twice daily Atenolol 50 Mg Tabs (Atenolol) ..... 1 tablet by mouth daily Flecainide Acetate 50 Mg Tabs (Flecainide acetate) ..... Flecainide 200mg x1 , then 50 mg po bid BP today: 115/59 Prior BP: 138/76 (03/26/2012) P T: 11.3 (11/29/2010) INR: 1.1 (11/29/2010) H gb: 12.5 (04/28/2011) HCT: 37.4 (04/28/2011) RBC: 3.97 (04/28/2011) WBC: 7.3 (04/28/2011) B UN: 19.8 (04/28/2011) Creat: 1.34 (04/28/2011) Glucose: 127 (04/28/2011) Na+: 136 (04/28/2011) K+: 3.3 (04/28/2011) Cl: 101 (04/28/2011) Calcium: 9.3 (04/28/2011) TSH: 0.69 (04/28/2011) T4 (total): 17.4 (04/28/2011) H olter Monitor: The Holter monitor shows the patient has sinus rhythm with the sporadic premature ventricular contractions, unifocal, with intermittent premature atrial contractions. At times it appears to be a premature atrial contractions 2 or 3, and at times it appears to be probably a slow paroxysmal atrial tachycardia. No atrial fibrillation seen. - [facility] (07/31/2012) H olter Monitor Comments: Atrial fibrillation. The average heart rate was 64 BPM with a maximum heart rate of 100 BPM at 05:35:44 and a minimum heart rate of 42 BPM at 18:42:00. Rare PVC's and no APC's were noted. No symptoms were reported by the patient. (12/04/2008) N uclear Stress Findings: No scintigra hic evidence of reversible component. The cardiac ejection fraction is 81%. [facility] (02/16/2011) Gayla Linton MD elevated heart rate: H er updated medication list for this problem includes: Vytorin 10-40 Mg Tabs (Ezetimibe-simvastatin) ..... One tab. at bedtime BP today: 138/76 Prior BP: 150/81 (12/19/2011) C HOL: 174 (04/28/2011) LDL: 89 (04/28/2011) HDL: 58 (04/28/2011) T (04/28/2011) Gayla Linton MD elevated heart rate: H er updated medication list for this problem includes: Atenolol 50 Mg Tabs (Atenolol) ..... 1 tablet by mouth daily BP today: 138/76 Prior BP: 150/81 (12/19/2011) N uclear Stress Findings: No scintigra hic evidence of reversible component. The cardiac ejection fraction is 81%. [facility] (02/16/2011) C HOL: 174 (04/28/2011) LDL: 89 (04/28/2011) HDL: 58 (04/28/2011) T (04/28/2011) H gb: 12.5 (04/28/2011) HCT: 37.4 (04/28/2011) RBC: 3.97 (04/28/2011) WBC: 7.3 (04/28/2011) B UN: 19.8 (04/28/2011) Creat: 1.34 (04/28/2011) Glucose: 127 (04/28/2011) N a+: 136 (04/28/2011) K+: 3.3 (04/28/2011) Cl: 101 (04/28/2011) PT: 11.3 (11/29/2010) INR: 1.1 (11/29/2010) T SH: 0.69 (04/28/2011) T4 (total): 17.4 (04/28/2011) Gayla Linton MD elevated heart rate: H er updated medication list for this problem includes: Diovan Hct 160-12.5 Mg Tabs (Valsartan-hydrochlorothiazide) ..... Twice daily Atenolol 50 Mg Tabs (Atenolol) ..... 1 tablet by mouth daily Flecainide Acetate 50 Mg Tabs (Flecainide acetate) ..... Flecainide 200mg x1 , then 50 mg po bid Orders: E KG ([id number]) BP today: 138/76 Prior BP: 150/81 (12/19/2011) P T: 11.3 (11/29/2010) INR: 1.1 (11/29/2010) H gb: 12.5 (04/28/2011) HCT: 37.4 (04/28/2011) RBC: 3.97 (04/28/2011) WBC: 7.3 (04/28/2011) B UN: 19.8 (04/28/2011) Creat: 1.34 (04/28/2011) Glucose: 127 (04/28/2011) N a+: 136 (04/28/2011) K+: 3.3 (04/28/2011) Cl: 101 (04/28/2011) Calcium: 9.3 (04/28/2011) TSH: 0.69 (04/28/2011) T4 (total): 17.4 (04/28/2011) H olter Monitor: Holter monitor shows a basically normal sinus rhythm with sporadic PVC and occasional 1 episode of the ventricular . The patient has intermittent PAC. At times appears to be 5 to 6 beats of slow PAT. Also 2 episodes of reentrant, probably supraventricular tachycardia, probably SVT. Doubt very much about any atrial fibrillation. No high grade ventricular irritability seen. - [facility] (08/24/2011) H olter Monitor Comments: Atrial fibrillation. The average heart rate was 64 BPM with a maximum heart rate of 100 BPM at 05:35:44 and a minimum heart rate of 42 BPM at 18:42:00. R are PVC's and no APC's were noted. No symptoms were reported by the patient. (12/04/2008) N uclear Stress Findings: No scintigra hic evidence of reversible component. The cardiac ejection fraction is 81%. [facility] (02/16/2011) Gayla Linton MD routine Gayla Linton MD routine: H er updated medication list for this problem includes: Synthroid 200 Mcg Tabs (Levothyroxine sodium) ..... One tab. daily Gayla Linton MD routine: H er updated medication list for this problem includes: Atenolol 50 Mg Tabs (Atenolol) ..... 1 tablet by mouth daily Gayla Linton MD routine: H er updated medication list for this problem includes: Diovan Hct 160-12.5 Mg Tabs (Valsartan-hydrochlorothiazide) ..... Twice daily Atenolol 50 Mg Tabs (Atenolol) ..... 1 tablet by mouth daily Flecainide Acetate 50 Mg Tabs (Flecainide acetate) ..... Flecainide 200mg x1 , then 50 mg po bid Gayla Linton MD follow up: H er updated medication list for this problem includes: Diovan Hct 160-12.5 Mg Tabs (Valsartan-hydrochlorothiazide) ..... Twice daily Atenolol 50 Mg Tabs (Atenolol) ..... 1 tablet by mouth daily BP today: 125/67 P rior BP: 149/112 (12/12/2011) Labs Reviewed: C reat: 1.34 (04/28/2011) C hol: 174 (04/28/2011) HDL: 58 (04/28/2011) LDL: 89 (04/28/2011) T (04/28/2011) Gayla Linton MD follow up: H er updated medication list for this problem includes: Synthroid 200 Mcg Tabs (Levothyroxine sodium) ..... One tab. daily Labs Reviewed: T SH: 0.69 (04/28/2011) Total T4: 17.4 (04/28/2011) C hol: 174 (04/28/2011) HDL: 58 (04/28/2011) LDL: 89 (04/28/2011) T (04/28/2011) Gayla Linton MD follow up: H er updated medication list for this problem includes: Atenolol 50 Mg Tabs (Atenolol) ..... 1 tablet by mouth daily BP today: 125/67 Prior BP: 149/112 (12/12/2011) N uclear Stress Findings: No scintigra hic evidence of reversible component. The cardiac ejection fraction is 81%. [facility] (02/16/2011) C HOL: 174 (04/28/2011) LDL: 89 (04/28/2011) HDL: 58 (04/28/2011) T (04/28/2011) H gb: 12.5 (04/28/2011) HCT: 37.4 (04/28/2011) RBC: 3.97 (04/28/2011) WBC: 7.3 (04/28/2011) B UN: 19.8 (04/28/2011) Creat: 1.34 (04/28/2011) Glucose: 127 (04/28/2011) N a+: 136 (04/28/2011) K+: 3.3 (04/28/2011) Cl: 101 (04/28/2011) PT: 11.3 (11/29/2010) INR: 1.1 (11/29/2010) T SH: 0.69 (04/28/2011) T4 (total): 17.4 (04/28/2011) E chocardiogram: M-mode 2-D color flow Doppler shows the patient has normal size left ventricle with slight increase in right ventricle size as well a s left atrial size. The left ventricle wall motion appears to be normal. There is slightly diminished ejection fraction about 56%. A ortic study appears to be normal; there is no gradient. Mitral study shows moderate mitral regurgitation probable posteriorly. T here is a mild tricuspid regurgitation. Pulmonary study is normal. There is no VA or prolapse of mitral valve seen, pericardial effusion or any LV mass seen. Compared to the previous echocardiogram done on 06/27/2002, the patient continues to show a mitral anulus calcification, slightly decreased ejection fraction and has a moderate mitral regurgitation still. - [facility] (03/23/2010) Gayla Linton MD follow up: H er updated medication list for this problem includes: Diovan Hct 160-12.5 Mg Tabs (Valsartan-hydrochlorothiazide) ..... Twice daily Atenolol 50 Mg Tabs (Atenolol) ..... 1 tablet by mouth daily Flecainide Acetate 50 Mg Tabs (Flecainide acetate) ..... Flecainide 200mg x1 , then 50 mg po bid Gayla Linton MD post cardioversion Gayla Linton MD post cardioversion Gayla Linton MD post cardioversion Gayla Linton MD post cardioversion: H er updated medication list for this problem includes: Diovan Hct 160-12.5 Mg Tabs (Valsartan-hydrochlorothiazide) ..... Twice daily Atenolol 50 Mg Tabs (Atenolol) ..... 1 tablet by mouth daily Gayla Linton MD discuss cardioversio n : H er updated medication list for this problem includes: Diovan Hct 160-12.5 Mg Tabs (Valsartan-hydrochlorothiazide) ..... Twice daily Atenolol 50 Mg Tabs (Atenolol) ..... 1 tablet by mouth daily Gayla Linton MD discuss cardioversio n : H er updated medication list for this problem includes: Vytorin 10-40 Mg Tabs (Ezetimibe-simvastatin) ..... One tab. at bedtime BP today: 123/78 Prior BP: 110/58 (03/11/2011) Gayla Linton MD discuss cardioversio n : B P today: 123/78 Prior BP: 110/58 (03/11/2011) Pulmonary Functions Reviewed: O 2 sat: 99 (05/30/2011) Gayla Linton MD discuss cardioversio n : H er updated medication list for this problem includes: Synthroid 200 Mcg Tabs (Levothyroxine sodium) ..... One tab. daily Gayla Linton MD discuss cardioversio n : H er updated medication list for this problem includes: Atenolol 50 Mg Tabs (Atenolol) ..... 1 tablet by mouth daily BP today: 123/78 Prior BP: 110/58 (03/11/2011) N uclear Stress Findings: No scintigra hic evidence of reversible component. The cardiac ejection fraction is 81%. [facility] (02/16/2011) H gb: 13.1 (11/04/2008) HCT: 39.4 (11/04/2008) BUN: 12 (11/04/2008) Creat: 1.21 (11/04/2008) Glucose: 107 (11/04/2008) N a+: 139 (11/04/2008) K+: 3.7 (11/04/2008) Cl: 103 (11/04/2008) PT: 11.3 (11/29/2010) INR: 1.1 (11/29/2010) E chocardiogram: M-mode 2-D color flow Doppler shows the patient has normal size left ventricle with slight increase in right ventricle size as well a s left atrial size. The left ventricle wall motion appears to be normal. There is slightly diminished ejection fraction about 56%. A ortic study appears to be normal; there is no gradient. Mitral study shows moderate mitral regurgitation probable posteriorly. T here is a mild tricuspid regurgitation. Pulmonary study is normal. There is no VA or prolapse of mitral valve seen, pericardial effusion or any LV mass seen. Compared to the previous echocardiogram done on 06/27/2002, the patient continues to show a mitral anulus calcification, slightly decreased ejection fraction and has a moderate mitral regurgitation still. - [facility] (03/23/2010) Gayla Linton MD follow up: H er updated medication list for this problem includes: Diovan Hct 160-12.5 Mg Tabs (Valsartan-hydrochlorothiazide) ..... Twice daily Atenolol 50 Mg Tabs (Atenolol) ..... 1 tablet by mouth daily BP today: 118/66 P rior BP: 154/68 (07/20/2010) Labs Reviewed: C reat: 1.21 (11/04/2008) Gayla Linton MD follow up: H er updated medication list for this problem includes: Vytorin 10-40 Mg Tabs (Ezetimibe-simvastatin) ..... One tab. at bedtime BP today: 118/66 Prior BP: 154/68 (07/20/2010) Gayla Linton MD follow up: H er updated medication list for this problem includes: Synthroid 150 Mcg Tabs (Levothyroxine sodium) ..... One tab. daily Gayla Linton MD follow up: H er updated medication list for this problem includes: Atenolol 50 Mg Tabs (Atenolol) ..... 1 tablet by mouth daily BP today: 118/66 Prior BP: 154/68 (07/20/2010) N uclear Stress Findings: EF - 50%. T he test is negative for ECG criteria. N ormal myocardial perfusion imaging. L ower limits of normal LVSF. (08/31/2004) H gb: 13.1 (11/04/2008) HCT: 39.4 (11/04/2008) BUN: 12 (11/04/2008) Creat: 1.21 (11/04/2008) Glucose: 107 (11/04/2008) N a+: 139 (11/04/2008) K+: 3.7 (11/04/2008) Cl: 103 (11/04/2008) PT: 11.3 (11/29/2010) INR: 1.1 (11/29/2010) E chocardiogram: M-mode 2-D color flow Doppler shows the patient has normal size left ventricle with slight increase in right ventricle size as well a s left atrial size. The left ventricle wall motion appears to be normal. There is slightly diminished ejection fraction about 56%. A ortic study appears to be normal; there is no gradient. Mitral study shows moderate mitral regurgitation probable posteriorly. T here is a mild tricuspid regurgitation. Pulmonary study is normal. There is no VA or prolapse of mitral valve seen, pericardial effusion or any LV mass seen. Compared to the previous echocardiogram done on 06/27/2002, the patient continues to show a mitral anulus calcification, slightly decreased ejection fraction and has a moderate mitral regurgitation still. - [facility] (03/23/2010) Gayla Linton MD follow up: H er updated medication list for this problem includes: Diovan Hct 160-12.5 Mg Tabs (Valsartan-hydrochlorothiazide) ..... Twice daily Atenolol 50 Mg Tabs (Atenolol) ..... 1 tablet by mouth daily Coumadin 5 Mg Tabs (Warfarin sodium) ..... Take one tab daily Coumadin 2 Mg Tabs (Warfarin sodium) ..... Take 1 tab evrey other day with 5mg =7mg to alternate with 6mg Coumadin 1 Mg Tabs (Warfarin sodium) ..... Take one tab every other day=6mg to alternate with 7mg Gayla Linton MD follow up: H er updated medication list for this problem includes: Diovan Hct 160-12.5 Mg Tabs (Valsartan-hydrochlorothiazide) ..... Twice daily Atenolol 50 Mg Tabs (Atenolol) ..... 1 tablet by mouth daily BP today: 154/68 P rior BP: 127/80 (03/15/2010) Labs Reviewed: C reat: 1.21 (11/04/2008) Gayla Linton MD follow up: B P today: 154/68 Prior BP: 127/80 (03/15/2010) Gayla Linton MD follow up: B P today: 154/68 Prior BP: 127/80 (03/15/2010) Pulmonary Functions Reviewed: O 2 sat: 98 (07/20/2010) Gayla Linton MD follow up: H er updated medication list for this problem includes: Synthroid 150 Mcg Tabs (Levothyroxine sodium) ..... One tab. daily Gayla Linton MD follow up: H er updated medication list for this problem includes: Atenolol 50 Mg Tabs (Atenolol) ..... 1 tablet by mouth daily Coumadin 5 Mg Tabs (Warfarin sodium) ..... Take one tab daily Coumadin 2 Mg Tabs (Warfarin sodium) ..... Take 1 tab evrey other day with 5mg =7mg to alternate with 6mg Coumadin 1 Mg Tabs (Warfarin sodium) ..... Take one tab every other day=6mg to alternate with 7mg BP today: 154/68 Prior BP: 127/80 (03/15/2010) N uclear Stress Findings: EF - 50%. T he test is negative for ECG criteria. N ormal myocardial perfusion imaging. L ower limits of normal LVSF. (08/31/2004) H gb: 13.1 (11/04/2008) HCT: 39.4 (11/04/2008) BUN: 12 (11/04/2008) Creat: 1.21 (11/04/2008) Glucose: 107 (11/04/2008) N a+: 139 (11/04/2008) K+: 3.7 (11/04/2008) Cl: 103 (11/04/2008) PT: 17.2 (07/16/2010) INR: 1.7 (07/16/2010) E chocardiogram: M-mode 2-D color flow Doppler shows the patient has normal size left ventricle with slight increase in right ventricle size as well a s left atrial size. The left ventricle wall motion appears to be normal. There is slightly diminished ejection fraction about 56%. A ortic study appears to be normal; there is no gradient. Mitral study shows moderate mitral regurgitation probable posteriorly. T here is a mild tricuspid regurgitation. Pulmonary study is normal. There is no VA or prolapse of mitral valve seen, pericardial effusion or any LV mass seen. Compared to the previous echocardiogram done on 06/27/2002, the patient continues to show a mitral anulus calcification, slightly decreased ejection fraction and has a moderate mitral regurgitation still. - [facility] (03/23/2010) Gayla Linton MD routine: H er updated medication list for this problem includes: Diovan Hct 160-12.5 Mg Tabs (Valsartan-hydrochlorothiazide) ..... Twice daily Amiodarone Hcl 200 Mg Tabs (Amiodarone hcl) ..... 1 tablet by mouth daily Atenolol 50 Mg Tabs (Atenolol) ..... 1 tablet by mouth daily Coumadin 5 Mg Tabs (Warfarin sodium) ..... Take one tab daily Coumadin 1 Mg Tabs (Warfarin sodium) ..... Take with 5mg daily = 6mg Orders: E KG ([id number]) Gayla Linton MD routine: H er updated medication list for this problem includes: Diovan Hct 160-12.5 Mg Tabs (Valsartan-hydrochlorothiazide) ..... Twice daily Atenolol 50 Mg Tabs (Atenolol) ..... 1 tablet by mouth daily Prior BP: 130/79 (04/13/2009) Labs Reviewed: C reat: 1.21 (11/04/2008) Gayla Linton MD routine: H er updated medication list for this problem includes: Crestor 20 Mg Tabs (Rosuvastatin calcium) ..... 1 tablet by mouth daily BP today: / Prior BP: 130/79 (04/13/2009) Gayla Linton MD routine: B P today: / Prior BP: 130/79 (04/13/2009) Pulmonary Functions Reviewed: O 2 sat: 98 (04/13/2009) Gayla Linton MD routine: H er updated medication list for this problem includes: Synthroid 150 Mcg Tabs (Levothyroxine sodium) ..... One tab. daily Gayla Linton MD routine: H er updated medication list for this problem includes: Atenolol 50 Mg Tabs (Atenolol) ..... 1 tablet by mouth daily Coumadin 5 Mg Tabs (Warfarin sodium) ..... Take one tab daily Coumadin 1 Mg Tabs (Warfarin sodium) ..... Take with 5mg daily = 6mg BP today: / Prior BP: 130/79 (04/13/2009) N uclear Stress Findings: EF - 50%. T he test is negative for ECG criteria. N ormal myocardial perfusion imaging. L ower limits of normal LVSF. (08/31/2004) H gb: 13.1 (11/04/2008) HCT: 39.4 (11/04/2008) BUN: 12 (11/04/2008) Creat: 1.21 (11/04/2008) Glucose: 107 (11/04/2008) N a+: 139 (11/04/2008) K+: 3.7 (11/04/2008) Cl: 103 (11/04/2008) PT: 30.3 (03/05/2010) INR: 3.0 (03/05/2010) E chocardiogram: Technical difficult study.The left ventricular chamber size is normal. Wall thickness is increased c onsistent with mild concentric left ventricular hypertrophy. Normal left ventricular function. LV EF is estimated at 6 0% There is E: A reversal of mitral inflow velocities consistent with diastolic dysfunction. T he right ventricle is normal in size and function. M ild left atrial enlargement.Normal right atrium. T he Mitral Valve is structurally normal and appears to open and close adequately. T he aortic valve appears structurally normal. T he tricuspid valve is structurally normal. The right ventricular systolic pressure (RSVP) is estimated to be less than 3 0 mmHg and is within normal limits. N ormal pulmonic valve. N ormal pericardium with no significant pericardial effusion. No pleural effusion noted. N ormal aortic root. M inimal mitral regurgitation. N o evidence of aortic valve regurgitation. M inimal tricuspid regurgitation. M inimal pulmonic regurgitation. [facility] (05/28/2008) Gayla Linton MD routine: T he following medications were removed from the medication list: Aspirin 81 Mg Tabs (Aspirin) ..... One tab. daily Her updated medication list for this problem includes: Atenolol 50 Mg Tabs (Atenolol) ..... 1 tablet by mouth daily Coumadin Tabs (Warfarin sodium tabs) ..... 10mg to alternate with 7.5mg Coumadin Tabs (Warfarin sodium tabs) ..... 7.5mg to alternate with 10mg BP today: 130/79 Prior BP: 116/73 (01/05/2009) N uclear Stress Findings: EF - 50%. T he test is negative for ECG criteria. N ormal myocardial perfusion imaging. L ower limits of normal LVSF. (08/31/2004) H gb: 13.1 (11/04/2008) HCT: 39.4 (11/04/2008) BUN: 12 (11/04/2008) Creat: 1.21 (11/04/2008) Glucose: 107 (11/04/2008) N a+: 139 (11/04/2008) K+: 3.7 (11/04/2008) Cl: 103 (11/04/2008) PT: 12.7 (04/13/2009) INR: 1.3 (04/13/2009) E chocardiogram: Technical difficult study.The left ventricular chamber size is normal. Wall thickness is increased c onsistent with mild concentric left ventricular hypertrophy. Normal left ventricular function. LV EF is estimated at 6 0% There is E: A reversal of mitral inflow velocities consistent with diastolic dysfunction. T he right ventricle is normal in size and function. M ild left atrial enlargement.Normal right atrium. T he Mitral Valve is structurally normal and appears to open and close adequately. T he aortic valve appears structurally normal. T he tricuspid valve is structurally normal. The right ventricular systolic pressure (RSVP) is estimated to be less than 3 0 mmHg and is within normal limits. N ormal pulmonic valve. N ormal pericardium with no significant pericardial effusion. No pleural effusion noted. N ormal aortic root. M inimal mitral regurgitation. N o evidence of aortic valve regurgitation. M inimal tricuspid regurgitation. M inimal pulmonic regurgitation. [facility] (05/28/2008) Orders: Larry KG ([id number]) Gayla Linton MD routine: H er updated medication list for this problem includes: Crestor 20 Mg Tabs (Rosuvastatin calcium) ..... 1 tablet by mouth daily BP today: 116/73 Prior BP: 118/65 (12/05/2008) Gayla Linton MD routine: T he following medications were removed from the medication list: Coumadin Tabs (Warfarin sodium tabs) ..... 2mg daily add to 5mg = 7mg to take everyother day Coumadin Tabs (Warfarin sodium tabs) ..... 1mg to add with 5mg = 6m take everyother day Her updated medication list for this problem includes: Diovan Hct 160-12.5 Mg Tabs (Valsartan-hydrochlorothiazide) ..... Twice daily Amiodarone Hcl 200 Mg Tabs (Amiodarone hcl) ..... 1 tablet by mouth daily Aspirin 81 Mg Tabs (Aspirin) ..... One tab. daily Atenolol 50 Mg Tabs (Atenolol) ..... 1 tablet by mouth daily Coumadin Tabs (Warfarin sodium tabs) ..... 5mg take with 2.5mg=7.5mg daily Coumadin Tabs (Warfarin sodium tabs) ..... 2.5mg take with 5mg = 7.5mg daily Gayla Linton MD routine: H er updated medication list for this problem includes: Diovan Hct 160-12.5 Mg Tabs (Valsartan-hydrochlorothiazide) ..... Twice daily Aspirin 81 Mg Tabs (Aspirin) ..... One tab. daily Atenolol 50 Mg Tabs (Atenolol) ..... 1 tablet by mouth daily BP today: 116/73 P rior BP: 118/65 (12/05/2008) Labs Reviewed: C reat: 1.21 (11/04/2008) Gayla Linton MD routine: B P today: 116/73 Prior BP: 118/65 (12/05/2008) Pulmonary Functions Reviewed: O 2 sat: 98 (01/05/2009) Gayla Linton MD routine: H er updated medication list for this problem includes: Synthroid 125 Mcg Tabs (Levothyroxine sodium) ..... 2 tablet by mouth daily Gayla Linton MD routine: H er updated medication list for this problem includes: Coumadin Tabs (Warfarin sodium tabs) ..... 2mg daily add to 5mg = 7mg to take everyother day Coumadin Tabs (Warfarin sodium tabs) ..... 1mg to add with 5mg = 6m take everyother day Aspirin 81 Mg Tabs (Aspirin) ..... One tab. daily Atenolol 50 Mg Tabs (Atenolol) ..... 1 tablet by mouth daily BP today: 116/73 Prior BP: 118/65 (12/05/2008) N uclear Stress Findings: EF - 50%. T he test is negative for ECG criteria. N ormal myocardial perfusion imaging. L ower limits of normal LVSF. & #13; (08/31/2004) H gb: 13.1 (11/04/2008) HCT: 39.4 (11/04/2008) BUN: 12 (11/04/2008) Creat: 1.21 (11/04/2008) Glucose: 107 (11/04/2008) N a+: 139 (11/04/2008) K+: 3.7 (11/04/2008) Cl: 103 (11/04/2008) PT: 16.5 (12/30/2008) INR: 1.7 (12/30/2008) E chocardiogram: Technical difficult study.The left ventricular chamber size is normal. Wall thickness is increased c onsistent with mild concentric left ventricular hypertrophy. Normal left ventricular function. LV EF is estimated at 6 0% There is E: A reversal of mitral inflow velocities consistent with diastolic dysfunction. T he right ventricle is normal in size and function. M ild left atrial enlargement.Normal right atrium. T he Mitral Valve is structurally normal and appears to open and close adequately. T he aortic valve appears structurally normal. T he tricuspid valve is structurally normal. The right ventricular systolic pressure (RSVP) is estimated to be less than 3 0 mmHg and is within normal limits. Normal pulmonic valve. N ormal pericardium with no significant pericardial effusion. No pleural effusion noted. N ormal aortic root. M inimal mitral regurgitation. N o evidence of aortic valve regurgitation. M inimal tricuspid regurgitation. M inimal pulmonic regurgitation. [facility] (05/28/2008) Gayla Linton MD Arm and upper back p ain: T he following medications were removed from the medication list: Levoxyl 75 Mcg Tabs (Levothyroxine sodium) ..... Once daily Her updated medication list for this problem includes: Synthroid 125 Mcg Tabs (Levothyroxine sodium) ..... 2 tablet by mouth daily Matty Sears MD Arm and upper back p ain: H er updated medication list for this problem includes: Diovan Hct 160-12.5 Mg Tabs (Valsartan-hydrochlorothiazide) ..... Twice daily Aspirin 81 Mg Tabs (Aspirin) ..... One tab. daily Atenolol 50 Mg Tabs (Atenolol) ..... 1 tablet by mouth daily Matty Sears MD Arm and upper back p ain: H er updated medication list for this problem includes: Crestor 20 Mg Tabs (Rosuvastatin calcium) ..... 1 tablet by mouth daily Matty Sears MD Arm and upper back p ain: H er updated medication list for this problem includes: Coumadin Tabs (Warfarin sodium tabs) ..... 2mg daily add to 5mg = 7mg to take everyother day Coumadin Tabs (Warfarin sodium tabs) ..... 1mg to add with 5mg = 6m take everyother day Aspirin 81 Mg Tabs (Aspirin) ..... One tab. daily Atenolol 50 Mg Tabs (Atenolol) ..... 1 tablet by mouth daily s he had chest pain which although suspicious has not recurred and and if she has any furthur episode needs to contact us right away. Matty Sears MD routine office visit -needs HPI, then letter. rest done: H er updated medication list for this problem includes: Levoxyl 200 Mcg Tabs (Levothyroxine sodium) ..... Once daily Levoxyl 75 Mcg Tabs (Levothyroxine sodium) ..... Once daily Gayla Linton MD routine office visit -needs HPI, then letter. rest done: B P today: 141/77 Prior BP: 151/67 (05/26/2008) Pulmonary Functions Reviewed: O 2 sat: 97 (11/07/2008) Gayla Linton MD routine office visit -needs HPI, then letter. rest done: H er updated medication list for this problem includes: Crestor 20 Mg Tabs (Rosuvastatin calcium) ..... One tab. daily BP today: 141/77 Prior BP: 151/67 (05/26/2008) Gayla Linton MD routine office visit -needs HPI, then letter. rest done: H er updated medication list for this problem includes: Diovan Hct 160-12.5 Mg Tabs (Valsartan-hydrochlorothiazide) ..... Twice daily Aspirin 81 Mg Tabs (Aspirin) ..... One tab. daily Atenolol 50 Mg Tabs (Atenolol) ..... Take 1 tablet twice daily BP today: 141/77 P rior BP: 151/67 (05/26/2008) Labs Reviewed: C reat: 1.21 (11/04/2008) Gayla Linton MD routine office visit -needs HPI, then letter. rest done: H er updated medication list for this problem includes: Coumadin 7.5 Mg Tabs (Warfarin sodium) ..... 1 tablet by mouth daily Aspirin 81 Mg Tabs (Aspirin) ..... One tab. daily Atenolol 50 Mg Tabs (Atenolol) ..... Take 1 tablet twice daily BP today: 141/77 Prior BP: 151/67 (05/26/2008) N uclear Stress Findings: EF - 50%. T he test is negative for ECG criteria. N ormal myocardial perfusion imaging. L ower limits of normal LVSF. (08/31/2004) H gb: 13.1 (11/04/2008) HCT: 39.4 (11/04/2008) BUN: 12 (11/04/2008) Creat: 1.21 (11/04/2008) Glucose: 107 (11/04/2008) N a+: 139 (11/04/2008) K+: 3.7 (11/04/2008) Cl: 103 (11/04/2008) PT: 31.2 (11/07/2008) INR: 3.1 (11/07/2008) E chocardiogram: Technical difficult study.The left ventricular chamber size is normal. Wall thickness is increased c onsistent with mild concentric left ventricular hypertrophy. Normal left ventricular function. LV EF is estimated at 6 0% There is E: A reversal of mitral inflow velocities consistent with diastolic dysfunction. T he right ventricle is normal in size and function. M ild left atrial enlargement.Normal right atrium. T he Mitral Valve is structurally normal and appears to open and close adequately. T he aortic valve appears structurally normal. T he tricuspid valve is structurally normal. The right ventricular systolic pressure (RSVP) is estimated to be less than 3 0 mmHg and is within normal limits. N ormal pulmonic valve. N ormal pericardium with no significant pericardial effusion. No pleural effusion noted. N ormal aortic root. M inimal mitral regurgitation. N o evidence of aortic valve regurgitation. M inimal tricuspid regurgitation. M inimal pulmonic regurgitation. [facility] (05/28/2008) Gayla Linton MD routine office visit -needs HPI, then letter. rest done: H er updated medication list for this problem includes: Coumadin 7.5 Mg Tabs (Warfarin sodium) ..... 1 tablet by mouth daily Diovan Hct 160-12.5 Mg Tabs (Valsartan-hydrochlorothiazide) ..... Twice daily Amiodarone Hcl 200 Mg Tabs (Amiodarone hcl) ..... Half tab. daily Aspirin 81 Mg Tabs (Aspirin) ..... One tab. daily Atenolol 50 Mg Tabs (Atenolol) ..... Take 1 tablet twice daily Mey Manjarrez RN routine office visit -needs HPI, then letter. rest done: H er updated medication list for this problem includes: Levoxyl 200 Mcg Tabs (Levothyroxine sodium) ..... Once daily Levoxyl 75 Mcg Tabs (Levothyroxine sodium) ..... Once daily Mey Manjarrez RN routine office visit -needs HPI, then letter. rest done: B P today: 141/77 Prior BP: 151/67 (05/26/2008) Pulmonary Functions Reviewed: O 2 sat: 97 (11/07/2008) Mey Manjarrez RN routine office visit -needs HPI, then letter. rest done: H er updated medication list for this problem includes: Crestor 20 Mg Tabs (Rosuvastatin calcium) ..... One tab. daily BP today: 141/77 Prior BP: 151/67 (05/26/2008) Mey Manjarrez RN routine office visit -needs HPI, then letter. rest done: H er updated medication list for this problem includes: Diovan Hct 160-12.5 Mg Tabs (Valsartan-hydrochlorothiazide) ..... Twice daily Aspirin 81 Mg Tabs (Aspirin) ..... One tab. daily Atenolol 50 Mg Tabs (Atenolol) ..... Take 1 tablet twice daily BP today: 141/77 P rior BP: 151/67 (05/26/2008) Labs Reviewed: C reat: 1.21 (11/04/2008) Mey Manjarrez RN routine office visit -needs HPI, then letter. rest done: H er updated medication list for this problem includes: Coumadin 7.5 Mg Tabs (Warfarin sodium) ..... 1 tablet by mouth daily Aspirin 81 Mg Tabs (Aspirin) ..... One tab. daily Atenolol 50 Mg Tabs (Atenolol) ..... Take 1 tablet twice daily BP today: 141/77 Prior BP: 151/67 (05/26/2008) N uclear Stress Findings: EF - 50%. T he test is negative for ECG criteria. N ormal myocardial perfusion imaging. L ower limits of normal LVSF. (08/31/2004) H gb: 13.1 (11/04/2008) HCT: 39.4 (11/04/2008) BUN: 12 (11/04/2008) Creat: 1.21 (11/04/2008) Glucose: 107 (11/04/2008) N a+: 139 (11/04/2008) K+: 3.7 (11/04/2008) Cl: 103 (11/04/2008) PT: 31.2 (11/07/2008) INR: 3.1 (11/07/2008) E chocardiogram: Technical difficult study.The left ventricular chamber size is normal. Wall thickness is increased c onsistent with mild concentric left ventricular hypertrophy. Normal left ventricular function. LV EF is estimated at 6 0% There is E: A reversal of mitral inflow velocities consistent with diastolic dysfunction. T he right ventricle is normal in size and function. M ild left atrial enlargement.Normal right atrium. T he Mitral Valve is structurally normal and appears to open and close adequately. T he aortic valve appears structurally normal. T he tricuspid valve is structurally normal. The right ventricular systolic pressure (RSVP) is estimated to be less than 3 0 mmHg and is within normal limits. N ormal pulmonic valve. N ormal pericardium with no significant pericardial effusion. No pleural effusion noted. N ormal aortic root. M inimal mitral regurgitation. N o evidence of aortic valve regurgitation. M inimal tricuspid regurgitation. M inimal pulmonic regurgitation. [facility] (05/28/2008) Mey Manjarrez RN office visit: H er updated medication list for this problem includes: Crestor 20 Mg Tabs (Rosuvastatin calcium) ..... One tab. daily BP today: 151/67 Prior BP: 136/75 (01/29/2008) Gayla Linton MD office visit: H er updated medication list for this problem includes: Diovan Hct 160-12.5 Mg Tabs (Valsartan-hydrochlorothiazide) ..... Twice daily Amiodarone Hcl 200 Mg Tabs (Amiodarone hcl) ..... Half tab. daily Aspirin 81 Mg Tabs (Aspirin) ..... One tab. daily Atenolol 50 Mg Tabs (Atenolol) ..... Take 1 tablet twice daily BP today: 151/67 Prior BP: 136/75 (01/29/2008) H olter Monitor Comments: Sinus rhythm with sinus bradycardia 46-88bpm. R are isolated VE beats with 1 pair and no runs. R are isolated SVE betas with no pairs or runs. (10/20/2005) N uclear Stress Findings: EF - 50%. T he test is negative for ECG criteria. N ormal myocardial perfusion imaging. L ower limits of normal LVSF. (08/31/2004) E chocardiogram: EF - 60%. T echnically difficult study. L VH. D iastolic dysfunction. M ild to moderate left atrial enlargement. T race mitral regurgitation. T race tricuspid regurgitation. (04/04/2007) Gayla Linton MD office visit: H er updated medication list for this problem includes: Diovan Hct 160-12.5 Mg Tabs (Valsartan-hydrochlorothiazide) ..... Twice daily Aspirin 81 Mg Tabs (Aspirin) ..... One tab. daily Atenolol 50 Mg Tabs (Atenolol) ..... Take 1 tablet twice daily BP today: 151/67 P rior BP: 136/75 (01/29/2008) Gayla Linton MD office visit: B P today: 151/67 Prior BP: 136/75 (01/29/2008) Pulmonary Functions Reviewed: O 2 sat: 97 (05/26/2008) Gayla Linton MD office visit: H er updated medication list for this problem includes: Aspirin 81 Mg Tabs (Aspirin) ..... One tab. daily Atenolol 50 Mg Tabs (Atenolol) ..... Take 1 tablet twice daily BP today: 151/67 Prior BP: 136/75 (01/29/2008) N uclear Stress Findings: EF - 50%. T he test is negative for ECG criteria. N ormal myocardial perfusion imaging. L ower limits of normal LVSF. (08/31/2004) E chocardiogram: EF - 60%. T echnically difficult study. L VH. D iastolic dysfunction. M ild to moderate left atrial enlargement. T race mitral regurgitation. T race tricuspid regurgitation. (04/04/2007) Gayla Linton MD blood work: H er updated medication list for this problem includes: Aspirin 81 Mg Tabs (Aspirin) ..... One tab. daily Atenolol Tabs (Atenolol tabs) ..... 50 mg once a day BP today: 136/75 Prior BP: / () N uclear Stress Findings: EF - 50%. T he test is negative for ECG criteria. N ormal myocardial perfusion imaging. L ower limits of normal LVSF. (08/31/2004) E chocardiogram: EF - 60%. T echnically difficult study. L VH. D iastolic dysfunction. M ild to moderate left atrial enlargement. T race mitral regurgitation. T race tricuspid regurgitation. (04/04/2007) Gayla Linton MD blood work: H er updated medication list for this problem includes: Diovan Hct 160-12.5 Mg Tabs (Valsartan-hydrochlorothiazide) ..... Twice daily Amiodarone Hcl 200 Mg Tabs (Amiodarone hcl) ..... Half tab. daily Aspirin 81 Mg Tabs (Aspirin) ..... One tab. daily Atenolol Tabs (Atenolol tabs) ..... 50 mg once a day BP today: 136/75 Prior BP: / () H olter Monitor Comments: Sinus rhythm with sinus bradycardia 46-88bpm. R are isolated VE beats with 1 pair and no runs. R are isolated SVE betas with no pairs or runs. (10/20/2005) N uclear Stress Findings: EF - 50%. T he test is negative for ECG criteria. N ormal myocardial perfusion imaging. L ower limits of normal LVSF. (08/31/2004) E chocardiogram: EF - 60%. T echnically difficult study. L VH. D iastolic dysfunction. M ild to moderate left atrial enlargement. T race mitral regurgitation. T race tricuspid regurgitation. (04/04/2007) Gayla Linton MD blood work: H er updated medication list for this problem includes: Diovan Hct 160-12.5 Mg Tabs (Valsartan-hydrochlorothiazide) ..... Twice daily Aspirin 81 Mg Tabs (Aspirin) ..... One tab. daily Atenolol Tabs (Atenolol tabs) ..... 50 mg once a day BP today: 136/75 Gayla Linton MD blood work: H er updated medication list for this problem includes: Levoxyl 300 Mcg Tabs (Levothyroxine sodium) ..... Once daily Gayla Linton MD blood work: B P today: 136/75 Prior BP: / () Pulmonary Functions Reviewed: O 2 sat: 99 (01/29/2008) Gayla Linton MD Date Name Complete Echo Stress Regadenoson Holter Monitor 48 hr Stress Regadenoson Sleep Study Home Mobile Cardiac Tele Cardioversion - SLHV DLCO - 80293 FRC - 12594 FVC - 88807 STR - Adenosine Complete Echo TSH, 3RD GENERATION W/REFLEX TO FT4 HEMOGLOBIN A1c CBC (INCLUDES DIFF/P LT) COMPREHENSIVE METABO LIC PANEL, W/EGFR LIPID PANEL CT, Coronary Calcium Score MAGNESIUM CBC (INCLUDES DIFF/P LT) COMPREHENSIVE METABO LIC PANEL W/EGFR Mobile Cardiac Tele Spirometry Cardioversion - GC Complete Echo HISTORY OF PROCEDURES Procedure Date Procedure Name Provider Procedure Notes S tatus EKG Gayla Linton MD completed Regadenoson, 4 units Gayla Linton MD completed Cardiolite, 2 units Gayla Linton MD completed SPECT Images Gayla Linton MD complet ed Stress EKG Gayla Linton MD completed EKG Gayla Linton MD completed Holter, 24 or 48 Gayla Linton MD com pleted Regadenoson, 4 units Gayla Linton MD completed Cardiolite, 2 units Gayla Linton MD completed SPECT Images Gayla Linton MD complet ed Stress EKG Gayla Linton MD completed Schedule Followup Brian westbrook MD in 1 yr completed EKG Brian montoya MD completed Mobile Cardiac Telemetry - Tech Gayla Linton MD completed Mobile Cardiac Telemetry - Prof Gayla Linton MD completed EKG Brian montoya MD completed FVC / MVV with bronchodilator - 83157 Brian Shafer MD completed FRC - 50743 Brian montoya MD completed SpO2 w/o 6min walk/titration Brian Shafer MD completed DLCO - 68350 Brian montoya MD completed EKG Gayla Linton MD completed Regadenoson, 4 units Gayla Linton MD completed Cardiolite, 2 units Gayla Linton MD completed SPECT Images Bree Walden MD completed Stress EKG Gayla Linton MD completed Schedule Followup Brian westbrook MD after cardioversion completed EKG Gayla Linton MD completed EKG Gayla Linton MD completed SNOMED-CT: 009124288967419 Current Medications Documented Gayla Linton MD completed SNOMED-CT: 21971077 Physical Exam, Performed: Pulse Exam of Foot Gayla Linton MD completed EKG Gayla Linton MD completed SNOMED-CT: 792012914395392 Current Medications Documented Gayla Linton MD completed SNOMED-CT: 73875109 Physical Exam, Performed: Pulse Exam of Foot Gayla Linton MD completed SNOMED-CT: 566644329956281 Current Medications Documented Gayla Linton MD completed SNOMED-CT: 14541305 Physical Exam, Performed: Pulse Exam of Foot Gayla Linton MD completed SNOMED-CT: 226246325362854 Current Medications Documented Gayla Linton MD completed CT- Coronary CA score Gayla Linton MD completed SNOMED-CT: 75234587 Physical Exam, Performed: Pulse Exam of Foot Gayla Linton MD completed SNOMED-CT: 631442427992549 Current Medications Documented Gayla Linton MD completed SNOMED-CT: 55606367 Physical Exam, Performed: Pulse Exam of Foot Gayla Linton MD completed SNOMED-CT: 531880314688752 Current Medications Documented Gayla Linton MD completed ZIO Savitater Hookup Gayla Linton MD co mpleted SNOMED-CT: 29846339 Physical Exam, Performed: Pulse Exam of Foot Gayla Linton MD completed SNOMED-CT: 028994873248954 Current Medications Documented Gayla Linton MD completed Stress EKG Valente Michel MD complete d Regadenoson, 4 units Gayla Linton MD completed Cardiolite, 2 units Gayla Linton MD completed SPECT Images Gayla Linton MD complet ed SNOMED-CT: 70032094 Physical Exam, Performed: Pulse Exam of Foot Gayla Linton MD completed SNOMED-CT: 705398154074080 Current Medications Documented aGyla Linton MD completed SNOMED-CT: 94357328 Physical Exam, Performed: Pulse Exam of Foot Gayla Linton MD completed ZIO Holter Hookup Gayla Linton MD co mpleted SNOMED-CT: 036562060860910 Current Medications Documented Gayla Linton MD completed EKG Gayla Linton MD completed EKG Gayla Linton MD completed SNOMED-CT: 58690225 Physical Exam, Performed: Pulse Exam of Foot Gayla Linton MD completed SNOMED-CT: 903352921464826 Current Medications Documented Gayla Linton MD completed SNOMED-CT: 60647546 Physical Exam, Performed: Pulse Exam of Foot Gayla Linton MD completed SNOMED-CT: 972658485828985 Current Medications Documented Gayla Linton MD completed SNOMED-CT: 42841128 Physical Exam, Performed: Pulse Exam of Foot Gayla Linton MD completed SNOMED-CT: 802950808861545 Current Medications Documented Gayla Linton MD completed Holter, 24 or 48 Gayla Linton MD com pleted EKG Gayla Linton MD completed SNOMED-CT: 21462141 Physical Exam, Performed: Pulse Exam of Foot Gayla Linton MD completed SNOMED-CT: 677078799964441 Current Medications Documented Gayla Linton MD completed Schedule Followup Brian westbrook MD 1 year completed SNOMED-CT: 43700573 Physical Exam, Performed: Pulse Exam of Foot Brian Shafer MD completed SNOMED-CT: 736193501 Smoking Cessation Counseling Brian Shafer MD completed EKG Brian montoya MD completed SNOMED-CT: 378775345307717 Current Medications Documented Brian Shafer MD completed EKG Gayla Linton MD completed Event Monitor Skyler Young completed EKG Gayla Linton MD completed Schedule Followup Brian westbrook MD Please schedule a follow-up appointment with me in 6 months. Florencio carter schedule a follow-up appointment with Dr. Linton in 12 months. completed EKG Brian montoya MD completed EKG Brian montoya MD completed EKG Gayla Linton MD completed EKG Lalit Forrest MD completed EKG Gayla Linton MD completed Schedule Followup Brian westbrook MD completed EKG Brian montoya MD completed EKG Gayla Linton MD completed EKG Gayla Linton MD completed EKG Gayla Linton MD completed
--- OUTSIDE RECORDS SUMMARY | 2024-08-30 07:36 | XMS_ITS | Encounter Summary ---
Author Organization [facility] Address [address] [place] [address] Care Team Providers Care Production Editor Name Role Phone Unavailable Primary Care Provider Unavailabl e Encounter Details Date Type Department Care Team (Late st Contact Info) Description 02/27/2020 Lab Requisition [facility] [address] [place] [id number] Richie Chaidez MD [address] [address] Social History Tobacco Use Types [...] AM CDT) Case Report Dermatopathology Report Case: [id number] Authorizing Provider: Richie Chaidez MD Collected: 02/26/2020 12:00 AM Ordering Location: [facility] Received: 02/27/2020 11:21 AM Pathologist: [...] of a shave biopsy (2 pieces) measuring [id number] and [id number]. Jar 0. 0 3:37 PM CDT DERMATOPATHOLOGY [...] characteristic determined by the Dermatopathology Laboratory at [facility], directed by Dr. Bebeto Nance. These tests need not be, and therefore are not, approved by the [place] Food and Drug Administration. The tests are used for clinical purposes. Billing Codes Specimen Charges Stain Charges 17480 1 0 3:37 PM CDT DERMATOPATHOLOGY LABORATORY Embedded Images 0 3:37 PM CDT DERMATOPATHOLOGY LABORATORY Pathology/Cytolog y TISSUE SPECIMEN FROM SKIN / Unknown 02/26/2020 02/27/2020 11:21 AM CDT Richie Chaidez MD LAB - PATHOLOGY/CYTO LOGY ORDERABLES DERMATOPATHOLOGY LABORATORY [facility] - Department of Dermatology [address], [address] [phone] documented in this encounter Visit Diagnoses Not on filedocumented in this encounter
--- OUTSIDE RECORDS SUMMARY | 2024-08-30 07:37 | XMS_ITS | Referral Summary ---
Author Organization [facility] Address [address] [place] [address] Care Team Providers Care County Sheriff Name Role Phone Lopez George MD Primary Care Provider [phone] Emmanuel Maher MD Unavailable [phone] Encounters Date Type Department Care Team Description 07/25/2024 Orders Only [facility] Medical [facility] Cardiology [address] [place] [address] Nahomi Lundberg MD 07/25/2024 8:00 AM RADIAL DRILL PRESS OPERATOR Office Visit [facility] Medical [facility] Cardiology [address] [place] [address] Eder Chatterjee MD Permanent atrial fibrillation (HCC) (Primary Dx); Mixed hyperlipidemia; Essential (primary) hypertension; Chronic anticoagulation; Coronary artery disease involving [place] coronary artery of [place] heart without angina pectoris from Last 3 Months Allergies Active Allergy Reactions Criticality Noted Date Comments Meperidine Nausea only Low Medications LORazepam (ATIVAN) 1 mg tablet take 1 tablet by oral route 2 times every day as needed 0 0 06/27/19 17 Active Eliquis 5 mg tablet TK 1 T PO BID 11/29/19 20 Active folic acid (FOLVITE) 1 mg tablet TK 1 T PO QD 11/09/19 20 Active magnesium oxide (MAG-OX) 400 mg (241.3 mg elemental magnesium) tablet TK 1 T PO BID 01/17/20 20 Active rosuvastatin (CRESTOR) 40 mg tablet Take 1 tablet (40 mg total) by mouth daily Active coenzyme Q10 100 mg capsule Take 1 capsule (100 mg total) by mouth daily Active predniSONE (DELTASONE) 5 mg tablet Take 2 tablets (10 mg) by mouth daily Alternating between 5 and 7.5 to taper off 05/03/20 22 Active levothyroxine (SYNTHROID) 150 mcg tablet Take 1 tablet (150 mcg total) by mouth daily 05/25/19 23 Active ketamine HCl (ketamine, bulk,) 100 % powder 2 04/25/20 22 Active gabapentin (NEURONTIN) 300 mg capsule Take 1 capsule (300 mg total) by mouth 3 (three) times a day 05/26/19 23 Active famotidine (PEPCID) 20 mg tablet Take [...] TIMES DAILY NEEDED FOR NAUSEA OR VOMITING 08/23/19 23 Active hydroCHLOROthiaz gala 12.5 mg tablet TAKE 1 TABLET(12.5 MG) BY MOUTH DAILY 90 tablet 05/28/19 25 Active metoprolol tartrate (LOPRESSOR) 50 mg immediate release tabletIndication s:Persistent atrial fibrillation (HCC) Take 1 tablet (50 mg total) by mouth 2 (two) times a day 180 tablet 3 08/20/19 25 026 Active metoprolol tartrate (LOPRESSOR) 50 mg immediate release tabletIndication s:Persistent atrial fibrillation (HCC) Take 1 tablet (50 mg total) by mouth 2 (two) times a day 60 tablet 11 07/12/19 24 025 Discontin ued(Reord er) Active Problems Problem Noted Date Diagnosed Date Chronic anticoagulation 08/31/2022 Coronary artery disease invo lving ty[place] coronary artery of [place] heart without angina pectoris 08/31/2022 Bradycardia 08/31/2022 [...] abnormal 10/05/2013 Overview (08/25/2016): ABNORMAL GLUCOSE NEC Permanent atrial fibrillation 05/22/1959 Assessment & Plan (01/30/2024 [...] Hyperlipidemia 05/22/1959 Essential (primary) hypertension 05/22/1959 Immunizations Immunization Administration Dates Next Due Influenza, Trivalent, Preser vative Free, Intramuscular 02/19/2018 Influenza, Unspecified 03/15/2017,03/15/2016, Moderna SARS-CoV-2 Monovalen t Vaccination (12+ YRS) 07/28/2020,06/25/2020 Social History Tobacco Use Types Packs/Day Years Used Date Smoking Tobacco: Former Cigarettes 0.1 1 1 967 - 1967 Smokeless Tobacco: Never Tobacco Cessation:Counseling Given: Not Answered Alcohol Use Standard Drinks/Week Comments Not Currently 0 (1 standard drink = 0.6 oz pur e alcohol) Comments Unknown Sex and Gender Information Value Date Recorded Sex Assigned at Not on file Legal Sex Female 12:48 AM RADIAL DRILL PRESS OPERATOR Gender Identity Not on file Sexual Orientation Not on file 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 Last Filed Vital Signs Vital Sign Reading Time Taken Comments Blood Pressure 100/70 07/25/2024 7:49 AM RADIAL DRILL PRESS OPERATOR Pulse 54 07/25/2024 7:49 AM RADIAL DRILL PRESS OPERATOR Temperature 36.6 C (97.9 F) 11/20/2020 8:41 AM CDT Respiratory Rate 24 05/11/2022 10:5 6 AM RADIAL DRILL PRESS OPERATOR Oxygen Saturation 99% 07/25/2024 7:49 AM RADIAL DRILL PRESS OPERATOR Inhaled Oxygen Concentration - - Weight 100.4 kg (221 lb 6.4 oz) 07/25/2024 7:49 AM RADIAL DRILL PRESS OPERATOR Height 157.5 cm (5' 2 ) 07/25/2024 7:49 AM RADIAL DRILL PRESS OPERATOR Body Mass Index 40.49 07/25/2024 7:49 AM RADIAL DRILL PRESS OPERATOR Plan of Treatment Not on file Procedures Procedure Name Priority Date/Time Associated Diagnosis Comments DEXA TBS AXIAL SKELETON BONE DENSITY 1 OR MORE SITES Schedule Routine, Read Routine (OP Routine) 07/27/2022 8:45 AM RADIAL DRILL PRESS OPERATOR Osteoporosis without current pathological fracture, unspecified osteoporosis type from Last 3 Months or Most Recently Relevant to Health Maintenance Results * Dexa TBS Axial Skeleton Bone Density 1 or more sites (07/27/2022 8:45 AM RADIAL DRILL PRESS OPERATOR) Anatomical Region Laterality Modality Wrist, Body N/A Radiographic Kristel ging Narrative 07/29/2022 8:43 AM RADIAL DRILL PRESS OPERATOR Patient Name: Eileen Maza Date of : 1950 Date of scan: 07/27/2022 Bone mineral density was performed on a [employer] Discovery Densitometer. Based on machine cross-calibration and [...] by the International Society of Clinical Densitometry. [id number] Rhiannon Gamble MD IMG DXA PROCEDURES Final Resu lt from Last 3 Months or Most Recently Relevant to Health Maintenance Insurance T MEDICARE [facility] MEDICARE T MEDICARE Care Teams County Sheriff Relationship Specialty Start Date End Date Lopez George MD [address] [place], [place] [id number] PCP - General Internal Medicine 11/13/17 Emmanuel Maher MD [address] [place], [place] [id number] Consulting Physician Medical Oncology 12/14/21
--- OUTSIDE RECORDS SUMMARY | 2024-08-30 07:37 | XMS_ITS | Clinical Summary ---
Author Organization [facility] Address [address] [place] [address] Care Team Providers Care Insurance Underwriter Sales Name Role Phone Lopez George MD Primary Care Provider [phone] Emmanuel Maher MD Unavailable [phone] Allergies Active Allergy Reactions Criticality Noted Date [...] anticoagulation 08/31/2022 Coronary artery disease invo lving levelock coronary artery of [place] heart without angina pectoris 08/31/2022 Bradycardia 08/31/2022 [...] BID Hyperlipidemia 05/22/1959 Essential (primary) hypertension 05/22/1959 Encounters Date Type Department Care Team Description 07/25/2024 8:00 AM ASE MASTER MECHANIC Office Visit [facility] Cardiology [address] [place] [phone] Eder Chatterjee MD Permanent atrial fibrillation (HCC) (Primary Dx); Mixed hyperlipidemia; Essential (primary) hypertension; Chronic anticoagulation; Coronary artery disease involving levelock coronary artery of levelock heart without angina pectoris 07/25/2024 Orders Only [facility] Medical [facility] Cardiology [address] [place] [phone] ProviderNahomi MD from Last 3 Months Immunizations Immunization Administration Dates Next Due Influenza, Trivalent, Preser vative Free, Intramuscular 02/19/2018 Influenza, Unspecified 03/15/2017,03/15/2016, Moderna SARS-CoV-2 Monovalen t Vaccination (12+ YRS) 07/28/2020,06/25/2020 Surgical History Surgery Date Site/Laterality Comments CHOLECYSTECTOMY 05/22/1981 - 05/21/1982 Cholecystectomy CARPAL TUNNEL RELEASE Carpal tunnel release SECTION THYROID SURGERY COLONOSCOPY Medical History Medical History Date Comments Hx Other Medical 1984 s/p total thyro idectomy Atrial fibrillation (HCC) Atrial fibrillation Disorder of thyroid Thyroid dise ase Hyperlipidemia Hyperlipidemia Hypertension Hypertension Tension headache Headache, tensi on Anemia Arthritis Bleeding disorder Temporal arteritis (HCC) 01/08/2019 left Family History Medical History [...] Date Smoking Tobacco: Former Cigarettes 0.1 1 1967 Smokeless Tobacco: Never Tobacco Cessation:Counseling Given: Not Answered Alcohol Use Standard Drinks/Week Comments Not Currently 0 (1 standard drink = 0.6 oz pur e alcohol) Comments Unknown Sex and Gender Information Value Date Recorded Sex Assigned at Not on file Legal Sex Female 12:48 AM ASE MASTER MECHANIC Gender Identity Not on file Sexual Orientation Not on file 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 Obstetrics History Last Filed Vital Signs Vital Sign Reading Time Taken Comments Blood Pressure 100/70 07/25/2024 7:49 AM ASE MASTER MECHANIC Pulse 54 07/25/2024 7:49 AM ASE MASTER MECHANIC Temperature 36.6 C (97.9 F) 11/20/2020 8:41 AM CDT Respiratory Rate 24 05/11/2022 10:5 6 AM ASE MASTER MECHANIC Oxygen Saturation 99% 07/25/2024 7:49 AM ASE MASTER MECHANIC Inhaled Oxygen Concentration - - Weight 100.4 kg (221 lb 6.4 oz) 07/25/2024 7:49 AM ASE MASTER MECHANIC Height 157.5 cm (5' 2 ) 07/25/2024 7:49 AM ASE MASTER MECHANIC Body Mass Index 40.49 07/25/2024 7:49 AM ASE MASTER MECHANIC Plan of Treatment Health Maintenance Due Date Last Done Comments Depression Screening 1950 Fall Risk Assessment 1950 Hepatitis C Screening 1950 DTaP/Tdap/Td Vaccine (1 - Tdap) 08/07/1959 Hepatitis B Screening 1966 Pneumococcal vaccine 65+ (1 of 2 - PCV) 08/07/1967 Zoster Vaccine (1 of 2) 1998 Well Visit 65+ 2013 Covid-19 Vaccine (3 - 2023-2 5 season) 2024 07/28/2020, 06/25/2020 Osteoporosis Screening-Bone Density Scan 07/27/2024 07/27/2022 Influenza Vaccine (Season Ended) 2025 02/19/2018, 03/15/2017, 03/15/2016, Additional history exists Procedures Procedure Name Priority Date/Time Associated Diagnosis Comments DEXA TBS AXIAL SKELETON BONE DENSITY 1 OR MORE SITES Schedule Routine, Read Routine (OP Routine) 07/27/2022 8:45 AM ASE MASTER MECHANIC Osteoporosis without current pathological fracture, unspecified osteoporosis type from Last 3 Months or Most Recently Relevant to Health Maintenance Results * Dexa TBS Axial Skeleton Bone Density 1 or more sites (07/27/2022 8:45 AM ASE MASTER MECHANIC) Anatomical Region Laterality Modality Wrist, Body N/A Radiographic Kristel ging Narrative 07/29/2022 8:43 AM ASE MASTER MECHANIC Patient Name: Eileen Maza Date of : 1950 Date of scan: 07/27/2022 Bone mineral density was performed on a [employer] Discovery Densitometer. Based on machine cross-calibration and [...] mineral density scan were prepared by Shana Díaz(Harjit) MARY who is accredited by the International Society of Clinical Densitometry. The overall patient assessment and scan interpretation were performed by Rhiannon Gamble M.D. who is certified by the International Society of Clinical Densitometry. [id number] Rhiannon Gamble MD IMG DXA PROCEDURES Final Resu lt from Last 3 Months or Most Recently Relevant to Health Maintenance Insurance [facility] MEDICARE [facility] MEDICARE [facility] MEDICARE Care Teams Insurance Underwriter Sales Relationship Specialty Start Date End Date Lopez George MD [address] [place] [address] PCP - General Internal Medicine 11/13/17 Emmanuel Maher MD [address] [place] [address] Consulting Physician Medical Oncology 12/14/21
[2024-08-30 08:06] LABS: Estimated Glomerular Filt Rate > 60
== END 2024-08-30 07:29 | disposition home or self-care (01) ==
PROVIDERS: PCP Internal Medicine; Visit Provider Internal Medicine
DX: M88.1 Osteitis deformans of vertebrae (principal)
CPT/HCPCS: 70491; 71260; Q9967

== ENCOUNTER 2024-10-11 06:43 | Outpatient (CLI) | payer MEDICARE, SELFPAY ==
--- OUTSIDE RECORDS SUMMARY | 2024-10-11 06:46 | XMS_ITS | Encounter Summary ---
Author Organization [facility] Address [address] [place] [address] Care Team Providers Care Scientific Process Operator Name Role Phone Unavailable Primary Care Provider Unavailabl e Encounter Details Date Type Department Care Team (Late st Contact Info) Description 02/27/2020 Lab Requisition [facility] [address] [place] [address] Richie Chaidez MD [address] [address] Social History Tobacco Use Types Packs/Day Years Used Date Smoking Tobacco: Never Assessed Comments Unknown Sex and Gender Information Value Date Recorded Sex Assigned at Not on file Legal Sex Female 11:27 AM CDT Gender Identity Not on file Sexual Orientation Not on file documented as of this encounter Plan of Treatment Not on file documented as of this encounter Procedures Procedure Name Priority Date/Time Associated Diagnosis Comments DERMATOPATHOLOGY Routine 02/26/2020 12:0 0 AM CDT documented in this encounter Results * DERMATOPATHOLOGY (02/26/2020 12:00 AM CDT) Case Report Dermatopathology Report Case: [id number] Authorizing Provider: iRchie Chaidez MD Collected: 02/26/2020 12:00 AM Ordering Location: [facility] Received: 02/27/2020 11:21 AM Pathologist: Calvin Nance MD Specimen: Skin, left of midline parietal scalp 0 3:37 PM CDT DERMATOPATHOLOGY LABORATORY Final Diagnosis Specimen A. 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 0 3:37 PM CDT DERMATOPATHOLOGY LABORATORY Gross Description Specimen A: Received is one formalin filled container labeled with the patient's name and designated left of midline parietal scalp. The specimen consists of a shave biopsy (2 pieces) measuring [id number] and [id number]. Jar 0. 0 3:37 PM CDT DERMATOPATHOLOGY [...] characteristic determined by the Dermatopathology Laboratory at [facility], directed by Dr. Bebeto Nance. These tests need not be, and therefore are not, approved by the [place] Food and Drug Administration. The tests are used for clinical purposes. Billing Codes Specimen Charges Stain Charges 90440 1 0 3:37 PM CDT DERMATOPATHOLOGY LABORATORY Embedded Images 0 3:37 PM CDT DERMATOPATHOLOGY LABORATORY Pathology/Cytolog y TISSUE SPECIMEN FROM SKIN / Unknown 02/26/2020 02/27/2020 11:21 AM CDT us Richie Chaidez MD LAB - PATHOLOGY/CYTOLOGY ORD ERABLES Final Result DERMATOPATHOLOGY LABORATORY [facility] - Department of Dermatology [address], [address] [phone] documented in this encounter Visit Diagnoses Not on filedocumented in this encounter
--- OUTSIDE RECORDS SUMMARY | 2024-10-11 06:46 | XMS_ITS | Encounter Summary ---
Author Organization [facility] Address [address] [place] [address] Phone Care Team Providers Care Assembling Motor Builder Name Role Phone Lopez George MD Primary Care Provider [phone] Sandip Carvalho MD Unavailable [phone] Emmanuel Maher MD Unavailable [phone] Encounter Details Date Type Department Care Team [...] on file Legal Sex Female 12:48 AM SALES SUPPORT COORDINATOR Gender Identity Not on file Sexual [...] on filedocumented in this encounter Care Teams Assembling Motor Builder Relationship Specialty Start Date End Date Lopez George MD [address] [place] [address] PCP - General Internal Medicine 11/13/17 Sandip Carvalho MD [address] [place] [address] Medical Oncologist/Figure Clerk Medical Oncology 08/10/20 12/13/21 Emmanuel Maher MD [address] [place] [address] Consulting Physician Medical Oncology 12/14/21 documented as of this encounter
--- OUTSIDE RECORDS SUMMARY | 2024-10-11 06:47 | XMS_ITS | Clinical Summary ---
Author Organization [facility] Address [address] [place] [address] Care Team Providers Care Frame Runner Name Role Phone Unavailable Primary Care Provider Unavailabl e Source Comments [facility],non-owned Affiliates and Associated Physician Practices is amultiple site organization consisting of ambulatory clinics and hospital sitesin [place], [place], [place] and [place]. This disclosure is being madepursuant to the Care Everywhere program and may not contain all information available regarding this patient. Last updated 18.[facility] [place] Social History Tobacco Use Types Packs/Day Years Used Date Smoking Tobacco: Never Assessed Comments Unknown Sex and Gender Information Value Date Recorded Sex Assigned at Not on file Legal Sex Female 11:27 AM CDT Gender Identity Not on file Sexual Orientation Not on file Plan of Treatment Health Maintenance Due Date Last Done Comments BONE DENSITY TESTING 1950 HEPATITIS C SCREENING 08/02/1966 DTAP/TDAP/TD VACCINES (1 - Tdap) 08/07/1967 PNEUMOCOCCAL VACCINE 50+ (1 of 1 - PCV) 1998 ZOSTER VACCINE (1 of 2) 1998 Respiratory Syncytial Virus (RSV) Vaccine Pt: or over 60 yrs (1 - 1-dose 75+ series) 08/07/2023 COVID-19 VACCINE ( - 2023-2 5 season) 2024 DEPRESSION SCREENING [...] on patient's age to complete this topic Insurance [employer]
--- OUTSIDE RECORDS SUMMARY | 2024-10-11 06:47 | XMS_ITS | CONTINUITY OF CARE DOCUMENT ---
Author Name david, david Address Unknown Organization [facility] Address [address] [place] [address] Phone [phone] Care Team Providers Care Scientific Helper Name Role Phone Royer TILLMAN, Gayla Unavailable DARVIN TILLMAN, EBONY Unavailable [phone] DARVIN TILLMAN, EBONY Unavailable PROBLEMS Condition Status [...] In-person encounter Office Visit Gayla Linton MD [facility] - In-person encounter Office Visit Gayla Linton MD [facility] - In-person encounter Office Visit Gayla Linton MD [facility] - In-person encounter Office Visit Gayla Linton MD [facility] HTN--echo ef 60%, 04/2021 - In-person encounter Office Visit Gayla Linton MD [facility] Sleep apnea mild, doesn't use cpapCKD, stage 3Dyspnea on exertion - In-person encounter Office Visit Gayla Linton MD [facility] GERD - In-person encounter Office Visit Gayla Linton MD [facility] ATRIAL FIB PAroxysmal on flecainide, atenolol, eliquisHeadache, temporal arteritis - In-person encounter Office Visit Gayla Linton MD [facility] - In-person encounter Office Visit Gayla Linton MD [facility] Obesity - In-person encounter Office Visit Gayla Linton MD [facility] - In-person encounter Office Visit Gayla Linton MD [facility] COPD-03/03 YEIMI NLShortness of breath no sleep apneaSnoringSleep apnea mild, doesn't use cpap - In-person encounter Office Visit Brian Shafer MD [facility] - In-person encounter Office Visit Gayla Linton MD [facility] - In-person encounter Office Visit Brian Shafer MD [facility] - In-person encounter Office Visit Gayla Linton MD [facility] - In-person encounter Office Visit Gayla Linton MD [facility] - In-person encounter Office Visit Gayla Linton MD [facility] - In-person encounter Office Visit Gayla Linton MD [facility] - In-person encounter Office Visit Gayla Linton MD [facility] - In-person encounter Office Visit Gayla Linton MD [facility] CAD - In-person encounter Office Visit Gayla Linton MD [facility] - In-person encounter Office Visit Gayla Linton MD [facility] CHEST PAIN- cath 7/17 s/p LAD stent HELEN - In-person encounter Office Visit Gayla Linton MD [facility] - In-person encounter Office Visit Gayla Linton MD [facility] - In-person encounter Office Visit Gayla Linton MD [facility] CHEST PAIN- cath 7/17 s/p LAD stent HELEN - In-person encounter Office Visit Gayla Linton MD [facility] - In-person encounter Office Visit Gayla Linton MD [facility] - In-person encounter Office Visit Gayla Linton MD [facility] - In-person encounter Office Visit Gayla Linton MD [facility] - In-person encounter Office Visit Gayla Linton MD [facility] - In-person encounter Office Visit Gayla Linton MD [facility] - In-person encounter Office Visit Brian Shafer MD [facility] - In-person encounter Office Visit Gayla Linton MD [facility] - In-person encounter Office Visit Gayla Linton MD [facility] ATRIAL FIB PAroxysmal on flecainide, atenolol, eliquis - In-person encounter Office Visit Gayla Linton MD [facility] AFIB-03/03 REPEAT CV SUCCESS-HyperlipidemiaHYPOT HYROIDISMATRIAL FIB PAroxysmal on flecainide, atenolol, eliquisHypothyroidism - In-person encounter Office Visit Gayla Linton MD [facility] - In-person encounter Office Visit Brian Shafer MD [facility] - In-person encounter Office Visit Brian Shafer MD [facility] - In-person encounter Office Visit Gayla Linton MD [facility] - In-person encounter Office Visit Gayla Linton MD [facility] - In-person encounter Office Visit Gayla Linton MD [facility] - In-person encounter Office Visit Gayla Linton MD [facility] - In-person encounter Office Visit Lalit Forrest MD [facility] - In-person encounter Office Visit Gayla Linton MD [facility] - In-person encounter Office Visit Gayla Linton MD [facility] CHEST PAIN- cath 12/05 s/p LAD stent DESATRIAL FIB PAroxysmal on flecainide, atenolol, eliquis - In-person encounter Office Visit Brian Shafer MD [facility] - In-person encounter Office Visit Gayla Linton MD [facility] - In-person encounter Office Visit Gayla Linton MD [facility] - In-person encounter Office Visit Gayla Linton MD [facility] - In-person encounter Office Visit Gayla Linton MD [facility] - In-person encounter Office Visit Gayla Linton MD [facility] - In-person encounter Office Visit Matty Sears MD [facility] - In-person encounter Office Visit Gayla Linton MD [facility] AFIB-03/03 REPEAT CV SUCCESS- - In-person encounter Office Visit Gayla Linton MD [facility] Hyperlipidemia - In-person encounter Office Visit Gayla Linton MD [facility] VITAL SIGNS Date Observation Value Provider Body Mass Index (Ratio) 43.74 kg/m2 Jarad Linton MD blood pressure, diastolic 61 mm[Hg] Cande caryn Barlow blood pressure, systolic 100 mm[Hg] [facility] mayela Barlow pulse rate 66 /min Viridiana gayle oxygen saturation, oximetry 100 % Viridianasarita Barlow blood pressure, cuff size large Cadne caryn Barlow respiratory rate E&M 16 /min Kesha Barlow [...] fuentes weight E&M 286 [lb_av] Jenny Quintanilla [facility] height E&M 66 [in_i] Jenny Quintanilla [facility] Body Mass Index (Ratio) 46.32 kg/m2 Jarad Linton MD blood pressure, diastolic 66 mm[Hg] To nsha Dalton blood pressure, systolic 135 mm[Hg] Tristen Hoffman temperature E&M 98.0 [degF] Tonsha Hoffman pulse rate 66 /min Tonsha Hoffman respiratory rate E&M 16 /min Tonsha Hoffman oxygen saturation, oximetry 98 % [facility]&M 287 [lb_av] [facility] Hoffman height E&M 66 [in_i] [facility] Hoffman Body Mass Index (Ratio) 43.09 kg/m2 [...] stity Maximo oxygen saturation, oximetry 99 % [facility] 16 /min Chastit y Maximo pulse rate 63 /min Chastity Maximo weight E&M 273 [lb_av] Chastity Maximo height E&M 66 [in_i] Chastity Maximo Body Mass Index (Ratio) 43.57 kg/m2 Jarad Linton MD blood pressure, diastolic 70 mm[Hg] Cain Craft blood pressure, systolic 138 mm[Hg] Kil crystal Craft oxygen saturation, oximetry 98 % [place] [facility] respiratory rate E&M 16 /min [place] [facility] pulse rate 58 /min [place] [facility] weight E&M 270 [lb_av] [place] [facility] height E&M 66 [in_i] [place] [facility] Body Mass Index (Ratio) 43.57 kg/m2 Jarad Linton MD blood pressure, diastolic 70 mm[Hg] [facility] blood pressure, systolic 130 mm[Hg] Hilda rojas Craft oxygen saturation, oximetry 97 % Fran Craft respiratory rate E&M 16 /min Fran Craft pulse rate 58 /min Fran Craft weight E&M 270 [lb_av] Fran Craft height E&M 66 [in_i] [place] [facility] Body Mass Index (Ratio) 42.28 kg/m2 [...] Craft blood pressure, systolic 120 mm[Hg] Kil rcystal Craft oxygen saturation, oximetry 98 % Fran Craft respiratory rate E&M 16 /min Fran Craft pulse rate 56 /min [place] [facility] weight E&M 282 [lb_av] Fran Craft height E&M 66 [in_i] Fran Craft Body Mass Index (Ratio) 45.83 kg/m2 [...] respiratory rate E&M 18 /min Jenny G ayseenenfani pulse rate 69 /min Jenny Gruenenfe lder [...] er height E&M 66 [in_i] Jenny Quintanilla [facility] Body Mass Index (Ratio) 46.32 kg/m2 Jarad Linton MD blood pressure, cuff size large Faviola hill Reggie blood pressure, diastolic 62 mm[Hg] Faviola Paredes blood pressure, systolic 110 mm[Hg] Tila Paredes oxygen saturation, oximetry 98 % Ene Paredes respiratory rate E&M 16 /min Ene Paredes pulse rate 68 /min Ene Paredes weight E&M 287 [lb_av] Ene Paredes height E&M 66 [in_i] [...] Grueneayline lder height E&M 66 [in_i] Jenny Grmalineayline lder Body Mass Index (Ratio) 46.80 kg/m2 Jarad Linton MD blood pressure, cuff size large Ke rri Moisésueneaylinjuan aer blood pressure, diastolic 61 mm[Hg] Ke rri Grueneaylinjuan aer blood pressure, systolic 108 mm[Hg] Trinidad ri Moisésueneaylinjuan aer oxygen saturation, oximetry 97 % Jenny Moisésmagdaaylinjuan aer respiratory rate E&M 16 /min Jenny G ayseayojuan ayuliya pulse rate 58 /min Jenny Moisésmalielie lder weight E&M 290 [lb_av] Jenny Ariase lder height E&M 66 [in_i] Jenny Socorro er Body Mass Index (Ratio) 46.03 kg/m2 Jarad Linton MD blood pressure, diastolic 77 mm[Hg] Antoni Munson blood pressure, systolic 144 mm[Hg] Britni Munson oxygen saturation, oximetry 97 % Alice Munson respiratory rate E&M 18 [...] Munson Body Mass Index (Ratio) 45.87 kg/m2 iEleen Munson weight E&M 284.2 [lb_av] Alice delcid blood pressure, diastolic 76 mm[Hg] Me john Forbes blood pressure, systolic 135 mm[Hg] Tamy tristen Forbes Body Mass Index (Ratio) 45.51 kg/m2 Pilar ssa Forbes pulse rate 68 /min Sarai Forbes oxygen saturation, oximetry 97 % Sarai Forbes respiratory rate E&M 14 /min Sarai Forbes weight E&M 282 [lb_av] Sarai Fobres Body Mass Index (Ratio) 46.32 kg/m2 Pilar sandra Forbes blood pressure, diastolic 62 mm[Hg] Me lopez Forbes blood pressure, systolic 126 mm[Hg] Tamy ramon Forbes pulse rate 60 /min Sarai Forbes oxygen saturation, oximetry 98 % Sarai Forbes respiratory rate E&M 14 /min Sarai Forbes weight E&M 287 [lb_av] Sarai Forbes Body Mass Index (Ratio) 46.32 kg/m2 [facility] boaz Forbes blood pressure, diastolic 70 mm[Hg] Ri john Forbes blood pressure, systolic 127 mm[Hg] Tamy ramon Forbes pulse rate 60 /min Sarai Forbes oxygen saturation, oximetry 97 % Sarai Forbes respiratory rate E&M 15 /min Sarai Forbes weight E&M 287 [lb_av] Sarai Forbes Body Mass Index (Ratio) 48.11 kg/m2 [facility] blood pressure, diastolic 73 mm[Hg] Ri john Forbes blood pressure, systolic 138 mm[Hg] [...] Trinidad Sutton pulse rate 90 /min Jenny fuenteser oxygen saturation, oximetry 98 [...] Gil RN blood pressure, systolic 136 mm[Hg] Dmitri Gil RN pulse rate 56 /min Dmitri Gil RN oxygen saturation, oximetry 99 % Dmitri Gil RN respiratory rate E&M 16 /min Dmitri collazolindsay RN weight E&M 293 [lb_av] Dmitri Gil RN blood pressure, diastolic 78 mm[Hg] Pedro najera Gil RN blood pressure, systolic 123 mm[Hg] Dmitri Gil RN pulse rate 64 /min Dmitri Gil RN oxygen saturation, oximetry 99 % Dmitri Gil RN respiratory rate E&M 18 /min Dmitri Rosy blunt RN weight E&M 302 [lb_av] Dmitri Gil RN blood pressure, diastolic, left arm 60 mm [Hg] Jamie Manacop blood pressure, systolic, left arm 140 mm [Hg] [facility], [facility], right arm 58 m m[Hg] [facility], systolic, right arm 110 m m[Hg] [facility], diastolic 58 mm[Hg] Sadia rivera Sumneracop blood pressure, systolic 110 mm[Hg] [facility] 71 /min [facility], oximetry 99 % [facility] respiratory rate E&M 19 /min [...] Jamie Manacop weight E&M 289 [lb_av] Jamie Sumneracop blood pressure, diastolic 67 mm[Hg] Pedro Gil [...] [employer] 3.5-5.1 sodium, serum 136 mmol/L [facility] [phone]/09/ 19 creatinine, serum 1.0 mg/dL [facility] 0.5-0.9 [...] High platelet count 223 THOUSAND/ UL [facility] [phone]/09/ 19 Absolute Basophils 0.1 CELLS/UL [facility] 0.0-0.2 [...] 130.0 alanine aminotransferase (SGPT), serum 12.0 1/L [facility] 0.0 - 33.0 protein, total, serum 7.2 g/dL [facility] 6.6 - 8.7 bilirubin, serum, total 0.5 mg/dL [facility] 0.0 - 1.2 urea nitrogen, blood 16.0 mg/dL [facility] 8.0 - 23.0 blood glucose, random 113.0 mg/dL [facility] 74.0 - 99.0 High red blood cell distribution width, size density 46.7 fL [facility] - immature granulocytes, percentage of total cells, blood 0.2 % [facility] - nucleated red blood cells as percent of blood leukocytes 0.0 % [facility] - red blood cell (erythrocyte) count, per high power field 0.0 10*3/UL [facility] - eosinophils as percent of blood leukocytes 1.3 % [facility] - neutrophils as percent of blood leukocytes 76.2 % [facility] - Absolute Neutrophils 4.3 CELLS/UL [facility] 1.5 - 7.8 basophils as percent of blood leukocytes 0.7 % [facility] - Absolute Basophils 0.0 CELLS/UL [facility] 0.[facility] - 0.2 monocytes as percent of blood leukocytes 6.5 % [facility] - Absolute Monocytes 0.4 CELLS/UL [facility] 0.2 - 1.0 lymphocytes as percent of blood leukocytes 15.1 % [facility] - Absolute Lymphocytes 0.8 CELLS/UL [facility] 0.9 - 3.9 Low mean platelet volume 12.4 (?) [facility] - platelet count 229.0 THOUSAND/ UL [facility] 100.0 - 400.0 mean corpuscular hemoglobin concentration, RBC 33.2 G/DL [facility] 31.0 - 38.0 mean corpuscular hemoglobin, RBC 32.4 pg [facility] 25.0 - 35.0 mean corpuscular volume, RBC 97.5 fL [facility] 75.0 - 100.0 hematocrit, blood 38.5 % [facility] 35.0 - 55.0 hemoglobin, blood 12.8 g/dL [facility] 11.5 - 16.5 erythrocyte count, whole blood 4.0 MILLION/U L [facility] 3.5 - 5.5 estimated glomerular filtration rate 43 mL/min [facility] triglyceride, serum, fasting 137 mg/dL [facility] HDL cholesterol, serum 58 mg/dL [facility] LDL cholesterol, serum 89 mg/dL [facility] cholesterol, serum 174 mg/dL [facility] Vitamin D, 25 Hydroxy D3 6 ng/mL [facility] Vitamin D, 25 Hydroxy D2 22 ng/mL [facility] vitamin D 1,25-dihydroxy, serum 28 [facility] thyroid stimulating hormone, serum 0.69 u[IU]/mL [facility] thyroxine, serum, total 17.4 ug/dL [facility] platelet count 221 10*3/uL [facility] red blood cell distribution width 12.9 % [facility] mean corpuscular hemoglobin concentration, RBC 33.4 g/dL [facility] mean corpuscular hemoglobin, RBC 31.5 pg [facility] mean corpuscular volume, RBC 94.2 fL [facility] hematocrit, blood 37.4 % [facility] hemoglobin, blood 12.5 g/dL [facility] erythrocyte (RBC) count 3.97 10*6/mm3 [facility] monocytes as percent of blood leukocytes 9.9 % [facility] lymphocytes as percent of blood leukocytes 15.8 % [facility] leukocyte count, blood 7.3 10*3/mm3 [facility] albumin/globulin ratio, serum 1.2 [facility] protein, total, serum 7.7 g/dL [facility] albumin, serum 4.2 g/dL [facility] bilirubin, serum, total 0.90 mg/dL [facility] alkaline phosphatase, serum 107 1/L [facility] alanine aminotransferase (SGPT), serum 33 1/L [facility] aspartate aminotransferase (SGOT), serum 18 1/L [facility] calcium, serum 9.3 mg/dL [facility] blood glucose, fasting 127 mg/dL [facility] creatinine, serum 1.34 mg/dL [facility] urea nitrogen, blood 19.8 mg/dL [facility] carbon dioxide, serum, total 27 mmol/L [facility] chloride, serum 101 mmol/L [facility] potassium, serum 3.3 mmol/L [facility] sodium, serum 136 mmol/L [facility] coagulation managed by Dmitri Gil RN international [...] normalized ratio (INR) 3.0 Aggie De Los Santos prothrombin time (patient) 29.6 s Aggie De [...] Mey Manjarrez RN hemoglobin, blood 13.1 g/dL Mye Manjarrez RN coagulation managed by Dmitri Gil RN international normalized ratio (INR) 1.5 Dmitri Gil RN international normalized ratio (INR) 1.2 [...] one pill a day 05/27 - 06/25 [place] Nitrostat 0.4 mg tablet, sublingual active Place 1 tablet under tongue as needed 02/06 Randall Silverio ISOSORBIDE MONONITRATE ER 30 MG ORAL TABLET EXTENDED RELEASE 24 HOUR completed one tab daily 01/27 - 02/06 Gayla Linton MD ATORVASTATIN CALCIUM 40 MG ORAL TABLET completed po daily 01/24 - 06/25 [place] Luana PLAVIX 75 MG ORAL TABLET completed [...] completed ONE TAB. DAILY 06/14 - 01/24 Gyala Linton MD CALCIUM 600 TABLET completed twice [...] capsule twice a day 11/29 - 10/09 Gayla Linton MD COUMADIN 2 MG ORAL TABLET [...] daily 06/30 - 12/27 Charisma Young RN [facility] back order ASPIRIN 81 MG ORAL TABLET [...] required Zurdo Vance exercise type walking Raysa Matheny physical exercise, f requency, days per week no Raysa Tate caffeine use, averag e drinks per day yes Raysa Matheny passive cigarette sm surekha exposure yes Raysa Matheny smoking status Never smoker Raysa Josefa s [...] changes required Jus Calixto exercise type walking [facility] physical exercise, f requency, days per week no [facility] caffeine use, averag e drinks per day yes [facility] passive cigarette sm surekha exposure yes [facility] smoking status Never smoker [facility] social history E&M Marital Statu s: [...] exercise, f requency, days per week no [place] [facility] caffeine use, averag e drinks per day yes [place] [facility] passive cigarette sm surekha exposure yes Fran Craft smoking status Never smoker [facility] social history reviewed E&M revi ewed - no changes required Gayla Linton MD number of grandchildren Gayla Linton MD K alanis [place] exercise type walking [facility] physical exercise, f requency, days per week no [place] [facility] alcohol counseling no [facility] In the past 3 months , have you been waking up wanting to use drugs? (CAGE substance use question #4) N [facility] In the past 3 months , have you felt guilty or bad about using drugs? (CAGE substance use question #3) N [facility] In the past 3 months , has anyone annoyed you by telling you to cut down or stop using drugs? (CAGE substance use question #2) N [facility] In the past 3 months , have you felt you should cut down or stop using drugs?(CAGE substance use question #1) N [facility] alcohol use, average drinks per day none [facility] alcohol use, type beer [place] gram alcohol use yes [facility] caffeine use, averag e drinks per day yes [facility] drug use none [facility] passive cigarette sm surekha exposure yes [facility] smoking status Never smoker [facility] social history reviewed E&M revi ewed [...] of grandchildren Gayla Linton MD K alanis [place] exercise type walking [facility] physical exercise, f requency, days per week no [place] [facility] alcohol counseling no Fran Gold franks In the past 3 months , have you been waking up wanting to use drugs? (CAGE substance use question #4) N [facility] In the past 3 months , have you felt guilty or bad about using drugs? (CAGE substance use question #3) N [facility] In the past 3 months , has anyone annoyed you by telling you to cut down or stop using drugs? (CAGE substance use question #2) N [facility] In the past 3 months , have you felt you should cut down or stop using drugs?(CAGE substance use question #1) N Fran Craft alcohol use, average drinks per day none Fran Craft alcohol use, type beer Fran In gram alcohol use yes Fran Craft caffeine use, averag e drinks per day [facility] Fran Craft passive cigarette [...] Jenny Lesley drug use none Jenny Lozanoaylinlarry [facility] passive cigarette sm surekha exposure yes Jenny [...] yes Jenny Lesley drug use none Jenny Curielmalikateyfloresita rogers passive [...] Gayla Linton MD exercise type walking Jenny Arias law [...] f requency, days per week no Jenny u[place]ton alcohol counseling no Jenny Salazar khushi In [...] none Ene Paredes alcohol use, type beer [facility] alcohol use yes Ene Paredes caffeine use, averag e drinks per day yes Ene Paredes drug use none [facility] passive cigarette sm surekha exposure [facility] smoker [facility] social history reviewed E&M revi ewed - no changes required Gayla Linton MD exercise type walking [facility] physical exercise, f requency, days per week no Ene Paredes alcohol counseling no Ene Sm [facility] In the past 3 months , [...] none Ene Paredes alcohol use, type beer [facility] alcohol use yes Ene Paredes caffeine [...] Jenny Kaiser karina alcohol use yes Jenny Lozanoaylinlarry gina caffeine use, averag e drinks per [...] revi ewed - no changes required Brian Shaefr MD exercise type walking Alice medeiroslacey physical [...] Sarai Forbes alcohol counseling no [facility]ai [facility] In the past 3 months , have [...] (CAGE substance use question #2) N Sarai [facility] In the past 3 months , have you felt you should cut down or stop using drugs?(CAGE substance use question #1) N Sarai Forbes alcohol use, average drinks per day none Sarai [facility] alcohol use, type beer Sarai Norah caffeine use, averag e drinks per day yes Sarai [facility] drug use none Sarai [facility] passive cigarette sm surekha exposure yes Sarai [facility] smoking status Never smoker Sarai Goldman [...] L jayshree with family/friends E thnicity: Dmitri Gil RN social history reviewed E&M [...] Payer name Policy type / Coverage type [place] red green party ID [employer] MEDICARE VALUE ADVANTRA PPO Commercial [employer] [id number] ADVANCE DIRECTIVES Name Date DISCUSSED - NO DECISION MADE TREATMENT PLAN Date Name Performer [id number] Toniya Singh MD [id number],Gayla Montoya MD [id number],Zurdo Montoya i [id number],Zurdo Montoya i [id number],S, Zurdo Ahmedza i [id number],S, Zurdo Ahmedza i [id number],S, Zurdo Ahmedza i [id number],S, Jus Nacht [id number],W, Jus Nacht [id number],S, Jus Nacht [id number],S, Jus Nacht [id number],S, Jus Nacht [id number],S, Jus Nacht [id number],S, Jus Nacht [id number],B, Jus Nacht Cardiology Gayla Linton MD Cardiology [...] Gayla Linton MD Cardiology Gayla Linton MD Electrophysiology Fo llow up : H ome sleep study 08/23/16 showed mild ALEXIS with AHI 7.4. W ill recheck home sleep study. Orders: [id number] Minor ([id number]) S chedule Followup (*) S leep Study Home (CPT-81893) Mazin Beltrán Electrophysiology Fo llow up : [...] Telesentry in 1 year. Orders: E KG ([id number]) M obile Cardiac Tele (CPT-79623) 9 [id number] Minor ([id number]) S chedule Followup (*) Her updated medication [...] AFib. S [place] [facility] JADYN. T claire 300mg dose of Flecainide on morning of 04/30/18, followed by EKG that day. Take standard 100mg dose of Flecainide at night of 04/30/18. Orders: Kiera GARCIA (CPT-[id number]) Her updated medication list for this problem includes: Atenolol 50 Mg Oral Tablet (Atenolol) ..... 1/2 tab tab. twice daily Flecainide Acetate 50 Mg Oral Tablet (Flecainide acetate) ..... Two tablet twice daily Mazin Beltrán Electrophysiology Fo llow up : B P today: 102/72 P [...] up : O rders: F VC - 87736 (14185) F RC - [id number] (13045) D LCO - 27870 (92820) Her updated medication list for this problem includes: Olmesartan Medoxomil-hctz 20-12.5 Mg Oral Tablet (Olmesartan medoxomil-hctz) ..... Take 1 tablet daily Atenolol 50 Mg Oral Tablet (Atenolol) ..... 1/2 tab tab. twice daily Mazin Beltrán Electrophysiology Fo llow up : C [facility] ER visit on 04/22/18 for AFib. S chedule cardioversion on 05/03/18 at 1PM at [facility]. No JADYN. T claire 300mg dose of Flecainide on morning of 04/30/18, then come into [facility] for EKG. Take standard 100mg dose of Flecainide at night of 04/30/18. Orders: Kiera cespedes - RADHA (CPT-05230) Her updated medication list for this problem [...] not limiting. TSH is being monitored by note keeper. Gayla Linton MD Cardiology Follow up Gayla [...] Elias osei MD Cardiology Follow up Toniya Eilas osei MD Cardiology Follow up Toniya Elias [...] atrial tachycardia. No atrial fibrillation seen. - [facility] (07/31/2012) H olter Monitor Comments: Atrial fibrillation. [...] component. The cardiac ejection fraction is 81%. [facility] (02/16/2011) Gayla Linton MD Follow Up: H [...] Two tablet twice daily Orders: E KG (CPT-[id number]) BP today: 138/73 Prior BP: /63 (03/01/2013) [...] atrial tachycardia. No atrial fibrillation seen. - [facility] (07/31/2012) H olter Monitor Comments: Atrial fibrillation. [...] component. The cardiac ejection fraction is 81%. [facility] (02/16/2011) Gayla Linton MD follow up: H [...] component. The cardiac ejection fraction is 81%. [facility] (02/16/2011) C HOL: 174 (04/28/2011) LDL: 89 [...] atrial tachycardia. No atrial fibrillation seen. - [facility] (07/31/2012) H olter Monitor Comments: Atrial fibrillation. [...] component. The cardiac ejection fraction is 81%. [facility] (02/16/2011) Gayla Linton MD elevated heart rate: [...] component. The cardiac ejection fraction is 81%. [facility] (02/16/2011) C HOL: 174 (04/28/2011) LDL: 89 [...] 50 mg po bid Orders: E KG (CPT-[id number]) BP today: 138/76 Prior BP: 150/81 (12/19/2011) [...] No high grade ventricular irritability seen. - [facility] (08/24/2011) H olter Monitor Comments: Atrial fibrillation. [...] component. The cardiac ejection fraction is 81%. [facility] (02/16/2011) Gayla Linton MD routine Gayla Linton [...] component. The cardiac ejection fraction is 81%. [facility] (02/16/2011) C HOL: 174 (04/28/2011) LDL: 89 [...] has a moderate mitral regurgitation still. - [facility] (03/23/2010) Gayla Linton MD follow up: H [...] component. The cardiac ejection fraction is 81%. [facility] (02/16/2011) H gb: 13.1 (11/04/2008) HCT: 39.4 [...] has a moderate mitral regurgitation still. - [facility] (03/23/2010) Gayla Linton MD follow up: H [...] has a moderate mitral regurgitation still. - [facility] (03/23/2010) Gayla Linton MD follow up: H [...] has a moderate mitral regurgitation still. - [facility] (03/23/2010) Gayla Linton MD routine: H er [...] 5mg daily = 6mg Orders: E KG (CPT-50490) Gayla Linton MD routine: H er updated [...] inimal tricuspid regurgitation. M inimal pulmonic regurgitation. O (05/28/2008) Orders: Larry NOYOLA (CPT-49513) Gayla Linton MD routine: H er updated [...] Cardiac Tele Cardioversion - [facility] DLCO - 71379 FRC - 44255 FVC - 35616 STR - Adenosine Complete Echo TSH, 3RD [...] completed FVC / MVV with bronchodilator - 45134 Brian Shafer MD completed FRC - 73449 Brian montoya MD completed SpO2 w/o 6min walk/titration Brian Shafer MD completed DLCO - 56004 Brian montoya MD completed EKG Gayla Linton MD completed Regadenoson, 4 units Gayla Linton MD completed Cardiolite, 2 units Gayla Linton MD completed SPECT Images Bree Walden MD completed Stress EKG Gayla Linton MD completed Schedule Followup Brian westbrook MD after cardioversion completed EKG Gayla Linton MD completed EKG Gayla Linton MD completed SNOMED-CT: 642345689200414 Current Medications Documented Gayla Linton MD completed SNOMED-CT: 32081999 Physical Exam, Performed: Pulse Exam of Foot Gayla Linton MD completed EKG Gayla Linton MD completed SNOMED-CT: 390436104435127 Current Medications Documented Gayla Linton MD completed SNOMED-CT: 59894698 Physical Exam, Performed: Pulse Exam of Foot Gayla Linton MD completed SNOMED-CT: 368646587698548 Current Medications Documented Gayla Linton MD completed SNOMED-CT: 96970407 Physical Exam, Performed: Pulse Exam of Foot Gayla Linton MD completed SNOMED-CT: 663711493397418 Current Medications Documented Gayla Linton MD completed CT- Coronary CA score Gayla Linton MD completed SNOMED-CT: 47472420 Physical Exam, Performed: Pulse Exam of Foot Gayla Linton MD completed SNOMED-CT: 044658840504711 Current Medications Documented Gayla Linton MD completed SNOMED-CT: 96213386 Physical Exam, Performed: Pulse Exam of Foot Gayla Linton MD completed SNOMED-CT: 591977538602918 Current Medications Documented Gayla Linton MD completed ZIO Holter Hookup Gayla Linton MD co mpleted SNOMED-CT: 58657096 Physical Exam, Performed: Pulse Exam of Foot Gayla Linton MD completed SNOMED-CT: 529260097144223 Current Medications Documented Gayla Linton MD completed Stress EKG Valente Michel MD complete d Regadenoson, 4 units Gayla Linton MD completed Cardiolite, 2 units aGyla Linton MD completed SPECT Images Gayla Linton MD complet ed SNOMED-CT: 92854478 Physical Exam, Performed: Pulse Exam of Foot Gayla Linton MD completed SNOMED-CT: 402491680410717 Current Medications Documented Gayla Linton MD completed SNOMED-CT: 78084792 Physical Exam, Performed: Pulse Exam of Foot Gayla Linton MD completed ZIO Savitater Hookup Gayla Linton MD co mpleted SNOMED-CT: 633398645944939 Current Medications Documented Gayla Linton MD completed EKG Gayla Linton MD completed EKG Gayla Linton MD completed SNOMED-CT: 57586889 Physical Exam, Performed: Pulse Exam of Foot Gayla Linton MD completed SNOMED-CT: 920089055214392 Current Medications Documented Gayla Linton MD completed SNOMED-CT: 04718738 Physical Exam, Performed: Pulse Exam of Foot Gayla Linton MD completed SNOMED-CT: 840841371222902 Current Medications Documented Gayla Linton MD completed SNOMED-CT: 07523062 Physical Exam, Performed: Pulse Exam of Foot Gayla Linton MD completed SNOMED-CT: 387760729996179 Current Medications Documented Gayla Linton MD completed Holter, 24 or 48 Gayla Linton MD com pleted EKG Gayla Linton MD completed SNOMED-CT: 77730228 Physical Exam, Performed: Pulse Exam of Foot Gayla Linton MD completed SNOMED-CT: 767262361808308 Current Medications Documented Gayla Linton MD completed Schedule Followup Brian westbrook MD 1 year completed SNOMED-CT: 05572307 Physical Exam, Performed: Pulse Exam of Foot Brian Shafer MD completed SNOMED-CT: 085427052 Smoking Cessation Counseling Brian Shafer MD completed EKG Brian montoya MD completed SNOMED-CT: 713600932724151 Current Medications Documented Brian Shafer MD completed [...]
--- OUTSIDE RECORDS SUMMARY | 2024-10-11 06:47 | XMS_ITS | Clinical Summary ---
Author Organization [facility] Address [address] [place] [address] Care Team Providers Care Data Integration Developer Name Role Phone Lopez George MD Primary Care Provider [phone] Emmanuel Maher MD Unavailable [phone] Allergies Active Allergy Reactions Criticality Noted Date [...] mcg total) by mouth daily 3 Active ketamine [...] (two) times a day 180 tablet 3 5 08/20/19 26 Active hydroCHLOROthiaz gala 12.5 mg tablet TAKE 1 TABLET(12.5 MG) BY MOUTH DAILY 90 tablet 5 Active Active Problems Problem Noted Date Diagnosed Date Chronic anticoagulation 08/31/2022 Coronary artery disease invo lving alutiiq coronary artery of alutiiq heart without angina pectoris 08/31/2022 Bradycardia 08/31/2022 [...] Department Care Team Description 07/25/2024 8:00 AM METAL TILE LATHER Office Visit [facility] Cardiology [address] [place] [address] Eder Chatterjee MD Permanent atrial fibrillation (HCC) (Primary Dx); Mixed hyperlipidemia; Essential (primary) hypertension; Chronic anticoagulation; Coronary artery disease involving alutiiq coronary artery of alutiiq heart without angina pectoris 07/25/2024 Orders Only [facility] Medical [facility] Cardiology [address] [place] [address] Provider, MD Nahomi from Last 3 Months Immunizations Immunization Administration [...] on file Legal Sex Female 12:48 AM METAL TILE LATHER Gender Identity Not on file Sexual Orientation Not on file 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 Obstetrics History Last Filed Vital Signs Vital Sign Reading Time Taken Comments Blood Pressure 100/70 07/25/2024 7:49 AM METAL TILE LATHER Pulse 54 07/25/2024 7:49 AM METAL TILE LATHER Temperature 36.6 C (97.9 F) 11/20/2020 8:41 AM CDT Respiratory Rate 24 05/11/2022 10:5 6 AM METAL TILE LATHER Oxygen Saturation 99% 07/25/2024 7:49 AM METAL TILE LATHER Inhaled Oxygen Concentration - - Weight 100.4 kg (221 lb 6.4 oz) 07/25/2024 7:49 AM METAL TILE LATHER Height 157.5 cm (5' 2 ) 07/25/2024 7:49 AM METAL TILE LATHER Body Mass Index 40.49 07/25/2024 7:49 AM METAL TILE LATHER Plan of Treatment Health Maintenance Due Date [...] Read Routine (OP Routine) 07/27/2022 8:45 AM METAL TILE LATHER Osteoporosis without current pathological fracture, unspecified osteoporosis type from Last 3 Months or Most Recently Relevant to Health Maintenance Results * Dexa TBS Axial Skeleton Bone Density 1 or more sites (07/27/2022 8:45 AM METAL TILE LATHER) Anatomical Region Laterality Modality Wrist, Body N/A Radiographic Kristel ging Narrative 07/29/2022 8:43 AM METAL TILE LATHER Patient Name: Eileen Maza Date of : 1950 Date of scan: 07/27/2022 Bone mineral density was performed on a [employer] Discovery Densitometer. Based on machine cross-calibration and [...] by the International Society of Clinical Densitometry. [id number] Rhiannon Gamble MD IMG DXA PROCEDURES Final Resu lt from Last 3 Months or Most Recently Relevant to Health [place] [address] [place] [address] [employer] MEDICARE [facility] MEDICARE [facility] MEDICARE Care Teams Data Integration Developer Relationship Specialty Start Date End Date Lopez George MD [address] [place], [place] [id number] PCP - General Internal Medicine 11/13/17 Emmanuel Maher MD [address] [facility] [address] [place] [address] Consulting Physician Medical Oncology 12/14/21
--- OUTSIDE RECORDS SUMMARY | 2024-10-11 06:47 | XMS_ITS | Continuity of Care Document ---
Author Organization [facility], [facility] Podiatry [place] Address [address] [place] [address] Care Team Providers Care Rehabilitation Nurse Name Role Phone EBONY BOSTON Primary Care Provider EBONY BOSTON Referring Provider Assessment Encounter Date Assessment Date Assessment LastModified by Organization Details LastModified Time 10/10/2024 10/10/2024 This note is dictated and transcribed by [employer]. Moss Bleacher variances may occur. Despite proofreading, typographical errors may occur. Occasional wrong-word or 'lzixy-h-gzam' substitutions may have occurred due to the inherent limitations of voice recording. Read the chart carefully and recognize, using context, where substitutions have occurred. corky Not available 10/10/2024 14:31:34 Plan of Treatment Reminders Order Date Submit Date Provider Last Modified By Organization Details Last Modified Time Details Appointments Establish ed Patient 15 2024 09:00A Calvin Faye DPM Not available Not available Not available Lab None recorded. Referral None recorded. Procedures None recorded. Surgeries None recorded. Imaging XR, foot, 3 or more view 2024 025 corky [facility] [place], [address], [place], [address], 10/10/2024 14:33:04 Medication Orders None recorded. Patient TargetsNo targets recorded. Patient InstructionsNo instructions recorded. Reason for Referral None Reported. Results Created Date Observation Date Name Description Value Unit Range Abnormal Flag Note LastModifiedBy Organization Detail LastModifiedTime 10/11/19 25 XR, foot, 3 or more view No observ ation record ed. [email or web address] [facility] [place] [address], [place], [address], 10/10/2024 14:33:00 Result Notes None recorded. Problems Name Problem SNOMED Code Status Onset Date Resolution Date Notes Provider Name and Address Organization Details Recorded Time Strain of left Achilles tendon 2034352641582 9107 Active 2020 Not Available [facility] 3 02:51:10 Disorder of shoulder 392828000 Active Not Available [facility] 3 02:51:10 Pain of joint of wrist 067242308 Active Not Available [facility] 3 02:51:10 Intractabl e plantar keratoma 666403477 Active Not Available [facility] 3 02:51:10 Transient cerebral ischemia 791446635 Active Not Available [facility] 3 02:51:10 Raynaud's phenomenon 089861751 Active Not Available [facility] 3 02:51:10 Anemia 603654726 Active Not Available [facility] 3 02:51:10 Wilson's neuroma of right foot 2677867939115 08 Active 2019 Not Available [facility] 3 02:51:11 Osteopenia 498689387 Active Not Available [facility] 3 02:51:11 Pain in right foot 8302046650943 07 Active Jus Faye, DPCalvin [address] [facility], [facility] [address], [place], [address] , [facility] 5 14:31:39 Tendinitis of left posterior tibial tendon 4091451774178 00 Active 2021 Not Available [facility] 3 02:51:11 Disorder of back 41877499 Active Not Available [facility] 3 02:51:11 Osteoarthr itis 866055224 Active Not Available [facility] 3 02:51:11 Disorder characteri zed by back pain 087455421 Active Not Available [facility] 3 02:51:11 Porokerato sis 226901237 Active 2020 Jus Faye DPM [address], [place], [address] , [facility] [employer] [facility] 5 14:31:44 Dizziness 144098215 Active Not Available [facility] 3 02:51:12 Hypothyroi dism 70351385 Active Not Available [facility] 3 02:51:12 Conduction disorder of the heart 73995826 Active Not Available [facility] 3 02:51:12 Sprain of foot 06280565 Active Not Available [facility] 3 02:51:12 Upper respirator y infection 63112029 Active Not Available [facility] 3 02:51:12 Hyperlipid emia 66366517 Active Not Available [facility] 3 02:51:12 Degenerati on of lumbosacra l interverte bral disc 97787564 Active Not Available [facility] 3 02:51:12 Closed fracture of phalanx of foot 68586836 Active Not Available [facility] 3 02:51:13 Dystrophia unguium 70870619 Active 2020 Not Available [facility] 3 02:51:13 Lipoma 89887106 Active Not Available [facility] 3 02:51:13 Pain of right elbow joint 4939816128580 9109 Active 2022 KASANDRA Miranda null, [facility] [employer] [facility] 3 14:35:01 Pain of toe of left foot 1992931759925 08 Active 2022 Jus Faye DPM [address], [place], [address] , [facility] [employer] [facility] 3 10:10:07 Peripheral vascular disease 015338234 Active 2023 Jus Faye DPM [address], [place], [address] , [facility] [employer] [facility] 4 16:08:20 Pain of toes of bilateral feet 8417625797806 9102 Active 2023 Jus Faye DPM [address], [place], [address] , [facility] 4 11:15:44 Unable to cut own toenails 194483982 Active 2023 Jus Faye DPM [address], [place], [address] , [email or web address] [facility] 4 11:15:54 Pain in both feet 3717816578130 9102 Active 2023 Jus Faye DPM [address], [place], [address] , [facility] [employer] [facility] [employer] 4 16:35:48 Problem Notes None recorded. Procedures Surgical History Date Name Laterality Status Provider Name and Address Organization Details Recorded Time 5 Callus Debridement, One completed Jus Faye DPM [address], [place], [address], [facility] 10/10/2024 14:57:46 5 Nail Debridement completed Jus Faye DPM [address], [place], [address], [facility] 09/09/2024 10:17:22 5 Callus Debridement, One completed Jus Faye DPM [address], [place], [address], [facility] [employer] [facility] 09/09/2024 10:17:12 5 Nail Debridement completed Jus Faye DPM [address], [place], [address], [facility] 06/10/2024 10:26:03 4 Nail Debridement completed Jus Faye DPM [address], [place], [address], [facility] [employer] 03/11/2024 10:40:17 4 Nail Debridement completed Jus Faye DPM [address], [place], [address], [facility] [employer] 12/11/2023 16:34:23 4 Callus Debridement 2-4 completed Jus Faye DPM [address], [place], [address], [facility] [employer] 12/11/2023 16:34:28 4 Nail Debridement completed Jus Faye DPM [address], [place], [address], [facility] [employer] 10/02/2023 11:15:18 4 Nail Debridement completed Jus Faye DPM [address], [place], [address], [facility] [employer] 06/19/2023 16:09:24 3 Nail Debridement completed Jus Faye DPM [address], [place], [address], [facility] [employer] 03/02/2023 10:00:08 Imaging Results Imaging Date Name Status LastModified by Organiz ation Details LastModified Time 10/10/2024 XR, foot, 3 or more view completed [email or web address] [facility] [place] [address] [facility] [address], [place], [address], 10/10/2024 14:33:00 Procedure Notes None recorded. Medical Equipment None Reported. Allergies Allergen ID Allergen Name Allergen Category Reaction Reaction Severity Criticality Documentation Date Start Date Code Code System Note Provider Name and Address Organization Details Recorded Time 5180 Demerol medicatio n Not available Not available Not available 07/20/2022 09679 1 RxNorm Not Available [facility] 3 03:07:12 Medications Name Sig Start Date [...] TO THE AFFECTED AREA(S) IN A THIN INSPECTOR WATCH TRAIN TO TWO TIMES DAILY. active Not Available [...] tablet TK 1 T PO ONCE PRF FORM BUILDING SUPERVISOR EVAL 02/27 completed Not Available Not Available Not Available methylpredn isolone 4 mg tablets in a dose pack TK UTD 04/24 completed Not Available Not Available Not Available ondansetron 4 mg disintegrat ing tablet DISSOLVE 1 TABLET ON THE TONGUE EVERY 6 HOURS NEEDED FOR NAUSEA OR VOMITING 10/21 completed Not Available Not Available Not Available cefdinir 300 mg capsule TAKE 1 CAPSULE BY MOUTH EVERY 12 HOURS active Not Available Not Available No t Available doxycycline hyclate 100 mg tablet TAKE [...] completed Not Available Not Available Not Available Rybelsus 3 mg tablet TAKE 1 TABLET BY MOUTH DAILY active Not Available Not Available No t Available Paxlovid 150 mg-100 mg tablets in a dose pack (Moderate Renal Dose) TAKE BY MOUTH PER PACKAGE DIRECTION S 12/10 completed Not Available Not Available Not Available Klayesta 100,000 unit/gram topical powder APPLY 1 APPLICATI ON TOPICALLY DIRECTED TWICE DAILY active Not Available Not Available No t Available Vitals Date Recorded Body height Body mass index (BMI) Body weight Heart rate Respiratory rate Oxygen saturation Oxygen saturation in Arterial blood by Pulse oximetry Systolic blood pressure Diastolic blood pressure Provider Name and Address Organization Details Last Updated DateTime 5 154.94 cm 42.5 kg/m2 584065. 28 g 73 /min 14 /min 98 % 98 % 106 mm[Hg] 85 mm[Hg] Aissatou Espinoza [place] - [facility] 14:11:14 Social History None recorded. Functional Status Question Answer Note LastModified by Organization D etails LastModified Time What is your level of alcohol consumption? None [email or web address] Information not available 10/21/2022 Mental Status None recorded. Family History Relationship Description Onset Age of this Age Resolved Age Notes LastModified by Organization Details LastModified Time Mother Heart disease Not available 2022 14:33:53 Mother Hypertensive disorder [email or web address] Not available 2022 14:34:09 Medical History Condition Response HEART DISEASE/HEART PROBLEMS Y ARTHRITIS Y HYPERTENSION Y Gynecological HistoryNo gynecological history recorded. Obstetrics History GPAL:G 0 P 0 0 0 0 Past Encounters Encounter ID Performer Location Encounter Start Date Encounter Closed Date Diagnosis/Indication Diagnosis SNOMED-CT Code Diagnosis ICD10 Code Diagnosis Note [id number] Jus Faye DPM [facility] [place] [address] [facility] [address] [place] [address] 10/10/2024 13:41:15 10/10/2024 14:58:06 Pain in right foot 3394804146 49853 M79.671 sub 5th metatarsal head [id number] d pumice stone and Amlactin lotion Porokeratosis 305060645 Q82.8 Debrided without incidentco ntinue over-the-c ounter AmlactinUs e pumice stone dailyfollo w-up in 2-3 months Health Concerns Section Related Observation LastModified by Organization Detai ls LastModified Time None Recorded Concern Status LastModified by Organization Details LastModified Time None Recorded Payers Encounter Date Sequence Insurance Name Policy Number Policy Cruz Covered Member ID Cruz Member ID Guarantor Name 10/10/2024 1 [employer] (MEDICARE REPLACEMENT/ ADVANTAGE - PPO) [id number] Eileen Maza [id number] Eileen Maza Notes Date Note Type Note Provider Name and Address Organization Details Recorded Time 10/10/2024 text/html . Patient is a 74-year-old female who presents the office with complaints of pain under the sub 5th metatarsal head of the right foot she denies any injury or open wounds. Patient states the pain is mild and sharp when she is walking. Patient states when she is off her foot it does not hurt. Patient denies any other complaints. Jus Faye DPM [address] [facility] [address], [place], [address], [facility] 10/10/2024 14:58:05 OBGyn Episode No OBEpisode recorded.
--- OUTSIDE RECORDS SUMMARY | 2024-10-11 06:47 | XMS_ITS | Referral Summary ---
Author Organization [facility] Address [address] [place] [address] Care Team Providers Care Entry Level Mechanical Engineer Name Role Phone Lopez George MD Primary Care Provider [phone] Emmanuel Maher MD Unavailable [phone] Encounters Date Type Department Care Team Description 07/25/2024 Orders Only [facility] Cardiology [address] [place] [address] Nahomi Lundberg MD 07/25/2024 8:00 AM SALES PORTER Office Visit [facility] Cardiology [address] [place] [address] Eder Chatterjee MD Permanent atrial fibrillation (HCC) (Primary Dx); Mixed hyperlipidemia; Essential (primary) hypertension; Chronic anticoagulation; Coronary artery disease involving upper [place] coronary artery of upper matt[place] heart without angina pectoris from Last 3 [...] anticoagulation 08/31/2022 Coronary artery disease invo lving upper [place] coronary artery of upper [place] heart without angina pectoris 08/31/2022 Bradycardia 08/31/2022 [...] file Legal Sex Female 12:48 AM SALES PORTER Gender Identity Not on file Sexual Orientation Not on file 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 Last Filed Vital Signs Vital Sign Reading Time Taken Comments Blood Pressure 100/70 07/25/2024 7:49 AM SALES PORTER Pulse 54 07/25/2024 7:49 AM SALES PORTER Temperature 36.6 C (97.9 F) 11/20/2020 8:41 AM CDT Respiratory Rate 24 05/11/2022 10:5 6 AM SALES PORTER Oxygen Saturation 99% 07/25/2024 7:49 AM SALES PORTER Inhaled Oxygen Concentration - - Weight 100.4 kg (221 lb 6.4 oz) 07/25/2024 7:49 AM SALES PORTER Height 157.5 cm (5' 2 ) 07/25/2024 7:49 AM SALES PORTER Body Mass Index 40.49 07/25/2024 7:49 AM SALES PORTER Plan of Treatment Not on file Procedures Procedure Name Priority Date/Time Associated Diagnosis Comments DEXA TBS AXIAL SKELETON BONE DENSITY 1 OR MORE SITES Schedule Routine, Read Routine (OP Routine) 07/27/2022 8:45 AM SALES PORTER Osteoporosis without current pathological fracture, unspecified osteoporosis type from Last 3 Months or Most Recently Relevant to Health Maintenance Results * Dexa TBS Axial Skeleton Bone Density 1 or more sites (07/27/2022 8:45 AM SALES PORTER) Anatomical Region Laterality Modality Wrist, Body N/A Radiographic Kristel ging Narrative 07/29/2022 8:43 AM SALES PORTER Patient Name: Eileen Maza Date of : 1950 Date of scan: 07/27/2022 Bone mineral density was performed on a [employer] Discovery Densitometer. Based on machine cross-calibration and [...] by the International Society of Clinical Densitometry. [id number] us Rhiannon Gamble MD IMG DXA PROCEDURES Final Resu lt from Last 3 Months or Most Recently Relevant to Health Maintenance Insurance T MEDICARE [facility] MEDICARE [facility] MEDICARE Care Teams Entry Level Mechanical Engineer Relationship Specialty Start Date End Date Lopez George MD [address] [place], [place] [id number] PCP - General Internal Medicine 11/13/17 Emmanuel Maher MD [address] [place] [address] Consulting Physician Medical Oncology 12/14/21
[2024-10-11 07:47] LABS: Alanine Aminotransferase 43 U/L (6-35); Albumin Level 3.9 g/dL (3.5-5.1); Alkaline Phosphatase 57 U/L (38-126); Anion Gap 7 mmol/L (4-12); Aspartate Amino Transferase 43 U/L (14-36); Blood Urea Nitrogen 12 mg/dL (7-17); CRP < 0.5 mg/dL (<1.0); Calcium 8.9 mg/dL (8.4-10.2); Carbon Dioxide 26 mmol/L (22-30); Chloride 100 mmol/L (98-107); Cholesterol 183 mg/dL (0-200); Estimated Glomerular Filt Rate 60; Glucose 164 mg/dL (65-110); HDL Direct 98 mg/dL; Potassium 3.9 mmol/L (3.4-5.0); Sodium 133 mmol/L (137-145); Triglycerides 115 mg/dL (<150)
[2024-10-11 07:56] LABS: LDL Cholesterol Direct 65 mg/dL
[2024-10-11 07:57] LABS: Erythrocyte Sedimentation Rate 19 mm/hr (0-20)
[2024-10-11 07:59] LABS: Hemoglobin A1C 6.1 % (<5.7)
[2024-10-11 08:20] LABS: Free T4 Free Thyroxine 1.49 ng/dL (0.78-2.19)
== END 2024-10-11 06:44 | disposition home or self-care (01) ==
PROVIDERS: PCP Internal Medicine; Visit Provider Internal Medicine
DX: E78.2 Mixed hyperlipidemia (principal); E03.9 Hypothyroidism, unspecified; M31.6 Other giant cell arteritis; R73.03 Prediabetes; I10 Essential (primary) hypertension
CPT/HCPCS: 36415; 80053; 80061; 83036; 84439; 84443; 85652; 86140

== ENCOUNTER 2024-12-03 06:50 | Outpatient (CLI) | payer MEDICARE, SELFPAY ==
--- OUTSIDE RECORDS SUMMARY | 2024-12-03 06:52 | XMS_ITS | Encounter Summary ---
Author Organization [facility] Address [address] [place] [address] Care Team Providers Care Shorts Sifter Name Role Phone Unavailable Primary Care Provider Unavailabl e Encounter Details Date Type Department Care Team (Late st Contact Info) Description 02/27/[address] [facility] [address] [place] [address] Richie Chaidez MD [address] [place] [address] Social History Tobacco Use Types [...] AM CDT) Case Report Dermatopathology Report Case: [id number] Authorizing Provider: Richie Chaidez MD Collected: 02/26/2020 12:00 AM Ordering Location: [facility] Received: 02/27/2020 11:21 AM Pathologist: [...] of a shave biopsy (2 pieces) measuring [id number] and [id number]. Jar 0. 0 3:37 PM CDT DERMATOPATHOLOGY [...] characteristic determined by the Dermatopathology Laboratory at [facility], directed by Dr. Bebeto Nance. These tests need not be, and therefore are not, approved by the [place] Food and Drug Administration. The tests are used for clinical purposes. Billing Codes Specimen Charges Stain Charges 28174 1 0 3:37 PM CDT DERMATOPATHOLOGY LABORATORY Embedded Images 0 3:37 PM CDT DERMATOPATHOLOGY LABORATORY Pathology/Cytolog y TISSUE SPECIMEN FROM SKIN / Unknown 02/26/2020 02/27/2020 11:21 AM CDT us Richie Chaidez MD LAB - PATHOLOGY/CYTOLOGY ORD ERABLES Final Result DERMATOPATHOLOGY LABORATORY [facility] - Department of Dermatology [address], [address] Floor [address] [phone] documented in this encounter Visit Diagnoses Not on filedocumented in this encounter
--- OUTSIDE RECORDS SUMMARY | 2024-12-03 06:52 | XMS_ITS | Encounter Summary ---
Author Organization [facility] Address [address] [place] [address] Phone Care Team Providers Care Wet Roaster Name Role Phone Lopez George MD Primary Care Provider [phone] Sandip Carvalho MD Unavailable [phone] Emmanuel Maher MD Unavailable [phone] Encounter Details Date Type Department Care Team [...] on file Legal Sex Female 12:48 AM QUILL WORKER Gender Identity Not on file Sexual Orientation [...] on filedocumented in this encounter Care Teams Wet Roaster Relationship Specialty Start Date End Date Lopez George MD [address] [place] [address] PCP - General Internal Medicine 11/13/17 Sandip Carvalho MD [address] [place] [address] Medical Oncologist/ Medical Oncology 08/10/20 12/13/21 Emmanuel Maher MD [address] [place] [address] Consulting Physician Medical Oncology 12/14/21 documented as of this encounter
--- OUTSIDE RECORDS SUMMARY | 2024-12-03 06:52 | XMS_ITS | Clinical Summary ---
Author Organization [facility] Address [address] [place] [address] Care Team Providers Care Security Systems Specialist Name Role Phone Unavailable Primary Care Provider Unavailabl e Source Comments [facility],non-owned Affiliates and Associated Physician Practices is amultiple site organization consisting of ambulatory clinics and hospital sitesin [place], [place], [place] and [place]. This disclosure is being madepursuant to the Care Everywhere program and may not contain all information available regarding this patient. Last updated 18.[facility] [employer] Social History Tobacco Use Types Packs/Day Years [...] season) 2024 DEPRESSION SCREENING 05/22/2024 INFLUENZA VACCINE (#1) 2025 HEPATITIS B VACCINE Aged Out No [...]
--- OUTSIDE RECORDS SUMMARY | 2024-12-03 06:53 | XMS_ITS | Data Portability ---
Author Organization [place] [employer], Main Office Address [address] [place] [address] Care Team Providers Care Distillation Operator Name Role Phone EBONY BOSTON Primary Care Provider EBONY BOSTON Referring Provider Assessment Encounter Date Assessment Date Assessment LastModified by Organization Details LastModified Time 12/11/2023 12/11/2023 This note is dictated and transcribed by [employer]. Sales Lead Generator variances may occur. Despite proofreading, typographical errors may occur. Occasional wrong-word or 'uxkrc-k-vkcq' substitutions may have occurred due to the inherent limitations of voice recording. Read the chart carefully and recognize, using context, where substitutions have occurred. [email or web address] Not available 12/11/2023 16:35:31 03/11/2024 03/11/2024 This note is dictated and transcribed by [employer]. Sales Lead Generator variances may occur. Despite proofreading, typographical errors may occur. Occasional wrong-word or 'anmfo-r-riab' substitutions may have occurred due to the inherent limitations of voice recording. Read the chart carefully and recognize, using context, where substitutions have occurred. Not available 03/11/2024 10:40:21 06/10/2024 06/10/2024 This note is dictated and transcribed by [employer]. Sales Lead Generator variances may occur. Despite proofreading, typographical errors may occur. Occasional wrong-word or 'qpyjq-f-rwli' substitutions may have occurred due to the inherent limitations of voice recording. Read the chart carefully and recognize, using context, where substitutions have occurred. Not available 06/10/2024 10:26:10 09/09/2024 09/09/2024 This note is dictated and transcribed by [employer]. Sales Lead Generator variances may occur. Despite proofreading, typographical errors may occur. Occasional wrong-word or 'tgxds-x-apeu' substitutions may have occurred due to the inherent limitations of voice recording. Read the chart carefully and recognize, using context, where substitutions have occurred. Not available 09/09/2024 10:18:30 10/10/2024 10/10/2024 This note is dictated and transcribed by [employer]. Sales Lead Generator variances may occur. Despite proofreading, typographical errors may occur. Occasional wrong-word or 'zyowt-h-azlg' substitutions may have occurred due to the inherent limitations of voice recording. Read the chart carefully and recognize, using context, where substitutions have occurred. Not available 10/10/2024 14:31:34 Plan of Treatment Reminders Order Date Submit Date Provider Last Modified By Organization Details Last Modified Time Details Appointments Establish ed Patient 15 2024 09:00A Calvin Faye DPM Not available Not available Not available Lab None recorded. Referral None recorded. Procedures None recorded. Surgeries None recorded. Imaging XR, foot, 3 or more view 2024 025 [email or web address] [facility] [place], [address], [place], [address], 10/10/2024 14:33:04 Medication Orders None recorded. Patient TargetsNo targets recorded. Patient InstructionsNo instructions recorded. Reason for Referral None Reported. Results Created Date Observation Date Name Description Value Unit Range Abnormal Flag Note LastModifiedBy Organization Detail LastModifiedTime 10/11/19 25 XR, foot, 3 or more view No observ ation record ed. [email or web address] [facility] [place] [address], [place], [address], 10/10/2024 14:33:00 Result Notes None recorded. Problems Name Problem SNOMED Code Status Onset Date Resolution Date Notes Provider Name and Address Organization Details Recorded Time Strain of left Achilles tendon 5807679656091 9107 Active 2020 Not Available [facility] 3 02:51:10 Disorder of shoulder 020915393 Active Not Available [facility] 3 02:51:10 Pain of joint of wrist 861480801 Active Not Available [facility] 3 02:51:10 Intractabl e plantar keratoma 813834271 Active Not Available [facility] 3 02:51:10 Transient cerebral ischemia 464905740 Active Not Available [facility] 3 02:51:10 Raynaud's phenomenon 193677295 Active Not Available [facility] 3 02:51:10 Anemia 859127794 Active Not Available [facility] 3 02:51:10 Wilson's neuroma of right foot 3153579931293 08 Active 2019 Not Available [facility] 3 02:51:11 Osteopenia 882637495 Active Not Available [facility] 3 02:51:11 Pain in right foot 1954546699291 07 Active Jus Faye DPM [address], [place], [address] , [employer] 5 14:31:39 Tendinitis of left posterior tibial tendon 7298449662358 00 Active 2021 Not Available [facility] 3 02:51:11 Disorder of back 02258562 Active Not Available [facility] 3 02:51:11 Osteoarthr itis 597538145 Active Not Available [facility] 3 02:51:11 Disorder characteri zed by back pain 246988055 Active Not Available [facility] 3 02:51:11 Porokerato sis 807865780 Active 2020 Jus Faye DPM [address], [place], [address] , [employer] 5 14:31:44 Dizziness 093391703 Active Not Available [facility] 3 02:51:12 Hypothyroi dism 96398416 Active Not Available [facility] 3 02:51:12 Conduction disorder of the heart 85585176 Active Not Available [facility] 3 02:51:12 Sprain of foot 88863004 Active Not Available [facility] 3 02:51:12 Upper respirator y infection 77521947 Active Not Available [facility] 3 02:51:12 Hyperlipid emia 40592252 Active Not Available [facility] 3 02:51:12 Degenerati on of lumbosacra l interverte bral disc 46476372 Active Not Available [facility] 3 02:51:12 Closed fracture of phalanx of foot 67095500 Active Not Available [facility] 3 02:51:13 Dystrophia unguium 44199046 Active 2020 Not Available [facility] 3 02:51:13 Lipoma 48463543 Active Not Available [facility] 3 02:51:13 Pain of right elbow joint 0165497789888 9109 Active 2022 KASANDRA Miranda, [facility] [employer] 3 14:35:01 Pain of toe of left foot 4997250284529 08 Active 2022 Jus Faye DPM [address], [place], [address] , [facility] [employer] 3 10:10:07 Peripheral vascular disease 502344265 Active 2023 Jus Faye DPM [address], [place], [address] , [facility] [employer] [facility] [employer] 4 16:08:20 Pain of toes of bilateral feet 2372108959525 9102 Active 2023 Jus Faye DPM [address], [place], [address] , [facility] [employer] 4 11:15:44 Unable to cut own toenails 675698905 Active 2023 Jus Faye DPM [address], [place], [address] , [employer] 4 11:15:54 Pain in both feet 6457211125604 9102 Active 2023 Jus Faye DPM [address], [place], [address] , [employer] 4 16:35:48 Problem Notes None recorded. Procedures Surgical History Date Name Laterality Status Provider Name and Address Organization Details Recorded Time 5 Callus Debridement, One completed Jus Faye DPM [address], [place], [address], [employer] 10/10/2024 14:57:46 5 Nail Debridement completed Jus Faye DPM [address], [place], [address], [employer] 09/09/2024 10:17:22 5 Callus Debridement, One completed Jus Faye DPM [address], [place], [address], [employer] 09/09/2024 10:17:12 5 Nail Debridement completed Jus Faye DPM [address], [place], [address], [employer] 06/10/2024 10:26:03 4 Nail Debridement completed Jus Faye DPM [address], [place], [address], [employer] 03/11/2024 10:40:17 4 Nail Debridement completed Jus Faye DPM [address], [place], [address], [employer] 12/11/2023 16:34:23 4 Callus Debridement 2-4 completed Jus Faye DPM [address], [place], [address], [facility] [employer] 12/11/2023 16:34:28 4 Nail Debridement completed Jus Faye DPM [address], [place], [address], [facility] [employer] 10/02/2023 11:15:18 4 Nail Debridement completed Jus Faye DPM [address], [place], [address], [facility] [employer] 06/19/2023 16:09:24 3 Nail Debridement completed Jus Faye DPM [address], [place], [address], [facility] [employer] 03/02/2023 10:00:08 Imaging Results None recorded. Procedure Notes None recorded. Medical Equipment None Reported. Allergies Allergen ID Allergen Name Allergen Category Reaction Reaction Severity Criticality Documentation Date Start Date Code Code System Note Provider Name and Address Organization Details Recorded Time 5180 Demerol medicatio n Not available Not available Not available 07/20/2022 40592 1 RxNorm Not Available [facility] 3 03:07:12 Medications Name Sig Start [...] TO THE AFFECTED AREA(S) IN A THIN CRIMINAL LAWYER TO TWO TIMES DAILY. active Not Available [...] tablet TK 1 T PO ONCE PRF FRUIT SORTER EVAL 02/27 completed Not Available Not Available [...] in Arterial blood by Pulse oximetry Systolic And Diastolic Provider Name and Address Organization Details Last Updated DateTime 5 154.94 cm 42.5 kg/m2 005564. 28 g 61 /min 14 /min 98 % 98 % 136/86 mm[Hg] Aissatou Espinoza [facility] [employer] 5 09:31:13 Date Recorded Body height Body mass index (BMI) Body weight Heart rate Respiratory rate Oxygen saturation Oxygen saturation in Arterial blood by Pulse oximetry Systolic And Diastolic Provider Name and Address Organization Details Last Updated DateTime 5 154.94 cm 42.5 kg/m2 837341. 28 g 73 /min 14 /min 98 % 98 % 112/67 mm[Hg] Aissatou [facility] [employer] [facility] [employer] 5 09:51:14 Date Recorded Body height Body mass index (BMI) Body weight Heart rate Respiratory rate Oxygen saturation Oxygen saturation in Arterial blood by Pulse oximetry Systolic And Diastolic Provider Name and Address Organization Details Last Updated DateTime 5 154.94 cm 42.5 kg/m2 923652. 28 g 73 /min 14 /min 98 % 98 % 106/85 mm[Hg] Aissatou Espinoza [employer] 5 14:11:14 Date Recorded Body height Body mass index (BMI) Body weight Oxygen saturation Oxygen saturation in Arterial blood by Pulse oximetry Body temperature Respiratory rate Heart rate Systolic And Diastolic Provider Name and Address Organization Details Last Updated DateTime 4 154.94 cm 42.5 kg/m2 999522. 28 g 97 % 97 % 97.2 [degF] 16 /min 72 /min 110/70 mm[Hg] Danyelle Jefferson ID [employer] [facility] [employer] 4 15:48:36 Date Recorded Body height Body mass index (BMI) Body weight Heart rate Respiratory rate Oxygen saturation Oxygen saturation in Arterial blood by Pulse oximetry Systolic And Diastolic Provider Name and Address Organization Details Last Updated DateTime 4 154.94 cm 42.5 kg/m2 227833. 28 g 67 /min 14 /min 98 % 98 % 140/86 mm[Hg] Aissatou Espinoza [employer] [facility] [employer] 4 09:35:41 Social History None recorded. Functional Status Question Answer Note LastModified by Organization D etails LastModified Time What is your level of alcohol consumption? None [email or web address] Information not available 10/21/2022 Mental Status None recorded. Family History Relationship Description Onset Age of this Age Resolved Age Notes LastModified by Organization Details LastModified Time Mother Heart disease [email or web address] Not available 2022 14:33:53 Mother Hypertensive disorder [email or web address] Not available 2022 14:34:09 Medical History Condition Response ARTHRITIS Y HEART DISEASE/HEART PROBLEMS Y HYPERTENSION Y Gynecological HistoryNo gynecological history recorded. Obstetrics History GPAL:G 0 P 0 0 0 0 Past Encounters Encounter ID Performer Location Encounter Start Date Encounter Closed Date Diagnosis/Indication Diagnosis SNOMED-CT Code Diagnosis ICD10 Code Diagnosis Note [id number] [facility] [place] [address] [place] [address] 11/26/2020 00:00:00 12/03/2020 08:37:57 [id number] [facility] [place] [address] [place] [address] 05/31/2021 00:00:00 05/31/2021 14:17:21 [id number] [facility] [place] [address] [place] [address] 08/23/2021 00:00:00 08/24/2021 12:12:15 [id number] Bladimir Valderrama MD [facility] [place] [address] [place] [address] 10/21/2022 14:05:12 10/21/2022 15:41:45 Pain of right elbow joint 4082061606 3017111 M25.521 [id number] Bladimir Valderrama MD [facility] [place] [address] [place] [address] 10/28/2022 11:44:15 11/21/2022 09:27:11 Pain of right elbow joint 8529866925 9206076 M25.819 [id number] Jus Faye DPM [facility] [place] [address] [place] [address] 03/02/2023 09:39:02 03/02/2023 10:12:16 Dystrophia unguium 37038484 L60.3 left footnails debrided without incidentfo llow-up as needed Pain of to e of left foot 4252783563 70119 M79.675 foot great toe [id number] Jus Faye DPM [facility] [place] [address] [place] [address] 06/19/2023 15:32:40 06/19/2023 16:29:31 Peripheral vascular disease 326075246 I73.9 Noninvasiv e vascular testing Dystrophia unguium 83397 009 L60.3 nails debrided without incidentfo llow-up as needed [id number] Jus Faye DPM [facility] [place] [address] [place] [address] 07/13/2023 16:28:45 07/17/2023 17:25:45 Peripheral vascular disease 475378911 I73.9 Noninvasiv e vascular testing reviewed - mild dz bilatrecom mend daily exercisemo nitor for wounds and claudicati on, if present return to repeat testing [id number] Jus Faye DPM [facility] [place] [address] [place] [address] 10/02/2023 10:29:32 10/02/2023 11:23:46 Dystrophia unguium 40556786 L60.3 nails debrided without incidentfo llow-up as needed Pain of to es of bilateral feet 6851073454 5583014 M79.674 M79.675 secondary to above Unable to cut own toenails 183465856 Z74.1 [id number] Jus Faye DPM [facility] [place] [address] [place] [address] 12/11/2023 15:36:58 12/12/2023 16:33:23 Porokeratosis 496627984 Q82.8 M79.672 Debrided without incidentco ntinue over-the-c ounter [employer]mlactin[employer] e pumice stone dailyfollo w-up in 2-3 months Pain in both feet 391126 2811 5207858 M79.671 M79.672 Dystrophia unguium 20480 009 L60.3 nails debrided without incidentfo llow-up as needed [id number] Jus Faye DPM [facility] [place] [address] [place] [address] 03/11/2024 09:30:38 03/12/2024 14:14:13 Dystrophia unguium 31051933 L60.3 nails debrided without incidentfo llow-up as needed Pain of to es of bilateral feet 9951001194 1598446 M79.674 M79.675 secondary to above [id number] Jus Faye DPM [facility] [place] [address] [place] [address] 06/10/2024 09:26:39 06/14/2024 13:19:24 Dystrophia unguium 46599068 L60.3 nails debrided without incidentfo llow-up as needed Pain of to es of bilateral feet 2530826737 2131228 M79.674 M79.675 secondary to above [id number] Jus Faye DPM [facility] [place] [address] [place] [address] 09/09/2024 09:19:46 09/11/2024 08:30:22 Dystrophia unguium 02897324 L60.3 nails debrided without incidentfo llow-up as needed Porokeratosis 307611671 Q82.8 M79.672 Debrided without incidentco ntinue over-the-c ounter [employer]actin[employer] e pumice stone dailyfollo w-up in 2-3 months [id number] Jus Faye DPM [facility] [place] [address] [place] [address] 10/10/2024 13:41:15 10/11/2024 11:34:08 Pain in right foot 5246995751 04850 M79.671 sub 5th metatarsal head n7Aulddssq d pumice stone and Amlactin lotion Porokeratosis 416454142 Q82.8 Debrided without incidentco ntinue over-the-c ounter AmlactinUs e pumice stone dailyfollo w-up in 2-3 months Health Concerns Section Related Observation LastModified by Organization Detai ls LastModified Time None Recorded Concern Status LastModified by Organization Details LastModified Time None Recorded Advance Directives Directive None Recorded Payers Insurance Date Sequence Insurance Name Policy Number Policy Cruz Covered Member ID Cruz Member ID Guarantor Name 10/10/2024 1 [employer] (MEDICARE REPLACEMENT/ ADVANTAGE - PPO) [id number] Eileen Maza [id number] Eileen Maza 10/10/2024 1 [employer] (PPO) [id number] Eileen Maza [id number] Eileen Maza Notes Date Note Type Note Provider Name and Address Organization Details Recorded Time 12/11/2023 text/html . Patient is a 73-year-old female who returns the office for follow-up on painful calluses. Patient states that she is several calluses which cause her pain with walking. Patient denies any injury or open wounds. Patient denies any pain when at rest. Jus Faye DPM [address], [place], [address], [employer] 12/11/2023 16:36:22 03/11/2024 text/html . Patient is a 73-year-old female who returns the office for routine foot care. Patient states her toenails are long and painful she is unable bend over to cut them due to arthritis. Patient denies any other complaints. Jus Faye DPM [address], [place], [address], [employer] 03/11/2024 10:40:39 06/10/2024 text/html . Patient is [...] was currently being treated. Jus Faye DPM [address], [place], [address], [employer] 06/10/2024 10:26:28 09/09/2024 text/html . Patient is a 74-year-old female who returns the office for routine foot care. Patient states that she has elongated nails which she is unable to cut she states that she also has a painful callus to the sub 5th metatarsal head left foot she would like to have cut down she denies any open wounds injury or foot pain with walking. Patient states at times she will develop some mild discomfort at the porokeratosis but does not have any pain today. Patient denies any other complaints. Jus Faye DPM [address], [place], [address], [employer] 09/09/2024 10:19:01 10/10/2024 text/html . Patient is a 74-year-old [...] any other complaints. Jus Faye DPM [address], [place], [address], [place] [facility] [place] [employer] 10/10/2024 14:58:05 OBGyn Episode No OBEpisode recorded.
--- OUTSIDE RECORDS SUMMARY | 2024-12-03 06:53 | XMS_ITS | Continuity of Care Document ---
Author Organization [facility] - Main Address [address] [address] Insurance Providers Payer Plan Claims Address Claims Phone Policy Number Group Number Relation Employer Guarantor Name Guarantor Guarantor Address Guarantor Phone [employer] [address], [place] [address] [id number] Self Eileen Maza 1950 [address] [place] [address] Organ izati on/IC -1716 [address], [place] [address] [id number] Self Eileen Maza 1950 [address] [place] [address] [employer] [address], [place] [address] tel:[phone] Self Eileen Maza 1950 [address] [place] [address] Problems Unknown Problems Results No Results Allergies, adverse reactions, alerts No known allergies and adverse reactions Medications No administered medications reported Vital Signs No vital signs reported Social History No smoking Hx information available
--- OUTSIDE RECORDS SUMMARY | 2024-12-03 06:53 | XMS_ITS | Referral Summary ---
Author Organization [facility] Address [address] [place] [address] Care Team Providers Care Assigner Name Role Phone Lopez George MD Primary Care Provider [phone] Emmanuel Maher MD Unavailable [phone] Allergies Active Allergy Reactions Criticality Noted Date [...] mouth 2 (two) times a day Active HYDROcodone-fawad taminophen (NORCO) 5-325 mg per tabletIndicatio ns:Pain Take 1 tablet by mouth every 6 (six) hours as needed Active cholecalciferol (VITAMIN D-3) 2000 unit capsule 1 capsule (2,000 Units total) Active metoclopramide (REGLAN) 10 mg tablet TAKE 1 TABLET BY MOUTH THREE TIMES DAILY NEEDED FOR NAUSEA OR VOMITING 08/23/19 23 Active metoprolol tartrate (LOPRESSOR) 50 mg immediate release tabletIndicatio ns:Persistent atrial fibrillation (HCC) Take 1 tablet (50 mg total) by mouth 2 (two) times a day 180 tablet 3 08/20/19 25 026 Active hydroCHLOROthia zide 12.5 mg tablet TAKE 1 TABLET(12.5 MG) BY MOUTH DAILY 90 tablet 2 12/03/19 25 Active hydroCHLOROthia zide 12.5 mg tablet TAKE 1 TABLET(12.5 MG) BY MOUTH DAILY 90 tablet 09/03/19 25 025 Discontinued Active Problems Problem Noted Date Diagnosed Date Chronic anticoagulation 08/31/2022 Coronary artery disease invo lving [place] coronary artery of [place] heart without angina pectoris 08/31/2022 Bradycardia 08/31/2022 [...] on file Legal Sex Female 12:48 AM 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 Gender Identity Not on file Sexual Orientation Not on file 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 Last Filed Vital Signs Vital Sign Reading Time Taken Comments Blood Pressure 100/70 07/25/2024 7:49 AM 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 Pulse 54 07/25/2024 7:49 AM 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 Temperature 36.6 C (97.9 F) 11/20/2020 8:41 AM CDT Respiratory Rate 24 05/11/2022 10:5 6 AM 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 Oxygen Saturation 99% 07/25/2024 7:49 AM 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 Inhaled Oxygen Concentration - - Weight 100.4 kg (221 lb 6.4 oz) 07/25/2024 7:49 AM 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 Height 157.5 cm (5' 2) 07/25/2024 7:49 AM 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 Body Mass Index 40.49 07/25/2024 7:49 AM 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 Plan of Treatment Not on file Procedures Procedure Name Priority Date/Time Associated Diagnosis Comments DEXA TBS AXIAL SKELETON BONE DENSITY 1 OR MORE SITES Schedule Routine, Read Routine (OP Routine) 07/27/2022 8:45 AM 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 Osteoporosis without current pathological fracture, unspecified osteoporosis type from Last 3 Months or Most Recently Relevant to Health Maintenance Results * Dexa TBS Axial Skeleton Bone Density 1 or more sites (07/27/2022 8:45 AM 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) Anatomical Region Laterality Modality Wrist, Body N/A Radiographic Kristel ging Narrative 07/29/2022 8:43 AM 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 Patient Name: Eileen Maza Date of [...] by the International Society of Clinical Densitometry. [id number] Rhiannon Gamble MD [facility] [place]ED[place] Final Resu lt from Last 3 Months or Most Recently Relevant to Health Maintenance Insurance [employer] MEDICARE [facility] MEDICARE [employer] MEDICARE Care Teams Assigner Relationship Specialty Start Date End Date oLpez George MD [address] [facility] [address] [place] [address] PCP - General Internal Medicine 11/13/17 Emmanuel Maher MD [address] [facility] [address] [facility] [address] [place] [address] Consulting Physician Medical Oncology 12/14/21
--- OUTSIDE RECORDS SUMMARY | 2024-12-03 06:53 | XMS_ITS | Clinical Summary ---
Author Organization [facility] Address [address] [place] [address] Care Team Providers Care Glue Size Machine Operator Name Role Phone Lopez George MD Primary Care Provider [phone] Emmanuel Maher MD Unavailable [phone] Allergies Active Allergy Reactions Criticality Noted Date [...] anticoagulation 08/31/2022 Coronary artery disease invo lving [place] coronary artery of [place] heart without angina pectoris 08/31/2022 Bradycardia 08/31/2022 [...] on file Legal Sex Female 12:48 AM PYTHON PROGRAMMER Gender Identity Not on file Sexual Orientation Not on file 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 Obstetrics History Last Filed Vital Signs Vital Sign Reading Time Taken Comments Blood Pressure 100/70 07/25/2024 7:49 AM PYTHON PROGRAMMER Pulse 54 07/25/2024 7:49 AM PYTHON PROGRAMMER Temperature 36.6 C (97.9 F) 11/20/2020 8:41 AM CDT Respiratory Rate 24 05/11/2022 10:5 6 AM PYTHON PROGRAMMER Oxygen Saturation 99% 07/25/2024 7:49 AM PYTHON PROGRAMMER Inhaled Oxygen Concentration - - Weight 100.4 kg (221 lb 6.4 oz) 07/25/2024 7:49 AM PYTHON PROGRAMMER Height 157.5 cm (5' 2) 07/25/2024 7:49 AM PYTHON PROGRAMMER Body Mass Index 40.49 07/25/2024 7:49 AM PYTHON PROGRAMMER Plan of Treatment Health Maintenance Due Date [...] Screening-Bone Density Scan 07/27/2024 07/27/2022 Influenza Vaccine (#1) 2025 8, 03/15/2017, 03/15/2016, Additional history exists Procedures Procedure Name Priority Date/Time Associated Diagnosis Comments DEXA TBS AXIAL SKELETON BONE DENSITY 1 OR MORE SITES Schedule Routine, Read Routine (OP Routine) 07/27/2022 8:45 AM PYTHON PROGRAMMER Osteoporosis without current pathological fracture, unspecified osteoporosis type from Last 3 Months or Most Recently Relevant to Health Maintenance Results * Dexa TBS Axial Skeleton Bone Density 1 or more sites (07/27/2022 8:45 AM PYTHON PROGRAMMER) Anatomical Region Laterality Modality Wrist, Body N/A Radiographic Kristel ging Narrative 07/29/2022 8:43 AM PYTHON PROGRAMMER Patient Name: Eileen Maza Date of : 1950 Date of scan: 07/27/2022 Bone mineral density was performed on a [employer] Discovery Densitometer. Based on machine cross-calibration and [...] by the International Society of Clinical Densitometry. [id number] Rhiannon Gamble MD IM DXA PROCEDURES Final Resu lt from Last 3 Months or Most Recently Relevant to Health Maintenance [place] [address] [place] [address] [facility] MEDICARE AET[employer] MEDICARE T MEDICARE Care Teams Glue Size Machine Operator Relationship Specialty Start Date End Date Lopez George MD [address] [place] [address] PCP - General Internal Medicine 11/13/17 Emmanuel Maher MD [address] [place] [address] Consulting Physician Medical Oncology 12/14/21
[2024-12-03 07:50] LABS: Hematocrit 36.2 % (37.0-47.0); Hemoglobin 12.4 g/dL (12.0-15.0); Immature Granulocyte Percent A 0.4 % (0-0.5); Lymphocytes Absolute Auto 1.00 K/mm3 (0.9-3.2); Mean Corpuscular HGB Conc 34.3 g/dl (32-36); Mean Corpuscular Hemoglobin 31.9 pg (26-34); Mean Corpuscular Volume 93.1 fl (80-100); Nucleated Red Blood Cells Absolute Auto 0.000 K/mm3 (0.0-0.012); Nucleated Red Blood Cells Perc 0.0 % (0.0-0.2); Platelet Count Result 212 k/mm3 (150-375); Red Blood Count 3.89 M/mm3 (4.2-5.4); White Blood Count 5.6 K/mm3 (4.5-10.0)
[2024-12-03 08:04] LABS: Alanine Aminotransferase 31 U/L (6-35); Albumin Level 3.8 g/dL (3.5-5.1); Alkaline Phosphatase 56 U/L (38-126); Anion Gap 8 mmol/L (4-12); Aspartate Amino Transferase 41 U/L (14-36); Bilirubin,Total 0.9 mg/dL (0.2-1.3); Blood Urea Nitrogen 9 mg/dL (7-17); Calcium 9.1 mg/dL (8.4-10.2); Carbon Dioxide 24 mmol/L (22-30); Chloride 100 mmol/L (98-107); Cholesterol 145 mg/dL (0-200); Estimated Glomerular Filt Rate > 60; Glucose 90 mg/dL (65-110); HDL Direct 64 mg/dL; Potassium 3.6 mmol/L (3.4-5.0); Sodium 132 mmol/L (137-145); Total Protein 6.6 g/dL (6.3-8.2); Triglycerides 105 mg/dL (<150)
[2024-12-03 08:18] LABS: Free T4 Free Thyroxine 2.36 ng/dL (0.78-2.19)
[2024-12-03 08:40] LABS: Thyroid Stimulating Hormone 0.370 uIU/mL (0.465-4.680)
[2024-12-03 09:15] LABS: Vitamin B12 411.0 pg/mL (239-931)
[2024-12-03 10:27] LABS: Hemoglobin A1C 5.5 % (<5.7)
== END 2024-12-03 06:51 | disposition home or self-care (01) ==
PROVIDERS: PCP Internal Medicine; Visit Provider Internal Medicine
DX: E03.9 Hypothyroidism, unspecified (principal); E53.8 Deficiency of other specified B group vitamins; I10 Essential (primary) hypertension; R73.09 Other abnormal glucose; E78.5 Hyperlipidemia, unspecified
CPT/HCPCS: 36415; 80053; 80061; 82607; 82746; 83036; 84439; 84443; 85025

== ENCOUNTER 2024-12-18 08:22 | Outpatient (CLI) | payer MEDICARE, SELFPAY ==
--- OUTSIDE RECORDS SUMMARY | 2024-12-18 08:33 | XMS_ITS | Clinical Summary ---
Author Organization [facility] Address [address] [place] [address] Care Team Providers Care Communications Electrician Supervisor Name Role Phone Unavailable Primary Care Provider Unavailabl e Source Comments [facility],non-owned Affiliates and Associated Physician Practices is amultiple site organization consisting of ambulatory clinics and hospital sitesin [place], [place], [place] and [place]. This disclosure is being madepursuant to the Care Everywhere program and may not contain all information available regarding this patient. Last updated 18.[facility] [employer] Social History Tobacco Use Types Packs/Day Years [...]
--- OUTSIDE RECORDS SUMMARY | 2024-12-18 08:33 | XMS_ITS | Referral Summary ---
Author Organization [facility] Address [address] [place] [address] Care Team Providers Care Heating And Cooling Systems Engineer Name Role Phone Lopez George MD Primary Care Provider [phone] Emmanuel Maher MD Unavailable [phone] Allergies Active Allergy Reactions Criticality Noted Date [...] anticoagulation 08/31/2022 Coronary artery disease invo lving [place] coronary artery of [place] heart without angina pectoris 08/31/2022 Bradycardia 08/31/2022 [...] on file Legal Sex Female 12:48 AM KETTLE OPERATOR HEAD Gender Identity Not on file Sexual Orientation Not on file 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 Last Filed Vital Signs Vital Sign Reading Time Taken Comments Blood Pressure 100/70 07/25/2024 7:49 AM KETTLE OPERATOR HEAD Pulse 54 07/25/2024 7:49 AM KETTLE OPERATOR HEAD Temperature 36.6 C (97.9 F) 11/20/2020 8:41 AM CDT Respiratory Rate 24 05/11/2022 10:5 6 AM KETTLE OPERATOR HEAD Oxygen Saturation 99% 07/25/2024 7:49 AM KETTLE OPERATOR HEAD Inhaled Oxygen Concentration - - Weight 100.4 kg (221 lb 6.4 oz) 07/25/2024 7:49 AM KETTLE OPERATOR HEAD Height 157.5 cm (5' 2) 07/25/2024 7:49 AM KETTLE OPERATOR HEAD Body Mass Index 40.49 07/25/2024 7:49 AM KETTLE OPERATOR HEAD Plan of Treatment Not on file Procedures Procedure Name Priority Date/Time Associated Diagnosis Comments DEXA TBS AXIAL SKELETON BONE DENSITY 1 OR MORE SITES Schedule Routine, Read Routine (OP Routine) 07/27/2022 8:45 AM KETTLE OPERATOR HEAD Osteoporosis without current pathological fracture, unspecified osteoporosis type from Last 3 Months or Most Recently Relevant to Health Maintenance Results * Dexa TBS Axial Skeleton Bone Density 1 or more sites (07/27/2022 8:45 AM KETTLE OPERATOR HEAD) Anatomical Region Laterality Modality Wrist, Body N/A Radiographic Kristel ging Narrative 07/29/2022 8:43 AM KETTLE OPERATOR HEAD Patient Name: Eileen Maza Date of : [...] by the International Society of Clinical Densitometry. [id number] Rhiannon Gamble MD [facility] DXA PROCEDURES Final Resu lt from Last 3 Months or Most Recently Relevant to Health Maintenance Insurance AETNA MEDICARE [facility] MEDICARE AETNA MEDICARE Care Teams Heating And Cooling Systems Engineer Relationship Specialty Start Date End Date Lopez George MD [address] [facility] [address] [place] [address] PCP - General Internal Medicine 11/13/17 Emmanuel Maher MD [address] [facility] [address] [address] [facility] [address] [place] [address] Consulting Physician Medical Oncology 12/14/21
--- OUTSIDE RECORDS SUMMARY | 2024-12-18 08:33 | XMS_ITS | Clinical Summary ---
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 Obstetrics History Last Filed Vital Signs Vital Sign Reading Time Taken Comments Blood Pressure 100/70 07/25/2024 7:49 AM ANIMAL KILLER Pulse 54 07/25/2024 7:49 AM ANIMAL KILLER Temperature 36.6 C (97.9 F) 11/20/2020 8:41 AM CDT Respiratory Rate 24 05/11/2022 10:5 6 AM ANIMAL KILLER Oxygen Saturation 99% 07/25/2024 7:49 AM ANIMAL KILLER Inhaled Oxygen Concentration - - Weight 100.4 kg (221 lb 6.4 oz) 07/25/2024 7:49 AM ANIMAL KILLER Height 157.5 cm (5' 2) 07/25/2024 7:49 AM ANIMAL KILLER Body Mass Index 40.49 07/25/2024 7:49 AM ANIMAL KILLER Plan of Treatment Health Maintenance Due Date [...] Read Routine (OP Routine) 07/27/2022 8:45 AM ANIMAL KILLER Osteoporosis without current pathological fracture, unspecified osteoporosis type from Last 3 Months or Most Recently Relevant to Health Maintenance Results * Dexa TBS Axial Skeleton Bone Density 1 or more sites (07/27/2022 8:45 AM ANIMAL KILLER) Anatomical Region Laterality Modality Wrist, Body N/A Radiographic Kristel ging Narrative 07/29/2022 8:43 AM ANIMAL KILLER Patient Name: Eileen Maza Date of : 1950 Date of scan: 07/27/2022 Bone mineral density was performed on a [employer] Discovery Densitometer. Based on machine cross-calibration and [...] by the International Society of Clinical Densitometry. [id number] Rhiannon Gamble MD IM DXA PROCEDURES Final Resu lt from Last 3 Months or Most Recently Relevant to Health Maintenance [place] [address] [place] [address] [facility] MEDICARE [facility] MEDICARE Address: [facility] [id number] [place] [phone] AETNA MEDICARE T MEDICARE Care Teams Medical Typist Relationship Specialty Start Date End Date Lopez George MD [address] [place] [address] PCP - General Internal Medicine 11/13/17 Emmanuel Maher MD [address] [place] [address] Consulting Physician Medical Oncology 12/14/21
--- OUTSIDE RECORDS SUMMARY | 2024-12-18 08:33 | XMS_ITS | Encounter Summary ---
Author Organization [facility] Address [address] [place] [address] Phone Care Team Providers Care Strategic Partnership Specialist Name Role Phone Lopez George MD Primary Care Provider [phone] Sandip Carvalho MD Unavailable [phone] Emmanuel Maher MD Unavailable [phone] Encounter Details Date Type Department Care Team [...] on file Legal Sex Female 12:48 AM FOLEY ARTIST Gender Identity Not on file Sexual Orientation [...] on filedocumented in this encounter Care Teams Strategic Partnership Specialist Relationship Specialty Start Date End Date Lopez George MD [address] [place] [address] PCP - General Internal Medicine 11/13/17 Sandip Carvalho MD [address] [place] [address] Medical Oncologist/Garde Manger Medical Oncology 08/10/20 12/13/21 Emmanuel Maher MD [address] [place] [address] Consulting Physician Medical Oncology 12/14/21 documented as of this encounter
--- OUTSIDE RECORDS SUMMARY | 2024-12-18 08:33 | XMS_ITS | Encounter Summary ---
Author Organization [facility] Address [address] [facility] [place] [address] Care Team Providers Care Consulting Software Engineer Name Role Phone Unavailable Primary Care Provider Unavailabl e Encounter Details Date Type Department Care Team (Late st Contact Info) Description 02/27/[address] [facility] [address] [place] [address] Richie Chaidez MD [address] [place] [address] Social History Tobacco Use Types [...] AM CDT) Case Report Dermatopathology Report Case: [id number] Authorizing Provider: Richie Chaidez MD Collected: 02/26/2020 12:00 AM Ordering Location: [facility] Received: 02/27/2020 11:21 [...] of a shave biopsy (2 pieces) measuring [id number] and [id number]. Jar 0. 0 3:37 PM CDT DERMATOPATHOLOGY [...] characteristic determined by the Dermatopathology Laboratory at [facility], directed by Dr. Bebeto Nance. These tests need not be, and therefore are not, approved by the [place] Food and Drug Administration. The tests are used for clinical purposes. Billing Codes Specimen Charges Stain Charges 27912 1 0 3:37 PM CDT DERMATOPATHOLOGY LABORATORY Embedded Images 0 3:37 PM CDT DERMATOPATHOLOGY LABORATORY Pathology/Cytolog y TISSUE SPECIMEN FROM SKIN / Unknown 02/26/2020 02/27/2020 11:21 AM CDT us Richie Chaidez MD LAB - PATHOLOGY/CYTOLOGY ORD ERABLES Final Result DERMATOPATHOLOGY LABORATORY [facility] - Department of Dermatology [address], [address] [phone] documented in this encounter Visit Diagnoses Not on filedocumented in this encounter
[2024-12-18 09:08] LABS: CRP < 0.5 mg/dL (<1.0)
[2024-12-18 09:31] LABS: Free T4 Free Thyroxine 1.95 ng/dL (0.78-2.19)
[2024-12-18 09:40] LABS: Thyroid Stimulating Hormone 0.495 uIU/mL (0.465-4.680)
== END 2024-12-18 08:23 | disposition home or self-care (01) ==
PROVIDERS: PCP Internal Medicine; Visit Provider Internal Medicine
DX: E03.9 Hypothyroidism, unspecified (principal); Z79.899 Other long term (current) drug therapy; M31.6 Other giant cell arteritis
CPT/HCPCS: 36415; 84439; 84443; 85652; 86140

== ENCOUNTER 2025-01-01 07:50 | Outpatient (CLI) | payer MEDICARE, SELFPAY ==
--- NOTE | ~2025-01-01 | DEXA_ITS ---
Bone Density Report Name: JOHN RODRIGUEZ Age: 74 Sex: Female Ethnicity: White Date of : 1950 Indication: osteopenia; height loss; secondary osteoporosis; Referring Provider: UNRULY SHAH Study: Bone densitometry was performed. Exam Date: January 01, 2025 Accession number: [id number] Bone Density: Region BMD T-score Z-score Classification AP Spine(L1-L4) 1.046 0.0 2.5 Normal Femoral Neck (Left) 0.610 -2.2 0.0 Osteopenia Total Hip (Left) 0.825 -1.0 0.9 Normal Femoral Neck (Right) 0.650 -1.8 0.4 Osteopenia Total Hip (Right) 0.910 -0.3 1.6 Normal Total Hip Mean 0.867 -0.7 1.3 Normal World Health Organization criteria for BMD impression classify patients as: Normal (T-score at or above -1.0), Osteopenia (T-score between -1.0 and -2.5), or Osteoporosis (T-score at or below -2.5). 10-year Fracture Risk(1): Major Osteoporotic Fracture 13% Hip Fracture 3.5% Reported Risk Factors: [place] (), Neck BMD=0.610, BMI=37.7, secondary osteoporosis (1) FRAX(R) Version 3.08. Fracture probability calculated for an untreated patient. Fracture probability may be lower if the patient has received treatment. Previous Exams: Region Exam Age BMD T-score BMD Change BMD Change Date g/cm2 vs Baseline vs Previous Total Hip(Left) 01/01/2025 74 0.825 -1.0 -0.021 (-2.5%) -0.021 (-2.5%) 10/21/2020 70 0.846 -0.8 Total Hip(Right) 01/01/2025 74 0.910 -0.3 0.134 (17.3%)# 0.134 (17.3%)# 10/21/2020 70 0.776 -1.4 *Denotes significance at 95% confidence level, LSC for Total Hip = 0.027 g/cm2 # Denotes dissimilar scan types or analysis methods Clinical Information Provided by Patient: Has secondary osteoporosis Has used the following medications: Prolia (i.e. denosumab), Vitamin D, Calcium Patient maximum height was 68.0 Menopause Age: 55 No regular weight bearing exercise Does not regularly consume dairy products Onset of menses at age 10 Number of children 2 Impression: The patient has low bone mass, based on the Left Femoral Neck T-score. The patient has an estimated ten-year risk of hip fracture of 3.5% and an estimated ten-year risk of major fracture of 13%, based on the WHO FRAX algorithm. No significant bone loss was observed. Discussion: BONE DENSITY IS LOW AT ONE OR MORE SKELETAL SITES. THE PATIENT'S BMD AND CLINICAL RISK FACTORS CONTRIBUTE TO THIS PATIENT'S INCREASED RISK OF FRACTURE. This patient's lowest T-score is low at one or more skeletal sites. It meets the World Health Organization's (WHO) criteria for ?low bone mass? (T-score between -1.0 and -2.5). The patient's 10-year risk of hip fracture as calculated by FRAX exceeds the threshold where pharmacological therapy is recommended by the National Osteoporosis Foundation (NOF). However, all treatment decisions require clinical judgment and consideration of individual patient factors, including patient preferences, comorbidities, previous drug use, risk factors not captured in the FRAX model (e.g., frailty, falls, vitamin D deficiency, increased bone turnover, interval significant decline in bone density) and possible under or overestimation of fracture risk by FRAX. The patient should follow a healthful lifestyle (good nutrition with adequate calcium and vitamin D, and appropriate weight-bearing exercise). Follow-Up: Consider a repeat BMD and Vertebral Fracture Assessment (VFA) exam in 2 years or sooner if medically necessary, to reassess this patient's status. Reported by: ALEKSANDR on 01/14/2025 8:11:00 AM. Reviewed, dictated and finalized at location A.
--- OUTSIDE RECORDS SUMMARY | 2025-01-01 07:55 | XMS_ITS | Clinical Summary ---
Author Organization [facility] Address [address] [place] [address] Care Team Providers Care Telephone Engineer Name Role Phone Lopez George MD Primary Care Provider [phone] Emmanuel Maher MD Unavailable [phone] Allergies Active Allergy Reactions Criticality Noted Date [...] MG) BY MOUTH DAILY 90 tablet 2 5 Active Active Problems Problem Noted Date Diagnosed Date Chronic anticoagulation 08/31/2022 Coronary artery disease invo lving [place] coronary artery of [place] heart without angina pectoris 08/31/2022 Bradycardia 08/31/2022 [...] on file Legal Sex Female 12:48 AM BURN TABLE OPERATOR Gender Identity Not on file Sexual Orientation Not on file 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 Obstetrics History Last Filed Vital Signs Vital Sign Reading Time Taken Comments Blood Pressure 100/70 07/25/2024 7:49 AM BURN TABLE OPERATOR Pulse 54 07/25/2024 7:49 AM BURN TABLE OPERATOR Temperature 36.6 C (97.9 F) 11/20/2020 8:41 AM CDT Respiratory Rate 24 05/11/2022 10:5 6 AM BURN TABLE OPERATOR Oxygen Saturation 99% 07/25/2024 7:49 AM BURN TABLE OPERATOR Inhaled Oxygen Concentration - - Weight 100.4 kg (221 lb 6.4 oz) 07/25/2024 7:49 AM BURN TABLE OPERATOR Height 157.5 cm (5' 2) 07/25/2024 7:49 AM BURN TABLE OPERATOR Body Mass Index 40.49 07/25/2024 7:49 AM BURN TABLE OPERATOR Plan of Treatment Health Maintenance Due Date [...] Read Routine (OP Routine) 07/27/2022 8:45 AM BURN TABLE OPERATOR Osteoporosis without current pathological fracture, unspecified osteoporosis type from Last 3 Months or Most Recently Relevant to Health Maintenance Results * Dexa TBS Axial Skeleton Bone Density 1 or more sites (07/27/2022 8:45 AM BURN TABLE OPERATOR) Anatomical Region Laterality Modality Wrist, Body N/A Radiographic Kristel ging Narrative 07/29/2022 8:43 AM BURN TABLE OPERATOR Patient Name: Eileen Maza Date of : 1950 Date of scan: 07/27/2022 Bone mineral density was performed on a [employer] Discovery Densitometer. Based on machine cross-calibration and [...] by the International Society of Clinical Densitometry. [id number] Rhiannon Gamble MD IMG DXA PROCEDURES Final Resu lt from Last 3 Months or Most Recently Relevant to Health Maintenance Insurance AETNA MEDICARE [facility] MEDICARE AETNA MEDICARE Care Teams Telephone Engineer Relationship Specialty Start Date End Date Lopez George MD [address] [place] [address] PCP - General Internal Medicine 11/13/17 Emmanuel Maher MD [address] [place] [address] Consulting Physician Medical Oncology 12/14/21
--- OUTSIDE RECORDS SUMMARY | 2025-01-01 07:55 | XMS_ITS | Encounter Summary ---
Author Organization [facility] Address [address] [place] [address] Phone Care Team Providers Care Bicycle Service Technician Name Role Phone Lopez George MD Primary Care Provider [phone] Sandip Carvalho MD Unavailable [phone] Emmanuel Maher MD Unavailable [phone] Encounter Details Date Type Department Care Team [...] on file Legal Sex Female 12:48 AM HEDIS ABSTRACTOR Gender Identity Not on file Sexual Orientation [...] on filedocumented in this encounter Care Teams Bicycle Service Technician Relationship Specialty Start Date End Date Lopez George MD [address] [place] [address] PCP - General Internal Medicine 11/13/17 Sandip Carvalho MD [address] [place] [address] Medical Oncologist/Gem Cutter Medical Oncology 08/10/20 12/13/21 Emmanuel Maher MD [address] [place] [address] Consulting Physician Medical Oncology 12/14/21 documented as of this encounter
--- OUTSIDE RECORDS SUMMARY | 2025-01-01 07:55 | XMS_ITS | Encounter Summary ---
Author Organization [facility] Address [address] [place] [address] Care Team Providers Care Process Control Manager Name Role Phone Unavailable Primary Care Provider Unavailabl e Encounter Details Date Type Department Care Team (Late st Contact Info) Description 02/27/2020 Lab Requisition [facility] [address] [place] [address] Richie Chaidez MD [address] [place] [address] Social History Tobacco Use Types [...] AM CDT) Case Report Dermatopathology Report Case: [id number] Authorizing Provider: Richie Chaidez MD Collected: 02/26/2020 12:00 AM Ordering Location: [facility] Received: 02/27/2020 11:21 AM Pathologist: [...] of a shave biopsy (2 pieces) measuring [id number] and 1p6y9mg. Jar 0. 0 3:37 PM CDT DERMATOPATHOLOGY [...] characteristic determined by the Dermatopathology Laboratory at [facility], directed by Dr. Bebeto Nance. These tests need not be, and therefore are not, approved by the [place] Food and Drug Administration. The tests are used for clinical purposes. Billing Codes Specimen Charges Stain Charges 27336 1 0 3:37 PM CDT DERMATOPATHOLOGY LABORATORY Embedded Images 0 3:37 PM CDT DERMATOPATHOLOGY LABORATORY Pathology/Cytolog y TISSUE SPECIMEN FROM SKIN / Unknown 02/26/2020 02/27/2020 11:21 AM CDT us Richie Chaidez MD LAB - PATHOLOGY/CYTOLOGY ORD ERABLES Final Result DERMATOPATHOLOGY LABORATORY [facility] - Department of Dermatology [address], [address] [phone] documented in this encounter Visit Diagnoses Not on filedocumented in this encounter
--- OUTSIDE RECORDS SUMMARY | 2025-01-01 07:55 | XMS_ITS | Clinical Summary ---
Author Organization [facility] Address [address] [place] [address] Care Team Providers Care Doughnut Icer Machine Name Role Phone Unavailable Primary Care Provider Unavailabl e Source Comments [facility],non-owned Affiliates and Associated Physician Practices is amultiple site organization consisting of ambulatory clinics and hospital sitesin [place], [place], [place] and [place]. This disclosure is being madepursuant to the Care Everywhere program and may not contain all information available regarding this patient. Last updated 18.[facility] [employer] Social History Tobacco Use Types Packs/Day Years [...]
== END 2025-01-01 07:51 | disposition home or self-care (01) ==
LOC: ANHIMG 07:51
PROVIDERS: PCP Internal Medicine; Visit Provider Obstetrics & Gynecology
DX: M85.852 Other specified disorders of bone density and structure, left thigh (principal); M85.851 Other specified disorders of bone density and structure, right thigh; Z78.0 Asymptomatic menopausal state
CPT/HCPCS: 77080

== ENCOUNTER 2025-01-15 10:56 | Outpatient (CLI) | payer MEDICARE, SELFPAY ==
--- NOTE | ~2025-01-15 | MR_ITS ---
EXAMINATION: MR lumbar spine wo con DATE: 01/15/2025 12:04 INDICATION: Lumbar spondylosis TECHNIQUE: Magnetic resonance imaging (MRI) of the lumbar spine was performed without intravenous contrast. Sequences included sagittal T2-weighted FSE, sagittal T2-weighted FS FSE, sagittal T1-weighted FSE, and axial T2-weighted FSE. COMPARISON: Lumbar spine MR dated 02/22/2021 FINDINGS: Thoracolumbar and lumbosacral segments with hypoplastic bilateral riblets at T12 and left-sided sacralization at L5. Relation with prior CT of the neck and chest demonstrates 7 nonrib-bearing cervical segments and 12 paired rib bearing thoracic segments inclusive of the T12 segment with the hypoplastic riblets. 30 degrees lumbar levorotoscoliosis. 6 mm anterolisthesis L4 on L5. Chronic mild anterior wedging at T11 and T12. Lumbar vertebral body heights are normal. There is moderate right-sided disc height loss at L2-L3 with associated fibrovascular degenerative endplate changes. Severe disc height loss at T10-T11, mild to moderate right-sided predominant disc height loss at T12-L1 and L1-L2, mild disc height loss at L3-L4, severe left-sided disc height loss at L4-L5. The conus medullaris terminates at T12-L1. There is normal signal in the caudal spinal cord. Paravertebral soft tissues are unremarkable. The following disc levels are specifically discussed: T12-L1: Small central disc protrusion. There is mild bilateral facet joint osteoarthritis. There is no neural foraminal stenosis. There is minimal central canal stenosis. L1-L2: Disc is mildly bulging. There is mild bilateral facet joint osteoarthritis. There is mild right neural foraminal stenosis. There is minimal central canal stenosis. L2-L3: Disc is bulging. There is hypertrophy of the ligamentum flavum. Superimposed annular fissure and moderate sized right subarticular zone disc extrusion with disc material extending 1.8 cm caudal to the level of the superior endplate of L3 and which measures 1.4 x 1.1 cm in maximal transaxial dimensions. There is moderate bilateral facet joint osteoarthritis. There is mild left and moderate right neural foraminal stenosis. There is mild central canal stenosis at the level of the disc space and moderate central canal stenosis and narrowing of the right lateral recess just below level of the disc space resulting from the disc extrusion. L3-L4: Disc is bulging. There is hypertrophy of the ligamentum flavum. There is severe left and moderate to severe right facet joint osteoarthritis. There is moderate left and moderate to severe right neural foraminal stenosis. There is moderate to severe central canal stenosis. L4-L5: Disc is bulging. There is severe bilateral facet joint osteoarthritis. There is moderate right and severe left neural foraminal stenosis. There is moderate to severe central canal stenosis. L5-S1: The disc does not extend beyond the endplate margin. There is moderate right and severe left facet joint osteoarthritis. There is minimal right and moderate left neural foraminal stenosis. There is no central canal stenosis. IMPRESSION: 1. 30 degrees lumbar levorotoscoliosis progression of severe spondylosis including a new large disc extrusion at L3-L4 and with moderate and severe central canal and neural foraminal stenosis at several levels as detailed above. Reviewed, dictated and finalized at location A. IMPRESSION: 1. 30 degrees lumbar levorotoscoliosis progression of severe spondylosis includ ing a new large disc extrusion at L3-L4 and with moderate and severe central ca nal and neural foraminal stenosis at several levels as detailed above.
== END 2025-01-15 10:57 | disposition home or self-care (01) ==
LOC: GOSHIMG 10:57
PROVIDERS: PCP Internal Medicine; Visit Provider Nurse Practitioner Family
DX: M41.86 Other forms of scoliosis, lumbar region (principal); M47.816 Spondylosis without myelopathy or radiculopathy, lumbar region; M51.26 Other intervertebral disc displacement, lumbar region; M48.061 Spinal stenosis, lumbar region without neurogenic claudication
CPT/HCPCS: 72148

== ENCOUNTER 2025-03-18 07:04 | Outpatient (CLI) | payer MEDICARE, SELFPAY ==
--- NOTE | ~2025-03-18 | XR_ITS ---
EXAMINATION: XR tibia fibula RT 2V, 03/18/2025 7:15 CDT HISTORY: M79.604 - Pain in right leg X 2 WKS, NKI COMPARISON: No comparisons available. Findings: No acute fracture or malalignment. Moderate degenerative changes Soft tissues unremarkable. Impression: No acute fracture or malalignment. Reviewed, dictated and finalized at location P. Impression: No acute fracture or malalignment.
--- NOTE | ~2025-03-18 | XR_ITS ---
EXAMINATION: XR tibia fibula LT 2V, 03/18/2025 7:15 CDT HISTORY: M79.604 - Pain in right leg COMPARISON: No comparisons available. Findings: No acute fracture or malalignment. Severe degenerative changes Soft tissues unremarkable. Impression: No acute fracture or malalignment. Reviewed, dictated and finalized at location P. Impression: No acute fracture or malalignment.
== END 2025-03-18 07:05 | disposition home or self-care (01) ==
PROVIDERS: PCP Internal Medicine; Visit Provider Internal Medicine
DX: M17.0 Bilateral primary osteoarthritis of knee (principal); M79.604 Pain in right leg; M79.605 Pain in left leg
CPT/HCPCS: 73590

== ENCOUNTER 2025-03-18 15:34 | Emergency (ER) | payer MEDICARE, SELFPAY ==
--- NOTE | ~2025-03-18 | XR_ITS ---
EXAMINATION: XR chest 1V portable COMPARISON: No comparisons available. HISTORY: AFib FINDINGS: The lungs are clear, no effusion. No pneumothorax. Heart is normal size. Mediastinal and hilar contours are within normal limits. Bony thorax no acute abnormality. Miscellaneous: None Impression: No acute cardiopulmonary abnormality. Reviewed, dictated and finalized at location P. Impression: No acute cardiopulmonary abnormality.
[2025-03-18 15:36] VITALS: BP 142/83; PULSE 74; RESP 16; TEMP 36.7; O2SAT 100
--- NOTE | 2025-03-18 15:39 | ECG_ITS ---
Test Date: 2025-03-18 15:42:39 Measurements Intervals [place] Rate: 76 P: 0 MT: 0 QRS: -4 QRSD: 100 T: -9 QT: 375 QTc: 423 Interpretive Statements ATRIAL FIBRILLATION CONSIDER INFERIOR INFARCT, AGE INDETERMINATE ANTEROSEPTAL INFARCT, AGE INDETERMINATE BASELINE ARTIFACT- I, II, III, AVR, AVL AVF, V1-V6 ABNORMAL ECG No previous ECG available for comparison Electronically Signed On 03-18-2025 16:01:02 CDT by Daniel Cotton D.O.
[2025-03-18 16:19] LABS: Hematocrit 36.9 % (37.0-47.0); Hemoglobin 12.7 g/dL (12.0-15.0); Immature Granulocyte Percent A 0.2 % (0-0.5); Lymphocytes Absolute Auto 1.06 K/mm3 (0.9-3.2); Mean Corpuscular HGB Conc 34.4 g/dl (32-36); Mean Corpuscular Hemoglobin 31.7 pg (26-34); Mean Corpuscular Volume 92.0 fl (80-100); Nucleated Red Blood Cells Absolute Auto 0.000 K/mm3 (0.0-0.012); Nucleated Red Blood Cells Perc 0.0 % (0.0-0.2); Platelet Count Result 198 k/mm3 (150-375); Red Blood Count 4.01 M/mm3 (4.2-5.4); White Blood Count 4.8 K/mm3 (4.5-10.0)
[2025-03-18 16:26] VITALS: BP 128/82; RESP 23; O2SAT 95
[2025-03-18 16:30] LABS: INR 1.2; Prothrombin Time 15.4 Seconds (11.1-14.7)
[2025-03-18 16:31] LABS: Partial Thromboplastin Time 30.7 Seconds (22.3-36.8)
[2025-03-18 16:35] VITALS: BP 138/78; PULSE 70; RESP 17; O2SAT 100
[2025-03-18 16:37] VITALS: PULSE 73
[2025-03-18 16:37] LABS: Alanine Aminotransferase 18 U/L (6-35); Albumin Level 4.1 g/dL (3.5-5.1); Alkaline Phosphatase 58 U/L (38-126); Anion Gap 9 mmol/L (4-12); Aspartate Amino Transferase 37 U/L (14-36); Bilirubin,Total 1.0 mg/dL (0.2-1.3); Blood Urea Nitrogen 14 mg/dL (7-17); Calcium 9.3 mg/dL (8.4-10.2); Carbon Dioxide 24 mmol/L (22-30); Chloride 100 mmol/L (98-107); Estimated CRCL calculation 72 ml/min; Estimated Glomerular Filt Rate > 60; Glucose 114 mg/dL (65-110); Magnesium 1.7 mg/dL (1.6-2.3); Potassium 3.3 mmol/L (3.4-5.0); Sodium 133 mmol/L (137-145); Total Protein 7.0 g/dL (6.3-8.2)
--- NOTE | 2025-03-18 16:41 | ED.GENADULT ---
HPI - General Adult General Chief complaint: Arrhythmia/Palpitations Stated complaint: I have a-fib and I think it's acting up Time Seen by Provider: 03/18/25 15:53 History of Present Illness HPI narrative: 74-year-old female presented to the emergency department for evaluation after having an episode of nausea and lightheadedness. Patient states that she had just had lunch. Daughter states that during the episode the patient was catalan appearing. Patient denies any chest pain during this time patient was unable to measure her heart rate during the actual episode. Patient states he did take a dose of Ativan and by the time she measured her heart rate it was in the 70s. Upon arrival emergency department patient states she does feel improved. Patient denies any associated chest pain or shortness of breath. Patient states the nausea has resolved and patient's color has also improved per daughter. Patient does have history of AFib with RVR does take metoprolol. Patient has also had history of symptomatic bradycardia with heart rate in the 30s. Related Data Home Medications ?Medication ?Instructions ?Recorded ?Confirmed ?Last Taken ?Type mecobalamin (vitamin B12) 1,000 1,000 mcg sublingual DAILY 06/03/19 03/18/25 03/18/25 History mcg disintegrating tablet,sublingual folic acid 1 mg tablet 1 mg PO DAILY 03/23/22 03/18/25 03/18/25 History cholecalciferol (vitamin D3) 50 50 mcg PO DAILY 07/27/22 03/18/25 03/18/25 History mcg (2,000 unit) capsule metoprolol succinate 50 mg 50 mg PO DAILY 08/25/23 03/18/25 03/18/25 History tablet,extended release 24 hr calcium chewable 600 mg BYMOUTH 2XD 10/10/24 03/18/25 03/18/25 History denosumab 60 mg/mL subcutaneous 60 mg subcut [id number] 10/10/24 03/18/25 Unknown History syringe (Prolia) superbeets BYMOUTH 2XD 10/10/24 03/13/25 Unknown History Allergies Allergy/AdvReac Type Severity Reaction Status Date / Time meperidine AdvReac Unknown Nausea Verified 03/18/25 15:39 Review of Systems Review of Systems: All systems reviewed & are unremarkable except as noted in HPI and below PMFSH Past Medical History Medical History A-fib Acute pain of left knee Anxiety Aphthous ulcer of mouth Aphthous ulcer of tongue ASHD (arteriosclerotic heart disease) Back pain Benign essential hypertension Bloating BMI 37.0-37.9, adult BMI 38.0-38.9,adult BMI 39.0-39.9,adult BMI 50.0-59.9, adult Body mass index (BMI) 40.0-44.9, adult Body mass index (BMI) 45.0-49.9, adult Brain lipoma Bruise CAD (coronary artery disease) LAD stent 12/2016 Chronic anticoagulation Chronic low back pain Chronic pain of right knee CKD (chronic kidney disease) Colon cancer screening COVID-19 Depressed mood 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 (degenerative joint disease), multiple sites Early satiety Elevated glucose Encounter for Medicare annual wellness exam Encounter for routine adult health examination with abnormal findings Encounter for routine adult health examination without abnormal findings Encounter for screening mammogram for malignant neoplasm of breast Fall Follow up Generalized abdominal pain GERD (gastroesophageal reflux disease) Hearing loss Hemorrhoids Hospital discharge follow-up Hx of colonic polyps Hyperlipidemia Hypersomnolence Hypertension Hypothyroidism (acquired) Impaired functional mobility, balance, gait, and endurance Iron deficiency anemia Left leg pain Left wrist pain Microscopic hematuria MRSA carrier Nausea and vomiting Non-healing skin lesion On group home drug therapy ALEXIS (obstructive sleep apnea) ALEXIS on CPAP PAF (paroxysmal atrial fibrillation) PAF, s/p 4 cardioversions per pt Parotiditis Personal history of COVID-19 Pre-diabetes Presbyesophagus Right hip pain Right wrist pain Sacroiliitis Scapholunate dissociation of left wrist Skin lesion Skin lesion of back Skin ulcer Splinter in skin Left index finger Strain of flexor muscle of right hip Temporal arteritis Thin nails Tick bite Venous insufficiency Vitamin D deficiency Vulvar irritation Surgical History Surgical History H/O thyroidectomy History of bilateral carpal tunnel release History of section x 2 History of cholecystectomy Family History Family History Mother Family history of blood dyscrasia Patient's mother is Family history of arthritis Family history of malignant neoplasm Father Family history of emphysema Patient's father is Family history of cardiovascular disease Sibling Family history of seizure disorder Social History Social History Social History: 05/2022. 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 She Has 2 sons and daughter. The patient is a lifelong nonsmoker. She does not use any marijuana or illicit drugs. Code status full code Smoking packs per day: 1 Smoking cigarettes per day: 20.0 Years smoked: 1 Smoking pack-years: 1.00 Smoking status: Former smoker Second hand tobacco smoke exposure: No Additional smoking assessment comments: in college for 2 months Alcohol intake: never Substance use: never Lack of Transportation: No Lack of Food: Never True Current Housing: I Do Not Have Housing Concerned About Future Housing: No Difficulty Paying Gas/Electric Bills: No Difficulty Paying for Meds: No Currently Unemployed: No Education: Associate Degree Difficulty w/ Childcare or Family Care: No Living arrangements: alone Occupation/Education: retired Gender identity (if verbalized by the patient): Female Sexual Orientation (if Verbalized by the Patient): Straight or Heterosexual Spiritual care concerns: No Exam Narrative: APPEARANCE: Well appearing, no pain, no distress, well-nourished. HEAD: normocephalic, atraumatic. EYES: PERRLA/EOMI, conjunctivae clear. NOSE: Normal no drainage EARS:TMS clear with good light reflex. THROAT: Pharynx clear, no exudate. NECK: Supple. No adenopathy, no masses. RESPIRATORY: Airway patent, respirations nonlabored. Clear to auscultation bilaterally, no rales, rhonchi, wheezing. CARDIOVASCULAR: Regular rate and rhythm without murmurs rubs or gallops. ABDOMINAL: Soft, nontender, nondistended, normal bowel sounds MUSCULOSKELETAL: Moves all extremities. Strength/ROM intact, No edema, No calf tenderness. NEURO: Alert. Cranial nerves II through XII intact. Good gait. Good coordination SKIN: Warm, dry. Normal Color Course Vital Signs Vital signs: Vital Signs Temperature 98.1 F 03/18/25 15:36 Pulse Rate 74 03/18/25 15:36 Respiratory Rate 16 03/18/25 15:36 Blood Pressure 142/83 H 03/18/25 15:36 Pulse Oximetry 100 03/18/25 15:36 Oxygen Delivery Room Air 03/18/25 15:36 Temperature 98.1 F 03/18/25 15:36 Pulse Rate 86 03/18/25 17:57 Respiratory Rate 19 03/18/25 17:57 Blood Pressure 141/74 H 03/18/25 17:57 Pulse Oximetry 100 03/18/25 17:57 Oxygen Delivery Room Air 03/18/25 15:36 Medical Decision Making MDM Narrative Medical decision making narrative: 74-year-old female presents emergency department for evaluation after having an episode of nausea and weakness. Patient was unsure for heart rate was excessively high or low at that time by the time the patient was able to check her heart rate was in the 70s and she was feeling improved. At time of evaluation patient states all symptoms have resolved and patient's heart rate is rate controlled AFib. Patient is currently afebrile with no leukocytosis hemoglobin of 12.7. Patient's INR is 1.2. No significant abnormalities on her CMP patient's proBNP is elevated at 1100 which is similar to her baseline. Chest x-ray shows no acute cardiopulmonary abnormality. Patient did feel improved with treatment. Differential Diagnosis Differential Diagnosis: AFib with RVR, sinus bradycardia, AFib with slow ventricular response, vasovagal episode, tachycardia Vital Signs Vital Signs: Vital Signs Temperature 98.1 F 03/18/25 15:36 Pulse Rate 74 03/18/25 15:36 Respiratory Rate 16 03/18/25 15:36 Blood Pressure 142/83 H 03/18/25 15:36 Pulse Oximetry 100 03/18/25 15:36 Oxygen Delivery Room Air 03/18/25 15:36 Temperature 98.1 F 03/18/25 15:36 Pulse Rate 86 03/18/25 17:57 Respiratory Rate 19 03/18/25 17:57 Blood Pressure 141/74 H 03/18/25 17:57 Pulse Oximetry 100 03/18/25 17:57 Oxygen Delivery Room Air 03/18/25 15:36 Lab Data Lab results reviewed: Yes I reviewed the patient's lab results. 03/18/25 16:03 03/18/25 16:03 Labs: Lab Results 03/18/25 Range/Units 16:03 WBC 4.8 (4.5-10.0) K/mm3 RBC 4.01 L (4.2-5.4) M/mm3 Hgb 12.7 (12.0-15.0) g/dL Hct 36.9 L (37.0-47.0) % MCV 92.0 (80-100) fl MCH 31.7 (26-34) pg MCHC 34.4 (32-36) g/dl RDW 13.0 (11.5-14.5) % Plt Count 198 (150-375) k/mm3 MPV 11.3 H (7.4-10.4) fl Immature Gran % (Auto) 0.2 (0-0.5) % Neut % (Auto) 63.7 (45.5-73.1) % Lymph % (Auto) 22.1 (18.3-44.2) % [place] % (Auto) 11.5 H (2.6-8.5) % Eos % (Auto) 1.9 (0-4.4) % Baso % (Auto) 0.6 (0.2-1.2) % Lymph # (Auto) 1.06 (0.9-3.2) K/mm3 [place] # (Auto) 0.6 (0.1-0.6) K/mm3 Eos # (Auto) 0.1 (0-0.3) K/mm3 Baso # (Auto) 0.0 (0.0-0.1) K/mm3 Abs Immat Gran (auto) 0.01 (0.00-0.031) K/mm3 Absolute Neuts (auto) 3.1 (1.3-6.7) K/mm3 Absolute Nucleated RBC 0.000 (0.0-0.012) K/mm3 Nucleated RBC % 0.0 (0.0-0.2) % PT 15.4 H (11.1-14.7) Seconds INR 1.2 APTT 30.7 (22.3-36.8) Seconds Sodium 133 L (137-145) mmol/L Potassium 3.3 L (3.4-5.0) mmol/L Chloride 100 (98-107) mmol/L Carbon Dioxide 24 (22-30) mmol/L Anion Gap 9 (4-12) mmol/L BUN 14 D (7-17) mg/dL Creatinine 0.66 L (0.7-1.0) mg/dL Estim Creat Clear Calc 72 ml/min Estimated GFR > 60 (59 - ) Glucose 114 H (65-110) mg/dL Calcium 9.3 (8.4-10.2) mg/dL Magnesium 1.7 (1.6-2.3) mg/dL Total Bilirubin 1.0 (0.2-1.3) mg/dL AST 37 H (14-36) U/L ALT 18 (6-35) U/L Alkaline Phosphatase 58 (38-126) U/L NT-Pro-B Natriuret Pep 1100 H (19.9-100) pg/mL Total Protein 7.0 (6.3-8.2) g/dL Albumin 4.1 (3.5-5.1) g/dL TSH (Reflex) 0.251 L (0.465-4.68) uIU/mL Free T4 Pending Imaging Data Radiologist's impression: Impressions Chest X-Ray 03/18/25 16:17 Impression: No acute cardiopulmonary abnormality. Discharge Plan Discharge Clinical Impression: Nausea, Weakness Patient Disposition: Home Condition: Stable Instructions: Antibiotic Form Additional Instructions: Have close follow-up with your primary care physician. Patient Language: Urdu Prescriptions: No Action mecobalamin (vitamin B12) 1,000 mcg tablet,disintegrating 1,000 mcg SUBLINGUAL DAILY furosemide [Lasix] 20 mg tablet 20 mg PO QAM Qty: 90 1RF metoprolol succinate 50 mg tablet extended release 24 hr 50 mg PO DAILY Prolia 60 mg/mL syringe 60 mg subcut [id number] calcium chewable 600 mg BYMOUTH 2XD superbeets BYMOUTH 2XD tramadol 50 mg tablet 50 mg PO Q6H PRN (Reason: pain) Qty: 90 0RF folic acid 1 mg Tablet 1 mg PO DAILY cholecalciferol (vitamin D3) 50 mcg (2,000 unit) capsule 50 mcg PO DAILY nitroglycerin 0.4 mg tablet, sublingual 0.4 mg sublingual Q5M PRN (Reason: chest pain) Qty: 30 0RF Rx Instructions: do not exceed 3 doses per episode Eliquis 5 mg tablet 5 mg PO BID Qty: 180 3RF nystatin 100,000 unit/gram powder 1 applic topical BID Qty: 60 0RF Rybelsus 7 mg tablet 7 mg PO DAILY Qty: 90 0RF lorazepam 1 mg tablet 0.5 mg PO TID PRN (Reason: anxiety) Qty: 30 0RF rosuvastatin 40 mg tablet See Rx Instructions .ROUTE .COMPLEX Qty: 90 1RF Dose Instruction: TAKE 1 TABLET BY MOUTH DAILY Rx Instructions: TAKE 1 TABLET BY MOUTH DAILY potassium chloride 10 mEq tablet extended release See Rx Instructions .ROUTE .COMPLEX Qty: 180 1RF Dose Instruction: TAKE 1 TABLET BY MOUTH TWICE DAILY Rx Instructions: TAKE 1 TABLET BY MOUTH TWICE DAILY magnesium oxide 400 mg (241.3 mg magnesium) tablet See Rx Instructions .ROUTE .COMPLEX Qty: 180 1RF Dose Instruction: TAKE 1 TABLET BY MOUTH TWICE DAILY Rx Instructions: TAKE 1 TABLET BY MOUTH TWICE DAILY levothyroxine [Synthroid] 112 mcg tablet 112 mcg PO DAILY Qty: 90 1RF hydrocodone-acetaminophen 5-325 mg tablet 1 tablet PO Q8H PRN (Reason: pain) Qty: 35 0RF Follow-up/Referrals: Lopez George MD [Primary Care Provider, Internal Medicine]
[2025-03-18 16:43] LABS: NT Pro B Type Natriuretic Pept 1100 pg/mL (19.9-100)
[2025-03-18 17:03] LABS: Thyroid Stimulating Hormone Reflex 0.251 uIU/mL (0.465-4.68)
--- OUTSIDE RECORDS SUMMARY | 2025-03-18 17:32 | XMS_ITS | Data Portability ---
Author Organization [place] - [employer], Main Office Address [address] [place] [address] Care Team Providers Care Car Pick Up Driver Name Role Phone EBONY BOSTON Primary Care Provider EBONY BOSTON Referring Provider Assessment Encounter Date Assessment Date Assessment LastModified by Organization Details LastModified Time 06/10/2024 06/10/2024 This note is dictated and transcribed by [employer]. Health Promotion Educator variances may occur. Despite proofreading, typographical errors may occur. Occasional wrong-word or 'jbxib-k-yelk' substitutions may have occurred due to the inherent limitations of voice recording. Read the chart carefully and recognize, using context, where substitutions have occurred. [email or web address] Not available 06/10/2024 10:26:10 09/09/2024 09/09/2024 This note is dictated and transcribed by [employer]. Health Promotion Educator variances may occur. Despite proofreading, typographical errors may occur. Occasional wrong-word or 'xaaow-i-woif' substitutions may have occurred due to the inherent limitations of voice recording. Read the chart carefully and recognize, using context, where substitutions have occurred. Not available 09/09/2024 10:18:30 10/10/2024 10/10/2024 This note is dictated and transcribed by [employer]. Health Promotion Educator variances may occur. Despite proofreading, typographical errors may occur. Occasional wrong-word or 'sehvs-t-arbb' substitutions may have occurred due to the inherent limitations of voice recording. Read the chart carefully and recognize, using context, where substitutions have occurred. Not available 10/10/2024 14:31:34 12/09/2024 12/09/2024 This note is dictated and transcribed by [employer]. Health Promotion Educator variances may occur. Despite proofreading, typographical errors may occur. Occasional wrong-word or 'bmiep-o-zpke' substitutions may have occurred due to the inherent limitations of voice recording. Read the chart carefully and recognize, using context, where substitutions have occurred. Not available 12/09/2024 10:56:18 03/10/2025 03/10/2025 This note is dictated and transcribed by [employer]. Health Promotion Educator variances may occur. Despite proofreading, typographical errors may occur. Occasional wrong-word or 'qrxku-d-lieb' substitutions may have occurred due to the inherent limitations of voice recording. Read the chart carefully and recognize, using context, where substitutions have occurred. Not available 03/10/2025 10:29:25 Plan of Treatment Reminders Order Date Submit Date Provider Last Modified By Organization Details Last Modified Time Details Appointments Establish ed Patient 10 2025 09:30A Calvin Faye DPM Not available Not available Not available Lab None recorded. Referral None recorded. Procedures None recorded. Surgeries None recorded. Imaging XR, foot, 3 or more view 2024 025 [email or web address] [facility] [place], [address], [place], [address], 10/10/2024 14:33:04 Medication Orders None recorded. Patient TargetsNo targets recorded. Patient InstructionsNo instructions recorded. Reason for Referral None Reported. Results Created Date Observation Date Name Description Value Unit Range Abnormal Flag Note LastModifiedBy Organization Detail LastModifiedTime 10/11/19 25 XR, foot, 3 or more view No observ ation record ed. [email or web address] [facility] [place] [address], [place], [address], 10/10/2024 14:33:00 Result Notes None recorded. Problems Name Problem SNOMED Code Status Onset Date Resolution Date Notes Provider Name and Address Organization Details Recorded Time Disorder of shoulder 426155728 Active Not Available [employer] 3 02:51:10 Pain of joint of wrist 428381378 Active Not Available [facility] 3 02:51:10 Intractabl e plantar keratoma 130960529 Active Not Available [facility] 3 02:51:10 Transient cerebral ischemia 652415619 Active Not Available [facility] 3 02:51:10 Raynaud's phenomenon 344390323 Active Not Available [facility] 3 02:51:10 Anemia 688765138 Active Not Available [facility] 3 02:51:10 Osteopenia 109617161 Active Not Available [facility] 3 02:51:11 Disorder of back 22602506 Active Not Available [facility] 3 02:51:11 Osteoarthr itis 041583332 Active Not Available [facility] 3 02:51:11 Disorder characteri zed by back pain 802578259 Active Not Available [facility] 3 02:51:11 Dizziness 140788753 Active Not Available [facility] 3 02:51:12 Hypothyroi dism 16128132 Active Not Available [facility] 3 02:51:12 Conduction disorder of the heart 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 Active Not Available [facility] 3 02:51:12 Upper respirator y infection 45490943 Active Not Available [facility] 3 02:51:12 Hyperlipid emia 82914066 Active Not Available [facility] 3 02:51:12 Degenerati on of lumbosacra l interverte bral disc 74257239 Active Not Available [facility] 3 02:51:12 Closed fracture of phalanx of foot 73950366 Active Not Available [facility] 3 02:51:13 Lipoma 73802831 Active Not Available [facility] 3 02:51:13 Porokerato sis 589346194 Active 2020 Jus Faye, DPCalvin [address], [place], [address] , [facility] [employer] [facility] 5 14:31:44 Dystrophia unguium 30255249 Active 2020 Not Available [employer] 3 02:51:13 Pain of right elbow joint 3665002925977 9109 Active 2022 KASANDRA Miranda shayan, [place] [employer] [facility] [employer] 3 14:35:01 Peripheral vascular disease 275315995 Active 2023 Jus Faye DPM [address], [address], [place], [address] , [employer] [facility] [employer] 4 16:08:20 Pain of toes of bilateral feet 1277212435484 9102 Active 2023 Jus Faye DPM [address], [address], [place], [address] , [employer] [facility] [employer] 4 11:15:44 Unable to cut own toenails 471411642 Active 2023 Jus Faye DPM [address], [address], [place], [address] , [employer] [facility] [employer] 4 11:15:54 Lymphedema 201068662 Active 2024 Jus Faye DPM [address], [address], [place], [address] , [employer] [facility] [employer] 5 10:29:46 Problem Notes None recorded. Procedures Surgical History Date Name Laterality Status Provider Name and Address Organization Details Recorded Time 5 Nail Debridement completed Jus Faye DPM [address], [address], [place], [address], [facility] [employer] [facility] [employer] 03/10/2025 10:27:54 5 Nail Debridement completed Jus Faye DPM [address], [address], [place], [address], [facility] [employer] [facility] [employer] 12/09/2024 10:57:59 5 Callus Debridement, One completed Jus Faye DPM [address], [address], [place], [address], [facility] [employer] [facility] 10/10/2024 14:57:46 5 Nail Debridement completed Jus Faye DPM [address], [address], [place], [address], [place] [employer] [facility] [employer] 09/09/2024 10:17:22 5 Callus Debridement, One completed Jus Faye DPM [address], [address], [place], [address], [facility] [employer] [facility] 09/09/2024 10:17:12 5 Nail Debridement completed Jus Faye DPM [address], [address], [place], [address], [place] [employer] [facility] 06/10/2024 10:26:03 4 Nail Debridement completed Jus Faye DPM [address], [address], [place], [address], [facility] [employer] [facility] 03/11/2024 10:40:17 4 Nail Debridement completed Jus Faye DPM [address], [address], [place], [address], [employer] [facility] [employer] 12/11/2023 16:34:23 4 Callus Debridement 2-4 completed Jus Faye DPM [address], [address], [place], [address], [facility] [employer] [facility] 12/11/2023 16:34:28 4 Nail Debridement completed Jus Faye DPM [address], [address], [place], [address], [facility] [employer] [facility] 10/02/2023 11:15:18 4 Nail Debridement completed Jus Faye DPM [address], [address], [place], [address], [facility] [employer] [facility] [employer] [facility] 06/19/2023 16:09:24 3 Nail Debridement completed Jus Faye DPM [address], [address], [place], [address], [place] [facility] 03/02/2023 10:00:08 Imaging Results None recorded. Procedure Notes None recorded. Medical Equipment None Reported. Allergies Allergen ID Allergen Name Allergen Category Reaction Reaction Severity Criticality Documentation Date Start Date Code Code System Note Provider Name and Address Organization Details Recorded Time 5180 Demerol medicatio n Not available Not available Not available 07/20/2022 95543 1 RxNorm Not Available [facility] 03:07:12 Medications Name Sig Start Date Stop [...] mg capsule TAKE 1 CAPSULE BY MOUTH DAILY 12/06 completed Not Available Not Available Not Available ketoconazol e 2 % shampoo APPLY TOPICALLY TO AFFECTED AREAS OF SCALP EVERY DAY UNTIL CLEAR. LET SIT FOR 3-5 MINS THEN RINSE. THEN USE NEEDED FOR FLARES active Not Available Not Available No t [...] t Available prednisone 5 mg tablet TAKE 2 TABLETS BY MOUTH DAILY active Not Available Not [...] Available Not Available tramadol 50 mg tablet TAKE 1 TABLET BY MOUTH EVERY 6 HOURS NEEDED FOR PAIN active Not Available [...] Not Available Not Available No t Available Proctofoam HC 1 %-1 % 10/21 [...] TO THE AFFECTED AREA(S) IN A THIN DRAW BENCH OPERATOR HELPER TO TWO TIMES DAILY. active Not Available [...] Not Available Not Available No t Available cefuroxime axetil 500 mg tablet TAKE 1 TABLET BY MOUTH EVERY 12 HOURS FOR 10 DAYS active Not Available Not Available No t Available polyethylen e glycol 3350 17 gram/dose oral powder 02/27 completed Not Available Not Available Not Available zolpidem 10 mg tablet TK 1 T PO ONCE PRF JOB TRAINING SPECIALIST EVAL 02/27 completed Not Available Not Available [...] Available Not Available No t Available Rybelsus 3 mg tablet TAKE 1 [...] Updated DateTime 5 154.94 cm 42.5 kg/m2 453690. 28 g 61 /min 14 /min 98 % 98 % 136/86 mm[Hg] Aissatou Espinoza [employer] [facility] [employer] [facility] 5 09:31:13 Date Recorded Body height Body mass index (BMI) Body weight Heart rate Respiratory rate Oxygen saturation Oxygen saturation in Arterial blood by Pulse oximetry Systolic And Diastolic Provider Name and Address Organization Details Last Updated DateTime 5 154.94 cm 42.5 kg/m2 361419. 28 g 73 /min 14 /min 98 % 98 % 112/67 mm[Hg] Aissatou Espinoza MS [employer] [facility] [employer] [facility] 5 09:51:14 Date Recorded Body height Body mass index (BMI) Body weight Heart rate Respiratory rate Oxygen saturation Oxygen saturation in Arterial blood by Pulse oximetry Systolic And Diastolic Provider Name and Address Organization Details Last Updated DateTime 5 154.94 cm 42.5 kg/m2 284255. 28 g 73 /min 14 /min 98 % 98 % 106/85 mm[Hg] Aissatou Espinoza [employer] [facility] [employer] [facility] 5 14:11:14 Date Recorded Body height Body mass index (BMI) Body weight Heart rate Respiratory rate Oxygen saturation Oxygen saturation in Arterial blood by Pulse oximetry Systolic And Diastolic Provider Name and Address Organization Details Last Updated DateTime 5 154.94 cm 42.5 kg/m2 123348. 28 g 79 /min 14 /min 98 % 98 % 110/62 mm[Hg] Aissatou [facility] [employer] [facility] 09:43:56 Date Recorded Body height Body mass index (BMI) Body weight Heart rate Respiratory rate Oxygen saturation Oxygen saturation in Arterial blood by Pulse oximetry Provider Name and Address Organization Details Last Updated DateTime 5 154.94 cm 42.5 kg/m2 514753. 28 g 89 /min 14 /min 98 % 98 % Aissatou Espinoza [facility] [employer] [facility] 09:46:37 Social History None recorded. Functional Status Question Answer Note LastModified by Organization D etails LastModified Time What is your level of alcohol consumption? None [email or web address] Information not available 10/21/2022 Mental Status None recorded. Family History Relationship Description Onset Age of this Age Resolved Age Notes LastModified by Organization Details LastModified Time Mother Heart disease [email or web address] Not available 2022 14:33:53 Mother Hypertensive disorder [email or web address] Not available 2022 14:34:09 Medical History Condition Response ARTHRITIS Y HEART DISEASE/HEART PROBLEMS Y HYPERTENSION Y Gynecological HistoryNo gynecological history recorded. Obstetrics History GPAL:G 0 P 0 0 0 0 Past Encounters Encounter ID Performer Location Encounter Start Date Encounter Closed Date Diagnosis/Indication Diagnosis SNOMED-CT Code Diagnosis ICD10 Code Diagnosis IMO Codes Diagnosis Note [id number] [facility] [place] [address] [place] [address] 11/26/2020 00:00:00 12/03/2020 08:37:57 [id number] [facility] [place] [address] [place] [address] 05/31/2021 00:00:00 05/31/2021 14:17:21 [id number] [facility] [place] [address] [place] [address] 08/23/2021 00:00:00 08/24/2021 12:12:15 [id number] Bladimir Valderrama MD [facility] [place] [address] [place] [address] 10/21/2022 14:05:12 10/21/2022 15:41:45 Pain of right elbow joint 0562314904 7973738 M25.521 [id number] Bladimir Valderrama MD [facility] [place] [address] [place] [address] 10/28/2022 11:44:15 11/21/2022 09:27:11 Pain of right elbow joint 8131643529 7313952 M25.155 [id number] Jus Faye DPM [facility] [place] [address] [place] [address] 03/02/2023 09:39:02 03/02/2023 10:12:16 Dystrophia unguium 62138111 L60.3 left footnails debrided without incidentfo llow-up as needed Pain of to e of left foot 4078792470 57483 M79.675 foot great toe [id number] Jus Faye DPM [facility] [place] [address] [place] [address] 06/19/2023 15:32:40 06/19/2023 16:29:31 Peripheral vascular disease 437276897 I73.9 Noninvasiv e vascular testing Dystrophia unguium 17565 009 L60.3 nails debrided without incidentfo llow-up as needed [id number] Jus Faye DPM [facility] [place] [address] [place] [address] 07/13/2023 16:28:45 07/17/2023 17:25:45 Peripheral vascular disease 756075565 I73.9 Noninvasiv e vascular testing reviewed - mild dz bilatrecom mend daily exercisemo nitor for wounds and claudicati on, if present return to repeat testing [id number] Jus Faye DPM [facility] [place] [address] [place] [address] 10/02/2023 10:29:32 10/02/2023 11:23:46 Dystrophia unguium 22136101 L60.3 nails debrided without incidentfo llow-up as needed Pain of to es of bilateral feet 9952966132 7015190 M79.674 M79.675 secondary to above Unable to cut own toenails 983641124 Z74.1 [id number] Jus Faye DPM [facility] [place] [address] [place] [address] 12/11/2023 15:36:58 12/12/2023 16:33:23 Porokeratosis 941651366 Q82.8 M79.672 Debrided without incidentco ntinue over-the-c ounter AmlactinUs e pumice stone dailyfollo w-up in 2-3 months Pain in bi lateral feet 3516633223 0467255 M79.671 M79.672 Dystrophia unguium 05270 009 L60.3 nails debrided without incidentfo llow-up as needed [id number] Jus Faye DPM [facility] [place] [address] [place] [address] 03/11/2024 09:30:38 03/12/2024 14:14:13 Dystrophia unguium 47689176 L60.3 nails debrided without incidentfo llow-up as needed Pain of to es of bilateral feet 7561019507 4128759 M79.674 M79.675 secondary to above [id number] Jus Faye DPM [facility] [place] [address] [place] [address] 06/10/2024 09:26:39 06/14/2024 13:19:24 Dystrophia unguium 22908657 L60.3 nails debrided without incidentfo llow-up as needed Pain of to es of bilateral feet 5373668433 0017822 M79.674 M79.675 secondary to above [id number] Jus Faye DPM [facility] [place] [address] [place] [address] 09/09/2024 09:19:46 09/11/2024 08:30:22 Dystrophia unguium 22231403 L60.3 nails debrided without incidentfo llow-up as needed Porokeratosis 449488230 Q82.8 M79.672 Debrided without incidentco ntinue over-the-c ounter AmlactinUs e pumice stone dailyfollo w-up in 2-3 months [id number] Jus Faye DPM [facility] [place] [address] [place] [address] 10/10/2024 13:41:15 10/11/2024 11:34:08 Pain in right foot 7739055456 81292 M79.671 268612 sub 5th metatarsal head p5Ejmihvyw d pumice stone and Amlactin lotion Porokeratosis 624636333 Q82.8 77107 Debrided without incidentco ntinue over-the-c ounter AmlactinUs e pumice stone dailyfollo w-up in 2-3 months [id number] Jus Faye DPM [facility] [place] [address] [place] [address] 12/09/2024 09:38:52 12/13/2024 16:13:36 Unable to cut own toenails 290338693 Z74.1 Porokeratosis 356432543 Q82.8 44937 Resolved right footcontin ue over-the-c ounter AmlactinUs e pumice stone dailyfollo w-up in 2-3 months Pain of to es of bilateral feet 7908999994 6186626 M79.674 M79.675 secondary to above Dystrophia unguium 97718 009 L60.3 nails debrided without incidentfo llow-up as needed [id number] Jus Faye DPM [facility] [place] [address] [place] [address] 03/10/2025 09:44:00 03/11/2025 14:40:58 Dystrophia unguium 30279257 L60.3 nails debrided without incidentfo llow-up as needed [facility] [id number] 7035988 Z74.1 4327810 Lymphedema 679336503 I89 .0 20086 bilateral legsrecomm end compressio n stocking/s ocksfollow up with cardiology Health Concerns Section Related Observation LastModified by Organization Detai ls LastModified Time None Recorded Concern Status LastModified by Organization Details LastModified Time None Recorded Advance Directives Directive None Recorded Payers Insurance Date Sequence Insurance Name Policy Number Policy Cruz Covered Member ID Cruz Member ID Guarantor Name 03/07/2025 1 [employer] (MEDICARE REPLACEMENT/ ADVANTAGE - PPO) [id number] Eileen Maza [id number] Eileen Maza 10/10/2024 1 [employer] (PPO) [id number] Eileen Maza [id number] Eileen Maza Notes Date Note Type Note Provider Name and Address Organization Details Recorded Time 06/10/2024 text/html . Patient is a 73-year-old [...] currently being treated. Jus Faye DPM [address], [place], [address], [employer] 06/10/2024 10:26:28 09/09/2024 text/html . Patient is [...] any other complaints. Jus Faye DPM [address], [place], [address], [employer] 09/09/2024 10:19:01 10/10/2024 text/html . Patient is [...] any other complaints. Jus Faye DPM [address], [place], [address], [employer] 10/10/2024 14:58:05 12/09/2024 text/html . Patient is a 74-year-old female she returns to the office for follow-up on routine foot care. Patient has elongated toenails she is unable to cut. Patient states the porokeratosis to the right sub 5th metatarsal head is completely resolved she denies any open wounds or injury the foot. Patient denies any other complaints. Jus Faye DPM [address], [place], [address], [employer] 12/09/2024 10:58:15 03/10/2025 text/html . Patient is a 74-year-old female who returns for routine foot care. Patient states she has had some increased swelling of her legs. I did recommend compression which she is not currently utilize. Patient is on hydrochlorothiazide . I did recommend that she keep her legs elevated when she is at rest. She does not have any pain in her calves. Patient denies any pain in her legs or trouble breathing. I did advise patient to follow-up with her traffic or system dispatcher if the swelling continues. Jus Faye DPM [address], [place], [address], [employer] 03/10/2025 10:31:31 OBGyn Episode No OBEpisode recorded.
--- OUTSIDE RECORDS SUMMARY | 2025-03-18 17:32 | XMS_ITS | Clinical Summary ---
Author Organization [facility] Address [address] [place] [address] Care Team Providers Care Solution Director Name Role Phone Unavailable Primary Care Provider Unavailabl e Source Comments [facility],non-owned Affiliates and Associated Physician Practices is amultiple site organization consisting of ambulatory clinics and hospital sitesin [place], [place], [place] and [place]. This disclosure is being madepursuant to the Care Everywhere program and may not contain all information available regarding this patient. Last updated 18.[facility] Office [facility] Social History Tobacco Use Types Packs/Day Years [...] yrs (1 - 1-dose 75+ series) 08/07/2023 DEPRESSION SCREENING 05/22/2024 COVID-19 VACCINE ( - 2023-2 5 season) 2025 INFLUENZA VACCINE (#1) 2025 HEPATITIS B VACCINE [...]
--- OUTSIDE RECORDS SUMMARY | 2025-03-18 17:32 | XMS_ITS | Encounter Summary ---
Author Organization [facility] Address [address] [place] [address] Care Team Providers Care Interventional Pain Physician Name Role Phone Unavailable Primary Care Provider Unavailabl e Encounter Details Date Type Department Care Team (Late st Contact Info) Description 02/27/2020 Lab Requisition [facility] [address] [place] [address] Richie Chaidez MD [address] [place] [address] Social History Tobacco Use Types [...] AM CDT) Case Report Dermatopathology Report Case: [id number] Authorizing Provider: Richie Chaidez MD Collected: 02/26/2020 12:00 AM Ordering Location: [facility] Received: 02/27/2020 11:21 [...] of a shave biopsy (2 pieces) measuring 5j7d1yr and 9a1g1dc. Jar 0. 0 3:37 PM CDT DERMATOPATHOLOGY [...] characteristic determined by the Dermatopathology Laboratory at [facility], directed by Dr. Bebeto Nance. These tests need not be, and therefore are not, approved by the [place] Food and Drug Administration. The tests are used for clinical purposes. Billing Codes Specimen Charges Stain Charges 89747 1 0 3:37 PM CDT DERMATOPATHOLOGY LABORATORY Embedded Images 0 3:37 PM CDT DERMATOPATHOLOGY LABORATORY Pathology/Cytolog y TISSUE SPECIMEN FROM SKIN / Unknown 02/26/2020 02/27/2020 11:21 AM CDT us Richie Chaidez MD LAB - PATHOLOGY/CYTOLOGY ORD ERABLES Final Result DERMATOPATHOLOGY LABORATORY [facility] - Department of Dermatology [address], [address] [phone] documented in this encounter Visit Diagnoses Not on filedocumented in this encounter
--- OUTSIDE RECORDS SUMMARY | 2025-03-18 17:32 | XMS_ITS | Encounter Summary ---
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
--- OUTSIDE RECORDS SUMMARY | 2025-03-18 17:32 | XMS_ITS | Clinical Summary ---
Author Organization [facility] Address [address] [place] [address] Care Team Providers Care Basting Cleaner Name Role Phone Lopez George MD Primary Care Provider [phone] Emmanuel Maher MD Unavailable [phone] Gautam SWEENEY MD, Gary Worrell Unavailable [phone] Allergies Active Allergy Reactions Criticality Noted Date [...] MOUTH DAILY 90 tablet 2 5 Active alclomethasone (ACLOVATE) 0.05 % cream Active diflorasone (PSORCON) 0.05 % cream 5 Active cefuroxime (CEFTIN) 500 mg tablet Take 1 tablet (500 mg total) by mouth every 12 (twelve) hours for 10 days Active doxycycline hyclate 100 mg capsule Take 1 tablet/capsule (100 mg total) by mouth daily 5 Active fluorouraciL (EFUDEX) 5 % cream APPLY TOPICALLY TO THE SCALP TWICE DAILY FOR 3 TO 4 WEEKS TOLERATED THEN STOP Active mecobalamin, vitamin B12, 1,000 mcg tablet,disintegr ating daily 0 Active potassium chloride ER 10 mEq CR tablet Take 1 tablet/capsule (10 mEq total) by mouth 2 (two) times a day Active Rybelsus 7 mg tablet Take 1 tablet (7 mg total) by mouth daily Active traMADoL (ULTRAM) 50 mg tablet Take by mouth every 6 (six) hours as needed 5 Active Active Problems Problem Noted Date Diagnosed Date Chronic anticoagulation 08/31/2022 Coronary artery disease invo lving [place] coronary artery of [place] heart without angina pectoris 08/31/2022 Bradycardia 08/31/2022 Assessment & Plan (01/28/2025 9:37 AM CDT): Chronic, stable. Rates adequate in AF. No current indication for pacing Assessment & Plan (01/30/2024 10:16 AM CDT): [...] Permanent atrial fibrillation 05/22/1959 Assessment & Plan (01/28/2025 9:37 AM CDT): Chronic, stable. Minimally symptomatic. Pt prefers rate control strategy. --Continue apixaban 5 mg BID --Continue metoprolol 50 mg BID Assessment & Plan (01/30/2024 10:15 AM CDT): [...] Encounters Date Type Department Care Team Description 01/28/2025 9:30 AM CDT [facility] [address] [facility] [address], [place] [address] Gary Florez III, MD Permanent atrial fibrillation (HCC) (Primary Dx); Bradycardia; Cardiac arrhythmia, unspecified cardiac arrhythmia type 01/28/2025 Telephone [facility] Medical [facility] Cardiology [address] [place] [phone] Anh Acuña NP 01/14/2025 2:00 PM CDT Office Visit [facility] Cardiology [address] [place] [address] [place] [phone] Anh Acuña NP Coronary artery disease involving [place] coronary artery of [place] heart without angina pectoris (Primary Dx); Essential (primary) hypertension; Mixed hyperlipidemia; Permanent atrial fibrillation (HCC) from Last 3 Months Immunizations Immunization Administration [...] on file Legal Sex Female 12:48 AM DISINTEGRATOR Gender Identity Not on file Sexual Orientation Not on file 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 Obstetrics History Last Filed Vital Signs Vital Sign Reading Time Taken Comments Blood Pressure 118/71 01/28/2025 9:47 AM CDT Pulse 77 01/28/2025 9:47 AM CDT Temperature 36.6 C (97.9 F) 11/20/2020 8:41 AM CDT Respiratory Rate 14 01/14/2025 2:00 PM CDT Oxygen Saturation 96% 01/28/2025 9:47 AM CDT Inhaled Oxygen Concentration - - Weight 95.3 kg (210 lb) 01/28/2025 9:47 AM CDT Height 157.5 cm (5' 2.01) 01/28/2025 9:47 AM CD T Body Mass Index 38.4 01/28/2025 9:47 AM CDT Plan of Treatment Health Maintenance Due Date Last Done Comments Depression Screening 1948 Fall Risk Assessment 1950 Hepatitis C Screening 1950 DTaP/Tdap/Td Vaccine (1 - Tdap) 08/07/1959 Hepatitis B Screening 1966 Pneumococcal vaccine 65+ (1 of 2 - PCV) 08/07/1967 Zoster Vaccine (1 of 2) 1998 Well Visit 65+ 2013 Covid-19 Vaccine (3 - Modern a risk series) 08/25/2020 07/28/2020, 06/25/2020 Osteoporosis Screening-Bone Density Scan 07/27/2024 07/27/2022 Influenza Vaccine (#1) 2025 8, 03/15/2017, 03/15/2016, Additional history exists Procedures Procedure Name Priority Date/Time Associated Diagnosis Comments ECG 12-LEAD Routine 01/28/2025 9:44 AM CDT Cardiac arrhythmia, unspecified cardiac arrhythmia type POCT LIPID PANEL Routine 01/14/2025 2:14 PM CDT Coronary artery disease involving [place] coronary artery of [place] heart without angina pectoris DEXA TBS AXIAL SKELETON BONE DENSITY 1 OR MORE SITES Schedule Routine, Read Routine (OP Routine) 07/27/2022 8:45 AM DISINTEGRATOR Osteoporosis without current pathological fracture, unspecified osteoporosis type from Last 3 Months or Most Recently Relevant to Health Maintenance Results * ECG 12 lead (01/28/2025 9:44 AM CDT) Gary Florez III, MD ECG ORDERABLES Kb emy Result - Final * POCT lipid panel (01/14/2025 2:14 PM CDT) Cholesterol, POC 141 <200 MG/DL HDL, POC 52 >=40 mg/dL Triglycerides, POC 121 <=149 mg/dL LDL Cholesterol POC 65 <=129 mg/dL Chol/HDL Ratio, POC 2.7 NONE Non-HDL Cholesterol, POC 90 NONE mg/dL Cholesterol Total, POC 141 30 - 199 mg/dL Capillary blood 01/14/2025 2 :14 PM CDT Anh Acuña NP POINT OF CARE TEST ORD ERABLES Final Result * Dexa TBS Axial Skeleton Bone Density 1 or more sites (07/27/2022 8:45 AM DISINTEGRATOR) Anatomical Region Laterality Modality Wrist, Body N/A Radiographic Kristel ging Narrative 07/29/2022 8:43 AM DISINTEGRATOR Patient Name: Eileen Maza Date of : [...] by the International Society of Clinical Densitometry. [id number] Rhiannon Gamble MD IMG DXA PROCEDURES Final Resu lt from Last 3 Months or Most Recently Relevant to Health Maintenance Insurance AETNA MEDICARE AETNA MEDICARE AETNA MEDICARE Care Teams Basting Cleaner Relationship Specialty Start Date End Date Lopez George MD PCP - General Internal Medicine 11/13/17 Emmanuel Maher MD Consulting Physician Medical Oncology 12/14/21 Gary Florez III, MD [address] [address] Consulting Physician Cardiology 01/27/25
[2025-03-18 17:57] VITALS: BP 141/74; PULSE 86; RESP 19; O2SAT 100
--- OUTSIDE RECORDS SUMMARY | 2025-03-18 18:00 | XMS_ITS | Clinical Summary ---
Author Organization [facility] Address [address] [address] Care Team Providers Care Rubber Tubing Backer Name Role Phone Unavailable Primary Care Provider Unavailabl e Source Comments [facility],non-owned Affiliates and Associated Physician Practices is amultiple site organization consisting of ambulatory clinics and hospital sitesin [place], [place], [place] and [place]. This disclosure is being madepursuant to the Care Everywhere program and may not contain all information available regarding this patient. Last updated 18.[facility] [employer] Social History Tobacco Use Types Packs/Day Years [...]
--- OUTSIDE RECORDS SUMMARY | 2025-03-18 18:00 | XMS_ITS | Encounter Summary ---
Author Organization [facility] Address [address] [facility] [place] [address] Care Team Providers Care Hematology Oncology Consultant Name Role Phone Unavailable Primary Care Provider Unavailabl e Encounter Details Date Type Department Care Team (Late st Contact Info) Description 02/27/2020 Lab Requisition [facility] [address] [place] [address] Richie Chaidez MD [address] [place] [address] Social History Tobacco Use Types [...] AM CDT) Case Report Dermatopathology Report Case: [id number] Authorizing Provider: Richie Chaidez MD Collected: 02/26/2020 12:00 AM Ordering Location: [facility] Received: 02/27/2020 11:21 AM Pathologist: [...] of a shave biopsy (2 pieces) measuring [id number] and [id number]. Jar 0. 0 3:37 PM CDT DERMATOPATHOLOGY [...] determined by the Dermatopathology Laboratory at [facility], directed by Dr. Bebeto Nance. These tests need not be, and therefore are not, approved by the [place] Food and Drug Administration. The tests are used for clinical purposes. Billing Codes Specimen Charges Stain Charges 92978 1 0 3:37 PM CDT DERMATOPATHOLOGY LABORATORY Embedded Images 0 3:37 PM CDT DERMATOPATHOLOGY LABORATORY Pathology/Cytolog y TISSUE SPECIMEN FROM SKIN / Unknown 02/26/2020 02/27/2020 11:21 AM CDT us Richie Chaidez MD LAB - PATHOLOGY/CYTOLOGY ORD ERABLES Final Result DERMATOPATHOLOGY LABORATORY [facility] - Department of Dermatology [address], [address] [phone] documented in this encounter Visit Diagnoses Not on filedocumented in this encounter
--- OUTSIDE RECORDS SUMMARY | 2025-03-18 18:00 | XMS_ITS | Encounter Summary ---
Author Organization [facility] [employer] [facility] Address [address] [place] [address] Phone Care Team Providers Care Materials Buyer Name Role Phone Lopez George MD Primary Care Provider [phone] Sandip Carvalho MD Unavailable [phone] Emmanuel Maher MD Unavailable [phone] Gautam SWEENEY MD, Gary Worrell Unavailable [phone] Encounter Details Date Type Department Care Team [...] on file Legal Sex Female 12:48 AM TEST TECHNICIAN Gender Identity Not on file Sexual Orientation [...] on filedocumented in this encounter Care Teams Materials Buyer Relationship Specialty Start Date End Date Lopez George MD PCP - General Internal Medicine 11/13/17 Sandip Carvalho MD Medical Oncologist/Collection Systems Technician Medical Oncology 08/10/20 12/13/21 Emmanuel Maher MD Consulting Physician Medical Oncology 12/14/21 Gary Florez III, MD [id number] [address] Consulting Physician Cardiology 01/27/25 documented as of this encounter
--- OUTSIDE RECORDS SUMMARY | 2025-03-18 18:00 | XMS_ITS | Clinical Summary ---
Author Organization [facility] Address [address] [place] [address] Care Team Providers Care Music Artist Name Role Phone Lopez George MD Primary Care Provider [phone] Emmanuel Maher MD Unavailable [phone] Gautam SWEENEY MD, Gary Worrell Unavailable [phone] Allergies Active Allergy Reactions Criticality Noted Date [...] anticoagulation 08/31/2022 Coronary artery disease invo lving [place] coronary artery of [place] heart without angina pectoris 08/31/2022 Bradycardia 08/31/2022 [...] CDT Office Visit [facility] [address] [facility] [address] [address] Gary Florez III, MD Permanent atrial fibrillation (HCC) (Primary Dx); Bradycardia; Cardiac arrhythmia, unspecified cardiac arrhythmia type 01/28/[address] [facility] Medical [facility] Cardiology [address] [place] [phone] Anh Acuña NP 01/14/2025 2:00 PM CDT Office Visit [facility] Cardiology [address] [place] [address] [place] [phone] Anh Acuña NP Coronary artery disease involving [place] coronary artery of [place] heart without angina pectoris (Primary Dx); Essential [...] on file Legal Sex Female 12:48 AM MATCH MAKER Gender Identity Not on file Sexual Orientation [...] 2:14 PM CDT Coronary artery disease involving [place] coronary artery of [place] heart without angina pectoris DEXA TBS AXIAL SKELETON BONE DENSITY 1 OR MORE SITES Schedule Routine, Read Routine (OP Routine) 07/27/2022 8:45 AM MATCH MAKER Osteoporosis without current pathological fracture, unspecified osteoporosis [...] 1 or more sites (07/27/2022 8:45 AM MATCH MAKER) Anatomical Region Laterality Modality Wrist, Body N/A Radiographic Kristel ging Narrative 07/29/2022 8:43 AM MATCH MAKER Patient Name: Eileen Maza Date of : [...] by the International Society of Clinical Densitometry. [id number] Rhiannon Gamble MD IMG DXA PROCEDURES Final Resu lt from Last 3 Months or Most Recently Relevant to Health Maintenance Insurance AETNA MEDICARE AETNA MEDICARE AETNA MEDICARE Care Teams Music Artist Relationship Specialty Start Date End Date Lopez George MD PCP - General Internal Medicine 11/13/17 Emmanuel Maher MD Consulting Physician Medical Oncology 12/14/21 Gary Florez III, MD [address] [address] Consulting Physician Cardiology 01/27/25
[2025-03-18 19:13] LABS: Free T4 Free Thyroxine Reflex 1.60 ng/dL (0.78-2.19)
[2025-03-18 20:34] LABS: Total Triiodothyronine (T3) 1.20 NG/ML (0.82-1.58)
== END 2025-03-18 17:57 | disposition home or self-care (01) ==
LOC: ANHED 17:22
PROVIDERS: Emergency Provider Emergency Medicine; PCP Internal Medicine
DX: R53.1 Weakness (principal); R11.0 Nausea; I48.0 Paroxysmal atrial fibrillation; I25.10 Atherosclerotic heart disease of native coronary artery without angina pectoris; I12.9 Hypertensive chronic kidney disease with stage 1 through stage 4 chronic kidney disease, or unspecified chronic kidney disease; N18.9 Chronic kidney disease, unspecified; I87.2 Venous insufficiency (chronic) (peripheral); E89.0 Postprocedural hypothyroidism; E55.9 Vitamin D deficiency, unspecified; R73.03 Prediabetes; D50.9 Iron deficiency anemia, unspecified; G47.33 Obstructive sleep apnea (adult) (pediatric); F41.9 Anxiety disorder, unspecified; Z95.5 Presence of coronary angioplasty implant and graft; Z86.16 Personal history of COVID-19; Z90.49 Acquired absence of other specified parts of digestive tract; Z79.899 Other long term (current) drug therapy; Z79.01 Long term (current) use of anticoagulants; R94.31 Abnormal electrocardiogram [ECG] [EKG]
CPT/HCPCS: 36415; 71045; 80053; 83735; 83880; 84439; 84443; 84480; 85025; 85610; 85730; 93005; 99284

== ENCOUNTER 2025-04-14 07:22 | Outpatient (CLI) | payer MEDICARE, SELFPAY ==
--- OUTSIDE RECORDS SUMMARY | 2025-04-14 07:26 | XMS_ITS | Encounter Summary ---
Author Organization [facility] Address [address] [facility] [place] [address] Care Team Providers Care Personnel Training Officer Name Role Phone Unavailable Primary Care Provider Unavailabl e Encounter Details Date Type Department Care Team (Late st Contact Info) Description 02/27/2020 Lab Requisition [facility] [address] [place] [address] Richie Chaidez MD [address] [place] [address] Social History Tobacco Use Types [...] AM CDT) Case Report Dermatopathology Report Case: [id number] Authorizing Provider: Richie Chaidez MD Collected: 02/26/2020 12:00 AM Ordering Location: [facility] Received: 02/27/2020 11:21 AM [...] of a shave biopsy (2 pieces) measuring [id number] and [id number]. Jar 0. 0 3:37 PM CDT DERMATOPATHOLOGY [...] purposes. Billing Codes Specimen Charges Stain Charges 55668 1 0 3:37 PM CDT DERMATOPATHOLOGY LABORATORY Embedded Images 0 3:37 PM CDT DERMATOPATHOLOGY LABORATORY Pathology/Cytolog y TISSUE SPECIMEN FROM SKIN / Unknown 02/26/2020 02/27/2020 11:21 AM CDT us Richie Chaidez MD LAB - PATHOLOGY/CYTOLOGY ORD ERABLES Final Result DERMATOPATHOLOGY LABORATORY [facility] - Department of Dermatology [address] [phone] documented in this encounter Visit Diagnoses Not on filedocumented in this encounter
--- OUTSIDE RECORDS SUMMARY | 2025-04-14 07:26 | XMS_ITS | Clinical Summary ---
Author Organization [facility] Address [address] [place] [address] Care Team Providers Care Clinical Studies Specialist Name Role Phone Lopez George MD Primary Care Provider [phone] Emmanuel Maher MD Unavailable [phone] Gautam SWEENEY MD, Gary Worrell Unavailable [phone] Allergies Active Allergy Reactions Criticality Noted Date [...] anticoagulation 08/31/2022 Coronary artery disease invo lving [place] coronary artery of [place] heart without angina pectoris 08/31/2022 Bradycardia 08/31/2022 [...] CDT Office Visit [facility] [address] [facility] [address], [place] [address] Gary Florez III, MD Permanent atrial fibrillation (HCC) (Primary Dx); Bradycardia; Cardiac arrhythmia, unspecified cardiac arrhythmia type 01/28/2025 Telephone [facility] Medical [facility] Cardiology [address] [place] [phone] Anh Acuña NP 01/14/2025 2:00 PM CDT Office Visit [facility] Cardiology [address] [place] [address] [place] [phone] Anh Acuña NP Coronary artery disease involving [place] coronary artery of [place] heart without angina pectoris (Primary Dx); Essential [...] on file Legal Sex Female 12:48 AM HOTEL ASSISTANT GENERAL MANAGER Gender Identity Not on file Sexual Orientation [...] 2:14 PM CDT Coronary artery disease involving [place] coronary artery of [place] heart without angina pectoris DEXA TBS AXIAL SKELETON BONE DENSITY 1 OR MORE SITES Schedule Routine, Read Routine (OP Routine) 07/27/2022 8:45 AM HOTEL ASSISTANT GENERAL MANAGER Osteoporosis without current pathological fracture, unspecified osteoporosis [...] 1 or more sites (07/27/2022 8:45 AM HOTEL ASSISTANT GENERAL MANAGER) Anatomical Region Laterality Modality Wrist, Body N/A Radiographic Kristel ging Narrative 07/29/2022 8:43 AM HOTEL ASSISTANT GENERAL MANAGER Patient Name: Eileen Maza Date of : [...] by the International Society of Clinical Densitometry. [id number] Rhiannon Gamble MD IMG DXA PROCEDURES Final Resu lt from Last 3 Months or Most Recently Relevant to Health Maintenance Insurance AETNA MEDICARE AETNA MEDICARE AETNA MEDICARE Care Teams Clinical Studies Specialist Relationship Specialty Start Date End Date Lopez George MD PCP - General Internal Medicine 11/13/17 Emmanuel Maher MD Consulting Physician Medical Oncology 12/14/21 Gary Florez III, MD [id number] [address] Consulting Physician Cardiology 01/27/25
--- OUTSIDE RECORDS SUMMARY | 2025-04-14 07:26 | XMS_ITS | Clinical Summary ---
Author Organization [facility] Address [address] [place] [address] Care Team Providers Care Weigher Alloy Name Role Phone Unavailable Primary Care Provider Unavailabl e Source Comments [facility],non-owned Affiliates and Associated Physician Practices is amultiple site organization consisting of ambulatory clinics and hospital sitesin [place], [place], [place] and [place]. This disclosure is being madepursuant to the Care Everywhere program and may not contain all information available regarding this patient. Last updated 18.[facility] [employer] Social History Tobacco Use Types Packs/Day Years [...] DEPRESSION SCREENING 05/22/2024 COVID-19 VACCINE ( - 2024-2 6 season) 2025 INFLUENZA VACCINE (#1) 2025 HEPATITIS [...]
[2025-04-14 09:01] LABS: Alanine Aminotransferase 14 U/L (6-35); Albumin Level 3.8 g/dL (3.5-5.1); Alkaline Phosphatase 62 U/L (38-126); Anion Gap 7 mmol/L (4-12); Aspartate Amino Transferase 29 U/L (14-36); Bilirubin,Total 1.0 mg/dL (0.2-1.3); Blood Urea Nitrogen 9 mg/dL (7-17); CRP < 0.5 mg/dL (<1.0); Calcium 9.2 mg/dL (8.4-10.2); Carbon Dioxide 23 mmol/L (22-30); Chloride 104 mmol/L (98-107); Estimated Glomerular Filt Rate > 60; Glucose 94 mg/dL (65-110); Potassium 4.5 mmol/L (3.4-5.0); Sodium 134 mmol/L (137-145); Total Protein 6.5 g/dL (6.3-8.2)
[2025-04-14 09:17] LABS: Free T4 Free Thyroxine 1.90 ng/dL (0.78-2.19)
[2025-04-14 09:35] LABS: Thyroid Stimulating Hormone < 0.015 uIU/mL (0.465-4.680)
[2025-04-14 11:03] LABS: Hemoglobin A1C 5.6 % (<5.7)
== END 2025-04-14 07:23 | disposition home or self-care (01) ==
PROVIDERS: PCP Internal Medicine; Visit Provider Internal Medicine
DX: I10 Essential (primary) hypertension (principal); E03.9 Hypothyroidism, unspecified; R73.03 Prediabetes; M31.6 Other giant cell arteritis
CPT/HCPCS: 36415; 80053; 83036; 84439; 84443; 85652; 86140

== ENCOUNTER 2025-05-12 06:57 | Outpatient (CLI) | payer MEDICARE, SELFPAY ==
--- OUTSIDE RECORDS SUMMARY | 2025-05-12 07:00 | XMS_ITS | Clinical Summary ---
Author Organization [facility] Address [address] [place] [address] Care Team Providers Care Wheel Alignment Mechanic Name Role Phone Unavailable Primary Care Provider Unavailabl e Source Comments [facility],non-owned Affiliates and Associated Physician Practices is amultiple site organization consisting of ambulatory clinics and hospital sitesin [place], [place], [place] and [place]. This disclosure is being madepursuant to the Care Everywhere program and may not contain all information available regarding this patient. Last updated 18.[facility] [employer] Social History Tobacco Use Types Packs/Day Years [...]
--- OUTSIDE RECORDS SUMMARY | 2025-05-12 07:00 | XMS_ITS | Clinical Summary ---
Author Organization [facility] Address [address] [place] [address] Care Team Providers Care Heat Treat Operator Name Role Phone Lopez George MD Primary Care Provider [phone] Emmanuel Maher MD Unavailable [phone] Gautam SWEENEY MD, Gary Worrell Unavailable [phone] Allergies Active Allergy Reactions Criticality Noted Date [...] anticoagulation 08/31/2022 Coronary artery disease invo lving [place] coronary artery of [place] heart without angina pectoris 08/31/2022 Bradycardia 08/31/2022 [...] on file Legal Sex Female 12:48 AM POWDERMAN Gender Identity Not on file Sexual Orientation [...] Read Routine (OP Routine) 07/27/2022 8:45 AM POWDERMAN Osteoporosis without current pathological fracture, unspecified osteoporosis type from Last 3 Months or Most Recently Relevant to Health Maintenance Results * Dexa TBS Axial Skeleton Bone Density 1 or more sites (07/27/2022 8:45 AM POWDERMAN) Anatomical Region Laterality Modality Wrist, Body N/A Radiographic Kristel ging Narrative 07/29/2022 8:43 AM POWDERMAN Patient Name: Eileen Maza Date of : [...] by the International Society of Clinical Densitometry. [id number] Rhiannon Gamble MD IMG DXA PROCEDURES Final Resu lt from Last 3 Months or Most Recently Relevant to Health Maintenance Insurance [facility] MEDICARE [facility] MEDICARE [facility] MEDICARE Care Teams Heat Treat Operator Relationship Specialty Start Date End Date Lopez George MD PCP - General Internal Medicine 11/13/17 Emmanuel Maher MD Consulting Physician Medical Oncology 12/14/21 Gary Florez III, MD [id number] [address] Consulting Physician Cardiology 01/27/25
--- OUTSIDE RECORDS SUMMARY | 2025-05-12 07:00 | XMS_ITS | Encounter Summary ---
Author Organization [facility] Address [address] [place] [address] Phone Care Team Providers Care Air Intercept Controller Name Role Phone Lopez George MD Primary Care Provider [phone] Sandip Carvalho MD Unavailable [phone] Emmanuel Maher MD Unavailable [phone] Gautam SWEENEY MD, Gary Worrell Unavailable [phone] Encounter Details Date Type Department Care Team [...] on file Legal Sex Female 12:48 AM SECURITY SYSTEM TECHNICIAN Gender Identity Not on file Sexual [...] on filedocumented in this encounter Care Teams Air Intercept Controller Relationship Specialty Start Date End Date Lopez George MD PCP - General Internal Medicine 11/13/17 Sandip Carvalho MD Medical Oncologist/Coffee Attendant Medical Oncology 08/10/20 12/13/21 Emmanuel Maher MD Consulting Physician Medical Oncology 12/14/21 Gary Florez III, MD [id number] [address] Consulting Physician Cardiology 01/27/25 documented as of this encounter
--- OUTSIDE RECORDS SUMMARY | 2025-05-12 07:00 | XMS_ITS | Encounter Summary ---
Author Organization [facility] Address [address] [place] [address] Care Team Providers Care Executor Of Estate Name Role Phone Unavailable Primary Care Provider Unavailabl e Encounter Details Date Type Department Care Team (Late st Contact Info) Description 02/27/2020 Lab Requisition [facility] [address] [place] [address] Richie Chaidez MD [address] [place] [address] Social History Tobacco Use Types [...] AM CDT) Case Report Dermatopathology Report Case: [id number] Authorizing Provider: Richie Chaidez MD Collected: 02/26/2020 12:00 AM Ordering Location: [facility] Received: 02/27/2020 11:21 AM [...] of a shave biopsy (2 pieces) measuring [id number] and 1j6c3nr. Jar 0. 0 3:37 PM CDT DERMATOPATHOLOGY [...] determined by the Dermatopathology Laboratory at [facility], directed by Dr. Bebeto Nance. These tests need not be, and therefore are not, approved by the [place] Food and Drug Administration. The tests are used for clinical purposes. Billing Codes Specimen Charges Stain Charges 43808 1 0 3:37 PM CDT DERMATOPATHOLOGY LABORATORY Embedded Images 0 3:37 PM CDT DERMATOPATHOLOGY LABORATORY Pathology/Cytolog y TISSUE SPECIMEN FROM SKIN / Unknown 02/26/2020 02/27/2020 11:21 AM CDT us Richie Chaidez MD LAB - PATHOLOGY/CYTOLOGY ORD ERABLES Final Result DERMATOPATHOLOGY LABORATORY [facility] - Department of Dermatology [address], [address] [phone] documented in this encounter Visit Diagnoses Not on filedocumented in this encounter
--- OUTSIDE RECORDS SUMMARY | 2025-05-12 07:00 | XMS_ITS | Continuity of Care Document ---
Author Organization [place] [facility], [facility] [place] Address [address] [place] [address] Care Team Providers Care Vp Strategy Name Role Phone EBONY BOSTON Primary Care Provider EBONY BOSTON Referring Provider Assessment Encounter Date Assessment Date Assessment LastModified by Organization Details LastModified Time 03/10/2025 03/10/2025 This note is dictated and transcribed by [employer]. Film Mounter variances may occur. Despite proofreading, typographical errors may occur. Occasional wrong-word or 'deyfy-h-slkd' substitutions may have occurred due to the inherent limitations of voice recording. Read the chart carefully and recognize, using context, where substitutions have occurred. [email or web address] Not available 03/10/2025 10:29:25 Plan of Treatment [...] instructions recorded. Reason for Referral None Reported. Problems Name Problem SNOMED Code Status Onset Date Resolution Date Notes Provider Name and Address Organization Details Recorded Time Disorder of shoulder 087227678 Active Not Available [facility] 3 02:51:10 Pain of joint of wrist 872874829 Active Not Available [employer] 3 02:51:10 Intractabl e plantar keratoma 782882944 Active Not Available [facility] 3 02:51:10 Transient cerebral ischemia 212739479 Active Not Available [facility] 3 02:51:10 Raynaud's phenomenon 798518113 Active Not Available [facility] 3 02:51:10 Anemia 169601657 Active Not Available [facility] 3 02:51:10 Osteopenia 116193799 Active Not Available [facility] 3 02:51:11 Disorder of back 85562036 Active Not Available [facility] 3 02:51:11 Osteoarthr itis 193491281 Active Not Available [facility] 3 02:51:11 Disorder characteri zed by back pain 917695442 Active Not Available [facility] 3 02:51:11 Dizziness 148780389 Active Not Available [facility] 3 02:51:12 Hypothyroi dism 85505376 Active Not Available [facility] 3 02:51:12 Conduction disorder of the heart 72033778 Active Not Available [facility] 3 02:51:12 Upper respirator y infection 84002634 Active Not Available [facility] 3 02:51:12 Hyperlipid emia 74745829 Active Not Available [facility] 3 02:51:12 Degenerati on of lumbosacra l interverte bral disc 38852666 Active Not Available [facility] 3 02:51:12 Closed fracture of phalanx of foot 28391674 Active Not Available [facility] 3 02:51:13 Lipoma 08674785 Active Not Available [facility] 3 02:51:13 Porokerato sis 011788053 Active 2020 Jus Faye, LIZETH [address] [facility] [facility] [address], [place], [address] , [facility] 5 14:31:44 Dystrophia unguium 54833421 Active 2020 Not [address] [facility] 3 02:51:13 Pain of right elbow joint 1552337931400 9109 Active 2022 Tiarra Jacobo, KASANDRA null, [facility] [employer] [facility] 3 14:35:01 Peripheral vascular disease 803764289 Active 2023 Jus Faye DPM [address], [place], [address] , [facility] 4 16:08:20 Pain of toes of bilateral feet 1161829265208 9102 Active 2023 Jus Faye DPM [address], [place], [address] , [employer] [facility] [employer] [facility] [employer] 4 11:15:44 Unable to cut own toenails 895356491 Active 2023 Jus Faye DPM [address], [place], [address] , [facility] [employer] 4 11:15:54 Lymphedema 844257442 Active 2024 Jus Faye DPM [address], [place], [address] , [facility] [employer] [facility] [employer] [facility] [employer] [facility] [employer] 5 10:29:46 Problem Notes None recorded. Procedures Surgical History Date Name Laterality Status Provider Name and Address Organization Details Recorded Time 5 Nail Debridement completed Jus Faye DPM [address], [place], [address], [facility] [employer] 03/10/2025 10:27:54 5 Nail Debridement completed Jus Faye DPM [address], [place], [address], [facility] [employer] [facility] [facility] [employer] 12/09/2024 10:57:59 5 Callus Debridement, One completed Jus Faye DPM [address], [place], [address], [facility] 10/10/2024 14:57:46 5 Nail Debridement completed Jus Faye DPM [address], [place], [address], [employer] [place] [employer] [facility] [employer] [facility] [employer] [facility] [employer] 09/09/2024 10:17:22 5 Callus Debridement, One completed Jus Faye DPM [address], [place], [address], [employer] [place] [employer] [facility] [employer] [facility] [facility] [employer] 09/09/2024 10:17:12 5 Nail Debridement completed Jus Faye DPM [address], [place], [address], [employer] [facility] [employer] [facility] [employer] 06/10/2024 10:26:03 4 Nail Debridement completed Jus Faye DPM [address], [place], [address], [employer] [place] [employer] [facility] [employer] 03/11/2024 10:40:17 4 Nail Debridement completed Jus Faye DPM [address], [place], [address], [employer] [facility] [employer] 12/11/2023 16:34:23 4 Callus Debridement 2-4 completed Jus Faye DPM [address], [place], [address], [employer] [facility] [facility] [employer] 12/11/2023 16:34:28 4 Nail Debridement completed Jus Faye DPM [address], [place], [address], [employer] [facility] [employer] 10/02/2023 11:15:18 4 Nail Debridement completed Jus Faye DPM [address], [place], [address], [employer] [place] [employer] [employer] [facility] [facility] [employer] 06/19/2023 16:09:24 3 Nail Debridement completed Jus Faye DPM [address], [place], [address], [employer] [place] [employer] [facility] [employer] 03/02/2023 10:00:08 Imaging Results None recorded. Procedure Notes None recorded. Medical Equipment None Reported. Allergies Allergen ID Allergen Name Allergen Category Reaction Reaction Severity Criticality Documentation Date Start Date Code Code System Note Provider Name and Address Organization Details Recorded Time 5180 Demerol medicatio n Not available Not available Not available 07/20/2022 82868 1 RxNorm Not Available [facility] 3 03:07:12 Medications Name Sig Start [...] TO THE AFFECTED AREA(S) IN A THIN BLOCK PLACER TO TWO TIMES DAILY. active Not Available [...] tablet TK 1 T PO ONCE PRF SHANK INSPECTOR EVAL 02/27 completed Not Available Not Available [...] weight Heart rate Respiratory rate Oxygen saturation Provider Name and Address Organization Details Last Updated DateTime 5 154.94 cm 42.5 kg/m2 817488. 28 g 89 /min 14 /min 98 % Aissatou Dhaliwal [facility] [facility] 5 09:46:37 Social History None recorded. Functional Status Question Answer Note LastModified by Organization D etails LastModified Time What is your level of alcohol consumption? None Information not available 10/21/2022 Mental Status None recorded. Family History Relationship Description Onset Age of this Age Resolved Age Notes LastModified by Organization Details LastModified Time Mother Heart disease [email or web address] Not available 2022 14:33:53 Mother Hypertensive disorder Not available 2022 14:34:09 Medical History Condition Response ARTHRITIS Y HEART DISEASE/HEART PROBLEMS Y HYPERTENSION Y Gynecological HistoryNo gynecological history recorded. Obstetrics History GPAL:G 0 P 0 0 0 0 Past Encounters Encounter ID Performer Location Encounter Start Date Encounter Closed Date Diagnosis/Indication Diagnosis SNOMED-CT Code Diagnosis ICD10 Code Diagnosis IMO Codes Diagnosis Note [id number] Jus Faye DPM [facility] [place] [address] [place] [address] 03/10/2025 09:44:00 03/11/2025 14:40:58 Dystrophia unguium 16816886 L60.3 nails debrided without incidentfo llow-up as needed Need for p ersonal care assistance 1673903511 0590083 Z74.1 1701219 Lymphedema 572319460 I89 .0 72620 bilateral legsrecomm end compressio n stocking/s ocksfollow up with cardiology Health Concerns Section Related Observation LastModified by Organization Detai ls LastModified Time None Recorded Concern Status LastModified by Organization Details LastModified Time None Recorded Payers Encounter Date Sequence Insurance Name Policy Number Policy Cruz Covered Member ID Cruz Member ID Guarantor Name 03/10/2025 1 [employer] (MEDICARE REPLACEMENT/ ADVANTAGE - PPO) [id number] Eileen Maza [id number] Eileen [place] Maza Notes Date Note Type Note Provider Name and Address Organization Details Recorded Time 03/10/2025 text/html . Patient is a 74-year-old female who returns for routine foot care. Patient states she has had some increased swelling of her legs. I did recommend compression which she is not currently utilize. Patient is on hydrochlorothiazid e. I did recommend that she keep her legs elevated when she is at rest. She does not have any pain in her calves. Patient denies any pain in her legs or trouble breathing. I did advise patient to follow-up with her human resources manager if the swelling continues. Jus Faye DPM [address] [address], [place], [address], [place] [facility] [employer] 03/10/2025 10:31:31 OBGyn Episode No OBEpisode recorded.
--- OUTSIDE RECORDS SUMMARY | 2025-05-12 07:00 | XMS_ITS | Data Portability ---
Author Organization [place] [employer], Main Office Address [address] [place] [address] Care Team Providers Care Furnace Builder Name Role Phone EBONY BOSTON Primary Care Provider [phone] EBONY BOSTON Referring Provider Assessment Encounter Date Assessment Date Assessment LastModified by Organization Details LastModified Time 06/10/2024 06/10/2024 This note is dictated and transcribed by [employer]. Hat Lacer variances may occur. Despite proofreading, typographical errors may occur. Occasional wrong-word or 'cqqqw-i-mbgu' substitutions may have occurred due to the inherent limitations of voice recording. Read the chart carefully and recognize, using context, where substitutions have occurred. [email or web address] Not available 06/10/2024 10:26:10 09/09/2024 09/09/2024 This note is dictated and transcribed by [employer]. Hat Lacer variances may occur. Despite proofreading, typographical errors may occur. Occasional wrong-word or 'smoxc-v-nnqs' substitutions may have occurred due to the inherent limitations of voice recording. Read the chart carefully and recognize, using context, where substitutions have occurred. Not available 09/09/2024 10:18:30 10/10/2024 10/10/2024 This note is dictated and transcribed by [employer]. Hat Lacer variances may occur. Despite proofreading, typographical errors may occur. Occasional wrong-word or 'lfdyt-i-bmax' substitutions may have occurred due to the inherent limitations of voice recording. Read the chart carefully and recognize, using context, where substitutions have occurred. Not available 10/10/2024 14:31:34 12/09/2024 12/09/2024 This note is dictated and transcribed by [employer]. Hat Lacer variances may occur. Despite proofreading, typographical errors may occur. Occasional wrong-word or 'pchhe-d-mwen' substitutions may have occurred due to the inherent limitations of voice recording. Read the chart carefully and recognize, using context, where substitutions have occurred. Not available 12/09/2024 10:56:18 03/10/2025 03/10/2025 This note is dictated and transcribed by [employer]. Hat Lacer variances may occur. Despite proofreading, typographical errors may occur. Occasional wrong-word or 'bxzdb-f-pecz' substitutions may have occurred due to the [...] 3 or more view 2024 025 [email or web address] [facility], [address], [place], [address], 10/10/2024 14:33:04 Medication Orders None recorded. Patient TargetsNo targets recorded. Patient InstructionsNo instructions recorded. Reason for Referral None Reported. Results Created Date Observation Date Name Description Value Unit Range Abnormal Flag Note LastModifiedBy Organization Detail LastModifiedTime 10/11/19 25 XR, foot, 3 or more view No observ ation record ed. [email or web address] [facility] [address], [place], [address], 10/10/2024 14:33:00 Result Notes None recorded. Problems Name Problem SNOMED Code Status Onset Date Resolution Date Notes Provider Name and Address Organization Details Recorded Time Disorder of shoulder 064454546 Active Not Available [employer] 3 02:51:10 Pain of joint of wrist 746509427 Active Not Available [facility] 3 02:51:10 Intractabl e plantar keratoma 456499852 Active Not Available [facility] 3 02:51:10 Transient cerebral ischemia 716408140 Active Not Available [facility] 3 02:51:10 Raynaud's phenomenon 474666671 Active Not Available [facility] 3 02:51:10 Anemia 786065799 Active Not Available [facility] 3 02:51:10 Osteopenia 232836239 Active Not Available [facility] 3 02:51:11 Disorder of back 32401361 Active Not Available [facility] 3 02:51:11 Osteoarthr itis 284123824 Active Not Available [facility] 3 02:51:11 Disorder characteri zed by back pain 332859459 Active Not Available [facility] 3 02:51:11 Dizziness 651674473 Active Not Available [facility] 3 02:51:12 Hypothyroi dism 13390708 Active Not Available [facility] 3 02:51:12 Conduction disorder of the heart 25676307 Active Not Available [facility] 3 02:51:12 Upper respirator y infection 17423870 Active Not Available [facility] 3 02:51:12 Hyperlipid emia 98374684 Active Not Available [facility] 3 02:51:12 Degenerati on of lumbosacra l interverte bral disc 27023704 Active Not Available [facility] 3 02:51:12 Closed fracture of phalanx of foot 99932659 Active Not Available [facility] 3 02:51:13 Lipoma 58488163 Active Not Available [facility] 3 02:51:13 Porokerato sis 511723411 Active 2020 Jus Faye, [employer] [address], [place], [address] , [facility] [employer] [facility] 5 14:31:44 Dystrophia unguium 17464498 Active 2020 Not Available [employer] 3 02:51:13 Pain of right elbow joint 1842939045932 9109 Active 2022 KASANDRA Miranda shayan, [place] [employer] [facility] [employer] 3 14:35:01 Peripheral vascular disease 436620105 Active 2023 Jus Faye DPM [address], [address], [place], [address] , [employer] [facility] [employer] 4 16:08:20 Pain of toes of bilateral feet 5407239545910 9102 Active 2023 Jus Faye DPM [address], [address], [place], [address] , [employer] [facility] [employer] 4 11:15:44 Unable to cut own toenails 501718756 Active 2023 Jus Faye DPM [address], [address], [place], [address] , [employer] [facility] [employer] 4 11:15:54 Lymphedema 212319613 Active 2024 Jus Faye DPM [address], [place], [address] , [employer] [facility] [employer] 5 10:29:46 Problem Notes None recorded. Procedures Surgical History Date Name Laterality Status Provider Name and Address Organization Details Recorded Time 5 Nail Debridement completed Jus Faye DPM [address], [place], [address], [facility] [employer] [facility] [employer] 03/10/2025 10:27:54 5 Nail Debridement completed Jus Faye DPM [address], [address], [place], [address], [facility] [employer] [facility] [employer] 12/09/2024 10:57:59 5 Callus Debridement, One completed Jus Faye DPM [address], [place], [address], [facility] [employer] [facility] 10/10/2024 14:57:46 5 Nail Debridement completed Jus Faye DPM [address], [place], [address], Other [employer] [place] [employer] [facility] [employer] 09/09/2024 10:17:22 5 Callus Debridement, One completed Jus Faye DPM [address], [place], [address], [facility] [employer] [facility] 09/09/2024 10:17:12 5 Nail Debridement completed Jus Faye DPM [address], [place], [address], [employer] [place] [employer] [facility] 06/10/2024 10:26:03 4 Nail Debridement completed Jus Faye DPM [address], [place], [address], [facility] [employer] [facility] 03/11/2024 10:40:17 4 Nail Debridement completed Jus Faye DPM [address], [place], [address], [employer] [facility] [employer] [facility] 12/11/2023 16:34:23 4 Callus Debridement 2-4 completed Jus Faye DPM [address], [place], [address], [facility] [employer] [facility] 12/11/2023 16:34:28 4 Nail Debridement completed Jus Faye DPM [address], [place], [address], [facility] [employer] [facility] 10/02/2023 11:15:18 4 Nail Debridement completed Jus Faye DPM [address], [place], [address], [facility] [employer] [facility] [employer] 06/19/2023 16:09:24 3 Nail Debridement completed Jus Faye DPM [address], [place], [address], [place] [facility] 03/02/2023 10:00:08 Imaging Results None recorded. Procedure Notes None recorded. Medical Equipment None Reported. Allergies Allergen ID Allergen Name Allergen Category Reaction Reaction Severity Criticality Documentation Date Start Date Code Code System Note Provider Name and Address Organization Details Recorded Time 5180 Demerol medicatio n Not available Not available Not available 07/20/2022 74700 1 RxNorm Not Available [facility] 03:07:12 Medications Name Sig Start [...] TO THE AFFECTED AREA(S) IN A THIN RABIES INSPECTOR TO TWO TIMES DAILY. active Not Available [...] tablet TK 1 T PO ONCE PRF MECHATRONICS ENGINEER EVAL 02/27 completed Not Available Not Available [...] weight Heart rate Respiratory rate Oxygen saturation Systolic And Diastolic Provider Name and Address Organization Details Last Updated DateTime 5 154.94 cm 42.5 kg/m2 387674. 28 g 61 /min 14 /min 98 % 136/86 mm[Hg] [employer] 5 09:31:13 Date Recorded Body height Body mass index (BMI) Body weight Heart rate Respiratory rate Oxygen saturation Systolic And Diastolic Provider Name and Address Organization Details Last Updated DateTime 5 154.94 cm 42.5 kg/m2 944419. 28 g 73 /min 14 /min 98 % 112/67 mm[Hg] [employer] 5 09:51:14 Date Recorded Body height Body mass index (BMI) Body weight Heart rate Respiratory rate Oxygen saturation Systolic And Diastolic Provider Name and Address Organization Details Last Updated DateTime 5 154.94 cm 42.5 kg/m2 480160. 28 g 73 /min 14 /min 98 % 106/85 mm[Hg] [employer] 5 14:11:14 Date Recorded Body height Body mass index (BMI) Body weight Heart rate Respiratory rate Oxygen saturation Systolic And Diastolic Provider Name and Address Organization Details Last Updated DateTime 5 154.94 cm 42.5 kg/m2 989224. 28 g 79 /min 14 /min 98 % 110/62 mm[Hg] [employer] 5 09:43:56 Date Recorded Body height Body mass index (BMI) Body weight Heart rate Respiratory rate Oxygen saturation Provider Name and Address Organization Details Last Updated DateTime 5 154.94 cm 42.5 kg/m2 719699. 28 g 89 /min 14 /min 98 % [facility] Dhaliwal [facility] [place] [facility] 09:46:37 Social History None recorded. Functional Status Question Answer Note LastModified by Organization D etails LastModified Time What is your level of alcohol consumption? None [email or web address] Information not available 10/21/2022 Mental Status None recorded. Family History Relationship Description Onset Age of this Age Resolved Age Notes LastModified by Organization Details LastModified Time Mother Heart disease [email or web address] Not available 2022 14:33:53 Mother Hypertensive disorder [email or web address] Not available 2022 14:34:09 Medical History Condition Response ARTHRITIS Y HEART DISEASE/HEART PROBLEMS Y HYPERTENSION Y Gynecological HistoryNo gynecological history recorded. Obstetrics History GPAL:G 0 P 0 0 0 0 Past Encounters Encounter ID Performer Location Encounter Start Date Encounter Closed Date Diagnosis/Indication Diagnosis SNOMED-CT Code Diagnosis ICD10 Code Diagnosis IMO Codes Diagnosis Note [id number] [facility] [address] [place] [address] 11/26/2020 00:00:00 12/03/2020 08:37:57 [id number] [facility] [address] [place] [address] 05/31/2021 00:00:00 05/31/2021 14:17:21 [id number] [facility] [address] [place] [address] 08/23/2021 00:00:00 08/24/2021 12:12:15 [id number] Bladimir Valderrama MD [facility] [address] [place] [address] 10/21/2022 14:05:12 10/21/2022 15:41:45 Pain of right elbow joint 1650296888 1950224 M25.521 [id number] Bladimir Valderrama MD [facility] [address] [place] [address] 10/28/2022 11:44:15 11/21/2022 09:27:11 Pain of right elbow joint 3998809531 0756272 M25.978 [id number] Jus Faye DPM [facility] [address] [place] [address] 03/02/2023 09:39:02 03/02/2023 10:12:16 Dystrophia unguium 14000917 L60.3 left footnails debrided without incidentfo llow-up as needed Pain of to e of left foot 0140386138 39561 M79.675 foot great toe [id number] Jus Faye DPM [facility] [address] [place] [address] 06/19/2023 15:32:40 06/19/2023 16:29:31 Peripheral vascular disease 523223856 I73.9 Noninvasiv e vascular testing Dystrophia unguium 49394 009 L60.3 nails debrided without incidentfo llow-up as needed [id number] Jus Faye DPM [facility] [address] [place] [address] 07/13/2023 16:28:45 07/17/2023 17:25:45 Peripheral vascular disease 799287888 I73.9 Noninvasiv e vascular testing reviewed - mild dz bilatrecom mend daily exercisemo nitor for wounds and claudicati on, if present return to repeat testing [id number] Jus Faye DPM [facility] [address] [place] [address] 10/02/2023 10:29:32 10/02/2023 11:23:46 Dystrophia unguium 57746291 L60.3 nails debrided without incidentfo llow-up as needed Pain of to es of bilateral feet 6635846319 1734733 M79.674 M79.675 secondary to above Unable to cut own toenails 125602031 Z74.1 [id number] Jus Faye DPM [facility] [address] [place] [address] 12/11/2023 15:36:58 12/12/2023 16:33:23 Porokeratosis 243759340 Q82.8 M79.672 Debrided without incidentco ntinue over-the-c ounter AmlactinUs e pumice stone dailyfollo w-up in 2-3 months Pain in bi lateral feet 4651679141 6183412 M79.671 M79.672 Dystrophia unguium 03261 009 L60.3 nails debrided without incidentfo llow-up as needed [id number] Jus Faye DPM [facility] [address] [place] [address] 03/11/2024 09:30:38 03/12/2024 14:14:13 Dystrophia unguium 16753026 L60.3 nails debrided without incidentfo llow-up as needed Pain of to es of bilateral feet 4116025459 4366622 M79.674 M79.675 secondary to above [id number] Jus Faye DPM [facility] [address] [place] [address] 06/10/2024 09:26:39 06/14/2024 13:19:24 Dystrophia unguium 31147127 L60.3 nails debrided without incidentfo llow-up as needed Pain of to es of bilateral feet 3033088898 9233433 M79.674 M79.675 secondary to above [id number] Jus Faye DPM [facility] [address] [place] [address] 09/09/2024 09:19:46 09/11/2024 08:30:22 Dystrophia unguium 26357641 L60.3 nails debrided without incidentfo llow-up as needed Porokeratosis 373726581 Q82.8 M79.672 Debrided without incidentco ntinue over-the-c ounter AmlactinUs e pumice stone dailyfollo w-up in 2-3 months [id number] Jus Faye DPM [facility] [address] [place] [address] 10/10/2024 13:41:15 10/11/2024 11:34:08 Pain in right foot 2363440737 11373 M79.671 843514 sub 5th metatarsal head n0Brtxbthi d pumice stone and Amlactin lotion Porokeratosis 658105102 Q82.8 71730 Debrided without incidentco ntinue over-the-c ounter AmlactinUs e pumice stone dailyfollo w-up in 2-3 months [id number] Jus Faye DPM [facility] [address] [place] [address] 12/09/2024 09:38:52 12/13/2024 16:13:36 Unable to cut own toenails 286176460 Z74.1 Porokeratosis 084313306 Q82.8 48023 Resolved right footcontin ue over-the-c ounter AmlactinUs e pumice stone dailyfollo w-up in 2-3 months Pain of to es of bilateral feet 7747317585 4562087 M79.674 M79.675 secondary to above Dystrophia unguium 10996 009 L60.3 nails debrided without incidentfo llow-up as needed [id number] Jus Faye DPM [facility] [address] [place] [address] 03/10/2025 09:44:00 03/11/2025 14:40:58 Dystrophia unguium 92417814 L60.3 nails debrided without incidentfo llow-up as needed Need for p ersonal care assistance 3101940942 4703318 Z74.1 7896820 Lymphedema 669724006 I89 .0 72922 bilateral legsrecomm end compressio n stocking/s ocksfollow [...] 1 [employer] (MEDICARE REPLACEMENT/ ADVANTAGE - PPO) [id number] Eileen Maza [id number] Eileen Maza 10/10/2024 1 [employer] (PPO) [id number] Eileen Maza [id number] [place] [facility] Notes Date Note Type [...] currently being treated. Jus Faye DPM [address] [employer] [address], [place], [address], [employer] 06/10/2024 10:26:28 09/09/2024 text/html . Patient is [...] other complaints. Jus Faye DPM [address], [place], [address], [employer] 09/09/2024 10:19:01 10/10/2024 text/html . Patient is [...] Faye DPM [address], [place], [address], [employer] 10/10/2024 14:58:05 12/09/2024 text/html . Patient is [...] Faye DPM [address], [place], [address], [employer] 12/09/2024 10:58:15 03/10/2025 text/html . Patient is [...] did advise patient to follow-up with her coding tech if the swelling continues. Jus Faye DPM [address], [place], [address], [employer] 03/10/2025 10:31:31 OBGyn Episode No OBEpisode recorded.
[2025-05-12 07:37] LABS: Anion Gap 8 mmol/L (4-12); Blood Urea Nitrogen 12 mg/dL (7-17); Calcium 9.4 mg/dL (8.4-10.2); Carbon Dioxide 25 mmol/L (22-30); Chloride 105 mmol/L (98-107); Cholesterol 152 mg/dL (0-200); Estimated Glomerular Filt Rate > 60; Glucose 95 mg/dL (65-110); HDL Direct 58 mg/dL; Potassium 4.3 mmol/L (3.4-5.0); Sodium 138 mmol/L (137-145); Triglycerides 105 mg/dL (<150)
[2025-05-12 08:06] LABS: CRP < 0.5 mg/dL (<1.0)
== END 2025-05-12 06:58 | disposition home or self-care (01) ==
PROVIDERS: PCP Internal Medicine; Visit Provider Internal Medicine
DX: M31.6 Other giant cell arteritis (principal); E78.2 Mixed hyperlipidemia
CPT/HCPCS: 36415; 80048; 80061; 85652; 86140